=== PATIENT | female | born 1965 | race African-American/Black ===

== ENCOUNTER 2016-08-19 14:16 | Inpatient (IN) ==
[2016-08-19] MEDS ORDERED: Ipratropium/Albuterol Neb 3 ML IH ONE (14:19)
[2016-08-19] MEDS ORDERED: methylPREDNISolone 125 MG/2 ML VIAL IVP ONE (14:19)
--- NOTE | 2016-08-19 14:22 | Emergency Department Note ---
Disposition Clinical Impression: Hypoxia Asthma with exacerbation Qualifiers: Asthma severity: unspecified severity Qualified Code(s): J45.901 - Unspecified asthma with (acute) exacerbation Hypertension Qualifiers: Hypertension type: essential hypertension Qualified Code(s): I10 - Essential ( primary) hypertension Disposition: Admitted As Inpatient Condition: Good Referrals: Deepthi Garcia MD [Primary Care Provider] - Forms: ED Satisfaction Letter Time of Disposition: 14:58 SOB HPI - General Chief Complaint: ED Shortness of Breath/Dyspnea Stated Complaint: DAVID Time Seen by Provider: 08/19/16 14:19 Source: patient Mode of arrival: ambulatory Limitations: no limitations Nursing Notes Reviewed: Yes Vital Signs Reviewed: Yes - History of Present Illness 50-year-old with history of asthma comes in with increasing shortness of breath. States she hasn't felt well for the last couple of days. 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 SPECIALIST Context: recent illness Severity: moderate Consistency/Duration: constant Improves with: oxygen, bronchodilators Worsens with: exertion Known history of: asthma Associated symptoms: Reports: cough, wheezing Treatment prior to arrival: oxygen, bronchodilator Cough present: Yes Cough Description: Involuntary Cough Frequency: Intermittent - Related Data Home Medications Medication Instructions Recorded Confirmed Alprazolam [Xanax 0.5 MG Tablet] 0.5 mg PO BID #0 02/11/15 08/19/16 FLUoxetine HCl [Prozac] 40 mg PO DAILY #0 02/11/15 08/19/16 Furosemide [Lasix] 40 mg PO DAILY #0 02/11/15 08/19/16 Levothyroxine Sodium [Synthroid] 200 mcg PO DAILY #0 02/11/15 08/19/16 Omeprazole [PriLOSEC] 20 mg PO DAILY #0 02/11/15 08/19/16 Albuterol Sulfate [Ventolin Hfa] 2 puff IH Q4H PRN 01/02/16 08/19/16 Hydrochlorothiazide 25 mg PO DAILY 01/02/16 08/19/16 Hydrocodone/Acetaminophen [[place] 1 tab PO Q6HR PRN 01/02/16 08/19/16 5-325 Tablet] Meloxicam 15 mg PO DAILY 01/02/16 08/19/16 Umeclidinium [place] [Incruse 1 puff IH DAILY 01/02/16 08/19/16 Ellipta] Glimepiride [Amaryl] 4 mg PO DAILY 04/09/16 08/19/16 Amlodipine Besylate 10 mg PO DAILY 06/25/16 08/19/16 Atorvastatin [Lipitor] 40 mg PO HS 06/25/16 08/19/16 Levothyroxine [Synthroid] 25 mcg PO DAILY 06/25/16 08/19/16 Metoprolol [Lopressor] 25 mg PO BID 06/25/16 08/19/16 Budesonide/Formoterol 160/4.5 2 puff IH BIDR 08/19/16 08/19/16 [Symbicort 160/4.5] Metformin HCl [Metformin HCl ER] 750 mg PO DAILY 08/19/16 08/19/16 Previous Rx's Medication Instructions Recorded Aspirin 81 mg PO DAILY #30 tab.chew 02/13/15 Lisinopril [Zestril] 40 mg PO DAILY #30 tablet 02/13/15 Allergies Allergy/AdvReac Type Severity Reaction Status Date / Time No Known Allergies Allergy Verified 08/19/16 14:32 Constitutional: Denies: fever, chills, weakness, weight change Eyes: Denies: eye pain, eye discharge, vision change ENT ED: Denies: ear pain, throat pain, dental pain, hearing loss, epistaxis, congestion, dysphagia Cardiovascular: Denies: chest pain, palpitations, dyspnea on exertion, edema, syncope Respiratory: Reports: cough, dyspnea, wheezes Gastrointestinal: Denies: abdominal pain, nausea, vomiting, diarrhea, constipation, hematemesis, melena, hematochezia Genitourinary: Denies: dysuria, frequency, hematuria, discharge Musculoskeletal: Denies: back pain, neck pain, arthralgia, myalgia Integumentary: Denies: rash, abrasion, lesions Neurological: Denies: headache, weakness, numbness, paresthesias, confusion, abnormal gait, vertigo Psychiatric: Denies: anxiety, depression, suicidal thoughts, homicidal thoughts , auditory hallucinations, visual hallucinations Endocrine: Denies: fatigue Hematological/Lymphatic: Denies: easy bleeding, easy bruising Allergic/Immunologic: Denies: facial swelling, urticaria Past Medical History - Past Medical History Medical history: Reports: asthma, COPD, diabetes, GERD, hypertension, thyroid disease Surgical history: Reports: , cholecystectomy, other Psychiatric history: Reports: anxiety, depression ELECTRICAL TEST TECHNICIAN history: Reports: no ELECTRICAL TEST TECHNICIAN history - Social History Smoking Status: Current every day smoker Smokeless Tobacco Status: No Alcohol use: Reports: none Drug use: Reports: none Physical Exam - General Limitations: no limitations - Head Head exam: atraumatic, normocephalic, normal inspection - Eye Eye exam: Present: normal appearance, PERRL, EOMI - ENT ENT exam: normal exam, normal oropharynx, mucous membranes moist - Neck Neck exam: Present: normal inspection, full ROM, trachea midline - Chest Chest inspection: Present: normal inspection, symmetric chest wall rise - Respiratory Respiratory exam: Present: respiratory distress, wheezes - Cardiovascular Cardiovascular exam: Present: regular rate, normal rhythm, normal heart sounds - Abdominal Exam Abdominal exam: Present: soft, Non-Tender. Absent: tenderness, distention, guarding, rebound, rigidity - Extremities Exam Extremities exam: Present: normal inspection, full ROM. Absent: tenderness, pedal edema - Expanded Lower Extremity Exam Neurovascular/Tendon exam: Absent: motor deficit, sensory deficit, tendon deficit Gait: not tested/not observed - Back Exam Back exam: Present: normal inspection, full ROM. Absent: tenderness - Neurological Exam Neurological exam: Present: alert, oriented X3 - Psychiatric Psychiatric exam: Present: normal affect, normal mood - Skin Skin exam: Present: warm, dry, intact, normal color Course - Reevaluation(s) Reevaluation #1: 50-year-old comes in with shortness of breath and history of hypertension. Patient was short of breath couldn't take her blood pressure medicines today. She is wheezing throughout all lung fuentes were to go ahead and admit her Dr. Sanders wrote orders for blood pressure medicine. Time: 16:14 - Consultations Consultation #1: I discussed the case with , admit. actually saw the patient come in by squad and actually went in and saw the patient prior to any testing being returned. He accepts patient for admission. Time: 14:57 Vital Signs Temperature 98.6 F 08/19/16 14:22 Pulse Rate 76 08/19/16 14:22 Respiratory Rate 24 08/19/16 14:22 Blood Pressure 169/107 08/19/16 14:22 O2 Sat by Pulse Oximetry 90 L 08/19/16 14:22 Temperature 98.6 F 08/19/16 14:22 Pulse Rate 62 08/19/16 16:00 Respiratory Rate 24 08/19/16 16:00 Blood Pressure 226/120 08/19/16 16:00 O2 Sat by Pulse Oximetry 94 L 08/19/16 16:00 Oxygen Delivery Oxygen Delivery Nasal Cannula Shortness of Breath/Dyspnea - Lab Data Result diagrams: 08/19/16 14:40 08/19/16 14:40 Lab Results 08/19/16 08/19/16 08/19/16 Range/Units 14:40 14:40 14:40 WBC 5.3 (4.3-11.1) K/mcL RBC 6.54 H (3.82-4.97) M/mcL Hgb 14.8 (11.5-15.4) g/dL Hct 50.0 H (35.3-44.9) % MCV 76.5 L (83.0-100.0) fL MCH 22.6 L (28.0-33.3) pg MCHC 29.6 L (31.6-35.5) g/dL RDW 17.0 H (11.5-14.5) % Plt Count 193 (140-400) K/mcL MPV 10.2 (9.4-12.4) fL Immature Gran % 0.6 (0-4) % Seg Neutrophils % 39.1 % Lymphocytes % 45.0 % Monocytes % 8.6 % Eosinophils % 5.9 % Basophils % 0.8 % Neutrophils # 2.1 (1.6-8.9) K/mcL Lymphocytes # 2.4 (0.6-4.6) K/mcL Monocytes # 0.5 (0.0-1.3) K/mcL Eosinophils # 0.3 (0.0-0.6) K/mcL Basophils # 0.0 (0.0-0.2) K/mcL Sodium 141 (136-145) mEq/L Potassium 3.9 (3.5-4.5) mEq/L Chloride 102 (98-109) mEq/L Carbon Dioxide 30 H (19-29) mEq/L BUN 9 (7-20) mg/dL Creatinine 0.89 (0.57-1.11) mg/dL Est GFR ( Amer) > 60 (> 60) Est GFR (Non-Af Amer) > 60 (> 60) BUN/Creatinine Ratio 10 (6-26) Glucose 141 H (70-99) mg/dL Calculated Osmolality 293 (280-300) Lactic Acid (0.5-2.2) mmol/L Calcium 10.2 (8.6-10.8) mg/dL Troponin I 0.03 (0-0.03) ng/mL B-Natriuretic Peptide (0-100) pg/mL 08/19/16 08/19/16 Range/Units 14:40 14:49 WBC (4.3-11.1) K/mcL RBC (3.82-4.97) M/mcL Hgb (11.5-15.4) g/dL Hct (35.3-44.9) % MCV (83.0-100.0) fL MCH (28.0-33.3) pg MCHC (31.6-35.5) g/dL RDW (11.5-14.5) % Plt Count (140-400) K/mcL MPV (9.4-12.4) fL Immature Gran % (0-4) % Seg Neutrophils % % Lymphocytes % % Monocytes % % Eosinophils % % Basophils % % Neutrophils # (1.6-8.9) K/mcL Lymphocytes # (0.6-4.6) K/mcL Monocytes # (0.0-1.3) K/mcL Eosinophils # (0.0-0.6) K/mcL Basophils # (0.0-0.2) K/mcL Sodium (136-145) mEq/L Potassium (3.5-4.5) mEq/L Chloride (98-109) mEq/L Carbon Dioxide (19-29) mEq/L BUN (7-20) mg/dL Creatinine (0.57-1.11) mg/dL Est GFR ( Amer) (> 60) Est GFR (Non-Af Amer) (> 60) BUN/Creatinine Ratio (6-26) Glucose (70-99) mg/dL Calculated Osmolality (280-300) Lactic Acid 1.4 (0.5-2.2) mmol/L Calcium (8.6-10.8) mg/dL Troponin I (0-0.03) ng/mL B-Natriuretic Peptide 80 (0-100) pg/mL
[2016-08-19 14:58] LABS: Basophils % 0.8 %; Eosinophils # 0.3 K/mcL (0.0-0.6); Eosinophils % 5.9 %; Hemoglobin 14.8 g/dL (11.5-15.4); Immature Granulocytes % 0.6 % (0-4); Lymphocytes # 2.4 K/mcL (0.6-4.6); Mean Corpuscular HGB Conc 29.6 g/dL (31.6-35.5); Mean Corpuscular Hemoglobin 22.6 pg (28.0-33.3); Mean Corpuscular Volume 76.5 fL (83.0-100.0); Mean Platelet Volume 10.2 fL (9.4-12.4); Monocytes # 0.5 K/mcL (0.0-1.3); Monocytes % 8.6 %; Neutrophils # 2.1 K/mcL (1.6-8.9); Platelet Count 193 K/mcL (140-400); Red Blood Count 6.54 M/mcL (3.82-4.97); Segmented Neutrophils % 39.1 %
[2016-08-19 15:10] LABS: BUN/Creatinine Ratio 10 (6-26); Blood Urea Nitrogen 9 mg/dL (7-20); Calcium 10.2 mg/dL (8.6-10.8); Carbon Dioxide 30 mEq/L (19-29); Chloride 102 mEq/L (98-109); Glucose 141 mg/dL (70-99); Osmolality,Calculated 293 (280-300); Potassium 3.9 mEq/L (3.5-4.5); Sodium 141 mEq/L (136-145); eGFR For African Americans > 60 (> 60); eGFR For Non-African Americans > 60 (> 60)
[2016-08-19] MEDS ORDERED: *HR* Morphine 2 MG/ML SYRINGE IVP PRN (15:20)
[2016-08-19] MEDS ORDERED: Naloxone 0.4 MG/ML INJ IVP PRN (15:20)
[2016-08-19] MEDS ORDERED: MethylPREDNISolone 40 MG/ML VIAL IVP ONE (15:32)
--- NOTE | 2016-08-19 15:40 | Internal Med History&Physical ---
Date of Encounter: 08/21/16 Time of Encounter: 15:36 Assessment and Plan (1) Acute exacerbation of chronic obstructive pulmonary disease (COPD) Current visit: No Status: Acute COPD exacerbation: -Admitted as inpatient. -Intranasal oxygen: 2 L/m: To keep saturation above 88% -Blood culture. -IV levofloxacin 750 mg every 24 hours. -IV Solu-Medrol 40 mg every 8 hours. -Inhaled DuoNeb every 4 hours. -DVT prophylaxis -GI prophylaxis -Smoking cessation discussed at length. -We will send respiratory panel (2) Diabetes Current visit: No Status: Acute ACHS will adjust/Start insulin depending upon blood sugar Qualifiers: Diabetes mellitus type: type 2 Diabetes mellitus complication status: without complication Diabetes mellitus extermination inspector insulin use: unspecified correction insulin use status Qualified Code(s): E11.9 - Type 2 diabetes mellitus without complications (3) Hypothyroidism Current visit: No Status: Acute on replacement therapy Qualifiers: Hypothyroidism type: unspecified Qualified Code(s): E03.9 - Hypothyroidism , unspecified (4) Tobacco abuse Current visit: No Status: Acute Not willing to quit smoking (5) DVT prophylaxis Current visit: No Status: Acute Heparin Medical decision making: This patient is a [id number] risk of respiratory failure in spite of being on appropriate treatment. Internal Medicine - H&P: HPI Chief complaint: Shortness of breath Admitted From: Emergency Dept Plans for Post Hospital Care: Home History of present illness: PCP: [facility]. Brief PMH: DM, HTN, CAD, Morbid Obesity, COPD HPI: Patient has persistent ongoing cough along with the shortness of breath for past 4 days. It was noted that in last 48 hours her cough and shortness of breath got worsened. Patient is complaining of yellowish-green expectoration. Patient claims that she was unable to go to the restroom from her bed since last night. The immobility is secondary to the shortness of breath. Patient denies chest pain, abdominal pain, nausea, vomiting, and diarrhea. Course in the emergency room: Patient was brought by EMS. Patient was evaluated by emergency room physician. Baseline labs were done. Patient is persistently coughing and has yellowish-green expectoration. X-ray is pending. Reason for admission: COPD exacerbation. Family history: Noncontributory Past Med Surg Social Fam HX - Past Medical History Medical history: asthma, COPD, diabetes, GERD, hypertension, thyroid disease Psychiatric history: anxiety, depression - Past Surgical History Surgical History: , cholecystectomy, other - Social History Smoking Status: Current every day smoker Smokeless Tobacco Status: No Alcohol use: none Drug use: none - Family History Sister Adopted: No Family Member Ethnicity: Non- Living Status: Still Living Hx Family Cancer: Yes (stage 4 breast cancer) Mother Adopted: No Family Member Ethnicity: Non- Living Status: Hx Family Cardiac Disorders: Yes (PA) Hx Family Neurologic Disorders: Yes (seizures) Father Living Status: Still Living Hx Family Cardiac Disorders: Yes (HTN, heart disease, bipass) Internal Medicine - H&P: Meds Alprazolam [Xanax 0.5 MG Tablet] 0.5 mg PO BID #0 02/11/15 [History] FLUoxetine HCl [Prozac] 40 mg PO DAILY #0 02/11/15 [History] Furosemide [Lasix] 40 mg PO DAILY #0 02/11/15 [History] Levothyroxine Sodium [Synthroid] 200 mcg PO DAILY #0 02/11/15 [History] Omeprazole [PriLOSEC] 20 mg PO DAILY #0 02/11/15 [History] Aspirin 81 mg PO DAILY #30 tab.chew 02/13/15 [Rx] Lisinopril [Zestril] 40 mg PO DAILY #30 tablet 02/13/15 [Rx] Albuterol Sulfate [Ventolin Hfa] 2 puff IH Q4H PRN 01/02/16 [History] Hydrochlorothiazide 25 mg PO DAILY 01/02/16 [History] Hydrocodone/Acetaminophen [[place] 5-325 Tablet] 1 tab PO Q6HR PRN 01/02/16 [ History] Meloxicam 15 mg PO DAILY 01/02/16 [History] Umeclidinium [place] [Incruse Ellipta] 1 puff IH DAILY 01/02/16 [History] Glimepiride [Amaryl] 4 mg PO DAILY 04/09/16 [History] Amlodipine Besylate 10 mg PO DAILY 06/25/16 [History] Atorvastatin [Lipitor] 40 mg PO HS 06/25/16 [History] Levothyroxine [Synthroid] 25 mcg PO DAILY 06/25/16 [History] Metoprolol [Lopressor] 25 mg PO BID 06/25/16 [History] Budesonide/Formoterol 160/4.5 [Symbicort 160/4.5] 2 puff IH BIDR 08/19/16 [ History] Metformin HCl [Metformin HCl ER] 750 mg PO DAILY 08/19/16 [History] Allergies No Known Allergies Allergy (Verified 08/19/16 14:32) All Systems PM: A 10-system review of systems was performed and is negative for pertinent findings except as documented above in the HPI. - Constitutional Constitutional: no chills, no fever(s), no night sweats - EENT Eyes: no change in vision, no discharge, no pain, no photophobia Ears: no ear discharge, no ear pain, no tinnitus Nose, mouth and throat: no dysphagia, no nasal discharge, no neck pain, no sore throat - Cardiovascular Cardiovascular ROS IM: no chest pain, no diaphoresis, no dyspnea, no lightheadedness, no palpitations, no syncope - Respiratory Respiratory: dyspnea on exertion, wheezing, no cough, no dyspnea, no excessive phlegm production - Gastrointestinal Gastrointestinal: no abdominal pain, no diarrhea, no hematemesis, no hematochezia, no melena, no nausea, no vomiting - Genitourinary Genitourinary: no change in urinary stream, no dysuria, no flank pain, no hematuria - Musculoskeletal Musculoskeletal ROS IM: no numbness, no tingling - Integumentary Integumentary IM: no rash, no unusual bruising - Neurological Neurological ROS: no confusion, no convulsions, no focal weakness, no numbness, no tingling, no tremor(s) - Hematologic/Lymphatic Hematologic/Lymphatic: no easy bruising - Constitutional Vitals: Temp Pulse Resp BP Pulse Ox 98.6 F 73 20 196/88 96 08/19/16 14:22 08/19/16 14:59 08/19/16 14:59 08/19/16 14:59 08/19/16 14:59 General appearance: Present: A&O X 3, morbidly obese, pleasant, no acute distress, answers questions appropriately - Head Head exam: Present: atraumatic, normocephalic - Eye Eye exam: Present: PERRL, conjuntiva pink, sclera anicteric Pupils: Present: PERRL - Neck Neck exam general surgery: Present: supple, trachea midline. Absent: lymphadenopathy - Respiratory Respiratory exam: Present: CTAB. Absent: accessory muscle use, rales, rhonchi, wheezes - Cardiovascular Cardiovascular exam: Present: RRR, +S1, +S2. Absent: diastolic murmur, gallop, rubs, systolic murmur - GI/Abdominal GI/Abdominal exam: Present: normal bowel sounds, soft, no peritoneal signs. Absent: distended, tenderness - Extremities Exam Extremities exam: Present: warm, radial pulses palpable and symetrical. Absent : calf tenderness, cyanotic, pedal edema - Neurological Exam Neurological exam: Present: CN II-XII intact, oriented X3, no focal deficits. Absent: pronater drift, facial droop, speech deficit - Skin Skin exam: Present: dry, intact Internal Med - H&P Results - Labs CBC & Chem 7: 08/20/16 03:31 08/21/16 06:09 Labs: Short CBC 08/19/16 Range/Units 14:40 WBC 5.3 (4.3-11.1) K/mcL Hgb 14.8 (11.5-15.4) g/dL Hct 50.0 H (35.3-44.9) % Plt Count 193 (140-400) K/mcL Neutrophils # 2.1 (1.6-8.9) K/mcL BMP 08/19/16 14:40 Sodium 141 Potassium 3.9 Chloride 102 Carbon Dioxide 30 H BUN 9 Creatinine 0.89 Glucose 141 H Calcium 10.2 Cardiac Enzymes 08/19/16 Range/Units 14:40 Troponin I 0.03 (0-0.03) ng/mL - Impressions ITS Impressions Chest X-Ray 08/19/16 14:19 IMPRESSION: Mild cardiomegaly and pulmonary venous congestion. D/ / Reno Parson MD / Reno Parson MD Interpreting Provider: Reno Parson MD
[2016-08-19] MEDS: Ipratropium/Albuterol Neb 3 ML IH SCH ×3 (16:36→23:20)
[2016-08-19] MEDS: amLODIPine 5 MG TABLET PO SCH (17:06)
[2016-08-19] MEDS: hydroCHLOROthiazide 25 MG TABLET PO SCH (17:07)
[2016-08-19] MEDS: Lisinopril 20 MG TABLET PO SCH (17:07)
[2016-08-19] MEDS: Furosemide 40 MG TABLET PO SCH (17:08)
[2016-08-19] MEDS: FLUoxetine 20 MG CAPSULE PO SCH (18:31)
[2016-08-19] MEDS: *HR* Heparin 5,000 UNIT/ML VIAL SQ SCH (18:32)
[2016-08-19] MEDS: Levothyroxine 25 MCG TABLET PO SCH (18:32)
[2016-08-19] MEDS: Levofloxacin 750 MG/150 ML 750 MG/150 ML BAG IVPB SCH (18:32)
[2016-08-19] MEDS: Aspirin 81 MG TAB.CHEW PO SCH (18:32)
[2016-08-19] MEDS: *HR* Glimepiride 4 MG TABLET PO SCH (18:33)
[2016-08-19 18:59] LABS: Bilirubin,Urine Negative (Negative); Blood,Urine Small (Negative); Clarity,Urine Cloudy (Clear); Color,Urine Yellow (Yellow); Glucose,Urine (UA) Normal (Normal); Ketones,Urine Negative (Negative); Leukocyte Esterase,Urine Negative (Negative); Nitrite,Urine Negative (Negative); Protein,Urine 30 mg/dL (Neg-Trace); Specific Gravity,Urine 1.021 (1.010-1.025); Urobilinogen,Urine Normal (Normal)
[2016-08-19 19:02] LABS: Bacteria,Urine Few per hpf (None-Few); Hyaline Casts,Urine None Seen per lpf (None-Few); Squamous Epithelial Cell,Urine Many per lpf (None-Few)
[2016-08-19 19:12] LABS: Yeast,Urine Few per hpf (None Seen)
[2016-08-19 19:13] LABS: Oval Fat Bodies,Urine Present (Not Present)
[2016-08-19] MEDS: ALPRAZolam 0.5 MG TABLET PO SCH (21:08)
[2016-08-20] MEDS ORDERED: Ibuprofen 400 MG TABLET PO PRN (03:32)
[2016-08-20] MEDS ORDERED: Naloxone 0.4 MG/ML INJ IVP PRN (03:32)
[2016-08-20] MEDS: *HR* HYDROcodone/Acet 5/325 mg TABLET PO PRN (03:40)
[2016-08-20 04:02] LABS: Basophils % 0.2 %; Hematocrit 48.2 % (35.3-44.9); Hemoglobin 14.5 g/dL (11.5-15.4); Immature Granulocytes % 0.6 % (0-4); Lymphocytes # 1.2 K/mcL (0.6-4.6); Lymphocytes % 18.6 %; Mean Corpuscular HGB Conc 30.1 g/dL (31.6-35.5); Mean Corpuscular Hemoglobin 23.1 pg (28.0-33.3); Mean Corpuscular Volume 76.9 fL (83.0-100.0); Mean Platelet Volume 11.1 fL (9.4-12.4); Monocytes # 0.1 K/mcL (0.0-1.3); Monocytes % 2.3 %; Neutrophils # 4.8 K/mcL (1.6-8.9); Platelet Count 236 K/mcL (140-400); Red Blood Count 6.27 M/mcL (3.82-4.97); Red Cell Distribution Width 16.5 % (11.5-14.5); Segmented Neutrophils % 78.3 %
[2016-08-20 04:22] LABS: Albumin 3.5 g/dL (3.5-5.0); Albumin/Globulin Ratio 0.8 (1.1-2.2); Bilirubin,Total 0.3 mg/dL (0.2-1.2); Calcium 10.1 mg/dL (8.6-10.8); Globulin 4.6 g/dL (2.4-3.5); Phosphorous 3.1 mg/dL (2.3-4.7); Potassium 4.4 mEq/L (3.5-4.5); Total Protein 8.1 g/dL (6.0-8.3)
[2016-08-20] MEDS: Ipratropium/Albuterol Neb 3 ML IH SCH ×6 (04:42→23:51)
[2016-08-20] MEDS: *HR* Heparin 5,000 UNIT/ML VIAL SQ SCH ×2 (06:07→17:23)
[2016-08-20] MEDS: MethylPREDNISolone 40 MG/ML VIAL IVP SCH ×2 (08:32→17:23)
[2016-08-20] MEDS: FLUoxetine 20 MG CAPSULE PO SCH (08:32)
[2016-08-20] MEDS: ALPRAZolam 0.5 MG TABLET PO SCH ×2 (08:32→21:08)
[2016-08-20] MEDS: Furosemide 40 MG TABLET PO SCH (08:32)
[2016-08-20] MEDS: Lisinopril 20 MG TABLET PO SCH (08:33)
[2016-08-20] MEDS: Levothyroxine 25 MCG TABLET PO SCH (08:33)
[2016-08-20] MEDS: hydroCHLOROthiazide 25 MG TABLET PO SCH (08:33)
[2016-08-20] MEDS: hydrALAZINE 25 MG TABLET PO SCH ×2 (08:33→17:25)
[2016-08-20] MEDS: Aspirin 81 MG TAB.CHEW PO SCH (08:33)
[2016-08-20] MEDS: amLODIPine 5 MG TABLET PO SCH (08:34)
[2016-08-20] MEDS: Levofloxacin 750 MG/150 ML 750 MG/150 ML BAG IVPB SCH (08:34)
[2016-08-20] MEDS: *HR* Glimepiride 4 MG TABLET PO SCH (08:41)
--- NOTE | 2016-08-20 08:49 | Internal Med Progress Note ---
<Bryn Marks - Last Filed: 08/20/16 08:42> Date of Encounter: 08/20/16 Time of Encounter: 08:42 - Assessment and plan (1) Acute exacerbation of chronic obstructive pulmonary disease (COPD) Current Visit: No Status: Acute Assessment and plan: Oxygen saturation has been stable Continue medications as outlined below Respiratory panel still pending 08/19/16 -Intranasal oxygen: 2 L/m: To keep saturation above 88% -Blood culture. -IV levofloxacin 750 mg every 24 hours. -IV Solu-Medrol 40 mg every 8 hours. -Inhaled DuoNeb every 4 hours. -DVT prophylaxis -GI prophylaxis -Smoking cessation discussed at length. -We will send respiratory panel (2) Diabetes Current Visit: No Status: Acute Assessment and plan: Patient is on metformin and glimepiride at home with inconsistent compliance Blood glucose this morning = 336 We will discuss starting insulin during hospitalization Continue before meals at bedtime checks Qualifiers: Diabetes mellitus complication status: without complication Diabetes mellitus chcf insulin use: unspecified chcf insulin use status Qualified Code(s): E11.9 - Type 2 diabetes mellitus without complications (3) Hypothyroidism Current Visit: No Status: Acute Qualifiers: Qualified Code(s): E03.9 - Hypothyroidism, unspecified (4) Tobacco abuse Current Visit: No Status: Acute Assessment and plan: Discussed importance of smoking cessation (5) DVT prophylaxis Current Visit: No Status: Acute Assessment and plan: Continue heparin - Subjective Interval history: "Marie" has a history of COPD. She says that at home she can walk the length of her house without becoming short of breath some days while others this makes her short of breath. She lives in a trailer and is somewhat homebound, she has 6 children who take turns staying with her to help care for her. She also has a home health aide who comes twice a week. She uses oxygen every night, usually 2 L. She says her breathing has improved significantly relative to when she was admitted yesterday. She denies chest pain, abdominal pain, or other new issues. - Constitutional Vitals: Temp Pulse Resp BP Pulse Ox 98.2 F 93 18 171/90 93 L 08/20/16 07:18 08/20/16 07:18 08/20/16 07:18 08/20/16 07:18 08/20/16 07:18 General appearance: Present: A&O X 3, morbidly obese, pleasant, no acute distress, answers questions appropriately - Head Head exam: Present: atraumatic, normocephalic - Eye Eye exam: Present: PERRL, conjuntiva pink, sclera anicteric Pupils: Present: PERRL - Neck Neck exam general surgery: Present: supple, trachea midline. Absent: lymphadenopathy - Respiratory Respiratory exam: Present: decreased breath sounds, wheezes. Absent: accessory muscle use, rales, rhonchi - Cardiovascular Cardiovascular exam: Present: RRR, +S1, +S2. Absent: diastolic murmur, gallop, rubs, systolic murmur - GI/Abdominal GI/Abdominal exam: Present: normal bowel sounds, soft, no peritoneal signs. Absent: distended, tenderness - Extremities Exam Extremities exam: Present: warm, radial pulses palpable and symetrical. Absent : calf tenderness, cyanotic, pedal edema - Neurological Exam Neurological exam: Present: CN II-XII intact, oriented X3, no focal deficits. Absent: pronater drift, facial droop, speech deficit - Skin Skin exam: Present: dry, intact Internal Medicine: Result - Labs CBC & Chem 7: 08/20/16 03:31 08/20/16 03:31 Labs: Short CBC 08/20/16 Range/Units 03:31 WBC 6.2 (4.3-11.1) K/mcL Hgb 14.5 (11.5-15.4) g/dL Hct 48.2 H (35.3-44.9) % Plt Count 236 (140-400) K/mcL Neutrophils # 4.8 (1.6-8.9) K/mcL BMP 08/20/16 03:31 Sodium 138 Potassium 4.4 Chloride 99 Carbon Dioxide 26 BUN 19 D Creatinine 1.18 H Glucose 336 H Calcium 10.1 Cardiac Enzymes 08/19/16 08/20/16 Range/Units 20:56 03:31 Troponin I 0.03 0.03 (0-0.03) ng/mL Liver Function 08/20/16 Range/Units 03:31 Total Bilirubin 0.3 (0.2-1.2) mg/dL AST 16 (5-34) Units/L ALT 26 (0-55) Units/L Alkaline Phosphatase 157 H (38-126) Units/L Albumin 3.5 (3.5-5.0) g/dL Urine 08/19/16 Range/Units 18:38 Urine Color Yellow (Yellow) Urine Clarity Cloudy A (Clear) Urine pH 6.0 (5.0-8.0) pH Units Ur Specific Industry 1.021 (1.010-1.025) Urine Protein 30 H (Neg-Trace) mg/dL Urine Glucose (UA) Normal (Normal) mg/dL Consult Discharge Plan - Plan Referrals: Deepthi Garcia MD [Primary Care Provider] - 08/25/16 10:45 am () <Case Pierre - Last Filed: 08/20/16 16:11> Date of Encounter: 08/20/16 - Constitutional Vitals: Temp Pulse Resp BP Pulse Ox 98.1 F 94 18 164/88 92 L 08/20/16 10:38 08/20/16 10:38 08/20/16 10:38 08/20/16 10:38 08/20/16 10:38 Internal Medicine: Result - Labs CBC & Chem 7: 08/20/16 03:31 08/20/16 03:31 Labs: Short CBC 08/20/16 Range/Units 03:31 WBC 6.2 (4.3-11.1) K/mcL Hgb 14.5 (11.5-15.4) g/dL Hct 48.2 H (35.3-44.9) % Plt Count 236 (140-400) K/mcL Neutrophils # 4.8 (1.6-8.9) K/mcL BMP 08/20/16 03:31 Sodium 138 Potassium 4.4 Chloride 99 Carbon Dioxide 26 BUN 19 D Creatinine 1.18 H Glucose 336 H Calcium 10.1 Cardiac Enzymes 08/19/16 08/20/16 Range/Units 20:56 03:31 Troponin I 0.03 0.03 (0-0.03) ng/mL Liver Function 08/20/16 Range/Units 03:31 Total Bilirubin 0.3 (0.2-1.2) mg/dL AST 16 (5-34) Units/L ALT 26 (0-55) Units/L Alkaline Phosphatase 157 H (38-126) Units/L Albumin 3.5 (3.5-5.0) g/dL Urine 08/19/16 Range/Units 18:38 Urine Color Yellow (Yellow) Urine Clarity Cloudy A (Clear) Urine pH 6.0 (5.0-8.0) pH Units Ur Specific Industry 1.021 (1.010-1.025) Urine Protein 30 H (Neg-Trace) mg/dL Urine Glucose (UA) Normal (Normal) mg/dL - Attending Attestation I examined this patient and my medical decision-making was reviewed with the PROMOTIONAL MODEL/PA/Advanced Practice Nurse/Resident Physician. I agree with the documented findings, disposition and treatment plan as described except to the extent set forth below. COPD exacerbation in morbidly obese patient with underlying LEXIE, refusing bipap. Bipap ordered anyway. Patient is at high risk of respiratory failure.
--- NOTE | 2016-08-20 09:49 | Electrocardiograph Report ---
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
[2016-08-20] MEDS ORDERED: Dextrose Gel 15 GM PO PRN ×2 (10:39)
[2016-08-20] MEDS ORDERED: *HR* Dextrose 50 % in Water (Syg) 50 ML SYRINGE IVP PRN (10:39)
[2016-08-20] MEDS ORDERED: D5% in Water 1,000 ML IV PRN (10:39)
[2016-08-20] MEDS: Insulin LISPRO 300 UNITS/3 ML VIAL SQ SCH ×3 (11:53→21:09)
[2016-08-20] MEDS ORDERED: Insulin DETEMIR 100 UNIT/ML X5UNITS SQ SCH (21:00)
[2016-08-20] MEDS ORDERED: Insulin LISPRO 300 UNITS/3 ML VIAL SQ SCH (21:00)
[2016-08-21] MEDS: MethylPREDNISolone 40 MG/ML VIAL IVP SCH ×3 (01:28→16:25)
[2016-08-21] MEDS: hydrALAZINE 25 MG TABLET PO SCH ×3 (02:28→16:26)
[2016-08-21] MEDS: Ipratropium/Albuterol Neb 3 ML IH SCH ×6 (03:33→23:03)
[2016-08-21] MEDS: *HR* Heparin 5,000 UNIT/ML VIAL SQ SCH ×2 (06:11→16:25)
[2016-08-21 07:00] LABS: Hemoglobin A1C 9.4 %
[2016-08-21 07:14] LABS: Calcium 10.1 mg/dL (8.6-10.8); Potassium 4.5 mEq/L (3.5-4.5)
[2016-08-21 07:31] LABS: Basophils % 0.1 %; Hematocrit 47.9 % (35.3-44.9); Hemoglobin 14.6 g/dL (11.5-15.4); Immature Granulocytes % 0.7 % (0-4); Lymphocytes # 1.1 K/mcL (0.6-4.6); Mean Corpuscular HGB Conc 30.5 g/dL (31.6-35.5); Mean Corpuscular Hemoglobin 23.3 pg (28.0-33.3); Mean Corpuscular Volume 76.5 fL (83.0-100.0); Mean Platelet Volume 11.1 fL (9.4-12.4); Monocytes # 0.5 K/mcL (0.0-1.3); Neutrophils # 14.1 K/mcL (1.6-8.9); Platelet Count 237 K/mcL (140-400); Red Blood Count 6.26 M/mcL (3.82-4.97); Red Cell Distribution Width 17.1 % (11.5-14.5); Segmented Neutrophils % 89.2 %
[2016-08-21] MEDS: hydroCHLOROthiazide 25 MG TABLET PO SCH (08:02)
[2016-08-21] MEDS: Lisinopril 20 MG TABLET PO SCH (08:02)
[2016-08-21] MEDS: FLUoxetine 20 MG CAPSULE PO SCH (08:02)
[2016-08-21] MEDS: Insulin LISPRO 300 UNITS/3 ML VIAL SQ SCH ×3 (08:02→22:06)
[2016-08-21] MEDS: amLODIPine 5 MG TABLET PO SCH (08:02)
[2016-08-21] MEDS: Levothyroxine 25 MCG TABLET PO SCH (08:02)
[2016-08-21] MEDS: Aspirin 81 MG TAB.CHEW PO SCH (08:03)
[2016-08-21] MEDS: Levofloxacin 750 MG/150 ML 750 MG/150 ML BAG IVPB SCH (08:03)
[2016-08-21] MEDS: Furosemide 40 MG TABLET PO SCH (08:03)
[2016-08-21] MEDS: ALPRAZolam 0.5 MG TABLET PO SCH ×2 (08:03→22:06)
--- NOTE | 2016-08-21 11:36 | Internal Med Progress Note ---
<Bryn Marks - Last Filed: 08/21/16 11:34> Date of Encounter: 08/21/16 Time of Encounter: 09:00 - Assessment and plan (1) Acute exacerbation of chronic obstructive pulmonary disease (COPD) Current Visit: No Status: Acute Assessment and plan: Oxygen saturation has been stable Continue medications as outlined below 08/19/16 -Intranasal oxygen: 2 L/m: To keep saturation above 88% -Blood culture. -IV levofloxacin 750 mg every 24 hours. -IV Solu-Medrol 40 mg every 8 hours. -Inhaled DuoNeb every 4 hours. -DVT prophylaxis -GI prophylaxis -Smoking cessation discussed at length. -We will send respiratory panel (2) Hypertension Current Visit: Yes Status: Acute Assessment and plan: Contacted patient's pharmacy and they verified that medications currently listed as her home medications are accurate. She has been filling her medications consistently Despite multiple antihypertensive classes, her systolic blood pressure remains elevated in the 170s Patient is not having symptoms We will increase her hydralazine Consider adding isosorbide mononitrate depending on response She has a history of sleep apnea, encouraged to use BiPAP but patient refuses BUN and creatinine are elevated. Chart review reveals this has happened in the past. This is likely due to steroid treatment however we will continue to monitor and consider discontinuing CHRISS inhibitor for any worsening Qualifiers: Qualified Code(s): I10 - Essential (primary) hypertension (3) Diabetes Current Visit: No Status: Acute Assessment and plan: Patient is on metformin and glimepiride at home with inconsistent compliance Blood glucose still elevated despite basal insulin and Humalog This is likely a reaction to steroid treatment We will increase her basal dose Continue before meals at bedtime checks Qualifiers: Diabetes mellitus type: type 2 Diabetes mellitus complication status: without complication Diabetes mellitus long-term insulin use: unspecified terminal system operator insulin use status Qualified Code(s): E11.9 - Type 2 diabetes mellitus without complications (4) Hypothyroidism Current Visit: No Status: Acute Qualifiers: Hypothyroidism type: unspecified Qualified Code(s): E03.9 - Hypothyroidism , unspecified (5) Tobacco abuse Current Visit: No Status: Acute Assessment and plan: Discussed importance of smoking cessation (6) DVT prophylaxis Current Visit: No Status: Acute Assessment and plan: Continue heparin - Subjective Interval history: Patient was seen and examined at bedside this morning. She seems "groggy", so she did not sleep last night. She does not use her BiPAP. She says this is typical for her her when she wakes up in the morning. I did a complete neuro exam which was normal. She says her breathing is okay. She denies chest pain , abdominal pain, or other new issues. - Constitutional Vitals: Temp Pulse Resp BP Pulse Ox 97.6 F 59 18 175/104 91 L 08/21/16 07:52 08/21/16 07:52 08/21/16 11:17 08/21/16 07:52 08/21/16 11:17 General appearance: Present: A&O X 3, morbidly obese, pleasant, no acute distress, answers questions appropriately - Head Head exam: Present: atraumatic, normocephalic - Eye Eye exam: Present: PERRL, conjuntiva pink, sclera anicteric Pupils: Present: PERRL - Neck Neck exam general surgery: Present: supple, trachea midline. Absent: lymphadenopathy - Respiratory Respiratory exam: Present: decreased breath sounds. Absent: accessory muscle use, rales, wheezes - Cardiovascular Cardiovascular exam: Present: RRR, +S1, +S2. Absent: diastolic murmur, gallop, rubs, systolic murmur - GI/Abdominal GI/Abdominal exam: Present: normal bowel sounds, soft, no peritoneal signs. Absent: distended, tenderness - Extremities Exam Extremities exam: Present: warm, radial pulses palpable and symetrical. Absent : calf tenderness, cyanotic, pedal edema - Neurological Exam Neurological exam: Present: CN II-XII intact, oriented X3, no focal deficits. Absent: pronater drift, facial droop, speech deficit - Skin Skin exam: Present: dry, intact Internal Medicine: Result - Labs CBC & Chem 7: 08/21/16 06:09 08/21/16 06:09 Labs: Short CBC 08/21/16 Range/Units 06:09 WBC 15.8 H D (4.3-11.1) K/mcL Hgb 14.6 (11.5-15.4) g/dL Hct 47.9 H (35.3-44.9) % Plt Count 237 (140-400) K/mcL Neutrophils # 14.1 H (1.6-8.9) K/mcL BMP 08/21/16 06:09 Sodium 138 Potassium 4.5 Chloride 99 Carbon Dioxide 29 BUN 28 H Creatinine 1.39 H Glucose 375 H Calcium 10.1 Consult Discharge Plan - Plan Referrals: Deepthi Garcia MD [Primary Care Provider] - 08/25/16 10:45 am () <GabbyCase R - Last Filed: 08/21/16 15:03> Date of Encounter: 08/21/16 - Constitutional Vitals: Temp Pulse Resp BP Pulse Ox 97.8 F 68 18 168/98 93 L 08/21/16 12:14 08/21/16 12:14 08/21/16 12:14 08/21/16 12:14 08/21/16 12:14 Internal Medicine: Result - Labs CBC & Chem 7: 08/21/16 06:09 08/21/16 06:09 Labs: Short CBC 08/21/16 Range/Units 06:09 WBC 15.8 H D (4.3-11.1) K/mcL Hgb 14.6 (11.5-15.4) g/dL Hct 47.9 H (35.3-44.9) % Plt Count 237 (140-400) K/mcL Neutrophils # 14.1 H (1.6-8.9) K/mcL BMP 08/21/16 06:09 Sodium 138 Potassium 4.5 Chloride 99 Carbon Dioxide 29 BUN 28 H Creatinine 1.39 H Glucose 375 H Calcium 10.1 - Attending Attestation I examined this patient and my medical decision-making was reviewed with the LIBRARY SERIALS ASSISTANT/PA/Advanced Practice Nurse/Resident Physician. I agree with the documented findings, disposition and treatment plan as described except to the extent set forth below. Patient with morbid obesity and both COPD and obstructive sleep apnea. Admitted due to acute exacerbation of COPD. She refuses to use BiPAP. Type 2 diabetes with hyperglycemia, A1c above 9. We will continue with insulin therapy, with increased dose of basal insulin. Continue monitoring glucose levels. Uncontrolled hypertension, increased dose of hydralazine. Continue home medications. Continue monitoring the patient closely. Leukocytosis noted, likely induced by steroids. Continue with DVT prophylaxis. Patient is at high risk of developing respiratory failure due to severe COPD and obstructive sleep apnea in the setting of a patient with morbid obesity who refuses to wear BiPAP. Increased BUN levels, would continue monitoring. Likely induced by steroids.
[2016-08-21] MEDS ORDERED: Insulin DETEMIR 100 UNIT/ML X5UNITS SQ SCH ×2 (11:40→21:00)
[2016-08-21 12:23] LABS: Protein/Creatinine Ratio,Urine 0.12 mg/mg (0-0.20)
[2016-08-21] MEDS ORDERED: Insulin LISPRO 300 UNITS/3 ML VIAL SQ SCH (15:39)
[2016-08-22] MEDS: hydrALAZINE 25 MG TABLET PO SCH ×3 (00:54→16:44)
[2016-08-22] MEDS: MethylPREDNISolone 40 MG/ML VIAL IVP SCH ×3 (00:54→17:11)
[2016-08-22] MEDS: Ipratropium/Albuterol Neb 3 ML IH SCH ×6 (04:11→23:57)
[2016-08-22] MEDS: *HR* Heparin 5,000 UNIT/ML VIAL SQ SCH ×2 (05:19→17:10)
[2016-08-22 05:34] LABS: Basophils % 0.2 %; Hematocrit 48.2 % (35.3-44.9); Immature Granulocytes % 1.3 % (0-4); Lymphocytes # 0.8 K/mcL (0.6-4.6); Lymphocytes % 4.9 %; Mean Corpuscular Hemoglobin 22.5 pg (28.0-33.3); Mean Corpuscular Volume 77.6 fL (83.0-100.0); Mean Platelet Volume 10.7 fL (9.4-12.4); Monocytes # 0.7 K/mcL (0.0-1.3); Monocytes % 4.5 %; Neutrophils # 14.6 K/mcL (1.6-8.9); Nucleated Red Blood Cells 0.1 /100 WBC (0); Platelet Count 238 K/mcL (140-400); Red Blood Count 6.21 M/mcL (3.82-4.97); Red Cell Distribution Width 16.7 % (11.5-14.5); Segmented Neutrophils % 89.1 %
[2016-08-22 05:56] LABS: Calcium 9.3 mg/dL (8.6-10.8); Potassium 4.6 mEq/L (3.5-4.5)
[2016-08-22] MEDS ORDERED: Insulin LISPRO 300 UNITS/3 ML VIAL SQ SCH ×2 (07:52)
--- NOTE | 2016-08-22 08:04 | Internal Med Progress Note ---
<SelinaBryn - Last Filed: 08/22/16 14:31> Date of Encounter: 08/22/16 Time of Encounter: 08:04 - Assessment and plan (1) Acute exacerbation of chronic obstructive pulmonary disease (COPD) Current Visit: No Status: Acute Assessment and plan: Oxygen saturation this morning was 92% on 3 L nasal cannula Continue medications as outlined below Patient is high risk for potential respiratory failure Recommended Mrs. Lozano use her BiPAP to which she refuses Patient can possibly be discharged tomorrow if she continues to improve 08/19/16 -Intranasal oxygen: 2 L/m: To keep saturation above 88% -Blood culture. -IV levofloxacin 750 mg every 24 hours. -IV Solu-Medrol 40 mg every 8 hours. -Inhaled DuoNeb every 4 hours. -DVT prophylaxis -GI prophylaxis -Smoking cessation discussed at length. -We will send respiratory panel (2) Hypertension Current Visit: Yes Status: Acute Assessment and plan: Blood pressure stabilized with increased dose of hydralazine Consider sending home with prescription for hydralazine by mouth Patient advised that BiPAP use will likely decrease her dependence on multiple antihypertensive medications 08/21/16 Contacted patient's pharmacy and they verified that medications currently listed as her home medications are accurate. She has been filling her medications consistently Despite multiple antihypertensive classes, her systolic blood pressure remains elevated in the 170s Patient is not having symptoms We will increase her hydralazine Consider adding isosorbide mononitrate depending on response She has a history of sleep apnea, encouraged to use BiPAP but patient refuses BUN and creatinine are elevated. Chart review reveals this has happened in the past. This is likely due to steroid treatment however we will continue to monitor and consider discontinuing CHRISS inhibitor for any worsening Qualifiers: Qualified Code(s): I10 - Essential (primary) hypertension (3) Diabetes Current Visit: No Status: Acute Assessment and plan: Hypoglycemia continues despite increasing insulin Increased insulin further Patient is high risk for critical hyperglycemia We will reduce her dose of steroids as this is likely contributory Recommend diabetic education on discharge 08/21/16 Patient is on metformin and glimepiride at home with inconsistent compliance Blood glucose still elevated despite basal insulin and Humalog This is likely a reaction to steroid treatment We will increase her basal dose Continue before meals at bedtime checks Qualifiers: Diabetes mellitus type: type 2 Diabetes mellitus complication status: without complication Diabetes mellitus senior care insulin use: unspecified senior care insulin use status Qualified Code(s): E11.9 - Type 2 diabetes mellitus without complications (4) Hypothyroidism Current Visit: No Status: Acute Qualifiers: Hypothyroidism type: unspecified Qualified Code(s): E03.9 - Hypothyroidism , unspecified (5) Tobacco abuse Current Visit: No Status: Acute Assessment and plan: Discussed importance of smoking cessation (6) DVT prophylaxis Current Visit: No Status: Acute Assessment and plan: Continue heparin - Subjective Interval history: Patient was seen and examined at bedside this morning. She is awake and alert and says she feels better today although she is still having some dyspnea. She does not use her BiPAP and was again counseled to do so. She denies chest pain , abdominal pain, or other new issues. - Constitutional Vitals: Temp Pulse Resp BP Pulse Ox 98.3 F 64 18 145/77 92 L 08/22/16 07:09 08/22/16 07:09 08/22/16 07:38 08/22/16 07:09 08/22/16 07:38 General appearance: Present: A&O X 3, morbidly obese, pleasant, no acute distress, answers questions appropriately - Head Head exam: Present: atraumatic, normocephalic - Eye Eye exam: Present: PERRL, conjuntiva pink, sclera anicteric Pupils: Present: PERRL - Neck Neck exam general surgery: Present: supple, trachea midline. Absent: lymphadenopathy - Respiratory Respiratory exam: Present: decreased breath sounds, wheezes. Absent: accessory muscle use, rales, rhonchi Additional comments: Mild diffuse wheezes - Cardiovascular Cardiovascular exam: Present: RRR, +S1, +S2. Absent: diastolic murmur, gallop, rubs, systolic murmur - GI/Abdominal GI/Abdominal exam: Present: normal bowel sounds, soft, no peritoneal signs. Absent: distended, tenderness - Extremities Exam Extremities exam: Present: warm, radial pulses palpable and symetrical. Absent : calf tenderness, cyanotic, pedal edema - Neurological Exam Neurological exam: Present: CN II-XII intact, oriented X3, no focal deficits. Absent: pronater drift, facial droop, speech deficit - Skin Skin exam: Present: dry, intact Internal Medicine: Result - Labs CBC & Chem 7: 08/22/16 04:46 08/22/16 04:46 Labs: Short CBC 08/22/16 Range/Units 04:46 WBC 16.4 H (4.3-11.1) K/mcL Hgb 14.0 (11.5-15.4) g/dL Hct 48.2 H (35.3-44.9) % Plt Count 238 (140-400) K/mcL Neutrophils # 14.6 H (1.6-8.9) K/mcL BMP 08/21/16 08/22/16 06:09 04:46 Sodium 138 138 Potassium 4.5 4.6 H Chloride 99 97 L Carbon Dioxide 29 30 H BUN 28 H 36 H Creatinine 1.39 H 1.40 H Glucose 375 H 430 H Calcium 10.1 9.3 Consult Discharge Plan - Plan Referrals: Deepthi Garcia MD [Primary Care Provider] - 08/25/16 10:45 am () <Case Pierre - Last Filed: 08/22/16 15:24> Date of Encounter: 08/22/16 - Constitutional Vitals: Temp Pulse Resp BP Pulse Ox 97.7 F 65 18 161/90 94 L 08/22/16 11:58 08/22/16 11:58 08/22/16 11:58 08/22/16 11:58 08/22/16 11:58 Internal Medicine: Result - Labs CBC & Chem 7: 08/22/16 04:46 08/22/16 04:46 Labs: Short CBC 08/22/16 Range/Units 04:46 WBC 16.4 H (4.3-11.1) K/mcL Hgb 14.0 (11.5-15.4) g/dL Hct 48.2 H (35.3-44.9) % Plt Count 238 (140-400) K/mcL Neutrophils # 14.6 H (1.6-8.9) K/mcL BMP 08/22/16 04:46 Sodium 138 Potassium 4.6 H Chloride 97 L Carbon Dioxide 30 H BUN 36 H Creatinine 1.40 H Glucose 430 H Calcium 9.3 - Attending Attestation I examined this patient and my medical decision-making was reviewed with the FOUNTAIN HELPER/PA/Advanced Practice Nurse/Resident Physician. I agree with the documented findings, disposition and treatment plan as described except to the extent set forth below. COPD exacerbation. Continue steroids. HYperglycemia, increased dose of insulin. Refuses bipap.
[2016-08-22] MEDS: Insulin DETEMIR 100 UNIT/ML X5UNITS SQ SCH ×2 (08:13→22:31)
[2016-08-22] MEDS: Levothyroxine 25 MCG TABLET PO SCH (08:14)
[2016-08-22] MEDS: Lisinopril 20 MG TABLET PO SCH (08:14)
[2016-08-22] MEDS: FLUoxetine 20 MG CAPSULE PO SCH (08:14)
[2016-08-22] MEDS: amLODIPine 5 MG TABLET PO SCH (08:14)
[2016-08-22] MEDS: hydroCHLOROthiazide 25 MG TABLET PO SCH (08:14)
[2016-08-22] MEDS: ALPRAZolam 0.5 MG TABLET PO SCH ×2 (08:14→22:26)
[2016-08-22] MEDS: Furosemide 40 MG TABLET PO SCH (08:14)
[2016-08-22] MEDS: Aspirin 81 MG TAB.CHEW PO SCH (08:15)
[2016-08-22] MEDS: Insulin LISPRO 300 UNITS/3 ML VIAL SQ SCH ×3 (08:15→16:44)
[2016-08-22] MEDS: Levofloxacin 750 MG/150 ML 750 MG/150 ML BAG IVPB SCH (08:16)
[2016-08-22] MEDS: 0.9 % Sodium Chloride 1,000 ML IVC SCH (08:34)
[2016-08-23] MEDS: hydrALAZINE 25 MG TABLET PO SCH ×2 (00:53→08:21)
[2016-08-23] MEDS: 0.9 % Sodium Chloride 1,000 ML IVC SCH (00:55)
[2016-08-23 03:42] VITALS: BP 167/76
[2016-08-23] MEDS: Ipratropium/Albuterol Neb 3 ML IH SCH ×2 (04:22→07:52)
[2016-08-23] MEDS: *HR* Heparin 5,000 UNIT/ML VIAL SQ SCH (06:12)
[2016-08-23] MEDS: MethylPREDNISolone 40 MG/ML VIAL IVP SCH (06:12)
[2016-08-23 07:08] LABS: Basophils % 0.2 %; Hematocrit 49.8 % (35.3-44.9); Hemoglobin 14.5 g/dL (11.5-15.4); Immature Granulocytes % 1.8 % (0-4); Lymphocytes # 0.9 K/mcL (0.6-4.6); Mean Corpuscular HGB Conc 29.1 g/dL (31.6-35.5); Mean Corpuscular Hemoglobin 22.6 pg (28.0-33.3); Mean Corpuscular Volume 77.4 fL (83.0-100.0); Monocytes % 6.9 %; Neutrophils # 12.4 K/mcL (1.6-8.9); Nucleated Red Blood Cells 0.1 /100 WBC (0); Platelet Count 234 K/mcL (140-400); Red Blood Count 6.43 M/mcL (3.82-4.97); Red Cell Distribution Width 17.1 % (11.5-14.5); Segmented Neutrophils % 85.1 %
[2016-08-23 07:32] LABS: BUN/Creatinine Ratio 32 (6-26); Blood Urea Nitrogen 33 mg/dL (7-20); Calcium 8.9 mg/dL (8.6-10.8); Carbon Dioxide 31 mEq/L (19-29); Chloride 99 mEq/L (98-109); Glucose 285 mg/dL (70-99); Osmolality,Calculated 306 (280-300); Potassium 4.2 mEq/L (3.5-4.5); Sodium 139 mEq/L (136-145); eGFR For African Americans > 60 (> 60); eGFR For Non-African Americans 57 (> 60)
[2016-08-23] MEDS: ALPRAZolam 0.5 MG TABLET PO SCH (08:20)
[2016-08-23] MEDS: Levothyroxine 25 MCG TABLET PO SCH (08:21)
[2016-08-23] MEDS: Levofloxacin 750 MG/150 ML 750 MG/150 ML BAG IVPB SCH (08:21)
[2016-08-23] MEDS: Furosemide 40 MG TABLET PO SCH (08:21)
[2016-08-23] MEDS: FLUoxetine 20 MG CAPSULE PO SCH (08:21)
[2016-08-23] MEDS: Aspirin 81 MG TAB.CHEW PO SCH (08:21)
[2016-08-23] MEDS: Insulin DETEMIR 100 UNIT/ML X5UNITS SQ SCH (08:21)
[2016-08-23] MEDS: amLODIPine 5 MG TABLET PO SCH (08:21)
[2016-08-23] MEDS: Lisinopril 20 MG TABLET PO SCH (08:21)
[2016-08-23] MEDS: Insulin LISPRO 300 UNITS/3 ML VIAL SQ SCH (08:22)
[2016-08-23] MEDS: hydroCHLOROthiazide 25 MG TABLET PO SCH (08:22)
[2016-08-23] MEDS: *HR* HYDROcodone/Acet 5/325 mg TABLET PO PRN (10:33)
--- NOTE | 2016-08-23 10:51 | Discharge Summary ---
Date of Encounter: 08/23/16 Time of Encounter: 10:43 - Discharge Diagnosis (1) Acute exacerbation of chronic obstructive pulmonary disease (COPD) Priority: Primary Status: Acute (2) Hypertension Priority: Secondary Status: Acute Qualifiers: Qualified Code(s): I10 - Essential (primary) hypertension (3) Chronic respiratory failure Priority: Secondary Status: Acute Qualifiers: Respiratory failure complication: hypercapnia Qualified Code(s): J96.12 - Chronic respiratory failure with hypercapnia (4) DVT prophylaxis Priority: Secondary Status: Acute (5) Diabetes Priority: Secondary Status: Acute Qualifiers: Diabetes mellitus type: type 2 Diabetes mellitus complication status: without complication Diabetes mellitus correction insulin use: unspecified correction insulin use status Qualified Code(s): E11.9 - Type 2 diabetes mellitus without complications (6) Sleep apnea Priority: Secondary Status: Acute Qualifiers: Sleep apnea type: obstructive Qualified Code(s): G47.33 - Obstructive sleep apnea (adult) (pediatric) (7) Tobacco abuse Priority: Secondary Status: Acute (8) LEXIE (obstructive sleep apnea) Priority: Secondary Status: Chronic - Discharge Medications Prescriptions: Albuterol Neb [Proventil Neb] 2.5 mg IH Q4HR 14 Days Chair, Shower [SHOWER CHAIR] 1 each .ROUTE DAILY #1 each Levofloxacin [Levaquin] 750 mg PO DAILY #5 tablet PredniSONE 10 mg PO DAILY #42 tablet Home Medications: Alprazolam [Xanax 0.5 MG Tablet] 0.5 mg PO BID #0 02/11/15 [History] FLUoxetine HCl [Prozac] 40 mg PO DAILY #0 02/11/15 [History] Furosemide [Lasix] 40 mg PO DAILY #0 02/11/15 [History] Levothyroxine Sodium [Synthroid] 200 mcg PO DAILY #0 02/11/15 [History] Omeprazole [PriLOSEC] 20 mg PO DAILY #0 02/11/15 [History] Aspirin 81 mg PO DAILY #30 tab.chew 02/13/15 [Rx] Lisinopril [Zestril] 40 mg PO DAILY #30 tablet 02/13/15 [Rx] Albuterol Sulfate [Ventolin Hfa] 2 puff IH Q4H PRN 01/02/16 [History] Hydrochlorothiazide 25 mg PO DAILY 01/02/16 [History] Hydrocodone/Acetaminophen [[place] 5-325 Tablet] 1 tab PO Q6HR PRN 01/02/16 [ History] Meloxicam 15 mg PO DAILY 01/02/16 [History] Umeclidinium [place] [Incruse Ellipta] 1 puff IH DAILY 01/02/16 [History] Glimepiride [Amaryl] 4 mg PO DAILY 04/09/16 [History] Amlodipine Besylate 10 mg PO DAILY 06/25/16 [History] Atorvastatin [Lipitor] 40 mg PO HS 06/25/16 [History] Levothyroxine [Synthroid] 25 mcg PO DAILY 06/25/16 [History] Metoprolol [Lopressor] 25 mg PO BID 06/25/16 [History] Budesonide/Formoterol 160/4.5 [Symbicort 160/4.5] 2 puff IH BIDR 08/19/16 [ History] Metformin HCl [Metformin HCl ER] 750 mg PO DAILY 08/19/16 [History] Albuterol Neb [Proventil Neb] 2.5 mg IH Q4HR 14 Days 08/23/16 [Rx] Chair, Shower [SHOWER CHAIR] 1 each .ROUTE DAILY #1 each 08/23/16 [Rx] Levofloxacin [Levaquin] 750 mg PO DAILY #5 tablet 08/23/16 [Rx] PredniSONE 10 mg PO DAILY #42 tablet 08/23/16 [Rx] Allergies/Adverse Reactions: Allergies No Known Allergies Allergy (Verified 08/19/16 14:32) Date of admission: 08/19/16 16:31 Primary care physician: Deepthi Garcia Consults: 08/19/16 18:05 Consult to Pastoral Services [CONS] Routine Comment: 08/20/16 10:42 Consult to Physical Therapy [CONS] Routine Comment: Evaluate, develop and implement POC Consult to Warp Starter [CONS] Routine Reason for SW Consult: services upon discharge OT [Consult to Occupational Therapy] [CONS] Routine Comment: Evaluate, develop and implement POC Discharging clinician: Case Pierre Anticipated date of discharge: 08/23/16 - Patient Status Disposition: Home Health Service Condition: Good Functional capacity at discharge: independent ambulation Overall status at discharge: patient is back to baseline - Discharge Instructions Follow Up With: Deepthi Garcia MD [Primary Care Provider] - 08/25/16 10:45 am () - Diet and Activity Activity: as per physical therapy Diet: advance to your usual diet, diabetic diet Interval History: PCP: [facility]. Brief PMH: DM, HTN, CAD, Morbid Obesity, COPD HPI: Patient has persistent ongoing cough along with the shortness of breath for past 4 days. It was noted that in last 48 hours her cough and shortness of breath got worsened. Patient is complaining of yellowish-green expectoration. Patient claims that she was unable to go to the restroom from her bed since last night. The immobility is secondary to the shortness of breath. Patient denies chest pain, abdominal pain, nausea, vomiting, and diarrhea. Course in the emergency room: Patient was brought by EMS. Patient was evaluated by emergency room physician. Baseline labs were done. Patient is persistently coughing and has yellowish-green expectoration. X-ray is pending. Reason for admission: COPD exacerbation. Family history: Noncontributory Hospital course: Ms. Lozano is a 50 year old female treated due to COPD exacerbation in the setting of a patient with morbid obesity, chronic active smoker, obstructive sleep apnea, diabetes. Her COPD exacerbation responded well to treatment with IV steroids, nebulizer therapy and oxygen therapy. Additionally, the patient presented hyperglycemia likely exacerbated by the use of steroids. However, of note the patient had an underlying uncontrolled diabetes with a hemoglobin A1c of about 9. She responded well, there are no evidence of underlying pneumonia or atelectasis in the x-ray. She is currently back at her baseline, we will discharge the patient home today. She will continue with therapy with by mouth steroids, aerosol therapy and will complete a course of by mouth antibiotics with levofloxacin. The patient will follow up with her primary care physician. She has refused repeatedly to use BiPAP. Smoking cessation was strongly advised. - Time Spent with Patient Total time spent providing and/or coordinating discharge services: Greater than 30 minutes - Constitutional Vitals: Temp Pulse Resp BP Pulse Ox 97.9 F 67 20 167/76 100 08/23/16 03:41 08/23/16 03:41 08/23/16 07:52 08/23/16 03:41 08/23/16 07:52 General appearance: Present: A&O X 3, morbidly obese, pleasant, no acute distress, answers questions appropriately - Head Head exam: Present: atraumatic, normocephalic - Eye Eye exam: Present: PERRL, conjuntiva pink, sclera anicteric Pupils: Present: PERRL - Neck Neck exam general surgery: Present: supple, trachea midline. Absent: lymphadenopathy - Respiratory Respiratory exam: Present: decreased breath sounds. Absent: accessory muscle use, rales, rhonchi, wheezes - Cardiovascular Cardiovascular exam: Present: RRR, +S1, +S2. Absent: diastolic murmur, gallop, rubs, systolic murmur - GI/Abdominal GI/Abdominal exam: Present: normal bowel sounds, soft, no peritoneal signs. Absent: distended, tenderness - Extremities Exam Extremities exam: Present: warm, radial pulses palpable and symetrical. Absent : calf tenderness, cyanotic, pedal edema - Neurological Exam Neurological exam: Present: CN II-XII intact, oriented X3, no focal deficits. Absent: pronater drift, facial droop, speech deficit - Skin Skin exam: Present: dry, intact
--- NOTE | 2016-08-23 10:58 | Physician Discharge Referral ---
Home Health/Hosp Referral Info Transfer to: Home Health Provider in Charge Post Discharge: PCP - Diagnosis (1) Acute exacerbation of chronic obstructive pulmonary disease (COPD) Status: Acute (2) Hypertension Status: Acute (3) Chronic respiratory failure Status: Acute (4) DVT prophylaxis Status: Acute (5) Diabetes Status: Acute (6) Sleep apnea Status: Acute (7) Tobacco abuse Status: Acute (8) LEXIE (obstructive sleep apnea) Status: Chronic - Respiratory Orders Oxygen / L per min Smoking Cessation: Smoking cessation has been advised. For more information, call the [place] Tobacco Quit Line at 1-238-ZAYG-NOW. - Diet/Nutrition Diet/Nutrition Orders: Cardiac - Activity Activity Orders: Up ad jenny - Services Needed Following services are medically necessary services: Nursing, Home Health Aide - Transfer Medications Prescriptions: Albuterol Neb [Proventil Neb] 2.5 mg IH Q4HR 14 Days Chair, Shower [SHOWER CHAIR] 1 each .ROUTE DAILY #1 each Levofloxacin [Levaquin] 750 mg PO DAILY #5 tablet PredniSONE 10 mg PO DAILY #42 tablet Home Medications: Alprazolam [Xanax 0.5 MG Tablet] 0.5 mg PO BID #0 02/11/15 [History] FLUoxetine HCl [Prozac] 40 mg PO DAILY #0 02/11/15 [History] Furosemide [Lasix] 40 mg PO DAILY #0 02/11/15 [History] Levothyroxine Sodium [Synthroid] 200 mcg PO DAILY #0 02/11/15 [History] Omeprazole [PriLOSEC] 20 mg PO DAILY #0 02/11/15 [History] Aspirin 81 mg PO DAILY #30 tab.chew 02/13/15 [Rx] Lisinopril [Zestril] 40 mg PO DAILY #30 tablet 02/13/15 [Rx] Albuterol Sulfate [Ventolin Hfa] 2 puff IH Q4H PRN 01/02/16 [History] Hydrochlorothiazide 25 mg PO DAILY 01/02/16 [History] Hydrocodone/Acetaminophen [[place] 5-325 Tablet] 1 tab PO Q6HR PRN 01/02/16 [ History] Meloxicam 15 mg PO DAILY 01/02/16 [History] Umeclidinium [place] [Incruse Ellipta] 1 puff IH DAILY 01/02/16 [History] Glimepiride [Amaryl] 4 mg PO DAILY 04/09/16 [History] Amlodipine Besylate 10 mg PO DAILY 06/25/16 [History] Atorvastatin [Lipitor] 40 mg PO HS 06/25/16 [History] Levothyroxine [Synthroid] 25 mcg PO DAILY 06/25/16 [History] Metoprolol [Lopressor] 25 mg PO BID 06/25/16 [History] Budesonide/Formoterol 160/4.5 [Symbicort 160/4.5] 2 puff IH BIDR 08/19/16 [ History] Metformin HCl [Metformin HCl ER] 750 mg PO DAILY 08/19/16 [History] Albuterol Neb [Proventil Neb] 2.5 mg IH Q4HR 14 Days 08/23/16 [Rx] Chair, Shower [SHOWER CHAIR] 1 each .ROUTE DAILY #1 each 08/23/16 [Rx] Levofloxacin [Levaquin] 750 mg PO DAILY #5 tablet 08/23/16 [Rx] PredniSONE 10 mg PO DAILY #42 tablet 08/23/16 [Rx] Allergies/Adverse Reactions: Allergies No Known Allergies Allergy (Verified 08/19/16 14:32) Certification: Further, I certify that my clinical findings support that this patient is homebound (i.e. absences from home require considerable and taxing effort and are for medical reasons or muslim services or infrequently or short duration when for other reasons) because: Homebound Reason: Leaving home requires considerable and taxing effort due to condition, Severity of cardiac or pulmonary status limits activity tolerance Attestation: My signature below is to certify that this patient is under my care and that I, or nurse practitioner, or a physician's studio assistant working with me, has a face-to -face encounter with this patient.
== END 2016-08-23 11:45 | disposition home health service (06) | DRG 191 ==
LOC: EMEROO 14:16 → 2ANU 14:16 → SUATTDRO 16:31 → 2ANU 17:30
PROVIDERS: ADMIT Internal Medicine; ATTEND Internal Medicine

== ENCOUNTER 2017-08-11 15:37 | Inpatient (IN) ==
[2017-08-11] MEDS ORDERED: Ipratropium/Albuterol Neb 3 ML IH ONE (15:44)
[2017-08-11] MEDS ORDERED: methylPREDNISolone 125 MG/2 ML VIAL IVP ONE (15:44)
--- NOTE | 2017-08-11 16:01 | Emergency Department Note ---
Disposition Clinical Impression: Acute and chronic respiratory failure with hypercapnia, Acute exacerbation of chronic obstructive airways disease Disposition: Admitted As Inpatient Condition: Fair Time of Disposition: 19:02 SOB HPI - General Chief Complaint: ED Shortness of Breath/Dyspnea Stated Complaint: DAVID x's 3 days Time Seen by Provider: 08/11/17 15:43 Source: EMS Limitations: no limitations Nursing Notes Reviewed: Yes Vital Signs Reviewed: Yes - History of Present Illness 51-year-old female history of COPD, heart failure, asthma, states she takes 2 L of oxygen as needed, the patient has been having worsening shortness of breath the last 2 days, she did describes a dry productive cough, EMS did give her 1 albuterol treatment and she had not taken treatments throughout the day today. She states she feels better after giving him one treatment. Patient denies hemoptysis, she denies unilateral leg swelling but has had some mild bilateral leg swelling as well. Denies chest pain, but does have some tightness with inspiration that she describes as 2 out of 10 chest tightness. Pt Subjective Complaint: shortness of breath, cough Onset (ago): day(s) (2) Context: recent illness Severity: mild Consistency/Duration: intermittent Improves with: oxygen, bronchodilators Worsens with: nothing Known history of: COPD, asthma Associated symptoms: Reports: cough, wheezing. Denies: chest pain, pain with inspiration, sputum production, orthopnea, lower extremity pain Cough present: Yes Cough Description: Voluntary Cough Frequency: Intermittent Sputum production: Yes Sputum Amount: Scant Sputum Color: Clear - Related Data Home oxygen amount: 2 liters (PRN) Home Medications Medication Instructions Recorded Confirmed FLUoxetine HCl [Prozac] 40 mg PO DAILY #0 02/11/15 08/11/17 Furosemide [Lasix] 40 mg PO DAILY #0 02/11/15 08/11/17 Levothyroxine Sodium [Synthroid] 200 mcg PO QAM #0 02/11/15 08/11/17 Omeprazole [PriLOSEC] 20 mg PO DAILY #0 02/11/15 08/11/17 Albuterol Sulfate [Ventolin Hfa] 2 puff IH Q4H PRN 01/02/16 08/11/17 Meloxicam 15 mg PO DAILY 01/02/16 08/11/17 Umeclidinium Thompson [Incruse 62.5 mcg IH DAILY 01/02/16 08/11/17 Ellipta] hydroCHLOROthiazide 25 mg PO DAILY 01/02/16 08/11/17 [Hydrochlorothiazide] Glimepiride [Amaryl] 4 mg PO DAILY 04/09/16 08/11/17 Atorvastatin [Lipitor] 40 mg PO HS 06/25/16 08/11/17 Levothyroxine [Synthroid] 25 mcg PO QAM 06/25/16 08/11/17 Metoprolol [Lopressor] 25 mg PO BID 06/25/16 08/11/17 Budesonide/Formoterol 160/4.5 2 puff IH BIDR 08/19/16 08/11/17 [Symbicort 160/4.5] Metformin HCl [Metformin HCl ER] 750 mg PO DAILY 08/19/16 08/11/17 ALPRAZolam [Xanax 0.25 MG Tablet] 0.25 mg PO HS 08/11/17 08/11/17 Albuterol Neb [Proventil Neb] 2.5 mg IH Q6H PRN 08/11/17 08/11/17 Ammonium Lactate [Ammonium Lactate] 1 appl TP BID PRN 08/11/17 08/11/17 Previous Rx's Medication Instructions Recorded Aspirin 81 mg PO DAILY #30 tab.chew 02/13/15 Lisinopril [Zestril] 40 mg PO DAILY #30 tablet 02/13/15 Allergies Allergy/AdvReac Type Severity Reaction Status Date / Time No Known Allergies Allergy Verified 07/20/17 11:44 All systems ED: reviewed and negative except as stated. Review of Systems: As Per HPI Constitutional: Denies: fever, chills Eyes: Denies: eye pain ENT ED: Denies: ear pain, throat pain Cardiovascular: Denies: chest pain Respiratory: Reports: as per HPI, cough, wheezes. Denies: dyspnea, hemoptysis, stridor Gastrointestinal: Denies: abdominal pain Genitourinary: Denies: urgency, dysuria Musculoskeletal: Denies: back pain Integumentary: Denies: rash Neurological: Denies: headache Past Medical History - Past Medical History Attestation: Yes The following information was validated with the patient. Source: patient Medical history: Reports: asthma, COPD, diabetes, GERD, hypertension, thyroid disease, other Surgical history: Reports: , cholecystectomy, other (T&A ) Psychiatric history: Reports: anxiety, depression REHAB DIRECTOR history: Reports: no REHAB DIRECTOR history - Social History Smoking Status: Current every day smoker Smokeless Tobacco Status: No Alcohol use: Reports: none Drug use: Reports: none Physical Exam Constitutional: Elderly obese black female in mild respiratory distress, Neck: normal inspection, neck is supple, no JVD Resp: Decreased breath sounds, exam limited secondary to habitus, poor air movement, scattered wheezes CV: RRR, no murmurs/gallops/rubs, S1 and S2 heard Extremity: +2 bilateral radial and posterial tibial pulses, +1 edema GI: normal inspection, Soft, NTND, no peritoneal signs, no palpable abdominal aortic aneurysm Back: normal inspection, no tenderness to palpation Neuro: A&O3, no gross motor or sensory deficits bilaterally MSK: normal inspection, bilateral UE and LE with normal ROM Skin: No rashes, skin warm, dry, intact - General Limitations: no limitations General appearance: alert, in no apparent distress Course Course Narrative: 42-year-old female foot appears to be an asthma exacerbation, her EKG shows no acute ischemic changes, the plan is for breathing treatments, steroids and possible reassessment may be candidate to go home, chest x-ray CBC BMP troponin and BNP ordered also, - Reevaluation(s) Reevaluation #1: Patient became more hypoxic was placed on BiPAP, the hospitalist Dr. Zimmer came down to evaluate the patient, we will request a repeat ABG, the initial ABG showed mild acidemia 7.3 chronically compensated respiratory acidosis with bicarbonate in the 60s, the patient was tolerating BiPAP well but has become somewhat somnolent, you can wake her up and she nods appropriately to questions but she is sleeping in the bedroom recheck a blood gas, the plan is for the patient go to [place] for further evaluation admitted to the hospitalist service at this time Vital Signs Temperature 98.6 F 08/11/17 15:39 Pulse Rate 78 08/11/17 15:39 Respiratory Rate 24 08/11/17 15:39 Blood Pressure 186/105 08/11/17 15:39 O2 Sat by Pulse Oximetry 92 08/11/17 15:39 Temperature 98.6 F 08/11/17 15:39 Pulse Rate 79 08/11/17 17:47 Respiratory Rate 20 02/20/18 17:47 Blood Pressure 198/85 08/11/17 17:47 O2 Sat by Pulse Oximetry 95 08/11/17 17:47 Oxygen Delivery Oxygen Delivery Bipap Shortness of Breath/Dyspnea - Medical Records Medical records reviewed: Yes I reviewed the patient's medical records. - Lab Data Lab results reviewed: Yes I reviewed the patient's lab results. Result diagrams: 08/11/17 16:29 08/11/17 15:44 Lab Results 08/11/17 08/11/17 08/11/17 Range/Units 15:44 15:44 15:44 WBC (4.3-11.1) K/mcL RBC (3.82-4.97) M/mcL Hgb (11.5-15.4) g/dL Hct (35.3-44.9) % MCV (83.0-100.0) fL MCH (28.0-33.3) pg MCHC (31.6-35.5) g/dL RDW (11.5-14.5) % Plt Count (140-400) K/mcL MPV (9.4-12.4) fL Immature Gran % (0-4) % Seg Neutrophils % % Lymphocytes % % Monocytes % % Eosinophils % % Basophils % % Neutrophils # (1.6-8.9) K/mcL Lymphocytes # (0.6-4.6) K/mcL Monocytes # (0.0-1.3) K/mcL Eosinophils # (0.0-0.6) K/mcL Basophils # (0.0-0.2) K/mcL Sample Site ABG pH (7.32-7.45) pH Units ABG pCO2 (35-45) mmHg ABG pO2 (85-104) mmHg ABG HCO3 (21-27) mEq/L ABG Total CO2 (20-26) mEq/L ABG O2 Saturation (95-98) % ABG Base Excess (-2 to 3) mEq/L Urban Test O2 Delivery Device Blood Gas Modality Inspired O2 (1-15=lpm [id number]=%) Sodium 141 (136-145) mEq/L Potassium 3.6 (3.5-5.1) mEq/L Chloride 103 (98-107) mEq/L Carbon Dioxide 34 H (23-29) mEq/L BUN 12 (6-20) mg/dL Creatinine 1.09 (0.60-1.20) mg/dL Est GFR ( Amer) > 60 (> 60) Est GFR (Non-Af Amer) 53 L (> 60) BUN/Creatinine Ratio 11 (6-26) Glucose 178 H (70-105) mg/dL Calculated Osmolality 296 (280-300) Calcium 10.1 (8.6-10.3) mg/dL Troponin I < 0.03 (< 0.04) ng/mL B-Natriuretic Peptide 96 (Less than 100) pg/mL 08/11/17 08/11/17 Range/Units 16:29 17:26 WBC 8.6 (4.3-11.1) K/mcL RBC 5.89 H (3.82-4.97) M/mcL Hgb 13.5 (11.5-15.4) g/dL Hct 46.3 H (35.3-44.9) % MCV 78.6 L (83.0-100.0) fL MCH 22.9 L (28.0-33.3) pg MCHC 29.2 L (31.6-35.5) g/dL RDW 17.7 H (11.5-14.5) % Plt Count 223 (140-400) K/mcL MPV 10.4 (9.4-12.4) fL Immature Gran % 0.3 (0-4) % Seg Neutrophils % 57.2 % Lymphocytes % 30.4 % Monocytes % 7.4 % Eosinophils % 3.8 % Basophils % 0.9 % Neutrophils # 4.9 (1.6-8.9) K/mcL Lymphocytes # 2.6 (0.6-4.6) K/mcL Monocytes # 0.6 (0.0-1.3) K/mcL Eosinophils # 0.3 (0.0-0.6) K/mcL Basophils # 0.1 (0.0-0.2) K/mcL Sample Site L Radial ABG pH 7.36 (7.32-7.45) pH Units ABG pCO2 60 H (35-45) mmHg ABG pO2 111 H (85-104) mmHg ABG HCO3 34 H (21-27) mEq/L ABG Total CO2 36 H (20-26) mEq/L ABG O2 Saturation 98 (95-98) % ABG Base Excess 6 H (-2 to 3) mEq/L Urban Test N/A O2 Delivery Device BiPAP Blood Gas Modality BiLevel Inspired O2 40.0 (1-15=lpm [id number]=%) Sodium (136-145) mEq/L Potassium (3.5-5.1) mEq/L Chloride (98-107) mEq/L Carbon Dioxide (23-29) mEq/L BUN (6-20) mg/dL Creatinine (0.60-1.20) mg/dL Est GFR ( Amer) (> 60) Est GFR (Non-Af Amer) (> 60) BUN/Creatinine Ratio (6-26) Glucose (70-105) mg/dL Calculated Osmolality (280-300) Calcium (8.6-10.3) mg/dL Troponin I (< 0.04) ng/mL B-Natriuretic Peptide (Less than 100) pg/mL - Radiology Data Radiology results reviewed: Yes I reviewed the patient's radiology results. - EKG Data EKG attestation: Yes I reviewed and interpreted this EKG. EKG shows normal: Reports: sinus rhythm Rate: Reports: normal Rhythm: Reports: NSR (71 bpm OH 168 QRS [address] segment elevations or depressions new, and old aVL depression that is seen on previous EKG) Interpretation: Reports: nonspecific ST-T wave changes Attestation Statement - Attestation Attestation: I, Jonas Barba DO, examined this patient [id number] and my medical decision-making was reviewed with Dr. Andrew Mares, Resident Physician. I agree with the documented findings, disposition and treatment plan as described except to the extent set forth below. Please see my progress notes for details. 51-year-old female presents to the emergency room by EMS for evaluation of shortness of breath. Patient has had some increased work of breathing along with fluid overload. She does have some chest tightness but no specific chest pain. She has no cardiac history or medical issues otherwise. Patient denies any recent trauma or illness. No new medications or symptoms. Denies any cough , congestion fevers or chills. Patient has known CHF as well as COPD. Treatments and steroids will be given here. Patient is morbidly obese and also truncal obesity. Lungs are diminished bilaterally but no auscultated wheezes initially. Heart is regular. Abdomen is soft nontender nondistended with no guarding no rigidity no physical symptoms. No unremarkable except for hypoxia down to 90% on room air. Patient currently does not use oxygen unless she has breathing issues overnight. issues of breathing overnight. Patient will have detailed evaluation with chest x-ray EKG labs including troponin and BNP. Patient did have some signs of respiratory distress secondary to the breathing treatments and was placed on BiPAP to help symptomatically control. Chest x- ray does show pulmonary congestion. Patient will be electively admitted at this time for hypoxia. With a single dose of Lasix will be given. Patient does have visible conversational dyspnea, orthopnea, conversational increased work of breathing. No critical care Patient's treatment course of this time. See detailed documentation of the physical exam, medical intervention, medical decision-making and disposition and the resident physician's note. 1800 Patient is still having some increased work of breathing. Hospice has been paged for admission. Respiratory status does appear to be stable but she is slightly somnolent after we aided with her breathing status. Patient to be admitted for definitive management. 1900 Patient signed out to the nighttime physicians to monitor the patient here in the emergency room. They should not have anything else to do this point secondary to the patient having admission process IV established. ABG shows appropriate ventilation this point. Patient will be observed in emergency room until admission is established. No focal care provided to this patient's treatment course
[2017-08-11 16:37] LABS: Basophils # 0.1 K/mcL (0.0-0.2); Basophils % 0.9 %; Eosinophils # 0.3 K/mcL (0.0-0.6); Eosinophils % 3.8 %; Hematocrit 46.3 % (35.3-44.9); Hemoglobin 13.5 g/dL (11.5-15.4); Immature Granulocytes % 0.3 % (0-4); Lymphocytes # 2.6 K/mcL (0.6-4.6); Lymphocytes % 30.4 %; Mean Corpuscular HGB Conc 29.2 g/dL (31.6-35.5); Mean Corpuscular Hemoglobin 22.9 pg (28.0-33.3); Mean Corpuscular Volume 78.6 fL (83.0-100.0); Mean Platelet Volume 10.4 fL (9.4-12.4); Monocytes # 0.6 K/mcL (0.0-1.3); Monocytes % 7.4 %; Neutrophils # 4.9 K/mcL (1.6-8.9); Platelet Count 223 K/mcL (140-400); Red Blood Count 5.89 M/mcL (3.82-4.97); Red Cell Distribution Width 17.7 % (11.5-14.5); Segmented Neutrophils % 57.2 %
[2017-08-11 17:08] LABS: BUN/Creatinine Ratio 11 (6-26); Blood Urea Nitrogen 12 mg/dL (6-20); Calcium 10.1 mg/dL (8.6-10.3); Carbon Dioxide 34 mEq/L (23-29); Chloride 103 mEq/L (98-107); Glucose 178 mg/dL (70-105); Osmolality,Calculated 296 (280-300); Potassium 3.6 mEq/L (3.5-5.1); Sodium 141 mEq/L (136-145); eGFR For African Americans > 60 (> 60); eGFR For Non-African Americans 53 (> 60)
[2017-08-11 17:38] LABS: ABG Base Excess 6 mEq/L (-2 to 3); ABG HCO3 34 mEq/L (21-27); ABG Oxygen Saturation 98 % (95-98); ABG PCO2 60 mmHg (35-45); ABG PH 7.36 pH Units (7.32-7.45); ABG PO2 111 mmHg (85-104); ABG TCO2 36 mEq/L (20-26); Blood Gas Modality BiLevel
[2017-08-11] MEDS ORDERED: Acetaminophen 325 MG TABLET PO PRN (17:41)
[2017-08-11] MEDS ORDERED: Ondansetron 4 MG/2 ML VIAL IVP PRN (17:41)
[2017-08-11] MEDS ORDERED: Naloxone 0.4 MG/ML INJ IVP PRN (17:41)
[2017-08-11] MEDS ORDERED: *HR* Promethazine 25 MG/ML VIAL IVP PRN (17:41)
[2017-08-11] MEDS ORDERED: Albuterol 2.5 MG/3 ML NEBULIZER IH PRN (17:45)
[2017-08-11] MEDS ORDERED: Ammonium Lactate 30 APPL/225 GM BOTTLE TP PRN (17:45)
[2017-08-11] MEDS ORDERED: MethylPREDNISolone 40 MG/ML VIAL IVP SCH (18:00)
--- NOTE | 2017-08-11 18:08 | Internal Med History&Physical ---
Date of Encounter: 08/11/17 Time of Encounter: 18:01 Assessment and Plan (1) Acute respiratory failure with hypoxia and hypercapnia Current visit: Yes Status: Acute Admit the pt into Step down unit She does need close monitoring and higher level of care since she is very high risk for resp failure and possible intubation if she wont tolerate BiPAP well tonight Started her on high dose IV steroids Solumedrol 60mg Q6hr Cont PRADIP Duoneb reviewed ABG - showed resp acidosis with hypercapnea Cont BIPAP recheck ABG in 2-3 hrs started on empirical abx Levofloxacin Talked to pt's daughter and updated her about current care (2) Acute exacerbation of chronic obstructive pulmonary disease (COPD) Current visit: No Status: Acute (3) Acute bronchitis Current visit: Yes Status: Acute Mostly bacterial will check resp viral panel Strep and Legionella Sputum cx cont empirical abx Qualifiers: Qualified Code(s): J20.9 - Acute bronchitis, unspecified (4) Hypertensive urgency Current visit: Yes Status: Acute due to resp failure cont PO meds also started her on Hydralazine IV PRN (5) DM2 (diabetes mellitus, type 2) Current visit: Yes Status: Acute on ISS Qualifiers: Qualified Code(s): E11.9 - Type 2 diabetes mellitus without complications (6) Morbid obesity with BMI of 50.0-59.9, adult Current visit: Yes Status: Acute Internal Medicine - H&P: HPI Chief complaint: Shortness of breath Admitted From: Emergency Dept Plans for Post Hospital Care: Home History of present illness: Ms. Lozano is a 51 year old female with COPD, chronic home O2 dependent at 2 lit , HTN, HLD and morbid obese pt who presented to ER with worsening shortness of breath and cough with expectoration from last 2 days. She denied any CP. She was in severe respiratory failure, maintaining her PSo2 in high 80's even on 4 lit O2, with BiPAP on now her Spo2 96. However pt is still very somnolent, able to respond to verbal stimuli, but not participating in any conversation. I got all the information from ER staff, and attending. Spoke to pt's daughter Tanya Lozano @ [phone] and explained to her about current care. Past Med Surg Social Fam HX - Past Medical History Medical history: asthma, COPD, diabetes, GERD, hypertension, thyroid disease, other Psychiatric history: anxiety, depression - Past Surgical History Surgical History: , cholecystectomy, other (T&A ) - Social History Smoking Status: Current every day smoker Smokeless Tobacco Status: No Alcohol use: none Drug use: none - Family History Sister Adopted: No Family Member Ethnicity: Non- Living Status: Still Living Hx Family Cancer: Yes (stage 4 breast cancer) Mother Adopted: No Family Member Ethnicity: Non- Living Status: Hx Family Cardiac Disorders: Yes (MT) Hx Family Neurologic Disorders: Yes (seizures) Father Living Status: Still Living Hx Family Cardiac Disorders: Yes (HTN, heart disease, bipass) Internal Medicine - H&P: Meds FLUoxetine HCl [Prozac] 40 mg PO DAILY #0 02/11/15 [History] Furosemide [Lasix] 40 mg PO DAILY #0 02/11/15 [History] Levothyroxine Sodium [Synthroid] 200 mcg PO QAM #0 02/11/15 [History] Omeprazole [PriLOSEC] 20 mg PO DAILY #0 02/11/15 [History] Aspirin 81 mg PO DAILY #30 tab.chew 02/13/15 [Rx] Lisinopril [Zestril] 40 mg PO DAILY #30 tablet 02/13/15 [Rx] Albuterol Sulfate [Ventolin Hfa] 2 puff IH Q4H PRN 01/02/16 [History] Meloxicam 15 mg PO DAILY 01/02/16 [History] Umeclidinium Everson [Incruse Ellipta] 62.5 mcg IH DAILY 01/02/16 [History] hydroCHLOROthiazide [Hydrochlorothiazide] 25 mg PO DAILY 01/02/16 [History] Glimepiride [Amaryl] 4 mg PO DAILY 04/09/16 [History] Atorvastatin [Lipitor] 40 mg PO HS 06/25/16 [History] Levothyroxine [Synthroid] 25 mcg PO QAM 06/25/16 [History] Metoprolol [Lopressor] 25 mg PO BID 06/25/16 [History] Budesonide/Formoterol 160/4.5 [Symbicort 160/4.5] 2 puff IH BIDR 08/19/16 [ History] Metformin HCl [Metformin HCl ER] 750 mg PO DAILY 08/19/16 [History] ALPRAZolam [Xanax 0.25 MG Tablet] 0.25 mg PO HS 08/11/17 [History] Albuterol Neb [Proventil Neb] 2.5 mg IH Q6H PRN 08/11/17 [History] Ammonium Lactate [Ammonium Lactate] 1 appl TP BID PRN 08/11/17 [History] 3 Allergy/AdvReac Type Severity Reaction Status Date / Time No Known Allergies Allergy Verified 07/20/17 11:44 All Systems PM: A 10-system review of systems was performed and is negative for pertinent findings except as documented above in the HPI. Review of systems: All the systems are reviewed everything is benign except the systems and symptoms I mentioned in the history of present illness - Constitutional Vitals: Temp Pulse Resp BP Pulse Ox 98.6 F 79 20 198/85 95 08/11/17 15:39 08/11/17 17:47 08/11/17 17:47 08/11/17 17:47 08/11/17 17:47 General appearance: Present: A&O X 1, severe distress. Absent: answers questions appropriately Exam: Pt is sleepy - Head Head exam: Present: atraumatic, normal inspection - Neck Neck exam general surgery: Present: supple - Respiratory Respiratory exam: Present: decreased breath sounds, respiratory distress, wheezes (Severe). Absent: rales, rhonchi - Cardiovascular Cardiovascular exam: Present: RRR, +S1, +S2. Absent: systolic murmur, tachycardia - GI/Abdominal GI/Abdominal exam: Present: normal bowel sounds, soft. Absent: rebound, rigid, tenderness - Extremities Exam Extremities exam: Absent: calf tenderness, pedal edema, tenderness - Back Exam Back exam: Absent: CVA tenderness (L), CVA tenderness (R) - Neurological Exam Neurological exam: Present: altered - Psychiatric Psychiatric exam: Present: depressed - Skin Skin exam: Absent: rash Internal Med - H&P Results - Labs CBC & Chem 7: 08/11/17 16:29 08/11/17 15:44
[2017-08-11] MEDS ORDERED: *HR* Dextrose 50 % in Water (Syg) 50 ML SYRINGE IVP PRN (18:16)
[2017-08-11] MEDS ORDERED: D5% in Water 1,000 ML IVC PRN (18:16)
[2017-08-11] MEDS ORDERED: Dextrose Gel 15 GM/37.5 ML TUBE PO PRN ×2 (18:16)
[2017-08-11] MEDS: Budesonide/Formoterol 160/4.5 MDI IH SCH (20:39)
[2017-08-11] MEDS: Ipratropium/Albuterol Neb 3 ML IH SCH (20:40)
[2017-08-11] MEDS: Insulin LISPRO 300 UNITS/3 ML VIAL SQ SCH (20:59)
[2017-08-11] MEDS: Levofloxacin 750 MG/150 ML 750 MG/150 ML BAG IVPB SCH (21:13)
[2017-08-11] MEDS: MethylPREDNISolone 40 MG/ML VIAL IVP SCH (21:14)
[2017-08-11] MEDS: ALPRAZolam 0.25 MG TABLET PO SCH (21:14)
[2017-08-11] MEDS: *HR* HYDROcodone/Acet 5/325 mg TABLET PO PRN (21:14)
[2017-08-12] MEDS: MethylPREDNISolone 40 MG/ML VIAL IVP SCH ×2 (00:01→05:47)
[2017-08-12] MEDS: Ipratropium/Albuterol Neb 3 ML IH SCH ×6 (00:21→19:49)
[2017-08-12] MEDS ORDERED: *HR* Labetalol 20 MG/4 ML SYRINGE IVP PRN (00:54)
[2017-08-12] MEDS: *HR* Enoxaparin 40 MG/0.4 ML SYRINGE SQ SCH (05:47)
[2017-08-12] MEDS: Levothyroxine 25 MCG TABLET PO SCH (05:47)
[2017-08-12] MEDS: *HR* HYDROcodone/Acet 5/325 mg TABLET PO PRN ×3 (05:47→20:40)
[2017-08-12 07:08] LABS: Basophils # 0.1 K/mcL (0.0-0.2); Basophils % 0.5 %; Eosinophils % 0.1 %; Hematocrit 49.9 % (35.3-44.9); Hemoglobin 14.7 g/dL (11.5-15.4); Lymphocytes # 0.6 K/mcL (0.6-4.6); Mean Corpuscular HGB Conc 29.5 g/dL (31.6-35.5); Mean Corpuscular Volume 78.2 fL (83.0-100.0); Mean Platelet Volume 10.9 fL (9.4-12.4); Monocytes # 0.1 K/mcL (0.0-1.3); Neutrophils # 10.9 K/mcL (1.6-8.9); Nucleated Red Blood Cells 0.4 /100 WBC (0); Platelet Count 169 K/mcL (140-400); Red Blood Count 6.38 M/mcL (3.82-4.97); Red Cell Distribution Width 17.9 % (11.5-14.5); Segmented Neutrophils % 91.4 %
[2017-08-12] MEDS: Budesonide/Formoterol 160/4.5 MDI IH SCH ×2 (07:24→19:49)
[2017-08-12] MEDS: hydroCHLOROthiazide 25 MG TABLET PO SCH (07:35)
[2017-08-12] MEDS: FLUoxetine 20 MG CAPSULE PO SCH (07:35)
[2017-08-12] MEDS: *HR* Glimepiride 4 MG TABLET PO SCH (07:35)
[2017-08-12] MEDS: Levofloxacin 750 MG/150 ML 750 MG/150 ML BAG IVPB SCH (07:36)
[2017-08-12] MEDS: Insulin LISPRO 300 UNITS/3 ML VIAL SQ SCH ×4 (07:59→20:44)
--- NOTE | 2017-08-12 08:30 | Internal Med Progress Note ---
<Westley Duran - Last Filed: 08/12/17 13:19> Date of Encounter: 08/12/17 Time of Encounter: 08:28 - Assessment and plan (1) Acute and chronic respiratory failure with hypercapnia Current Visit: Yes Status: Acute Assessment and plan: Presented to the ED with worsening SOB and cough. -ABG demonstrated the following: pH 7.36, Pco2 60, Po2 111, hco3 34, total co2 36, o2 saturation 98. -CXR demonstrated pulmonary vascular congestion; was given one dose IV Lasix in ED. -Patient was initially placed on BiPAP; is now on 4L via NC. -Sputum CX and resp. infection panel ordered Plan: -O2 via NC -Lasix 80 mg IV BID -Duoneb 3ml IH Q4 PRADIP -Levaquin 750 mg IV daily -Proventil neb 2.5 mg IH Q6PRN -Symbicort 160/4.5 2 puffs IH BID -Solumedrol 60 mg Q6 will be discontinued (2) Acute bronchitis Current Visit: Yes Status: Acute Assessment and plan: Presented with productive cough and SOB White count this morning is elevated at 11.9 Resp. viral panel, Strep and Legionella, Sputum CX pending Plan: -Levaquin 750 mg IV daily Qualifiers: Qualified Code(s): J20.9 - Acute bronchitis, unspecified (3) Hypertensive urgency Current Visit: Yes Status: Acute Assessment and plan: Patient presented with an elevated BP at 186/105. Last BP was 177/120. Plan: -HCTZ 25 mg PO daily -Lopressor 50 mg PO BID -Labetalol 10 mg IV Q1 PRN -Hydralazine 10 mg IV Q6 PRN (4) Pulmonary vascular congestion Current Visit: Yes Status: Acute Assessment and plan: CXR demonstrated the following: Suggestion of early perihilar edema. Mild dependent L basilar atelectasis or small effusion. Last echo on 04/10/16 demonstrated the following: EF 65%, mild LV diastolic dysfunction Patient's clinical picture is sugestive of R heart failure. Plan: -Cardiac Diet -Will obtain ECHO -2 doses Lasix 80 mg IV BID (5) DM2 (diabetes mellitus, type 2) Current Visit: Yes Status: Acute Assessment and plan: Patient has a known history of DM Glucose this morning was 178. Plan: -Sliding scale insulin -Amaryl 4mg PO daily Qualifiers: Qualified Code(s): E11.9 - Type 2 diabetes mellitus without complications - Subjective Interval history: Ms. Lozano is a 51 year old female with a PMH of COPD, chronic home O2 dependent at 2L, HTN, HLD and morbid obesity who presented to ER with worsening shortness of breath and cough with expectoration x2 days. EMD gave her one albuterol treatment, which improved the patients symptoms. Denied any CP, but did experience some chest tightness on inspiration. She was in severe respiratory failure, with an O2 sat in high 80's even on 4 lit O2. After being placed on BiPAP, oxygen saturation improved to 96. Upon arrival, her respiratory rate was elevated at 24/m, Pulse ox was 92, and BP was elvated at 186/105. Patient was somnolent, able to respond to verbal stimuli, but not participating in any conversation. CXR demonstrated pulmonary vascular congestion; was given one dose of Lasix. Patient was seen and examined at bedside this morning. States that her breathing has improved since admission. Currently on 3L via NC. Reports that her cough has improved. Appears somewhat tired; briefly fell asleep during history taking. Reports that she does have a history of narcolepsy and sleep apnea. Also reports that she is "terrified" of the BiPAP machine; reports that it broke her nose. No further complaints at this time. - Constitutional Vitals: Temp Pulse Resp BP Pulse Ox 98.2 F 74 18 177/120 97 08/12/17 04:12 08/12/17 08:00 08/12/17 07:26 08/12/17 07:11 08/12/17 07:26 General appearance: Present: A&O X 3, morbidly obese, answers questions appropriately - Head Head exam: Present: atraumatic, normocephalic - Eye Eye exam: Present: PERRL, conjuntiva pink, sclera anicteric Pupils: Present: PERRL - ENT Additional comments: On O2 via NC - Neck Neck exam general surgery: Present: supple, trachea midline. Absent: lymphadenopathy - Respiratory Respiratory exam: Present: CTAB. Absent: accessory muscle use, rales, rhonchi, wheezes - Cardiovascular Cardiovascular exam: Present: RRR, +S1, +S2. Absent: diastolic murmur, gallop, rubs, systolic murmur - Extremities Exam Extremities exam: Present: warm, radial pulses palpable and symmetrical. Absent : calf tenderness, cyanotic, pedal edema - Neurological Exam Neurological exam: Present: CN II-XII intact, oriented X3, no focal deficits. Absent: pronater drift, facial droop, speech deficit - Skin Skin exam: Present: dry, intact Internal Medicine: Result - Labs CBC & Chem 7: 08/12/17 06:56 08/12/17 10:11 Labs: Short CBC 08/12/17 Range/Units 06:56 WBC 11.9 H (4.3-11.1) K/mcL Hgb 14.7 (11.5-15.4) g/dL Hct 49.9 H (35.3-44.9) % Plt Count 169 (140-400) K/mcL Neutrophils # 10.9 H (1.6-8.9) K/mcL - ABG Interpretation ABG results: ABG ABG pH 7.36 pH Units (7.32-7.45) 08/11/17 17:26 ABG pCO2 60 mmHg (35-45) H 08/11/17 17:26 ABG pO2 111 mmHg (85-104) H 08/11/17 17:26 ABG O2 Saturation 98 % (95-98) 08/11/17 17:26 Consult Discharge Plan - Plan Referrals: Deepthi Garcia MD [Primary Care Provider] - <Binh Robison - Last Filed: 08/12/17 13:33> Date of Encounter: 08/12/17 - Constitutional Vitals: Temp Pulse Resp BP Pulse Ox 98.2 F 74 19 161/79 94 08/12/17 04:12 08/12/17 12:00 08/12/17 11:29 08/12/17 11:29 08/12/17 11:29 Internal Medicine: Result - Labs CBC & Chem 7: 08/12/17 06:56 08/12/17 10:11 Labs: Short CBC 08/12/17 Range/Units 06:56 WBC 11.9 H (4.3-11.1) K/mcL Hgb 14.7 (11.5-15.4) g/dL Hct 49.9 H (35.3-44.9) % Plt Count 169 (140-400) K/mcL Neutrophils # 10.9 H (1.6-8.9) K/mcL BMP 08/12/17 10:11 Sodium 135 L Potassium 4.3 Chloride 99 Carbon Dioxide 28 BUN 19 Creatinine 1.08 Glucose 478 H Calcium 10.2 - ABG Interpretation ABG results: ABG ABG pH 7.36 pH Units (7.32-7.45) 08/11/17 17:26 ABG pCO2 60 mmHg (35-45) H 08/11/17 17:26 ABG pO2 111 mmHg (85-104) H 08/11/17 17:26 ABG O2 Saturation 98 % (95-98) 08/11/17 17:26 - Attending Attestation I personally interviewed and examined this patient. I agree with the findings, assessment, and plan of Dr. Duran, internal medicine administration internship. H&H has multifactorial respiratory failure including suspected acute right heart failure , probable cor pulmonale, chronic obesity hypoventilation syndrome, and likely a superimposed acute bronchitis versus pneumonia. Patient is being placed on Lasix 80 mg IV twice a day. She is on Levaquin for suspected bronchitis versus pneumonia. I will hold off on further steroids as I am not convinced she is having a COPD exacerbation. Since blood pressure is elevated and I do suspect she may also have diastolic dysfunction, acute on chronic diastolic congestive heart failure. Will increase her beta michael for blood pressure control. Await echocardiogram. Patient has a history of sleep apnea but is noncompliant due to stating it causes chest pain, and states it causes her to break her nose. Continue current therapies as outlined above. Closely monitor.
[2017-08-12] MEDS ORDERED: Furosemide 40 MG TABLET PO SCH (09:00)
[2017-08-12 09:52] LABS: Adenovirus Not Detected (Not Detect); Bordetella Pertussis Not Detected (Not Detect); Chlamydophila pneumoniae Not Detected (Not Detect); Coronavirus 229E Not Detected (Not Detect); Coronavirus HKU1 Not Detected (Not Detect); Coronavirus NL63 Not Detected (Not Detect); Coronavirus OC43 Not Detected (Not Detect); Human Metapneumovirus Not Detected (Not Detect); Human Rhinovirus/Enterovirus Not Detected (Not Detect); Influenza A Subtype 2009 H1 Not Detected (Not Detect); Influenza A Untypeable Not Detected (Not Detect); Influenza B Not Detected (Not Detect); Mycoplasma pneumoniae Not Detected (Not Detect); Parainfluenza Virus 1 Not Detected (Not Detect); Parainfluenza Virus 2 Not Detected (Not Detect); Parainfluenza Virus 3 Not Detected (Not Detect); Parainfluenza Virus 4 Not Detected (Not Detect); Respiratory Syncytial Virus Not Detected (Not Detect)
[2017-08-12] MEDS: Furosemide 40 MG/4 ML VIAL IVP SCH ×2 (10:01→17:16)
[2017-08-12 11:33] LABS: BUN/Creatinine Ratio 18 (6-26); Blood Urea Nitrogen 19 mg/dL (6-20); Calcium 10.2 mg/dL (8.6-10.3); Carbon Dioxide 28 mEq/L (23-29); Chloride 99 mEq/L (98-107); Chol/HDL Ratio 2.9 (0-4.9); Cholesterol 167 mg/dL (< 200); Glucose 478 mg/dL (70-105); HDL Cholesterol 58 mg/dL (40-59); LDL Cholesterol,Calculated 90 mg/dL (0-99); Osmolality,Calculated 303 (280-300); Potassium 4.3 mEq/L (3.5-5.1); Sodium 135 mEq/L (136-145); Triglycerides 97 mg/dL (< 150); eGFR For African Americans > 60 (> 60); eGFR For Non-African Americans 54 (> 60)
[2017-08-12] MEDS: ALPRAZolam 0.25 MG TABLET PO SCH (20:41)
[2017-08-13] MEDS: Ipratropium/Albuterol Neb 3 ML IH SCH ×7 (04:22→23:17)
[2017-08-13 06:30] LABS: Hematocrit 47.7 % (35.3-44.9); Hemoglobin 13.6 g/dL (11.5-15.4); Mean Corpuscular HGB Conc 28.5 g/dL (31.6-35.5); Mean Corpuscular Hemoglobin 22.6 pg (28.0-33.3); Mean Corpuscular Volume 79.1 fL (83.0-100.0); Mean Platelet Volume 10.6 fL (9.4-12.4); Platelet Count 255 K/mcL (140-400); Red Blood Count 6.03 M/mcL (3.82-4.97); Red Cell Distribution Width 17.6 % (11.5-14.5)
[2017-08-13 06:33] LABS: Calcium 10.4 mg/dL (8.6-10.3); Potassium 4.4 mEq/L (3.5-5.1)
[2017-08-13] MEDS: *HR* Enoxaparin 40 MG/0.4 ML SYRINGE SQ SCH (07:10)
[2017-08-13] MEDS: Levothyroxine 25 MCG TABLET PO SCH (07:10)
[2017-08-13] MEDS: Levofloxacin 750 MG/150 ML 750 MG/150 ML BAG IVPB SCH (08:08)
[2017-08-13] MEDS: hydroCHLOROthiazide 25 MG TABLET PO SCH (08:08)
[2017-08-13] MEDS: FLUoxetine 20 MG CAPSULE PO SCH (08:08)
[2017-08-13] MEDS: *HR* Glimepiride 4 MG TABLET PO SCH (08:09)
[2017-08-13] MEDS: Insulin LISPRO 300 UNITS/3 ML VIAL SQ SCH ×4 (08:09→21:22)
--- NOTE | 2017-08-13 10:33 | Internal Med Progress Note ---
<Binh Robison - Last Filed: 08/13/17 15:36> Date of Encounter: 08/13/17 - Subjective Interval history: Other than history of present illness a 10 point review of systems is negative - Constitutional Vitals: Temp Pulse Resp BP Pulse Ox 98.6 F 61 19 108/65 92 08/13/17 11:14 08/13/17 11:14 08/13/17 15:33 08/13/17 11:14 08/13/17 15:33 Internal Medicine: Result - Labs CBC & Chem 7: 08/13/17 05:58 08/13/17 05:38 Labs: Short CBC 08/13/17 Range/Units 05:58 WBC 19.1 H D (4.3-11.1) K/mcL Hgb 13.6 (11.5-15.4) g/dL Hct 47.7 H (35.3-44.9) % Plt Count 255 D (140-400) K/mcL BMP 08/13/17 05:38 Sodium 139 Potassium 4.4 Chloride 101 Carbon Dioxide 31 H BUN 28 H Creatinine 1.28 H Glucose 207 H Calcium 10.4 H - ABG Interpretation ABG results: ABG ABG pH 7.36 pH Units (7.32-7.45) 08/11/17 17:26 ABG pCO2 60 mmHg (35-45) H 08/11/17 17:26 ABG pO2 111 mmHg (85-104) H 08/11/17 17:26 ABG O2 Saturation 98 % (95-98) 08/11/17 17:26 - Impressions Impressions Echocardiogram 08/12/17 08:53 Impressions: LVEF 60-65%. Not all LV segments were well visualized, but overall LVEF appears normal. Mild left ventricular diastolic dysfunction. Mild concentric left ventricular hypertrophy. Right ventricle was not well visualized. Grossly, it demonstrates normal function. Grossly, severely dilated left atrium. Unable to estimate RVSP due to lack of TR jet. No obvious significant valvular dysfunction. Findings: Study Quality * Technically adequate exam. ECG Findings * Normal sinus rhythm. Left Ventricle * LVEF 60-65%. Not all LV segments were well visualized, but overall LVEF appears normal. * Normal LV chamber size. * Mild left ventricular diastolic dysfunction. * Mild concentric left ventricular hypertrophy. Right Ventricle * Right ventricle was not well visualized. Grossly, it demonstrates normal function. Left Atrium * Grossly, severely dilated left atrium. Right Atrium * Right atrium is not well visualized. Interatrial Septum * Interatrial septum not well evaluated. Aortic Valve * Aortic valve not well visualized. * No aortic regurgitation. * No aortic stenosis. Mitral Valve * Normal mitral valve structure and function. * No mitral regurgitation. * No mitral stenosis. Tricuspid Valve * Tricuspid valve not well visualized. * Unable to estimate RVSP due to lack of TR jet. Pulmonic Valve * Pulmonic valve not well visualized. Aorta * Normally sized aortic root. Pericardium * The pericardium appears normal. IVC * The IVC is not well evaluated. Pulmonary Artery * Pulmonary artery not well visualized. Consult Discharge Plan - Plan Referrals: Deepthi Garcia MD [Primary Care Provider] - - Attending Attestation I personally interviewed and examined this patient. I agree with the findings, assessment, and plan of Dr. Duran, internal medicine internal combustion engine subassembler. Patient is diuresed well with IV Lasix and this is on hold now due to a slight increase in her creatinine. Breathing is significantly improved. She continues on Levaquin for suspected community acquired pneumonia versus acute bronchitis. She continues on steroids as well for COPD exacerbation. Patient likely does have acute on chronic diastolic CHF for which she is diuresed well and appears to be more compensated. Her blood pressure control is improved as well. Unfortunately patient states she cannot tolerate BiPAP at home which will be an issue as she likely does have severe sleep apnea. Continue with current therapies. Increase activity as tolerated. Closely monitor. <Westley Duran - Last Filed: 08/13/17 15:53> Date of Encounter: 08/13/17 Time of Encounter: 10:31 - Assessment and plan (1) Acute and chronic respiratory failure with hypercapnia Current Visit: Yes Status: Acute Assessment and plan: Presented to the ED with worsening SOB and cough. -ABG demonstrated the following: pH 7.36, Pco2 60, Po2 111, hco3 34, total co2 36, o2 saturation 98. -CXR demonstrated pulmonary vascular congestion; was given one dose IV Lasix in ED. -Patient was initially placed on BiPAP; is now on 4L via NC. -Sputum CX and resp. infection panel ordered Plan: -O2 via NC -Lasix 80 mg IV BID -Duoneb 3ml IH Q4 PRADIP -Levaquin 750 mg IV daily -Proventil neb 2.5 mg IH Q6PRN -Symbicort 160/4.5 2 puffs IH BID (2) Acute bronchitis Current Visit: Yes Status: Acute Assessment and plan: Presented with productive cough and SOB White count this morning is elevated at 19.1 Resp. viral panel, Strep and Legionella, Sputum CX pending Plan: -Levaquin 750 mg IV daily Qualifiers: Qualified Code(s): J20.9 - Acute bronchitis, unspecified (3) Hypertensive urgency Current Visit: Yes Status: Acute Assessment and plan: Patient presented with an elevated BP at 186/105. Last BP was 112/70 Plan: -HCTZ 25 mg PO daily -Lopressor 50 mg PO BID -Labetalol 10 mg IV Q1 PRN -Hydralazine 10 mg IV Q6 PRN (4) Pulmonary vascular congestion Current Visit: Yes Status: Acute Assessment and plan: CXR demonstrated the following: Suggestion of early perihilar edema. Mild dependent L basilar atelectasis or small effusion. Last echo on 04/10/16 demonstrated the following: EF 65%, mild LV diastolic dysfunction Patient's clinical picture is sugestive of R heart failure. Plan: -Cardiac Diet -Will obtain ECHO -2 doses Lasix 80 mg IV BID (5) DM2 (diabetes mellitus, type 2) Current Visit: Yes Status: Acute Assessment and plan: Patient has a known history of DM Glucose this morning was 207. Plan: -Sliding scale insulin -Amaryl 4mg PO daily Qualifiers: Qualified Code(s): E11.9 - Type 2 diabetes mellitus without complications - Subjective Interval history: Patient was seen and examined at bedside this morning. Patient reports that she is feeling better today. Her breathing has significantly improved since admission. PRN breathing treatments appear to be helping with her symptoms. Denies fever, chills, cough, increased sputum production, or chest pain. Patient has no complaints at this time. - Constitutional Vitals: Temp Pulse Resp BP Pulse Ox 98.2 F 60 28 112/70 92 08/13/17 08:02 08/13/17 08:02 08/13/17 08:02 08/13/17 08:02 08/13/17 08:02 General appearance: Present: A&O X 3, morbidly obese, answers questions appropriately - Head Head exam: Present: atraumatic, normocephalic - Eye Eye exam: Present: PERRL, conjuntiva pink, sclera anicteric Pupils: Present: PERRL - Neck Neck exam general surgery: Present: supple, trachea midline. Absent: lymphadenopathy - Respiratory Respiratory exam: Present: prolonged expiratory phase, rales, wheezes. Absent: accessory muscle use, rhonchi - Cardiovascular Cardiovascular exam: Present: RRR, +S1, +S2. Absent: diastolic murmur, gallop, rubs, systolic murmur - Extremities Exam Extremities exam: Present: warm, radial pulses palpable and symmetrical. Absent : calf tenderness, cyanotic, pedal edema - Neurological Exam Neurological exam: Present: CN II-XII intact, oriented X3, no focal deficits. Absent: pronater drift, facial droop, speech deficit - Skin Skin exam: Present: dry, intact Internal Medicine: Result - Labs CBC & Chem 7: 08/13/17 05:58 08/13/17 05:38 Labs: Short CBC 08/13/17 Range/Units 05:58 WBC 19.1 H D (4.3-11.1) K/mcL Hgb 13.6 (11.5-15.4) g/dL Hct 47.7 H (35.3-44.9) % Plt Count 255 D (140-400) K/mcL BMP 08/12/17 08/13/17 10:11 05:38 Sodium 135 L 139 Potassium 4.3 4.4 Chloride 99 101 Carbon Dioxide 28 31 H BUN 19 28 H Creatinine 1.08 1.28 H Glucose 478 H 207 H Calcium 10.2 10.4 H - ABG Interpretation ABG results: ABG ABG pH 7.36 pH Units (7.32-7.45) 08/11/17 17:26 ABG pCO2 60 mmHg (35-45) H 08/11/17 17:26 ABG pO2 111 mmHg (85-104) H 08/11/17 17:26 ABG O2 Saturation 98 % (95-98) 08/11/17 17:26
[2017-08-13] MEDS: Budesonide/Formoterol 160/4.5 MDI IH SCH ×2 (10:47→20:25)
--- NOTE | 2017-08-13 20:13 | Electrocardiograph Report ---
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
[2017-08-13] MEDS: ALPRAZolam 0.25 MG TABLET PO SCH (21:06)
--- NOTE | 2017-08-14 00:11 | Event Note ---
Date of Encounter: 08/14/17 Time of Encounter: 00:10 Called by RN for concerns of rising WBC despite antibiotics. Patient is not on steroids. She is alert and mentating at baseline per RN. I ordered blood culture x 2 and added Zyvox for broader coverage. I avoided Vancomycin due to RHONDA presently.
[2017-08-14] MEDS: Ipratropium/Albuterol Neb 3 ML IH SCH ×5 (03:44→19:31)
[2017-08-14] MEDS: Levothyroxine 25 MCG TABLET PO SCH (05:01)
[2017-08-14] MEDS: *HR* Enoxaparin 40 MG/0.4 ML SYRINGE SQ SCH (05:01)
[2017-08-14] MEDS: hydroCHLOROthiazide 25 MG TABLET PO SCH (07:39)
[2017-08-14] MEDS: Levofloxacin 750 MG/150 ML 750 MG/150 ML BAG IVPB SCH (07:39)
[2017-08-14] MEDS: *HR* Glimepiride 4 MG TABLET PO SCH (07:40)
[2017-08-14] MEDS: Insulin LISPRO 300 UNITS/3 ML VIAL SQ SCH ×4 (07:40→20:17)
[2017-08-14 07:44] LABS: BUN/Creatinine Ratio 28 (6-26); Blood Urea Nitrogen 28 mg/dL (6-20); Calcium 9.9 mg/dL (8.6-10.3); Carbon Dioxide 37 mEq/L (23-29); Chloride 100 mEq/L (98-107); Glucose 248 mg/dL (70-105); Osmolality,Calculated 304 (280-300); Sodium 140 mEq/L (136-145); eGFR For African Americans > 60 (> 60); eGFR For Non-African Americans 58 (> 60)
[2017-08-14 07:48] LABS: Basophils # 0.1 K/mcL (0.0-0.2); Basophils % 0.5 %; Eosinophils # 0.1 K/mcL (0.0-0.6); Hemoglobin 12.6 g/dL (11.5-15.4); Immature Granulocytes % 0.4 % (0-4); Lymphocytes # 1.5 K/mcL (0.6-4.6); Lymphocytes % 15.6 %; Mean Corpuscular HGB Conc 29.3 g/dL (31.6-35.5); Mean Corpuscular Hemoglobin 23.1 pg (28.0-33.3); Mean Corpuscular Volume 78.8 fL (83.0-100.0); Mean Platelet Volume 10.9 fL (9.4-12.4); Monocytes # 0.8 K/mcL (0.0-1.3); Monocytes % 8.8 %; Neutrophils # 6.9 K/mcL (1.6-8.9); Platelet Count 185 K/mcL (140-400); Red Blood Count 5.46 M/mcL (3.82-4.97); Red Cell Distribution Width 17.8 % (11.5-14.5); Segmented Neutrophils % 73.7 %
[2017-08-14] MEDS: Budesonide/Formoterol 160/4.5 MDI IH SCH ×2 (08:43→19:31)
--- NOTE | 2017-08-14 09:09 | Internal Med Progress Note ---
<Binh Robison - Last Filed: 08/14/17 13:36> Date of Encounter: 08/14/17 - Subjective Interval history: Other than HPI a 10 pt ROS is negative, - Constitutional Vitals: Temp Pulse Resp BP Pulse Ox 98.4 F 57 16 148/87 92 08/14/17 11:44 08/14/17 11:44 08/14/17 11:44 08/14/17 11:44 08/14/17 11:44 Internal Medicine: Result - Labs CBC & Chem 7: 08/14/17 07:23 08/14/17 07:23 Labs: Short CBC 08/14/17 Range/Units 07:23 WBC 9.4 D (4.3-11.1) K/mcL Hgb 12.6 (11.5-15.4) g/dL Hct 43.0 (35.3-44.9) % Plt Count 185 (140-400) K/mcL Neutrophils # 6.9 (1.6-8.9) K/mcL BMP 08/14/17 07:23 Sodium 140 Potassium 4.0 Chloride 100 Carbon Dioxide 37 H BUN 28 H Creatinine 1.01 Glucose 248 H Calcium 9.9 - ABG Interpretation ABG results: ABG ABG pH 7.36 pH Units (7.32-7.45) 08/11/17 17:26 ABG pCO2 60 mmHg (35-45) H 08/11/17 17:26 ABG pO2 111 mmHg (85-104) H 08/11/17 17:26 ABG O2 Saturation 98 % (95-98) 08/11/17 17:26 - Impressions Impressions Echocardiogram 08/12/17 08:53 Impressions: LVEF 60-65%. Not all LV segments were well visualized, but overall LVEF appears normal. Mild left ventricular diastolic dysfunction. Mild concentric left ventricular hypertrophy. Right ventricle was not well visualized. Grossly, it demonstrates normal function. Grossly, severely dilated left atrium. Unable to estimate RVSP due to lack of TR jet. No obvious significant valvular dysfunction. Findings: Study Quality * Technically adequate exam. ECG Findings * Normal sinus rhythm. Left Ventricle * LVEF 60-65%. Not all LV segments were well visualized, but overall LVEF appears normal. * Normal LV chamber size. * Mild left ventricular diastolic dysfunction. * Mild concentric left ventricular hypertrophy. Right Ventricle * Right ventricle was not well visualized. Grossly, it demonstrates normal function. Left Atrium * Grossly, severely dilated left atrium. Right Atrium * Right atrium is not well visualized. Interatrial Septum * Interatrial septum not well evaluated. Aortic Valve * Aortic valve not well visualized. * No aortic regurgitation. * No aortic stenosis. Mitral Valve * Normal mitral valve structure and function. * No mitral regurgitation. * No mitral stenosis. Tricuspid Valve * Tricuspid valve not well visualized. * Unable to estimate RVSP due to lack of TR jet. Pulmonic Valve * Pulmonic valve not well visualized. Aorta * Normally sized aortic root. Pericardium * The pericardium appears normal. IVC * The IVC is not well evaluated. Pulmonary Artery * Pulmonary artery not well visualized. Consult Discharge Plan - Plan Referrals: Deepthi Garcia MD [Primary Care Provider] - - Attending Attestation I personally interviewed and examined this patient. I agree with the findings, assessment, and plan of Dr. Duran, internal medicine applications intern. Patient is significantly improved with diuresis. He reports her breathing is almost back to normal. He remains on oxygen at 2 L per nasal cannula. He as mentioned, refuses to wear CPAP or BiPAP as it causes fractures of her nose per her report. Patient did lose IV access earlier today and we will attempt to place. She did have her Lasix changed to oral, as well as her Levaquin. Her blood pressure control is improved but remains mildly elevated. I will add hydralazine 25 mg by mouth 3 times a day. It is sore throat today but no evidence of thrush, Chloraseptic spray was ordered. Would have a low threshold for using nystatin swish and spit. This was therapy will be working with the patient today and we will attempt to mobilize. As outlined above. <Westley Duran - Last Filed: 08/14/17 15:20> Date of Encounter: 08/14/17 Time of Encounter: 09:09 - Assessment and plan (1) Acute and chronic respiratory failure with hypercapnia Current Visit: Yes Status: Acute Assessment and plan: Presented to the ED with worsening SOB and cough. -ABG demonstrated the following: pH 7.36, Pco2 60, Po2 111, hco3 34, total co2 36, o2 saturation 98. -CXR demonstrated pulmonary vascular congestion; was given one dose IV Lasix in ED. -Patient was initially placed on BiPAP; is now on 4L via NC. -Sputum CX and resp. infection panel ordered Patient lost IV access today; IV meds will be switched to PO. Plan: -O2 via NC -Lasix 40 mg PO BID -Duoneb 3ml IH Q4 PRADIP -Levaquin 750 mg PO DAILY -Proventil neb 2.5 mg IH Q6PRN -Symbicort 160/4.5 2 puffs IH BID (2) Acute bronchitis Current Visit: Yes Status: Acute Assessment and plan: Presented with productive cough and SOB White count has improved; 19.1 yesterday, 9.4 today Last night, patient developed tachypnea; due to elevated white count, patient was started on Zyvox. Vancomycin was held due to RHONDA. Patient's white count is improved; Zyvox was discontinued. Patient now on PO Levaquin 750 mg PO DAILY Blood CX have been ordered; currently pending Resp. viral panel, Strep and Legionella, Sputum CX pending Qualifiers: Qualified Code(s): J20.9 - Acute bronchitis, unspecified (3) Hypertensive urgency Current Visit: Yes Status: Acute Assessment and plan: Patient presented with an elevated BP at 186/105. Last BP was 145/79 Plan: -HCTZ 25 mg PO daily -Lopressor 50 mg PO BID -Labetalol 10 mg IV Q1 PRN -Hydralazine 10 mg IV Q6 PRN (4) Pulmonary vascular congestion Current Visit: Yes Status: Acute Assessment and plan: CXR demonstrated the following: Suggestion of early perihilar edema. Mild dependent L basilar atelectasis or small effusion. Last echo on 04/10/16 demonstrated the following: EF 65%, mild LV diastolic dysfunction Patient's clinical picture is sugestive of R heart failure. ECHO demonstrated the following: -LVEF 60-65%. -Not all LV segments were well visualized, but overall LVEF appears normal. -Mild LV diastolic dysfunction. -Mild concentric LV hypertrophy. -RV was not well visualized. Grossly, it demonstrates normal function. -Grossly, severely dilated LA. -Unable to estimate RVSP due to lack of TR jet. -No obvious significant valvular dysfunction. Plan: -Cardiac Diet -Will obtain ECHO -2 doses Lasix 80 mg IV BID (5) DM2 (diabetes mellitus, type 2) Current Visit: Yes Status: Acute Assessment and plan: Patient has a known history of DM Glucose this morning was 248. Plan: -Sliding scale insulin -Amaryl 4mg PO daily Qualifiers: Qualified Code(s): E11.9 - Type 2 diabetes mellitus without complications (6) Sore throat Current Visit: Yes Status: Acute Assessment and plan: Patient complained of a sore throat this morning -Chloraseptic spray ordered - Subjective Interval history: Patient was seen and examined at bedside this morning. Reports that her breathing has improved. States that she still feels tired; dosed off several times while obtaining ROS. Patient complains of a sore throat this morning. Denies difficulty swallowing. Denies feevr, chills, cheat pain, shortness of breath, cough, sputum production. No further complaints at this time. - Constitutional Vitals: Temp Pulse Resp BP Pulse Ox 97.7 F 58 18 145/79 96 08/14/17 06:58 08/14/17 06:58 08/14/17 06:58 08/14/17 06:58 08/14/17 06:58 General appearance: Present: A&O X 3, morbidly obese, answers questions appropriately - Head Head exam: Present: atraumatic, normocephalic - Eye Eye exam: Present: PERRL, conjuntiva pink, sclera anicteric Pupils: Present: PERRL - Neck Neck exam general surgery: Present: supple, trachea midline. Absent: lymphadenopathy - Respiratory Respiratory exam: Present: prolonged expiratory phase, wheezes. Absent: accessory muscle use, rales, rhonchi Additional comments: Expiratory wheezes present bilaterally in all lung fuentes. - Cardiovascular Cardiovascular exam: Present: RRR, +S1, +S2. Absent: diastolic murmur, gallop, rubs, systolic murmur - GI/Abdominal GI/Abdominal exam: Present: normal bowel sounds, soft, no peritoneal signs. Absent: distended, tenderness - Extremities Exam Extremities exam: Present: warm, radial pulses palpable and symmetrical. Absent : calf tenderness, cyanotic, pedal edema - Neurological Exam Neurological exam: Present: CN II-XII intact, oriented X3, no focal deficits. Absent: pronater drift, facial droop, speech deficit - Skin Skin exam: Present: dry, intact Internal Medicine: Result - Labs CBC & Chem 7: 08/14/17 07:23 08/14/17 07:23 Labs: Short CBC 08/14/17 Range/Units 07:23 WBC 9.4 D (4.3-11.1) K/mcL Hgb 12.6 (11.5-15.4) g/dL Hct 43.0 (35.3-44.9) % Plt Count 185 (140-400) K/mcL Neutrophils # 6.9 (1.6-8.9) K/mcL BMP 08/14/17 07:23 Sodium 140 Potassium 4.0 Chloride 100 Carbon Dioxide 37 H BUN 28 H Creatinine 1.01 Glucose 248 H Calcium 9.9 - ABG Interpretation ABG results: ABG ABG pH 7.36 pH Units (7.32-7.45) 08/11/17 17:26 ABG pCO2 60 mmHg (35-45) H 08/11/17 17:26 ABG pO2 111 mmHg (85-104) H 08/11/17 17:26 ABG O2 Saturation 98 % (95-98) 08/11/17 17:26 - Impressions Impressions Echocardiogram 08/12/17 08:53 Impressions: LVEF 60-65%. Not all LV segments were well visualized, but overall LVEF appears normal. Mild left ventricular diastolic dysfunction. Mild concentric left ventricular hypertrophy. Right ventricle was not well visualized. Grossly, it demonstrates normal function. Grossly, severely dilated left atrium. Unable to estimate RVSP due to lack of TR jet. No obvious significant valvular dysfunction. Findings: Study Quality * Technically adequate exam. ECG Findings * Normal sinus rhythm. Left Ventricle * LVEF 60-65%. Not all LV segments were well visualized, but overall LVEF appears normal. * Normal LV chamber size. * Mild left ventricular diastolic dysfunction. * Mild concentric left ventricular hypertrophy. Right Ventricle * Right ventricle was not well visualized. Grossly, it demonstrates normal function. Left Atrium * Grossly, severely dilated left atrium. Right Atrium * Right atrium is not well visualized. Interatrial Septum * Interatrial septum not well evaluated. Aortic Valve * Aortic valve not well visualized. * No aortic regurgitation. * No aortic stenosis. Mitral Valve * Normal mitral valve structure and function. * No mitral regurgitation. * No mitral stenosis. Tricuspid Valve * Tricuspid valve not well visualized. * Unable to estimate RVSP due to lack of TR jet. Pulmonic Valve * Pulmonic valve not well visualized. Aorta * Normally sized aortic root. Pericardium * The pericardium appears normal. IVC * The IVC is not well evaluated. Pulmonary Artery * Pulmonary artery not well visualized.
[2017-08-14] MEDS ORDERED: Chloraseptic Spray 177 ML BOTTLE MM PRN (09:20)
[2017-08-14] MEDS: Furosemide 40 MG TABLET PO SCH ×2 (10:41→15:42)
[2017-08-14] MEDS: ALPRAZolam 0.25 MG TABLET PO SCH (20:21)
[2017-08-15] MEDS: Ipratropium/Albuterol Neb 3 ML IH SCH ×3 (00:02→07:43)
[2017-08-15] MEDS: *HR* Enoxaparin 40 MG/0.4 ML SYRINGE SQ SCH (06:32)
[2017-08-15] MEDS: Levothyroxine 25 MCG TABLET PO SCH (06:32)
[2017-08-15 07:24] VITALS: BP 130/73
[2017-08-15] MEDS: Furosemide 40 MG TABLET PO SCH (08:20)
[2017-08-15] MEDS: *HR* Glimepiride 4 MG TABLET PO SCH (08:20)
[2017-08-15] MEDS: hydroCHLOROthiazide 25 MG TABLET PO SCH (08:20)
[2017-08-15] MEDS: Insulin LISPRO 300 UNITS/3 ML VIAL SQ SCH (08:21)
[2017-08-15 08:31] LABS: Basophils % 0.4 %; Immature Granulocytes % 0.4 % (0-4)
[2017-08-15 08:32] LABS: Eosinophils # 0.2 K/mcL (0.0-0.6); Eosinophils % 2.7 %; Hematocrit 45.1 % (35.3-44.9); Hemoglobin 13.3 g/dL (11.5-15.4); Lymphocytes # 1.2 K/mcL (0.6-4.6); Lymphocytes % 14.7 %; Mean Corpuscular HGB Conc 29.5 g/dL (31.6-35.5); Mean Corpuscular Hemoglobin 23.1 pg (28.0-33.3); Mean Corpuscular Volume 78.3 fL (83.0-100.0); Mean Platelet Volume 10.9 fL (9.4-12.4); Monocytes # 0.7 K/mcL (0.0-1.3); Monocytes % 8.6 %; Platelet Count 192 K/mcL (140-400); Red Blood Count 5.76 M/mcL (3.82-4.97); Red Cell Distribution Width 17.7 % (11.5-14.5); Segmented Neutrophils % 73.2 %
[2017-08-15 08:39] LABS: Neutrophils # 6.2 K/mcL (1.6-8.9)
[2017-08-15 08:40] LABS: Hypochromasia Present (Not Present)
[2017-08-15 08:56] LABS: BUN/Creatinine Ratio 24 (6-26); Blood Urea Nitrogen 23 mg/dL (6-20); Calcium 10.2 mg/dL (8.6-10.3); Carbon Dioxide 36 mEq/L (23-29); Chloride 99 mEq/L (98-107); Glucose 151 mg/dL (70-105); Osmolality,Calculated 297 (280-300); Potassium 4.2 mEq/L (3.5-5.1); Sodium 140 mEq/L (136-145); eGFR For African Americans > 60 (> 60); eGFR For Non-African Americans > 60 (> 60)
[2017-08-15] MEDS ORDERED: levoFLOXacin 750 MG TABLET PO SCH (09:00)
--- NOTE | 2017-08-15 09:38 | Discharge Summary ---
- NOTES TO OUTPATIENT PROVIDER Notes to Outpatient Provider: BMP IN 3-4 DAYS Orders not resulted at time of discharge: Pending orders 08/11/17 18:16 Culture,Sputum with Gram Stain [RM] Routine 08/14/17 00:55 Culture,Blood [BC] Stat Date of Encounter: 08/15/17 Time of Encounter: 09:29 - Discharge Diagnosis (1) Acute and chronic respiratory failure with hypercapnia Priority: Primary Status: Acute (2) Acute bronchitis Priority: Primary Status: Acute Qualifiers: Bronchitis organism: unspecified organism Qualified Code(s): J20.9 - Acute bronchitis, unspecified (3) Acute exacerbation of chronic obstructive airways disease Priority: Primary Status: Acute (4) DM2 (diabetes mellitus, type 2) Priority: Secondary Status: Acute Qualifiers: Diabetes mellitus complication status: without complication Diabetes mellitus [facility] insulin use: without [facility] use Qualified Code(s): E11.9 - Type 2 diabetes mellitus without complications (5) Hypertensive urgency Priority: Primary Status: Acute (6) Morbid obesity with BMI of 50.0-59.9, adult Priority: Secondary Status: Acute (7) Pulmonary vascular congestion Priority: Primary Status: Acute (8) Tobacco abuse Priority: Secondary Status: Acute (9) LEXIE (obstructive sleep apnea) Priority: Secondary Status: Chronic Hospital course: History of present illness: Ms. Lozano is a 51 year old female with COPD, chronic home O2 dependent at 2 lit , HTN, HLD and morbid obese pt who presented to ER with worsening shortness of breath and cough with expectoration from last 2 days. She denied any CP. She was in severe respiratory failure, maintaining her PSo2 in high 80's even on 4 lit O2, with BiPAP on now her Spo2 96. However pt is still very somnolent, able to respond to verbal stimuli, but not participating in any conversation. I got all the information from ER staff, and attending. Spoke to pt's daughter Tanya Lozano @ [phone] and explained to her about current care. 08/15/17: Patient was admitted for multifactorial respiratory failure due to acute on chronic diastolic CHF, COPD (but not suspected to be having an acute exacerbation this admission), as well as suspected acute bronchitis versus pneumonia. Patient also suffers from obesity hypoventilation syndrome, as well as sleep apnea for which she states she is intolerant to BiPAP or CPAP (states she needed nasal reconstruction surgery due to the mask injuring her). Patient was placed on Lasix 40 mg IV twice a day with significant improvement in her volume status. Her renal function tolerated this well. Her blood pressure control improved with increased Lasix dose, Lopressor increased to 50 mg by mouth twice a day, and continue home lisinopril 40 mg by mouth daily. I stopped her hydrochlorothiazide. Hydralazine 5 mg by mouth 3 times a day started as well. She was given CHF discharge instructions. Echocardiogram this admission an EF of 60-65% with concentric LVH and diastolic dysfunction. Patient is currently day 4 of a planned 7 day course of Levaquin for acute bronchitis versus community acquired pneumonia. She was not continued on steroids as she was felt to not be having an acute COPD exacerbation. Patient was otherwise doing well and deemed stable for discharge. A total of 39 minutes were spent on discharge and coordination of care. She has no history of atrial fibrillation but due to her cardiovascular risk factors, she continues on baby aspirin 81 mg by mouth daily. It is recommended she have a lipid profile performed on follow-up visit. Patient was also counseled on smoking cessation and resources were offered. He stands a role displace into her disease process, and that ongoing use could lead to worsening respiratory problems and or . Discharge discussed with: patient Time spent discussing smoking cessation with patient: more than 10 minutes - Time Spent with Patient Total time spent providing and/or coordinating discharge services: Greater than 30 minutes (39) - Discharge Medications Home Medications: FLUoxetine HCl [Prozac] 40 mg PO DAILY #0 02/11/15 [History] Levothyroxine Sodium [Synthroid] 200 mcg PO QAM #0 02/11/15 [History] Omeprazole [PriLOSEC] 20 mg PO DAILY #0 02/11/15 [History] Aspirin 81 mg PO DAILY #30 tab.chew 02/13/15 [Rx] Lisinopril [Zestril] 40 mg PO DAILY #30 tablet 02/13/15 [Rx] Albuterol Sulfate [Ventolin Hfa] 2 puff IH Q4H PRN 01/02/16 [History] Umeclidinium [place] [Incruse Ellipta] 62.5 mcg IH DAILY 01/02/16 [History] Glimepiride [Amaryl] 4 mg PO DAILY 04/09/16 [History] Atorvastatin [Lipitor] 40 mg PO HS 06/25/16 [History] Levothyroxine [Synthroid] 25 mcg PO QAM 06/25/16 [History] Budesonide/Formoterol 160/4.5 [Symbicort 160/4.5] 2 puff IH BIDR 08/19/16 [ History] Metformin HCl [Metformin HCl ER] 750 mg PO DAILY 08/19/16 [History] ALPRAZolam [Xanax 0.25 MG Tablet] 0.25 mg PO HS 08/11/17 [History] Albuterol Neb [Proventil Neb] 2.5 mg IH Q6H PRN 08/11/17 [History] Ammonium Lactate 1 appl TP BID PRN 08/11/17 [History] Acetaminophen [Tylenol] 650 mg PO Q6HR PRN tablet 08/15/17 [Rx] Albuterol Neb [Proventil Neb] 2.5 mg IH Q6H PRN inhsol 08/15/17 [Rx] Furosemide [Lasix] 40 mg PO BIDDIURETIC #60 tablet 08/15/17 [Rx] GuaiFENesin ER [Mucinex] 600 mg PO BID #20 tbbp.12hr 08/15/17 [Rx] Ipratropium/Albuterol Neb [Duoneb] 3 ml IH [id number] inhsol 08/15/17 [Rx] Levofloxacin [Levaquin] 750 mg PO DAILY #3 tablet 08/15/17 [Rx] Metoprolol [Lopressor] 50 mg PO BID #60 tablet 08/15/17 [Rx] hydrALAZINE [HydrALAZINE] 25 mg PO Q8HR #90 tablet 08/15/17 [Rx] levoFLOXacin [Levaquin] 750 mg PO DAILY tablet 08/15/17 [Rx] Allergies/Adverse Reactions: 3 Allergy/AdvReac Type Severity Reaction Status Date / Time No Known Allergies Allergy Verified 07/20/17 11:44 Date of admission: 08/11/17 18:06 Primary care physician: Deepthi Garcia Consults: 08/14/17 11:41 Consult to Able Seaman [CONS] Routine Reason for SW Consult: Discharge planning 08/14/17 11:48 Consult to Occupational Therapy [CONS] Routine Comment: Evaluate, develop and implement POC Reason for Consult: Eval and treat Consult to Physical Therapy [CONS] Routine Comment: Evaluate, develop and implement POC Reason for Consult: Eval and treat Discharging clinician: Binh Robison Anticipated date of discharge: 08/15/17 - Constitutional Vitals: Temp Pulse Resp BP Pulse Ox 98.4 F 52 18 130/73 94 08/15/17 07:19 08/15/17 08:08 08/15/17 07:19 08/15/17 07:19 08/15/17 07:19 General appearance: Present: A&O X 3, morbidly obese, no acute distress, answers questions appropriately - Head Head exam: Present: atraumatic, normocephalic - ENT ENT exam: Present: mucous membranes moist Additional comments: Right ear is without erythema. There is wax buildup in the external canal. - Respiratory Respiratory exam: Present: CTAB (Lungs clear with the exception of diminished breath sounds at the bases bilaterally). Absent: accessory muscle use, rales, rhonchi, wheezes - Cardiovascular Cardiovascular exam: Present: RRR, +S1, +S2. Absent: diastolic murmur, gallop, rubs, systolic murmur - GI/Abdominal GI/Abdominal exam: Present: normal bowel sounds, soft, no peritoneal signs. Absent: distended, tenderness - Extremities Exam Additional comments: Trace edema bilaterally - Neurological Exam Neurological exam: Present: CN II-XII intact, oriented X3, no focal deficits. Absent: pronater drift, facial droop, speech deficit - Skin Skin exam: Present: dry, intact - Patient Status Disposition: Home, Self-Care Condition: Fair Functional capacity at discharge: independent ambulation Overall status at discharge: patient is back to baseline - Discharge Instructions Follow Up With: Deepthi Garcia MD [Primary Care Provider] -
[2017-08-15] MEDS: Budesonide/Formoterol 160/4.5 MDI IH SCH (09:46)
--- NOTE | 2017-08-15 10:02 | Physician Discharge Referral ---
Home Health/Hosp Referral Info Provider in Charge Post Discharge: PCP - Diagnosis (1) Acute and chronic respiratory failure with hypercapnia Priority: Primary Status: Acute (2) Acute bronchitis Priority: Primary Status: Acute (3) DM2 (diabetes mellitus, type 2) Priority: Secondary Status: Acute (4) Hypertensive urgency Status: Acute (5) Morbid obesity with BMI of 50.0-59.9, adult Status: Acute (6) Pulmonary vascular congestion Priority: Primary Status: Acute (7) Tobacco abuse Priority: Primary Status: Acute (8) LEXIE (obstructive sleep apnea) Priority: Primary Status: Chronic - Respiratory Orders Oxygen / L per min (3L per min, or as per resp therapy) Smoking Cessation: Smoking cessation has been advised. For more information, call the [employer] Quit Line at 2-043-VAKO-NOW. - Diet/Nutrition Diet/Nutrition Orders: Cardiac - Activity Activity Orders: Up ad jenny - Services Needed Following services are medically necessary services: Home Health Aide, Physical Therapy - Transfer Medications Prescriptions: hydrALAZINE [HydrALAZINE] 25 mg PO Q8HR #90 tablet Furosemide [Lasix] 40 mg PO BIDDIURETIC #60 tablet GuaiFENesin ER [Mucinex] 600 mg PO BID #20 tbbp.12hr Levofloxacin [Levaquin] 750 mg PO DAILY #3 tablet Metoprolol [Lopressor] 50 mg PO BID #60 tablet Home Medications: FLUoxetine HCl [Prozac] 40 mg PO DAILY #0 02/11/15 [History] Levothyroxine Sodium [Synthroid] 200 mcg PO QAM #0 02/11/15 [History] Omeprazole [PriLOSEC] 20 mg PO DAILY #0 02/11/15 [History] Aspirin 81 mg PO DAILY #30 tab.chew 02/13/15 [Rx] Lisinopril [Zestril] 40 mg PO DAILY #30 tablet 02/13/15 [Rx] Albuterol Sulfate [Ventolin Hfa] 2 puff IH Q4H PRN 01/02/16 [History] Umeclidinium [place] [Incruse Ellipta] 62.5 mcg IH DAILY 01/02/16 [History] Glimepiride [Amaryl] 4 mg PO DAILY 04/09/16 [History] Atorvastatin [Lipitor] 40 mg PO HS 06/25/16 [History] Levothyroxine [Synthroid] 25 mcg PO QAM 06/25/16 [History] Budesonide/Formoterol 160/4.5 [Symbicort 160/4.5] 2 puff IH BIDR 08/19/16 [ History] Metformin HCl [Metformin HCl ER] 750 mg PO DAILY 08/19/16 [History] ALPRAZolam [Xanax 0.25 MG Tablet] 0.25 mg PO HS 08/11/17 [History] Albuterol Neb [Proventil Neb] 2.5 mg IH Q6H PRN 08/11/17 [History] Ammonium Lactate 1 appl TP BID PRN 08/11/17 [History] Acetaminophen [Tylenol] 650 mg PO Q6HR PRN tablet 08/15/17 [Rx] Albuterol Neb [Proventil Neb] 2.5 mg IH Q6H PRN inhsol 08/15/17 [Rx] Furosemide [Lasix] 40 mg PO BIDDIURETIC #60 tablet 08/15/17 [Rx] GuaiFENesin ER [Mucinex] 600 mg PO BID #20 tbbp.12hr 08/15/17 [Rx] Ipratropium/Albuterol Neb [Duoneb] 3 ml IH [id number] inhsol 08/15/17 [Rx] Levofloxacin [Levaquin] 750 mg PO DAILY #3 tablet 08/15/17 [Rx] Metoprolol [Lopressor] 50 mg PO BID #60 tablet 08/15/17 [Rx] hydrALAZINE [HydrALAZINE] 25 mg PO Q8HR #90 tablet 08/15/17 [Rx] levoFLOXacin [Levaquin] 750 mg PO DAILY tablet 08/15/17 [Rx] Allergies/Adverse Reactions: 3 Allergy/AdvReac Type Severity Reaction Status Date / Time No Known Allergies Allergy Verified 07/20/17 11:44 Certification: Further, I certify that my clinical findings support that this patient is homebound (i.e. absences from home require considerable and taxing effort and are for medical reasons or christian services or infrequently or short duration when for other reasons) because: Homebound Reason: Patient requires assistance of a person or device to safely leave home Attestation: My signature below is to certify that this patient is under my care and that I, or nurse practitioner, or a physician's visitor information assistant working with me, has a face-to -face encounter with this patient.
== END 2017-08-15 10:43 | disposition home or self-care (01) | DRG 190 ==
LOC: EMEROO 15:37 → 2ANU 15:37 → 2NNU 17:56 → 3NENU 08-12 12:07
PROVIDERS: ADMIT Internal Medicine; ATTEND Internal Medicine

== ENCOUNTER 2018-02-04 06:27 | Observation (INO) ==
[2018-02-04] MEDS ORDERED: Ondansetron 4 MG/2 ML VIAL ONE (07:12)
[2018-02-04] MEDS ORDERED: Ketorolac 30 MG/ML VIAL ONE (07:12)
[2018-02-04] MEDS ORDERED: Dexamethasone 4 MG/ML VIAL ONE (07:12)
[2018-02-04] MEDS ORDERED: *HR* Midazolam HCl 2 MG/2 ML VIAL ONE (07:12)
[2018-02-04] MEDS ORDERED: *HR* Propofol 200 MG/20 ML VIAL IVP ONE (07:12)
[2018-02-04] MEDS ORDERED: Lidocaine -MPF 2% 2 ML VIAL ONE (07:12)
[2018-02-04] MEDS ORDERED: *HR* FentaNYL (PF) 100 MCG/2 ML VIAL ONE (07:12)
--- NOTE | 2018-02-04 07:22 | Anesthesia Evaluation PreOp ---
Date of Encounter: 02/04/18 Time of Encounter: 07:05 - Past History Planned Operation: fractional D&C Cardiac History: CHF, HTN, Hyperlipidemia, Other (Had pericardial effusion in July. At that time had severely dilated L atrium but normal valves and normal EF at 65%. Effusion has since resolved.) Pulmonary History: Smoker, Asthma (Uses supplemental O2 at night because she cannot tolerate a CPAP machine.), COPD, Snore, LEXIE Dx, Other (Saw Dr. Dumont for "pulmonary clearance". 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: Denies Any Significant HX Other Medical History: Denies Any Significant HX, Diabetes Type II, Thyroid Anesthesia History: No Prior Anesthetic Complications (Patient had a UPP and was told that "anesthesia put the tube in the wrong place and put a hole in her tongue".), Past Anesthesia Alcohol Use: none Drug use: none Medications and Allergies FLUoxetine HCl [Prozac] 40 mg PO DAILY #0 02/11/15 [History] Levothyroxine Sodium [Synthroid] 200 mcg PO QAM #0 02/11/15 [History] Omeprazole [PriLOSEC] 20 mg PO DAILY #0 02/11/15 [History] Aspirin 81 mg PO DAILY #30 tab.chew 02/13/15 [Rx] Lisinopril [Zestril] 40 mg PO DAILY #30 tablet 02/13/15 [Rx] Albuterol Sulfate [Ventolin Hfa] 2 puff IH Q4H PRN 01/02/16 [History] Umeclidinium [place] [Incruse Ellipta] 62.5 mcg IH DAILY 01/02/16 [History] Glimepiride [Amaryl] 4 mg PO DAILY 04/09/16 [History] Atorvastatin [Lipitor] 40 mg PO HS 06/25/16 [History] Levothyroxine [Synthroid] 25 mcg PO QAM 06/25/16 [History] Budesonide/Formoterol 160/4.5 [Symbicort 160/4.5] 2 puff IH BIDR 08/19/16 [ History] Metformin HCl [Metformin HCl ER] 750 mg PO DAILY 08/19/16 [History] ALPRAZolam [Xanax 0.25 MG Tablet] 0.25 mg PO HS 08/11/17 [History] Albuterol Neb [Proventil Neb] 2.5 mg IH Q6H PRN 08/11/17 [History] Ammonium Lactate 1 appl TP BID PRN 08/11/17 [History] Acetaminophen [Tylenol] 650 mg PO Q6HR PRN tablet 08/15/17 [Rx] Albuterol Neb [Proventil Neb] 2.5 mg IH Q6H PRN inhsol 08/15/17 [Rx] Furosemide [Lasix] 40 mg PO BID #60 tab 08/15/17 [Rx] Furosemide [Lasix] 40 mg PO BIDDIURETIC #60 tablet 08/15/17 [Rx] GuaiFENesin ER [Mucinex] 600 mg PO BID #20 tbbp.12hr 08/15/17 [Rx] Ipratropium/Albuterol Neb [Duoneb] 3 ml IH [id number] inhsol 08/15/17 [Rx] Levofloxacin [Levaquin] 750 mg PO DAILY #3 tablet 08/15/17 [Rx] Metoprolol [Lopressor] 50 mg PO BID #60 tablet 08/15/17 [Rx] Metoprolol [Lopressor] 50 mg PO BID #60 tablet 08/15/17 [Rx] Metoprolol [Lopressor] 50 mg PO BID #60 tablet 08/15/17 [Rx] hydrALAZINE [HydrALAZINE] 25 mg PO Q8HR #90 tablet 08/15/17 [Rx] hydrALAZINE [HydrALAZINE] 25 mg PO Q8HR #90 tablet 08/15/17 [Rx] levoFLOXacin [Levaquin] 750 mg PO DAILY tablet 08/15/17 [Rx] 3 Allergy/AdvReac Type Severity Reaction Status Date / Time No Known Allergies Allergy Verified 07/20/17 11:44 - Meds/Allergy Pre-op Review Medications Reviewed: Yes Allergies Reviewed: Yes Beta Blockers on Current Med List: No Anesthesia Results - Imaging EKG: report reviewed (sinus rhythm with LAD) Anesthesia Exam Selected Entries 02/04/18 07:03 Temperature 98.2 F Pulse Rate 64 Respiratory Rate 20 Blood Pressure 176/87 O2 Sat by Pulse Oximetry 95 Weight: 155 kg BMI 56 NPO (# of Hours): over 8 hours - HEENT Pupil (Motor): Pupils equal Mallampati: I Teeth: Normal Oral Opening: Greater than 3 (Large tongue but post. pharynx well visualized.) - Cardiac Rhythm: Regular Murmur: None - Pulmonary Breath Sounds: bilateral Clear (breath sounds distant) Anesthesia Assess/Plan ASA Score: 4 Modified Amaris Scale for Level of Consciousness: Cooperative, oriented, and tranquil Anesthetic Plan: General Monitoring Plan: Standard Monitors Recovery Plan: PACU (Discussed GA, risks. Agreed to proceed.)
[2018-02-04] MEDS ORDERED: Acetaminophen IV 1,000 MG/100 ML INFUS..BTL IVPB ONE (07:29)
[2018-02-04] MEDS ORDERED: Albuterol 2.5 MG/3 ML NEBULIZER IH ONE ×2 (07:35→09:10)
--- NOTE | 2018-02-04 07:36 | History & Physical Report ---
Date of Encounter: 02/04/18 Time of Encounter: 07:35 24 Hour HP Update - Instructions Instructions: If the History and Physical is less than 30 days old and was completed prior to A.M. admission and or procedure and has NOT been updated on calendar day of procedure please complete this update prior to performing procedure. - Update Patient reports changes in Medical Condition: No Changes in examination, assessment, or condition: No Changes in Medication: No Preop tests/diagnostics Reviewed: Yes Surgery Remains Indicated: Yes Consent for Planned Operative Procedure(s) Verified: Yes - Pre-Operative Checklist Preoperative Checklist Indicated: Yes Prophylactic Antibiotic Ordered: No Home Medications Include Beta Js: Yes Beta Js Taken Today (Day of Surgery): Yes Beta Js Taken Yesterday (Day Prior to Surgery): Yes Is VTE Prophylaxis Indicated?: Yes - Attending Attestation dustin wilson md facog
[2018-02-04] MEDS: Ringers Solution, Lactated 1,000 ML IVC SCH (07:49)
--- NOTE | 2018-02-04 08:54 | OB/GYN Procedure Note ---
OB-DISTRICT ADVISER: Procedure - Diagnosis Date of procedure: 02/04/18 Pre-op diagnosis: PMB Post-op diagnosis: same - Procedure Procedure: Fractional D&C, diagnostic hysteroscopy attempted Surgeon: Sergio Martinez Was there an licensed physical therapist assistant present: No Anesthesia provider: Susan Em Anesthesia Type: General Estimated blood loss (cc): 10 Fluids: crystalloid Procedure Complications: none Specimens collected: None Disposition: PACU Findings: Cervix was impossible to visualize due to panniculus and length of vagina. Narrative: Patient taken to operating room. After satisfactory anesthesia was achieved, patient placed in dorsal lithotomy position and prepped and draped in usual manner. After appropriate timeout, speculum was placed. Despite the licensed physical therapist assistant , lifting to panniculus and another licensed physical therapist assistant retracting I was unable to visualize the cervix. The procedure was discontinued at this point. She was taken to recovery room. Anesthesia felt she use was not stable to be discharged to home and she subsequently was admitted to Hospitalist service. The family was unavailable to talk to regarding the case, inability to complete the case, and need for admission for further observation.
[2018-02-04] MEDS ORDERED: Naloxone 0.4 MG/ML INJ ONE (09:04)
[2018-02-04] MEDS ORDERED: Albuterol 2.5 MG/3 ML NEBULIZER ONE (09:11)
--- NOTE | 2018-02-04 10:56 | Anesthesia Evaluation Post Op ---
Date of Encounter: 02/04/18 Time of Encounter: 10:50 - Vital Signs Vital Signs: Selected Entries 02/04/18 10:25 Temperature 97.3 F L Pulse Rate 64 Respiratory Rate 16 Blood Pressure 170/79 O2 Sat by Pulse Oximetry 93 Oxygen Flow Rate (LPM) 4 - Lungs Lungs: Clear Ascult./Percussion - Airway Airway: Non-obstructed - Cardiovascular Regular Rate - Mental Status Mental Status: Sedated - Nausea Vomiting Nausea Vomiting: Not Present - Hydration Hydration: NPO Notes: 02/04/18 10:51 Patient's intraoperative anesthesia course was unremarkable, but the patient's procedure was not completed by surgeon due to her morbid obesity. In the PACU she required up to 15L by face mask to maintain O2 saturation. Bipap was considered but the patient did not want it, has failed on Bipap in the past. She received minimal intraoperative narcotic (fentanyl) and was given Narcan in the PACU with no change in her level of sedation. She was weaned to 4 L nasal cannula and is maintaining her O2 sats in the low 90's. She continues to be quite somnolent with tachypnea. She awakens with stimulation and states she wants to go home but she is too somnolent, and she is on higher than usual O2 flows right now and has no oxygen for transport home. Discussed with Dr. Martinez and we agree that she requires a longer period of recovery and possibly further evaluation of her pulmonary status. - Discharge PostOp Status: Transfer Patient to floor
[2018-02-04] MEDS ORDERED: Naloxone 0.4 MG/ML INJ IVP PRN (13:08)
[2018-02-04] MEDS ORDERED: Acetaminophen 325 MG TABLET PO PRN (13:08)
[2018-02-04] MEDS ORDERED: *HR* LORazepam 2 MG/ML VIAL IVP ONE (13:10)
[2018-02-04] MEDS ORDERED: Ammonium Lactate 30 APPL/225 GM BOTTLE TP PRN (13:12)
[2018-02-04] MEDS ORDERED: ALPRAZolam 0.25 MG TABLET PO PRN (13:12)
[2018-02-04] MEDS ORDERED: Estrogens, Conjugated CREAM 30 GM TUBE VG ONE (13:15)
[2018-02-04] MEDS ORDERED: ESTRADIOL 42.5 GM VG SCH (13:15)
--- NOTE | 2018-02-04 13:23 | Internal Med History&Physical ---
<CamrynBacilio Dc - Last Filed: 02/04/18 14:06> Date of Encounter: 02/04/18 Time of Encounter: 12:30 Internal Medicine - H&P: HPI Chief complaint: Hypoxia S/P D&C that was not done Admitted From: Direct Admit Plans for Post Hospital Care: Home History of present illness: Ms. Lozano is a 52 year old female w/PMH of COPD, asthma, diabetes controlled w/ oral anti-hyperglycemic medications and diet, GERD, HTN, and thyroid disease presents status-post D&C that was not completed w/hypoxia and reduced responsiveness post-anesthesia. Nurse reports pt. did not respond to Narcan initially and required 15L of O2 via mask which was titrated down to 4L via NC eventually. Pt. on RA during exam. Pt. reports severe agitation regarding procedure not being completed and wishes to know what is going to happen next as she reports severe post-menopausal bleeding. Pt. states that she has been going through menopause and bleeding like this for two years. Pt. states that she is stable w/ambulation and does not require assistance. Pt. denies recent illness, fever, chills, nausea, vomiting, headache, changes in vision, chest pain, shortness of breath, cough, chest congestion, abdominal pain, diarrhea, constipation, numbness, tingling, dizziness, lightheadedness, pre-syncope, or syncope. Past Med Surg Social Fam HX - Past Medical History Source: patient, old records reviewed Medical history: asthma, COPD, diabetes, hyperlipidemia, hypertension, thyroid disease, other Additional medical history: OBESITY, home o2, pericardial effusion Psychiatric history: anxiety, depression - Past Surgical History Surgical History: , cholecystectomy, other Additional surgical history: ORBIT DECOMPRESSION, EYE LIFT, NASAL/AIRWAY SURGERY - Social History Smoking Status: Current every day smoker Packs per day: 6 cigarettes daily Smokeless Tobacco Status: No Alcohol use: none Drug use: none Current living situation: Home Activity Level: Independent ambulation Recent Out of Country Travel Within the Last 8 Weeks: No Exposure or Possible Exposure to Illness During Travel: No - Family History Sister Adopted: No Race: Family Member Ethnicity: Non- Living Status: Still Living Hx Family Cancer: Yes (Stage 4 breast cancer, Brain tumor) Mother History Unknown: Yes Adopted: No Race: Family Member Ethnicity: Non- Living Status: Age at : 45 Cause of : Seizure and massive heart attack Hx Family Cardiac Disorders: No Hx Family Respiratory Disorders: No Hx Family Cancer: Yes (Leukemia on maternal side) Hx Family GI Disorders: No Hx Family Genitourinary Disorders: No Hx Family Endocrine Disorder: Yes Hx Family Musculoskeletal Disorders: No Hx Family Neuromuscular Disorders: No Hx Family Neurologic Disorders: No Hx Family HEENT Disorders: No Hx Family Autoimmune Disorders: No Hx Family Reproductive Disorders: No Hx Family Psychosocial Disorders: No Hx Family Medical Disorders: No Father History Unknown: Yes Name: Davin Race: Family Member Ethnicity: Non- Twin of Family Member: Yes, Fraternal Living Status: Still Living Hx Family Cardiac Disorders: (Pacemaker, hypertension) Hx Family Respiratory Disorders: No Hx Family Cancer: No Hx Family GI Disorders: Yes (ulcers) Hx Family Genitourinary Disorders: No Hx Family Endocrine Disorder: (Diabetes Mellitus on father's side) Hx Family Musculoskeletal Disorders: No Hx Family Neuromuscular Disorders: No Hx Family Neurologic Disorders: No Hx Family HEENT Disorders: No Hx Family Autoimmune Disorders: No Hx Family Reproductive Disorders: No Hx Family Psychosocial Disorders: No Hx Family Medical Disorders: No Brother Race: Family Member Ethnicity: Non- Living Status: Still Living Hx Family Cardiac Disorders: Yes (CHF) Internal Medicine - H&P: Meds FLUoxetine HCl [Prozac] 40 mg PO DAILY #0 02/11/15 [History] Levothyroxine Sodium [Synthroid] 200 mcg PO QAM #0 02/11/15 [History] Omeprazole [PriLOSEC] 20 mg PO DAILY #0 02/11/15 [History] Aspirin 81 mg PO DAILY #30 tab.chew 02/13/15 [Rx] Lisinopril [Zestril] 40 mg PO DAILY #30 tablet 02/13/15 [Rx] Albuterol Sulfate [Ventolin Hfa] 2 puff IH Q6HR PRN 01/02/16 [History] Umeclidinium [place] [Incruse Ellipta] 62.5 mcg IH DAILY 01/02/16 [History] Glimepiride [Amaryl] 4 mg PO DAILY 04/09/16 [History] Atorvastatin [Lipitor] 40 mg PO HS 06/25/16 [History] Levothyroxine [Synthroid] 25 mcg PO QAM 01/04/17 [History] Budesonide/Formoterol 160/4.5 [Symbicort 160/4.5] 2 puff IH BIDR 08/19/16 [ History] Metformin HCl [Metformin HCl ER] 750 mg PO DAILY 08/19/16 [History] ALPRAZolam [Xanax 0.25 MG Tablet] 0.25 mg PO DAILY PRN 08/11/17 [History] Albuterol Neb [Proventil Neb] 2.5 mg IH Q6H PRN inhsol 08/15/17 [Rx] Furosemide [Lasix] 40 mg PO BID #60 tab 08/15/17 [Rx] hydrALAZINE [HydrALAZINE] 25 mg PO Q8HR #90 tablet 08/15/17 [Rx] Ammonium Lactate [Lac-Hydrin Five] 113 gm TP BID PRN 02/04/18 [History] Estradiol [Estrace] 42.5 gm VG QMONTH 02/04/18 [History] Estrogens, Conjugated [Premarin Cream] 1 appl VG ONCE 02/04/18 [History] GuaiFENesin ER [Mucinex] 600 mg PO BID PRN 02/04/18 [History] Lisinopril [Zestril] 40 mg PO DAILY 02/04/18 [History] Meloxicam [Mobic] 15 mg PO DAILY 02/04/18 [History] Metoprolol [Lopressor] 25 mg PO BID 02/04/18 [History] Oxygen 1 each .ROUTE AD 02/04/18 [History] hydroCHLOROthiazide [Hydrochlorothiazide] 25 mg PO DAILY 02/04/18 [History] 3 Allergy/AdvReac Type Severity Reaction Status Date / Time No Known Allergies Allergy Verified 07/20/17 11:44 All Systems PM: A 10-system review of systems was performed and is negative for pertinent findings except as documented above in the HPI. - Constitutional Constitutional: as per HPI, no chills, no fever(s), no night sweats - EENT Eyes: no change in vision, no discharge, no pain, no photophobia Ears: no ear discharge, no ear pain, no tinnitus Nose, mouth and throat: no dysphagia, no nasal discharge, no neck pain, no sore throat - Breasts Breasts: as per HPI - Cardiovascular Cardiovascular ROS IM: as per HPI, no chest pain, no diaphoresis, no dyspnea, no lightheadedness, no palpitations, no syncope - Respiratory Respiratory: as per HPI, no cough, no dyspnea, no wheezing, no excessive phlegm production - Gastrointestinal Gastrointestinal: as per HPI, no abdominal pain, no diarrhea, no hematemesis, no hematochezia, no melena, no nausea, no vomiting - Genitourinary Genitourinary: as per HPI, no change in urinary stream, no dysuria, no flank pain, no hematuria Menstruation: as per HPI - Musculoskeletal Musculoskeletal ROS IM: as per HPI, no numbness, no tingling - Integumentary Integumentary IM: as per HPI, no rash, no unusual bruising - Neurological Neurological ROS: as per HPI, no confusion, no convulsions, no focal weakness, no numbness, no tingling, no tremor(s) - Psychiatric Psychiatric: as per HPI - Endocrine Endocrine IM: as per HPI - Hematologic/Lymphatic Hematologic/Lymphatic: as per HPI, no easy bruising - Allergic/Immunologic Allergic/Immunologic: as per HPI - Constitutional Vitals: Temp Pulse Resp BP Pulse Ox 98.1 F 69 17 153/81 97 02/04/18 11:27 02/04/18 11:27 02/04/18 11:27 02/04/18 11:27 02/04/18 11:27 General appearance: Present: cooperative, mild distress (Agitation from not having D&C completed), A&O X 3, morbidly obese, answers questions appropriately - Head Head exam: Present: atraumatic, normocephalic - Eye Eye exam: Present: PERRL, conjuntiva pink, sclera anicteric Pupils: Present: PERRL - ENT ENT exam: Present: normal exam - Neck Neck exam general surgery: Present: supple, trachea midline. Absent: lymphadenopathy - Respiratory Respiratory exam: Present: CTAB. Absent: accessory muscle use, rales, rhonchi, wheezes - Cardiovascular Cardiovascular exam: Present: RRR, +S1, +S2. Absent: diastolic murmur, gallop, rubs, systolic murmur - GI/Abdominal GI/Abdominal exam: Present: normal bowel sounds, soft, no peritoneal signs. Absent: distended, tenderness - Rectal Rectal exam: Present: deferred - Additional comments: exam deferred. - Extremities Exam Extremities exam: Present: pedal edema, warm, radial pulses palpable and symmetrical. Absent: calf tenderness, cyanotic - Back Exam Back exam: Present: normal inspection - Neurological Exam Neurological exam: Present: CN II-XII intact, oriented X3, no focal deficits. Absent: pronater drift, facial droop, speech deficit - Psychiatric Psychiatric exam: Present: agitated, anxious - Skin Skin exam: Present: dry, intact - VTE Documentation of Mechanical Device: Intermittent pneumatic compression device - Assessment and plan (1) Hypoxia Current Visit: Yes Status: Acute Assessment and plan: Acute hypoxia post-anesthesia from D&C that was not completed. Nurse reports pt. did not respond to Narcan initially and required 15L of O2 via mask which was titrated down to 4L via NC eventually. Pt. on RA during exam. Hx of COPD which is stable. Supplemental O2 w/titration and SpO2 monitoring. Pt. reports O2 @ night 2L which will be continued. Pt. to be monitored closely. Pt. discussed w/Dr. Kelley who agrees w/plan of care. Pt. is moderate risk for further morbidity and respiratory distress based on previous hypoxia, body habitus size, requirement for O2 @ home, severe bleeding from PMB, current tobacco abuse, hx, and risk factors. Observation. (2) COPD (chronic obstructive pulmonary disease) Current Visit: Yes Status: Chronic Assessment and plan: Hx of chronic COPD. Stable. Continue pts. inhalers. Supplemental O2 w/titration and SpO2 monitoring. Qualifiers: COPD type: unspecified COPD Qualified Code(s): J44.9 - Chronic obstructive pulmonary disease, unspecified (3) GERD (gastroesophageal reflux disease) Current Visit: Yes Status: Chronic Assessment and plan: Hx of chronic GERD. Continue pts. PO Prilosec. Qualifiers: Esophagitis presence: esophagitis presence not specified Qualified Code(s) : K21.9 - Gastro-esophageal reflux disease without esophagitis (4) HTN (hypertension) Current Visit: Yes Status: Chronic Assessment and plan: Hx of chronic HTN. Monitor pt. and VS. Continue pts. Lisinopril, Lopressor, and hydrochlorothiazide. Qualifiers: Hypertension type: essential hypertension Qualified Code(s): I10 - Essential (primary) hypertension (5) HLD (hyperlipidemia) Current Visit: Yes Status: Chronic Assessment and plan: Hx of chronic HLD. Lipid panel in a.m. labs. Continue pts. Lipitor. Qualifiers: Hyperlipidemia type: pure hypercholesterolemia Qualified Code(s): E78.00 - Pure hypercholesterolemia, unspecified; E78.0 - Pure hypercholesterolemia (6) Hypothyroidism Current Visit: Yes Status: Chronic Assessment and plan: Hx of chronic hypothyroidism. Continue pts. Synthroid. Check TSH and free T4 in a.m. labs. Qualifiers: Hypothyroidism type: unspecified Qualified Code(s): E03.9 - Hypothyroidism , unspecified (7) Tobacco abuse Current Visit: Yes Status: Chronic Assessment and plan: Hx of chronic tobacco abuse. Pt. reports smoking 6 cigarettes daily. Denies need for nicotine patch or gum d/t chemicals. Ben w/[facility] in the hospital. (8) Diabetes mellitus Current Visit: Yes Status: Chronic Assessment and plan: Hx of chronic diabetes controlled by glimepiride and metformin. Hold patient's metformin and add low-dose correction insulin sliding scale w/hypoglycemic protocol. BG checks ACHS. A1c in a.m. labs. Qualifiers: Diabetes mellitus type: type 2 Diabetes mellitus halfway insulin use: unspecified halfway insulin use status Diabetes mellitus complication status : with unspecified complications Qualified Code(s): E11.8 - Type 2 diabetes mellitus with unspecified complications (9) Morbid obesity with BMI of 50.0-59.9, adult Current Visit: Yes Status: Chronic Assessment and plan: Chronic obesity w/BMI of 62.7. (10) DVT prophylaxis Current Visit: Yes Status: Acute Assessment and plan: Bilateral SCDs on LEs for DVT prophylaxis due to severe PMB. (11) Post-menopausal bleeding Current Visit: Yes Status: Chronic Assessment and plan: Hx of PMB for the past two years. Pt. reports severe bleeding and was d/t have D &C done which was not completed. Pt. is anxious and agitated on exam that procedure was not completed and would like explanation of why and what current plan is. TELEHEALTH NURSE EDUCATOR consult ordered. - Time Spent With Patient Total time spent is greater than 50% in coordination of care (as documented) at patient's floor/unit and/or counseling patient: Greater than 35 minutes <Chapo Kelley - Last Filed: 02/04/18 18:57> Date of Encounter: 02/04/18 Internal Medicine - H&P: HPI History of present illness: Ms. Lozano is a 52 year old female All Systems PM: A 10-system review of systems was performed and is negative for pertinent findings except as documented above in the HPI. - Constitutional Vitals: Temp Pulse Resp BP Pulse Ox 97.7 F 68 16 172/83 92 02/04/18 15:43 02/04/18 15:43 02/04/18 15:43 02/04/18 15:43 02/04/18 15:43 Internal Med - H&P Results - Labs CBC & Chem 7: 02/04/18 14:14 02/04/18 14:14 Labs: Short CBC 02/04/18 Range/Units 14:14 WBC 11.0 (4.3-11.1) K/mcL Hgb 14.7 (11.5-15.4) g/dL Hct 49.8 H (35.3-44.9) % Plt Count 158 (140-400) K/mcL Neutrophils # 7.4 (1.6-8.9) K/mcL BMP 02/04/18 14:14 Sodium 138 Potassium 4.3 Chloride 106 Carbon Dioxide 28 BUN 10 Creatinine 0.90 Glucose 169 H Calcium 9.7 Liver Function 02/04/18 Range/Units 14:14 Total Bilirubin 0.5 (0.3-1.0) mg/dL AST 16 (13-39) Units/L ALT 11 (7-52) Units/L Alkaline Phosphatase 104 (34-104) Units/L Albumin 3.9 (3.5-5.7) g/dL - Attending Attestation I have seen and examined this patient independently. I have discussed with DENIAL MANAGEMENT REPRESENTATIVE Mr Cowan regarding the management plan. Agree with the documentation. - Assessment and plan (1) Diabetes mellitus Current Visit: Yes Status: Chronic Qualifiers: Diabetes mellitus type: type 2 Diabetes mellitus halfway insulin use: unspecified halfway insulin use status Diabetes mellitus complication status : with unspecified complications Qualified Code(s): E11.8 - Type 2 diabetes mellitus with unspecified complications (2) Hypothyroidism Current Visit: Yes Status: Chronic Qualifiers: Hypothyroidism type: unspecified Qualified Code(s): E03.9 - Hypothyroidism , unspecified (3) Tobacco abuse Current Visit: Yes Status: Chronic (4) DVT prophylaxis Current Visit: Yes Status: Acute (5) Morbid obesity with BMI of 50.0-59.9, adult Current Visit: Yes Status: Chronic (6) Hypoxia Current Visit: Yes Status: Acute (7) COPD (chronic obstructive pulmonary disease) Current Visit: Yes Status: Chronic Qualifiers: COPD type: unspecified COPD Qualified Code(s): J44.9 - Chronic obstructive pulmonary disease, unspecified (8) GERD (gastroesophageal reflux disease) Current Visit: Yes Status: Chronic Qualifiers: Esophagitis presence: esophagitis presence not specified Qualified Code(s) : K21.9 - Gastro-esophageal reflux disease without esophagitis (9) HTN (hypertension) Current Visit: Yes Status: Chronic Qualifiers: Hypertension type: essential hypertension Qualified Code(s): I10 - Essential (primary) hypertension (10) HLD (hyperlipidemia) Current Visit: Yes Status: Chronic Qualifiers: Hyperlipidemia type: pure hypercholesterolemia Qualified Code(s): E78.00 - Pure hypercholesterolemia, unspecified; E78.0 - Pure hypercholesterolemia (11) Post-menopausal bleeding Current Visit: Yes Status: Chronic - Time Spent With Patient Total time spent is greater than 50% in coordination of care (as documented) at patient's floor/unit and/or counseling patient:
[2018-02-04] MEDS ORDERED: Dextrose Gel 15 GM/37.5 ML TUBE PO PRN ×2 (13:27)
[2018-02-04] MEDS ORDERED: D5% in Water 1,000 ML IVC PRN (13:27)
[2018-02-04] MEDS ORDERED: *HR* Dextrose 50 % in Water (Syg) 50 ML SYRINGE IVP PRN (13:27)
[2018-02-04 14:30] LABS: Basophils # 0.1 K/mcL (0.0-0.2); Eosinophils # 0.2 K/mcL (0.0-0.6); Eosinophils % 2.2 %; Hematocrit 49.8 % (35.3-44.9); Hemoglobin 14.7 g/dL (11.5-15.4); Immature Granulocytes % 0.5 % (0-4); Lymphocytes # 2.4 K/mcL (0.6-4.6); Lymphocytes % 21.8 %; Mean Corpuscular HGB Conc 29.5 g/dL (31.6-35.5); Mean Corpuscular Hemoglobin 22.7 pg (28.0-33.3); Mean Platelet Volume 11.3 fL (9.4-12.4); Monocytes # 0.8 K/mcL (0.0-1.3); Monocytes % 7.5 %; Neutrophils # 7.4 K/mcL (1.6-8.9); Platelet Count 158 K/mcL (140-400); Red Blood Count 6.47 M/mcL (3.82-4.97); Red Cell Distribution Width 18.3 % (11.5-14.5)
[2018-02-04 14:40] LABS: Alanine Aminotransferase 11 Units/L (7-52); Albumin 3.9 g/dL (3.5-5.7); Albumin/Globulin Ratio 1.2 (1.1-2.2); Alkaline Phosphatase 104 Units/L (34-104); Aspartate Amino Transferase 16 Units/L (13-39); BUN/Creatinine Ratio 11 (6-26); Bilirubin,Total 0.5 mg/dL (0.3-1.0); Blood Urea Nitrogen 10 mg/dL (6-20); Calcium 9.7 mg/dL (8.6-10.3); Carbon Dioxide 28 mEq/L (23-29); Chloride 106 mEq/L (98-107); Globulin 3.2 g/dL (2.4-3.5); Glucose 169 mg/dL (70-105); Osmolality,Calculated 289 (280-300); Potassium 4.3 mEq/L (3.5-5.1); Sodium 138 mEq/L (136-145); Total Protein 7.1 g/dL (6.4-8.9); eGFR For Non-African Americans > 60 (> 60)
[2018-02-04] MEDS ORDERED: 0.9 % Sodium Chloride 1,000 ML IVC SCH (18:15)
[2018-02-04] MEDS: Insulin LISPRO 300 UNITS/3 ML VIAL SQ SCH (18:49)
[2018-02-04] MEDS: Budesonide/Formoterol 160/4.5 1 PUFF INH IH SCH (19:50)
[2018-02-04] MEDS ORDERED: Insulin LISPRO 300 UNITS/3 ML VIAL SQ SCH (21:00)
[2018-02-04] MEDS ORDERED: Acetaminophen IV 500 MG/50 ML INFUS..BTL IVPB ONE (21:28)
[2018-02-04] MEDS: Furosemide 40 MG TABLET PO SCH (21:40)
[2018-02-05 05:19] LABS: Basophils # 0.1 K/mcL (0.0-0.2); Basophils % 0.6 %; Eosinophils # 0.2 K/mcL (0.0-0.6); Eosinophils % 2.1 %; Hematocrit 47.5 % (35.3-44.9); Hemoglobin 13.8 g/dL (11.5-15.4); Immature Granulocytes % 0.5 % (0-4); Lymphocytes # 1.8 K/mcL (0.6-4.6); Lymphocytes % 18.9 %; Mean Corpuscular HGB Conc 29.1 g/dL (31.6-35.5); Mean Corpuscular Hemoglobin 22.9 pg (28.0-33.3); Mean Corpuscular Volume 78.8 fL (83.0-100.0); Mean Platelet Volume 11.7 fL (9.4-12.4); Monocytes # 0.7 K/mcL (0.0-1.3); Monocytes % 7.5 %; Neutrophils # 6.7 K/mcL (1.6-8.9); Platelet Count 172 K/mcL (140-400); Red Blood Count 6.03 M/mcL (3.82-4.97); Red Cell Distribution Width 17.9 % (11.5-14.5); Segmented Neutrophils % 70.4 %
[2018-02-05 06:18] LABS: Thyroid Stimulating Hormone 30.496 mcIU/mL (0.340-5.600)
[2018-02-05] MEDS ORDERED: Levothyroxine 25 MCG TABLET PO SCH (06:30)
[2018-02-05] MEDS: *HR* HYDROcodone/Acet 5/325 mg TABLET PO PRN ×2 (06:32→12:49)
[2018-02-05 07:20] LABS: Alanine Aminotransferase 12 Units/L (7-52); Albumin 3.8 g/dL (3.5-5.7); Albumin/Globulin Ratio 1.1 (1.1-2.2); Alkaline Phosphatase 108 Units/L (34-104); Aspartate Amino Transferase 18 Units/L (13-39); BUN/Creatinine Ratio 12 (6-26); Bilirubin,Total 0.4 mg/dL (0.3-1.0); Blood Urea Nitrogen 12 mg/dL (6-20); Calcium 9.4 mg/dL (8.6-10.3); Carbon Dioxide 26 mEq/L (23-29); Chloride 105 mEq/L (98-107); Cholesterol 184 mg/dL (< 200); Globulin 3.4 g/dL (2.4-3.5); Glucose 144 mg/dL (70-105); HDL Cholesterol 46 mg/dL (40-59); LDL Cholesterol,Calculated 100 mg/dL (0-99); Osmolality,Calculated 290 (280-300); Potassium 4.7 mEq/L (3.5-5.1); Sodium 139 mEq/L (136-145); Total Protein 7.2 g/dL (6.4-8.9); Triglycerides 191 mg/dL (< 150); eGFR For Non-African Americans 59 (> 60)
[2018-02-05] MEDS: Budesonide/Formoterol 160/4.5 1 PUFF INH IH SCH (07:52)
[2018-02-05] MEDS ORDERED: Lisinopril 20 MG TABLET PO SCH (09:00)
[2018-02-05] MEDS ORDERED: hydroCHLOROthiazide 25 MG TABLET PO SCH (09:00)
[2018-02-05] MEDS ORDERED: FLUoxetine 20 MG CAPSULE PO SCH (09:00)
[2018-02-05] MEDS: Insulin LISPRO 300 UNITS/3 ML VIAL SQ SCH ×2 (09:02→12:49)
[2018-02-05] MEDS: Furosemide 40 MG TABLET PO SCH (09:02)
[2018-02-05] MEDS: Ringers Solution, Lactated 1,000 ML IVC SCH (09:03)
[2018-02-05 09:08] LABS: Estimated Average Glucose 166 mg/dl; Hemoglobin A1C 7.4 %
[2018-02-05 11:46] VITALS: BP 159/77
--- NOTE | 2018-02-05 15:15 | Discharge Summary ---
Date of Encounter: 02/05/18 Time of Encounter: 09:35 - Discharge Diagnosis (1) Diabetes mellitus Priority: Secondary Status: Chronic Assessment and Plan: Chronic. Continue home medications. A1c is 7.4%. Qualifiers: Diabetes mellitus type: type 2 Diabetes mellitus film cleaner insulin use: unspecified skilled nursing insulin use status Diabetes mellitus complication status : with unspecified complications Qualified Code(s): E11.8 - Type 2 diabetes mellitus with unspecified complications (2) Hypothyroidism Priority: Secondary Status: Chronic Assessment and Plan: Chronic. Recheck labs and patient is not acutely ill. Qualifiers: Hypothyroidism type: unspecified Qualified Code(s): E03.9 - Hypothyroidism , unspecified (3) Tobacco abuse Priority: Secondary Status: Chronic Assessment and Plan: Chronic. Patient reports that she would like to take Chantix. (4) DVT prophylaxis Priority: Secondary Status: Acute Assessment and Plan: Bilateral SCDs on LEs for DVT prophylaxis due to severe PMB. (5) Morbid obesity with BMI of 50.0-59.9, adult Priority: Secondary Status: Chronic Assessment and Plan: Chronic. Encourage lifestyle modifications. (6) Hypoxia Priority: Secondary Status: Acute Assessment and Plan: Patient hypoxic after anesthesia yesterday. Patient required Narcan, was still barely arousable. Patient has been on oxygen, has been monitored overnight and is back to her baseline. Patient reports that she normally wears 2 L of oxygen at night. She also reports that she has LEXIE and refuses to wear CPAP at home. She states that the mask is broken her nose twice and she will not use it again. Continue home medications and oxygen as needed at home. Due to hypoxia, COPD, dyspnea patient has mobility limitations significantly impairs her ability to participate in activities of daily living and the limitation has not been sufficiently resolved by the use of a cane or walker. Use a manual wheelchair were significantly improved her ability to participate in activities of daily living, patient will use a regular basis in the home and community. Patient has not expressed and unwillingness to use the manual recheck wheelchair and patient has sufficient upper body function and physical and mental capabilities to safely self propel the wheelchair during the day in the home or community. (7) COPD (chronic obstructive pulmonary disease) Priority: Secondary Status: Chronic Assessment and Plan: . Chronic. No acute exacerbation. Continue oxygen as needed at home and home medications. Qualifiers: COPD type: unspecified COPD Qualified Code(s): J44.9 - Chronic obstructive pulmonary disease, unspecified (8) GERD (gastroesophageal reflux disease) Priority: Secondary Status: Chronic Assessment and Plan: Hx of chronic GERD. Continue pts. PO Prilosec. Qualifiers: Esophagitis presence: esophagitis presence not specified Qualified Code(s) : K21.9 - Gastro-esophageal reflux disease without esophagitis (9) HTN (hypertension) Priority: Secondary Status: Chronic Assessment and Plan: chronic. Continue home medicatio Qualifiers: Hypertension type: essential hypertension Qualified Code(s): I10 - Essential (primary) hypertension (10) HLD (hyperlipidemia) Priority: Secondary Status: Chronic Assessment and Plan: Chronic. Triglycerides elevated at 191, overall cholesterol is 184. Continue home dose of Lipitor. Qualifiers: Hyperlipidemia type: pure hypercholesterolemia Qualified Code(s): E78.00 - Pure hypercholesterolemia, unspecified; E78.0 - Pure hypercholesterolemia (11) Post-menopausal bleeding Priority: Secondary Status: Chronic Assessment and Plan: patient was to have I and D for dysfunctional postmenopausal bleeding. Due to body habitus, pt was unable to have procedure completed. Patient has a follow- up appointment on February 16. I spoke with someone in the office today, they will keep the appointment and patient will follow-up at that time. Hospital course: Assessment and plan for hospital course. Discharge discussed with: patient, nurse, case management - Time Spent with Patient Total time spent providing and/or coordinating discharge services: Less than 30 minutes - Discharge Medications Home Medications: FLUoxetine HCl [Prozac] 40 mg PO DAILY #0 02/11/15 [History] Levothyroxine Sodium [Synthroid] 200 mcg PO QAM #0 02/11/15 [History] Omeprazole [PriLOSEC] 20 mg PO DAILY #0 02/11/15 [History] Aspirin 81 mg PO DAILY #30 tab.chew 02/13/15 [Rx] Lisinopril [Zestril] 40 mg PO DAILY #30 tablet 02/13/15 [Rx] Albuterol Sulfate [Ventolin Hfa] 2 puff IH Q6HR PRN 01/02/16 [History] Umeclidinium [place] [Incruse Ellipta] 62.5 mcg IH DAILY 01/02/16 [History] Glimepiride [Amaryl] 4 mg PO DAILY 04/09/16 [History] Atorvastatin [Lipitor] 40 mg PO HS 06/25/16 [History] Levothyroxine [Synthroid] 25 mcg PO QAM 06/25/16 [History] Budesonide/Formoterol 160/4.5 [Symbicort 160/4.5] 2 puff IH BIDR 08/19/16 [ History] Metformin HCl [Metformin HCl ER] 750 mg PO DAILY 08/19/16 [History] ALPRAZolam [Xanax 0.25 MG Tablet] 0.25 mg PO DAILY PRN 08/11/17 [History] Albuterol Neb [Proventil Neb] 2.5 mg IH Q6H PRN inhsol 08/15/17 [Rx] Furosemide [Lasix] 40 mg PO BID #60 tab 08/15/17 [Rx] hydrALAZINE [HydrALAZINE] 25 mg PO Q8HR #90 tablet 08/15/17 [Rx] Ammonium Lactate [Lac-Hydrin Five] 113 gm TP BID PRN 02/04/18 [History] Estradiol [Estrace] 42.5 gm VG QMONTH 02/04/18 [History] Estrogens, Conjugated [Premarin Cream] 1 appl VG ONCE 02/04/18 [History] GuaiFENesin ER [Mucinex] 600 mg PO BID PRN 02/04/18 [History] Lisinopril [Zestril] 40 mg PO DAILY 02/04/18 [History] Meloxicam [Mobic] 15 mg PO DAILY 02/04/18 [History] Metoprolol [Lopressor] 25 mg PO BID 02/04/18 [History] Oxygen 1 each .ROUTE AD 02/04/18 [History] hydroCHLOROthiazide [Hydrochlorothiazide] 25 mg PO DAILY 02/04/18 [History] Allergies/Adverse Reactions: 3 Allergy/AdvReac Type Severity Reaction Status Date / Time No Known Allergies Allergy Verified 07/20/17 11:44 Date of admission: 02/04/18 14:56 Primary care physician: Deepthi Garcia Consults: 02/04/18 11:06 Consult to Hospitalist [CONS] Stat Consulting Provider: Hospitalist Jean Paul Reason for Consult: postop evaluation / admission Time Notified: 11:07 Call Completed: Yes 02/04/18 11:35 Consult to ELECTRICAL TEST ENGINEER [CONS] Routine Consulting Provider: PROFESSOR OF SURGERY Glendy Reason for Consult: S/p D/C. Patient wants information from OB regarding why procedure was not done and what the plan is going forward d/t her severe bleeding. Call Completed: Yes 02/04/18 13:11 Consult to Stone Carriage Operator [CONS] Routine Reason for SW Consult: Pt. has HH services. Please assess for any possible home needs for post-discharge planning. Discharging clinician: Marybeth Oleary Anticipated date of discharge: 02/05/18 - Constitutional Vitals: Temp Pulse Resp BP Pulse Ox 98.6 F 60 15 159/77 96 02/05/18 11:44 02/05/18 11:44 02/05/18 11:44 02/05/18 11:44 02/05/18 11:44 General appearance: Present: cooperative, mild distress (Agitation from not having D&C completed), A&O X 3, morbidly obese, pleasant, answers questions appropriately - Head Head exam: Present: atraumatic, normal inspection, normocephalic - Eye Eye exam: Present: EOMI, normal appearance, conjuntiva pink, sclera anicteric. Absent: nystagmus Pupils: Present: PERRL - Neck Neck exam general surgery: Present: supple, trachea midline. Absent: lymphadenopathy, tenderness - Respiratory Respiratory exam: Present: CTAB. Absent: accessory muscle use, chest wall tenderness, rales, rhonchi, wheezes - Cardiovascular Cardiovascular exam: Present: RRR, +S1, +S2. Absent: diastolic murmur, gallop, rubs, systolic murmur - GI/Abdominal GI/Abdominal exam: Present: normal bowel sounds, soft, no peritoneal signs. Absent: distended, hepatomegaly, tenderness - Extremities Exam Extremities exam: Present: normal capillary refill, normal inspection, warm, radial pulses palpable and symmetrical. Absent: calf tenderness, cyanotic, pedal edema, tenderness - Neurological Exam Neurological exam: Present: alert, oriented X3, no focal deficits. Absent: altered, facial droop, speech deficit - Skin Skin exam: Present: dry, intact, normal color, warm. Absent: rash - Patient Status Disposition: Home, Self-Care Condition: Good Functional capacity at discharge: wheelchair bound Overall status at discharge: patient is progressing back to baseline - Discharge Instructions Follow Up With: Deepthi Garcia MD [Primary Care Provider] - Additional Instructions: Call [facility] when you get home to have them deliver new wheelchair. . Ask for Lilia or Shaina. Keep your appointment with Dr. Martinez on 02/16 as scheduled. Follow up with your PCP in the next 3-5 days for a recheck. Take your medications as directed. Return to the ER as needed for any other problems or concerns, or if your symptoms return or worsen. Resume your normal medications and return to your normal diet and activties as tolerated. - Diet and Activity Activity: increase activity as tolerated Diet: diabetic diet - VTE Documentation of Mechanical Device: Graduated compression elastic hosiery
--- NOTE | 2018-02-05 15:38 | Physician Discharge Referral ---
Home Health/Hosp Referral Info Transfer to: Home Health Provider in Charge Post Discharge: PCP - Diagnosis (1) Diabetes mellitus Priority: Secondary Status: Chronic (2) Hypothyroidism Priority: Secondary Status: Chronic (3) Tobacco abuse Priority: Secondary Status: Chronic (4) DVT prophylaxis Priority: Secondary Status: Acute (5) Morbid obesity with BMI of 50.0-59.9, adult Priority: Secondary Status: Chronic (6) Hypoxia Priority: Primary Status: Acute (7) COPD (chronic obstructive pulmonary disease) Priority: Secondary Status: Chronic (8) GERD (gastroesophageal reflux disease) Priority: Secondary Status: Chronic (9) HTN (hypertension) Priority: Secondary Status: Chronic (10) HLD (hyperlipidemia) Priority: Secondary Status: Chronic (11) Post-menopausal bleeding Priority: Secondary Status: Chronic - Respiratory Orders Oxygen / L per min Smoking Cessation: Smoking cessation has been advised. For more information, call the [place] Tobacco Quit Line at 1-300-GEWT-NOW. - Diet/Nutrition Diet/Nutrition Orders: Regular - Activity Activity Orders: Chair - Services Needed Following services are medically necessary services: Nursing, Home Health Aide, Physical Therapy, Occupational Therapy - Transfer Medications Home Medications: FLUoxetine HCl [Prozac] 40 mg PO DAILY #0 02/11/15 [History] Levothyroxine Sodium [Synthroid] 200 mcg PO QAM #0 02/11/15 [History] Omeprazole [PriLOSEC] 20 mg PO DAILY #0 02/11/15 [History] Aspirin 81 mg PO DAILY #30 tab.chew 02/13/15 [Rx] Lisinopril [Zestril] 40 mg PO DAILY #30 tablet 02/13/15 [Rx] Albuterol Sulfate [Ventolin Hfa] 2 puff IH Q6HR PRN 01/02/16 [History] Umeclidinium [place] [Incruse Ellipta] 62.5 mcg IH DAILY 01/02/16 [History] Glimepiride [Amaryl] 4 mg PO DAILY 04/09/16 [History] Atorvastatin [Lipitor] 40 mg PO HS 06/25/16 [History] Levothyroxine [Synthroid] 25 mcg PO QAM 06/25/16 [History] Budesonide/Formoterol 160/4.5 [Symbicort 160/4.5] 2 puff IH BIDR 08/19/16 [ History] Metformin HCl [Metformin HCl ER] 750 mg PO DAILY 08/19/16 [History] ALPRAZolam [Xanax 0.25 MG Tablet] 0.25 mg PO DAILY PRN 08/11/17 [History] Albuterol Neb [Proventil Neb] 2.5 mg IH Q6H PRN inhsol 08/15/17 [Rx] Furosemide [Lasix] 40 mg PO BID #60 tab 08/15/17 [Rx] hydrALAZINE [HydrALAZINE] 25 mg PO Q8HR #90 tablet 08/15/17 [Rx] Ammonium Lactate [Lac-Hydrin Five] 113 gm TP BID PRN 02/04/18 [History] Estradiol [Estrace] 42.5 gm VG QMONTH 02/04/18 [History] Estrogens, Conjugated [Premarin Cream] 1 appl VG ONCE 02/04/18 [History] GuaiFENesin ER [Mucinex] 600 mg PO BID PRN 02/04/18 [History] Lisinopril [Zestril] 40 mg PO DAILY 02/04/18 [History] Meloxicam [Mobic] 15 mg PO DAILY 02/04/18 [History] Metoprolol [Lopressor] 25 mg PO BID 02/04/18 [History] Oxygen 1 each .ROUTE AD 02/04/18 [History] hydroCHLOROthiazide [Hydrochlorothiazide] 25 mg PO DAILY 02/04/18 [History] Allergies/Adverse Reactions: 3 Allergy/AdvReac Type Severity Reaction Status Date / Time No Known Allergies Allergy Verified 07/20/17 11:44 Certification: Further, I certify that my clinical findings support that this patient is homebound (i.e. absences from home require considerable and taxing effort and are for medical reasons or christianity services or infrequently or short duration when for other reasons) because: Homebound Reason: Patient requires assistance of a person or device to safely leave home, Leaving home requires considerable and taxing effort due to condition, Severity of cardiac or pulmonary status limits activity tolerance Attestation: My signature below is to certify that this patient is under my care and that I, or nurse practitioner, or a physician's pediatric assistant working with me, has a face-to -face encounter with this patient.
== END 2018-02-05 16:21 | disposition home or self-care (01) ==
LOC: 3BNU 06:27 → SAMDAY 06:27 → 3BNU 11:15
PROVIDERS: ADMIT Internal Medicine; ATTEND Internal Medicine

== ENCOUNTER 2019-03-12 04:28 | Inpatient (IN) ==
[2019-03-12] MEDS ORDERED: Ipratropium/Albuterol Neb 3 ML IH ONE (04:40)
[2019-03-12] MEDS ORDERED: methylPREDNISolone 125 MG/2 ML VIAL IVP ONE (04:40)
[2019-03-12] MEDS ORDERED: Furosemide 40 MG/4 ML VIAL IVP ONE (04:40)
[2019-03-12] MEDS ORDERED: cefTRIAXone 2,000 MG in 0.9 % Sodium Chloride Mini Bag 100 ML IVPB ONE (04:42)
--- NOTE | 2019-03-12 04:44 | Emergency Department Note ---
Disposition Clinical Impression: COPD with respiratory failure, acute Respiratory failure Qualifiers: Chronicity: acute on chronic Respiratory failure complication: hypercapnia Qualified Code(s): J96.22 - Acute and chronic respiratory failure with hypercapnia CHF (congestive heart failure) Qualifiers: Heart failure type: unspecified Heart failure chronicity: acute on chronic Qualified Code(s): I50.9 - Heart failure, unspecified Disposition: Still a Patient Condition: Fair Time of Disposition: 07:35 SOB HPI - General Stated Complaint: DAVID Time Seen by Provider: 03/12/19 04:33 Source: patient, EMS Mode of arrival: EMS Nursing Notes Reviewed: Yes Vital Signs Reviewed: Yes - History of Present Illness 53-year-old female with a history of COPD, CHF, hypertension, and asthma presents for evaluation of shortness of breath. She has been having difficulty breathing for the last 3-4 days worsening over last 24 hours. She has been bronchodilators and nebulizer treatments at home along with CPAP at night. She is on home oxygen 12/01 During transport she did state to emergency medical service that she had chest tightness but that resolved. She states she really does not want to be intubated again. She states she lost almost a week of her life last time in August. However, she states she would be intubated if absolutely necessary. I advised that we should intubate her now but she was to try BiPAP first She does take diuretics. Says any headache, fevers, back pain, abdominal pain, nausea, vomiting, or any other concerns. Pt Subjective Complaint: shortness of breath Onset (ago): day(s) (2) Severity: moderate, severe Consistency/Duration: gradually worsening Improves with: nothing, rest (At times), bronchodilators (Bronchodilators have not been helping) Worsens with: lying flat, movement, coughing Known history of: COPD, asthma, congestive heart failure Associated symptoms: Reports: chest pain (In route she did state she was having chest tightness but resolved), cough, wheezing. Denies: fever, sputum production, palpitations, nausea/vomiting, rash Treatment prior to arrival: oxygen, bronchodilator Cough present: Yes Cough Description: Non-Productive Cough Frequency: Intermittent Sputum production: Yes Sputum Amount: Scant Sputum Color: White, Yellow - Related Data Home oxygen amount: 3 liters (With CPAP at night) Home Medications Medication Instructions Recorded Confirmed FLUoxetine HCl [Prozac] 40 mg PO DAILY #0 02/11/15 02/04/18 Levothyroxine Sodium [Synthroid] 200 mcg PO QAM #0 02/11/15 08/24/18 Omeprazole [PriLOSEC] 20 mg PO DAILY #0 02/11/15 08/24/18 Albuterol Sulfate [Ventolin Hfa] 2 puff IH Q6HR PRN 01/02/16 08/24/18 Umeclidinium Byron [Incruse 62.5 mcg IH DAILY 01/02/16 08/24/18 Ellipta] Glimepiride [Amaryl] 4 mg PO BIDWM 04/09/16 08/24/18 Atorvastatin [Lipitor] 40 mg PO HS 06/25/16 08/24/18 Levothyroxine [Synthroid] 25 mcg PO QAM 06/25/16 08/24/18 Budesonide/Formoterol 160/4.5 2 puff IH BIDR 08/19/16 08/24/18 [Symbicort 160/4.5] ALPRAZolam [Xanax 0.25 MG Tablet] 0.25 mg PO BID PRN 08/11/17 08/24/18 Estradiol [Estrace] 42.5 gm VG QMONTH 02/04/18 02/04/18 Lisinopril [Zestril] 40 mg PO DAILY 02/04/18 08/25/18 Meloxicam [Mobic] 15 mg PO DAILY 02/04/18 08/24/18 Metoprolol [Lopressor] 50 mg PO BID 02/04/18 08/24/18 Levothyroxine [Synthroid] 50 mcg PO 0630 08/24/18 08/24/18 amLODIPine [Norvasc] 5 mg PO DAILY 08/24/18 08/24/18 Previous Rx's Medication Instructions Recorded Aspirin 81 mg PO DAILY #30 tab.chew 02/13/15 Albuterol Neb [Proventil Neb] 2.5 mg IH Q6H PRN inhsol 08/15/17 Furosemide [Lasix] 40 mg PO BID #60 tab 08/15/17 hydrALAZINE [HydrALAZINE] 25 mg PO Q8HR #90 tablet 08/15/17 Allergies Allergy/AdvReac Type Severity Reaction Status Date / Time No Known Allergies Allergy Verified 02/08/18 12:42 All systems ED: reviewed and negative except as stated. Constitutional: Reports: weakness. Denies: fever, chills, weight change Eyes: Denies: eye pain, eye discharge, vision change ENT ED: Denies: ear pain, throat pain, dental pain, hearing loss, epistaxis, congestion, dysphagia Cardiovascular: Reports: dyspnea on exertion, orthopnea, edema, paroxysmal nocturnal dyspnea. Denies: chest pain, palpitations, syncope Respiratory: Reports: cough, dyspnea, wheezes. Denies: hemoptysis, stridor Gastrointestinal: Denies: abdominal pain, nausea, vomiting, diarrhea, constipation, hematemesis, melena, hematochezia Genitourinary: Denies: dysuria, frequency, hematuria, discharge Musculoskeletal: Denies: back pain, neck pain, arthralgia, myalgia Integumentary: Denies: rash, abrasion, lesions Neurological: Reports: weakness. Denies: headache, numbness, paresthesias, confusion, abnormal gait, vertigo Psychiatric: Denies: anxiety, depression, suicidal thoughts, homicidal thoughts, auditory hallucinations, visual hallucinations Past Medical History - Past Medical History Attestation: Yes The following information was validated with the patient. 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 However, she does appear drowsy.), in distress, obese - Head Head exam: atraumatic, normocephalic, normal inspection - Eye Eye exam: Present: normal appearance, PERRL, EOMI - Expanded Eye Exam Pupils: Left: reactive - ENT ENT exam: normal exam, normal oropharynx, mucous membranes moist - Expanded ENT Exam External ear exam: Present: normal external inspection Mouth exam: Present: normal external inspection Teeth exam: Present: normal inspection Throat exam: Present: normal inspection - Neck Neck exam: Present: normal inspection, full ROM, trachea midline - Chest Chest inspection: Present: normal inspection, symmetric chest wall rise (With poor inspiratory effort) - Respiratory Respiratory exam: Present: respiratory distress (Wheezing and rales), wheezes (Rales), other. Absent: normal lung sounds bilaterally - Cardiovascular Cardiovascular exam: Present: regular rate, normal rhythm, normal heart sounds - Abdominal Exam Abdominal exam: Present: soft, Non-Tender, normal bowel sounds. Absent: tenderness, distention, guarding, rebound, rigidity - Extremities Exam Extremities exam: Present: normal inspection, pedal edema (2+ pitting), other (2+ pitting edema bilateral lower extremities and nonpitting edema is present in the upper extremities). Absent: tenderness - Expanded Upper Extremity Exam Shoulder exam: Present: normal inspection, full ROM. Absent: tenderness Arm exam: Present: normal inspection, full ROM. Absent: tenderness Elbow exam: Present: normal inspection, full ROM. Absent: tenderness Forearm/Wrist exam: Present: normal inspection, full ROM. Absent: tenderness Hand exam: Present: normal inspection, full ROM. Absent: tenderness Vascular exam: Normal: radial pulse - Expanded Lower Extremity Exam Hip/Pelvis exam: Present: normal inspection. Absent: tenderness Upper leg exam: Present: normal inspection Ankle exam: Present: full ROM Neurovascular/Tendon exam: Absent: motor deficit, sensory deficit, tendon deficit - Back Exam Back exam: Present: normal inspection, full ROM. Absent: tenderness - Neurological Exam Neurological exam: Present: alert (Patient is alert with verbal stimulation.), oriented X3 - Expanded Neurological Exam Patient oriented to: Present: person, place, time Coma Scale Eye Opening: Spontaneous Coma Scale Motor Response: Obeys Commands Coma Scale Verbal Response: Oriented Coma Scale Total: 15 - Skin Skin exam: Present: warm, dry, intact, normal color. Absent: diaphoresis Course Course Narrative: Patient was placed in examination room. H&P obtained. Nurse's notes reviewed. Patient was placed in examination room and was noted to be short of breath and wheezing. There is no obvious JVD but there were rales and 2+ pitting edema. She is a history of COPD and CHF. Intubated in the past. She stated she really does not want to be intubated but when questioned further she stated that it wa s absolutely necessary she wants everything done to save her life. Patient will have a arterial blood gas, chest x-ray will be performed. Lasix 60 mg IV push was given. Patient also received DuoNeb nebs, Solu-Medrol, sent blood cultures 2 and Rocephin 2 g IV Patient was ordered BiPAP upon arrival however he did not get started immediately. Nursing placed IV peripherally via ultrasound. EKG was obtained. There is no acute ST elevations. Initial blood gas revealed a PCO2 of 93 after a short trial of BiPAP and her PCO2 improved to 84. But, I advised her that most likely she will be intubated and I felt it should be performed sooner rather than later but at her request I did provide a trial. However, she became more drowsy and sleepy and although there was already a concern for her to maintain her airway, I did perform a trial of BiPAP but this was unsuccessful. Decision was made to intubate the patient. Patient was transferred from bed 1 to trauma 1. Patient was signed out to Dr. Cesar at 36 with the tentative plan to intubate her for airway protection and management and improvement of her respiratory hypercapnic failure. The patient was successfully intubated by the resident, while under the supervision of . - Reevaluation(s) Reevaluation #1: I took bedside squad report patient is conversing and able to speak in almost complete sentences without much added distress but is drowsy Time: 04:15 Reevaluation #2: Patient is resting. Awaiting BiPAP patient stated that she did not want the mask on when it was initiated but was agreeable and did seem to tolerate it. Secondary to the patient's baseline pulmonary status, still smoking with a history of COPD and an acute exacerbation of CHF I advised her that impending intubation will need to be performed but we will give a trial of BiPAP at her request Time: 04:30 Reevaluation #3: Patient still maintaining her airway a repeat ABG is going to be performed aquilino roximate 45 minutes after the initiation of BiPAP. Repeat blood gas was performed and reviewed. There was slight improvement of her arterial blood gas but the patient will respiratory ventilator support Time: 05:30 Vital Signs Temperature 98.3 F 03/12/19 05:06 Pulse Rate 74 03/12/19 05:06 Respiratory Rate 22 03/12/19 05:06 Blood Pressure 185/84 03/12/19 05:06 O2 Sat by Pulse Oximetry 93 03/12/19 05:06 Temperature 98.3 F 03/12/19 05:06 Pulse Rate 62 03/12/19 07:03 Respiratory Rate 16 03/12/19 07:48 Blood Pressure 235/133 03/12/19 08:17 O2 Sat by Pulse Oximetry 96 03/12/19 07:48 Oxygen Delivery Oxygen Delivery Bipap Shortness of Breath/Dyspnea - Differential Diagnosis Likely: acute exacerbation of chronic obstructive airways disease, congestive heart failure, pneumonia - Medical Records Medical records reviewed: Yes I reviewed the patient's medical records. - Lab Data Lab results reviewed: Yes I reviewed the patient's lab results. Result diagrams: 03/12/19 06:42 03/12/19 06:42 Lab Results 03/12/19 03/12/19 03/12/19 Range/Units 05:42 06:42 06:42 WBC 8.6 (4.3-11.1) K/mcL RBC 5.66 H (3.82-4.97) M/mcL Hgb 10.7 L (11.5-15.4) g/dL Hct 42.8 (35.3-44.9) % MCV 75.6 L (83.0-100.0) fL MCH 18.9 L (28.0-33.3) pg MCHC 25.0 L (31.6-35.5) g/dL RDW 21.4 H (11.5-14.5) % Plt Count 161 (140-400) K/mcL MPV TNP Seg Neutrophils % 74.0 % Lymphocytes % 16.0 % Monocytes % 10.0 % Neutrophils # 6.4 (1.6-8.9) K/mcL Lymphocytes # 1.4 (0.6-4.6) K/mcL Monocytes # 0.9 (0.0-1.3) K/mcL Nucleated RBCs/100 WBC 0.2 H (0) /100 WBC Platelet Estimate Normal (Normal) Hypochromasia Present A (Not Present) Poikilocytosis 1+ A (Not Present) PT 12.4 H (9.4-12.1) Seconds INR 1.1 APTT 24.7 L (26.0-36.0) Seconds Sample Site L Radial ABG pH 7.22 L (7.32-7.45) pH Units ABG pCO2 94 H* (35-45) mmHg ABG pO2 66 L (85-104) mmHg ABG HCO3 38 H (21-27) mEq/L ABG Total CO2 41 H (20-26) mEq/L ABG O2 Saturation 86 L (95-98) % ABG Base Excess 6 H (-2 to 3) mEq/L Urban Test Positive O2 Delivery Device Cannula Inspired O2 5.0 (1-15=lpm [id number]=%) Sodium (136-145) mEq/L Potassium (3.5-5.1) mEq/L Chloride (98-107) mEq/L Carbon Dioxide (23-29) mEq/L BUN (6-20) mg/dL Creatinine (0.60-1.20) mg/dL Est GFR ( Amer) (> 60) Est GFR (Non-Af Amer) (> 60) BUN/Creatinine Ratio (6-26) Glucose (70-105) mg/dL Calculated Osmolality (280-300) Lactic Acid (0.5-2.2) mmol/L Calcium (8.6-10.3) mg/dL Troponin I (< 0.04) ng/mL B-Natriuretic Peptide (Less than 100) pg/mL Person Notif of Luiz kelly 03/12/19 03/12/19 03/12/19 Range/Units 06:42 06:42 06:42 WBC (4.3-11.1) K/mcL RBC (3.82-4.97) M/mcL Hgb (11.5-15.4) g/dL Hct (35.3-44.9) % MCV (83.0-100.0) fL MCH (28.0-33.3) pg MCHC (31.6-35.5) g/dL RDW (11.5-14.5) % Plt Count (140-400) K/mcL MPV Seg Neutrophils % % Lymphocytes % % Monocytes % % Neutrophils # (1.6-8.9) K/mcL Lymphocytes # (0.6-4.6) K/mcL Monocytes # (0.0-1.3) K/mcL Nucleated RBCs/100 WBC (0) /100 WBC Platelet Estimate (Normal) Hypochromasia (Not Present) Poikilocytosis (Not Present) PT (9.4-12.1) Seconds INR APTT (26.0-36.0) Seconds Sample Site ABG pH (7.32-7.45) pH Units ABG pCO2 (35-45) mmHg ABG pO2 (85-104) mmHg ABG HCO3 (21-27) mEq/L ABG Total CO2 (20-26) mEq/L ABG O2 Saturation (95-98) % ABG Base Excess (-2 to 3) mEq/L Urban Test O2 Delivery Device Inspired O2 (1-15=lpm [id number]=%) Sodium 142 (136-145) mEq/L Potassium 4.2 (3.5-5.1) mEq/L Chloride 100 (98-107) mEq/L Carbon Dioxide 37 H (23-29) mEq/L BUN 11 (6-20) mg/dL Creatinine 0.89 (0.60-1.20) mg/dL Est GFR ( Amer) > 60 (> 60) Est GFR (Non-Af Amer) > 60 (> 60) BUN/Creatinine Ratio 12 (6-26) Glucose 166 H (70-105) mg/dL Calculated Osmolality 297 (280-300) Lactic Acid 1.0 (0.5-2.2) mmol/L Calcium 9.8 (8.6-10.3) mg/dL Troponin I < 0.03 (< 0.04) ng/mL B-Natriuretic Peptide 300 H (Less than 100) pg/mL Person Notif of Crit - Radiology Data Radiology results reviewed: Yes I reviewed the patient's radiology results. Chest X-Ray 03/12/19 05:44 IMPRESSION: Heart failure, with severe pulmonary edema and small effusions. D/ / Kris Collazo / Kris Collazo Interpreting Provider: Kris Collazo - EKG Data EKG attestation: Yes I reviewed and interpreted this EKG. EKG results narrative: EKG was obtained and reviewed interpreted by me EKG #1 obtained at 4:33 AM, normal sinus rhythm at 72 beats per minute with left axis, normal intervals, no acute ST elevations Second EKG obtained at 5:05 AM There is normal sinus rhythm 76 bpm ,normal intervals, left axis, frequent PVCs and no acute ST elevation Critical Care Time Critical Care Time: Yes Total Critical Care Time: 60 Attestation: The high probability of a clinically significant, sudden or life threatening de terioration of the patient's condition required my full and direct attention, intervention and personal management.
[2019-03-12] MEDS: Nitroglycerin 0.4 MG TAB.SUBL SL SCH ×3 (05:02→14:04)
[2019-03-12 05:50] LABS: ABG Base Excess 6 mEq/L (-2 to 3); ABG HCO3 38 mEq/L (21-27); ABG Oxygen Saturation 86 % (95-98); ABG PCO2 94 mmHg (35-45); ABG PH 7.22 pH Units (7.32-7.45); ABG PO2 66 mmHg (85-104); ABG TCO2 41 mEq/L (20-26)
[2019-03-12 07:22] LABS: Hemoglobin 10.7 g/dL (11.5-15.4); Nucleated Red Blood Cells 0.2 /100 WBC (0)
[2019-03-12 07:23] LABS: Hematocrit 42.8 % (35.3-44.9); Mean Corpuscular Hemoglobin 18.9 pg (28.0-33.3); Mean Corpuscular Volume 75.6 fL (83.0-100.0); Platelet Count 161 K/mcL (140-400); Red Blood Count 5.66 M/mcL (3.82-4.97); Red Cell Distribution Width 21.4 % (11.5-14.5); White Blood Count 8.6 K/mcL (4.3-11.1)
[2019-03-12 07:30] LABS: INR 1.1; Prothrombin Time 12.4 Seconds (9.4-12.1)
[2019-03-12 07:32] LABS: Activated Partial Thrombo Time 24.7 Seconds (26.0-36.0)
[2019-03-12 07:42] LABS: BUN/Creatinine Ratio 12 (6-26); Blood Urea Nitrogen 11 mg/dL (6-20); Calcium 9.8 mg/dL (8.6-10.3); Carbon Dioxide 37 mEq/L (23-29); Chloride 100 mEq/L (98-107); Glucose 166 mg/dL (70-105); Osmolality,Calculated 297 (280-300); Potassium 4.2 mEq/L (3.5-5.1); Sodium 142 mEq/L (136-145); eGFR For African Americans > 60 (> 60); eGFR For Non-African Americans > 60 (> 60)
[2019-03-12 07:43] LABS: Troponin I < 0.03 ng/mL (< 0.04)
[2019-03-12] MEDS ORDERED: 0.9 % Sodium Chloride 1,000 ML ONE (07:56)
--- NOTE | 2019-03-12 07:59 | Emergency Department Note ---
Disposition Clinical Impression: COPD with respiratory failure, acute Respiratory failure Qualifiers: Chronicity: acute on chronic Respiratory failure complication: hypercapnia Qualified Code(s): J96.22 - Acute and chronic respiratory failure with hypercapnia CHF (congestive heart failure) Qualifiers: Heart failure type: unspecified Heart failure chronicity: acute on chronic Qualified Code(s): I50.9 - Heart failure, unspecified Disposition: Admitted As Inpatient Condition: Fair Referrals: NONE,PCP [Primary Care Provider] - Time of Disposition: 10:00 General Adult HPI - General Chief complaint: ED Shortness of Breath/Dyspnea Stated complaint: DAVID Time Seen by Provider: 03/12/19 04:33 Source: patient, EMS Mode of arrival: EMS - History of Present Illness Pain Scale: 9 - Related Data Home Medications Medication Instructions Recorded Confirmed FLUoxetine HCl [Prozac] 40 mg PO DAILY #0 02/11/15 02/04/18 Levothyroxine Sodium [Synthroid] 200 mcg PO QAM #0 02/11/15 08/24/18 Omeprazole [PriLOSEC] 20 mg PO DAILY #0 02/11/15 08/24/18 Albuterol Sulfate [Ventolin Hfa] 2 puff IH Q6HR PRN 01/02/16 08/24/18 Umeclidinium [place] [Incruse 62.5 mcg IH DAILY 01/02/16 08/24/18 Ellipta] Glimepiride [Amaryl] 4 mg PO BIDWM 04/09/16 08/24/18 Atorvastatin [Lipitor] 40 mg PO HS 06/25/16 08/24/18 Levothyroxine [Synthroid] 25 mcg PO QAM 06/25/16 08/24/18 Budesonide/Formoterol 160/4.5 2 puff IH BIDR 08/19/16 08/24/18 [Symbicort 160/4.5] ALPRAZolam [Xanax 0.25 MG Tablet] 0.25 mg PO BID PRN 08/11/17 08/24/18 Estradiol [Estrace] 42.5 gm VG QMONTH 02/04/18 02/04/18 Lisinopril [Zestril] 40 mg PO DAILY 02/04/18 08/25/18 Meloxicam [Mobic] 15 mg PO DAILY 02/04/18 08/24/18 Metoprolol [Lopressor] 50 mg PO BID 02/04/18 08/24/18 Levothyroxine [Synthroid] 50 mcg PO 0630 08/24/18 08/24/18 amLODIPine [Norvasc] 5 mg PO DAILY 08/24/18 08/24/18 Previous Rx's Medication Instructions Recorded Aspirin 81 mg PO DAILY #30 tab.chew 02/13/15 Albuterol Neb [Proventil Neb] 2.5 mg IH Q6H PRN inhsol 08/15/17 Furosemide [Lasix] 40 mg PO BID #60 tab 08/15/17 hydrALAZINE [HydrALAZINE] 25 mg PO Q8HR #90 tablet 08/15/17 Allergies Allergy/AdvReac Type Severity Reaction Status Date / Time No Known Allergies Allergy Verified 02/08/18 12:42 Past Medical History - Past Medical History Medical history: Reports: asthma, CHF, COPD, diabetes, hyperlipidemia, hypertension, thyroid disease, other Surgical history: Reports: , cholecystectomy, other Psychiatric history: Reports: anxiety, depression CRACKING 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 - Social History Smoking Status: Current every day smoker Smokeless Tobacco Status: No Alcohol use: Reports: none Drug use: Reports: none Physical Exam - General General appearance: alert Course Vital Signs Temperature 98.3 F 03/12/19 05:06 Pulse Rate 74 03/12/19 05:06 Respiratory Rate 22 03/12/19 05:06 Blood Pressure 185/84 03/12/19 05:06 O2 Sat by Pulse Oximetry 93 03/12/19 05:06 Temperature 98.3 F 03/12/19 05:06 Pulse Rate 73 03/12/19 09:13 Respiratory Rate 16 03/12/19 09:22 Blood Pressure 169/90 03/12/19 09:13 O2 Sat by Pulse Oximetry 97 03/12/19 09:22 Oxygen Delivery Oxygen Delivery Ventilator Medical Decision Making - Lab Data Result diagrams: 03/12/19 06:42 03/12/19 06:42 Lab Results 03/12/19 03/12/19 03/12/19 Range/Units 05:42 06:42 06:42 WBC 8.6 (4.3-11.1) K/mcL RBC 5.66 H (3.82-4.97) M/mcL Hgb 10.7 L (11.5-15.4) g/dL Hct 42.8 (35.3-44.9) % MCV 75.6 L (83.0-100.0) fL MCH 18.9 L (28.0-33.3) pg MCHC 25.0 L (31.6-35.5) g/dL RDW 21.4 H (11.5-14.5) % Plt Count 161 (140-400) K/mcL MPV TNP Seg Neutrophils % 74.0 % Lymphocytes % 16.0 % Monocytes % 10.0 % Neutrophils # 6.4 (1.6-8.9) K/mcL Lymphocytes # 1.4 (0.6-4.6) K/mcL Monocytes # 0.9 (0.0-1.3) K/mcL Nucleated RBCs/100 WBC 0.2 H (0) /100 WBC Platelet Estimate Normal (Normal) Hypochromasia Present A (Not Present) Poikilocytosis 1+ A (Not Present) PT (9.4-12.1) Seconds INR APTT (26.0-36.0) Seconds Sample Site L Radial ABG pH 7.22 L (7.32-7.45) pH Units ABG pCO2 94 H* (35-45) mmHg ABG pO2 66 L (85-104) mmHg ABG HCO3 38 H (21-27) mEq/L ABG Total CO2 41 H (20-26) mEq/L ABG O2 Saturation 86 L (95-98) % ABG Base Excess 6 H (-2 to 3) mEq/L Urban Test Positive O2 Delivery Device Cannula Blood Gas Modality Inspired O2 5.0 (1-15=lpm dl57-027=%) PEEP cm H2O Sodium (136-145) mEq/L Potassium (3.5-5.1) mEq/L Chloride (98-107) mEq/L Carbon Dioxide (23-29) mEq/L BUN (6-20) mg/dL Creatinine (0.60-1.20) mg/dL Est GFR ( Amer) (> 60) Est GFR (Non-Af Amer) (> 60) BUN/Creatinine Ratio (6-26) Glucose (70-105) mg/dL Calculated Osmolality (280-300) Lactic Acid (0.5-2.2) mmol/L Calcium (8.6-10.3) mg/dL Total Bilirubin 0.5 (0.3-1.0) mg/dL Direct Bilirubin 0.1 (0.0-0.2) mg/dL Indirect Bilirubin 0.4 (0.0-1.2) mg/dL AST 14 (13-39) Units/L ALT 11 (7-52) Units/L Alkaline Phosphatase 110 H (34-104) Units/L Troponin I (< 0.04) ng/mL B-Natriuretic Peptide (Less than 100) pg/mL Serum Total Protein 8.0 (6.4-8.9) g/dL Albumin 4.3 (3.5-5.7) g/dL Globulin 3.7 H (2.4-3.5) g/dL Albumin/Globulin Ratio 1.2 (1.1-2.2) Person Notif of Luiz kelly 03/12/19 03/12/19 03/12/19 Range/Units 06:42 06:42 06:42 WBC (4.3-11.1) K/mcL RBC (3.82-4.97) M/mcL Hgb (11.5-15.4) g/dL Hct (35.3-44.9) % MCV (83.0-100.0) fL MCH (28.0-33.3) pg MCHC (31.6-35.5) g/dL RDW (11.5-14.5) % Plt Count (140-400) K/mcL MPV Seg Neutrophils % % Lymphocytes % % Monocytes % % Neutrophils # (1.6-8.9) K/mcL Lymphocytes # (0.6-4.6) K/mcL Monocytes # (0.0-1.3) K/mcL Nucleated RBCs/100 WBC (0) /100 WBC Platelet Estimate (Normal) Hypochromasia (Not Present) Poikilocytosis (Not Present) PT 12.4 H (9.4-12.1) Seconds INR 1.1 APTT 24.7 L (26.0-36.0) Seconds Sample Site ABG pH (7.32-7.45) pH Units ABG pCO2 (35-45) mmHg ABG pO2 (85-104) mmHg ABG HCO3 (21-27) mEq/L ABG Total CO2 (20-26) mEq/L ABG O2 Saturation (95-98) % ABG Base Excess (-2 to 3) mEq/L Urban Test O2 Delivery Device Blood Gas Modality Inspired O2 (1-15=lpm [id number]=%) PEEP cm H2O Sodium 142 (136-145) mEq/L Potassium 4.2 (3.5-5.1) mEq/L Chloride 100 (98-107) mEq/L Carbon Dioxide 37 H (23-29) mEq/L BUN 11 (6-20) mg/dL Creatinine 0.89 (0.60-1.20) mg/dL Est GFR ( Amer) > 60 (> 60) Est GFR (Non-Af Amer) > 60 (> 60) BUN/Creatinine Ratio 12 (6-26) Glucose 166 H (70-105) mg/dL Calculated Osmolality 297 (280-300) Lactic Acid 1.0 (0.5-2.2) mmol/L Calcium 9.8 (8.6-10.3) mg/dL Total Bilirubin (0.3-1.0) mg/dL Direct Bilirubin (0.0-0.2) mg/dL Indirect Bilirubin (0.0-1.2) mg/dL AST (13-39) Units/L ALT (7-52) Units/L Alkaline Phosphatase (34-104) Units/L Troponin I < 0.03 (< 0.04) ng/mL B-Natriuretic Peptide (Less than 100) pg/mL Serum Total Protein (6.4-8.9) g/dL Albumin (3.5-5.7) g/dL Globulin (2.4-3.5) g/dL Albumin/Globulin Ratio (1.1-2.2) Person Notif of Crit 03/12/19 03/12/19 Range/Units 06:42 07:10 WBC (4.3-11.1) K/mcL RBC (3.82-4.97) M/mcL Hgb (11.5-15.4) g/dL Hct (35.3-44.9) % MCV (83.0-100.0) fL MCH (28.0-33.3) pg MCHC (31.6-35.5) g/dL RDW (11.5-14.5) % Plt Count (140-400) K/mcL MPV Seg Neutrophils % % Lymphocytes % % Monocytes % % Neutrophils # (1.6-8.9) K/mcL Lymphocytes # (0.6-4.6) K/mcL Monocytes # (0.0-1.3) K/mcL Nucleated RBCs/100 WBC (0) /100 WBC Platelet Estimate (Normal) Hypochromasia (Not Present) Poikilocytosis (Not Present) PT (9.4-12.1) Seconds INR APTT (26.0-36.0) Seconds Sample Site L Radial ABG pH 7.28 L (7.32-7.45) pH Units ABG pCO2 85 H* (35-45) mmHg ABG pO2 64 L (85-104) mmHg ABG HCO3 40 H (21-27) mEq/L ABG Total CO2 42 H (20-26) mEq/L ABG O2 Saturation 87 L (95-98) % ABG Base Excess 9 H (-2 to 3) mEq/L Urban Test O2 Delivery Device BiPAP Blood Gas Modality avaps Inspired O2 40.0 (1-15=lpm rb21-644=%) PEEP 8 cm H2O Sodium (136-145) mEq/L Potassium (3.5-5.1) mEq/L Chloride (98-107) mEq/L Carbon Dioxide (23-29) mEq/L BUN (6-20) mg/dL Creatinine (0.60-1.20) mg/dL Est GFR ( Amer) (> 60) Est GFR (Non-Af Amer) (> 60) BUN/Creatinine Ratio (6-26) Glucose (70-105) mg/dL Calculated Osmolality (280-300) Lactic Acid (0.5-2.2) mmol/L Calcium (8.6-10.3) mg/dL Total Bilirubin (0.3-1.0) mg/dL Direct Bilirubin (0.0-0.2) mg/dL Indirect Bilirubin (0.0-1.2) mg/dL AST (13-39) Units/L ALT (7-52) Units/L Alkaline Phosphatase (34-104) Units/L Troponin I (< 0.04) ng/mL B-Natriuretic Peptide 300 H (Less than 100) pg/mL Serum Total Protein (6.4-8.9) g/dL Albumin (3.5-5.7) g/dL Globulin (2.4-3.5) g/dL Albumin/Globulin Ratio (1.1-2.2) Person Notif of Luiz kelly Critical Care Time Critical Care Time: Yes Total Critical Care Time: 40 Attestation: Critical care performed: Time is exclusive of separately billable procedures. Time includes: direct patient care, patient reassessment, coordination of patient care, interpretation of data (laboratory data, radiology data, and respiratory data), review of patient's medical records, medical consultation and documentation of patient care. Procedures included in critical care time: Procedures excluded from critical care time: Attestation Statement - Attestation Attestation: I examined this patient and my medical decision-making was reviewed with the Resident Physician. I agree with the documented findings, disposition and treatment plan as described except to the extent set forth below. I was present for the intubation. Patient signed out pending intubation and admission. Patient has hypercapnic respiratory failure. On repeat evaluation she was very slow to respond. She does open eyes to sternal rub. She was intubated by using a CMAC. Patient will be admitted to the ICU. Art line placed with my supervision. Patient is admitted to the ICU. Stable on the ventilator at this time. KUB X-Ray 03/12/19 08:07 IMPRESSION: 1. Endotracheal tube tip terminates in the right mainstem bronchus. Recommend retraction by approximately 4.5-5 cm for better positioning. 2. Orogastric tube is in adequate position. 3. Near complete opacification of the left hemithorax, likely related to endotracheal tube placement. 4. Interval worsening of right airspace opacities, more prominent in the upper lung which also may be related to endotracheal tube placement. Endotracheal tube positioning and lung opacification was discussed with DILAN Marcus on 03/12/2019 at 8:13 a.m. D/ / 03/12/2019 08:43:23 Saira West MD / epifanio Interpreting Provider: Saira West MD Chest X-Ray 03/12/19 09:46 IMPRESSION: *The endotracheal tube tip is now located 2.9 cm above the jacinto. *Cardiomegaly with pulmonary edema and bilateral pleural effusions with associated bilateral atelectasis, left side greater than right. D/ / Benji Hoover MD / Benji Hoover MD Interpreting Provider: Benji Hoover MD
[2019-03-12 08:02] LABS: Lymphocytes # 1.4 K/mcL (0.6-4.6); Monocytes # 0.9 K/mcL (0.0-1.3); Neutrophils # 6.4 K/mcL (1.6-8.9)
[2019-03-12 08:03] LABS: Hypochromasia Present (Not Present); Platelet Estimate Normal (Normal); Poikilocytosis 1+ (Not Present)
[2019-03-12] MEDS ORDERED: *HR* Midazolam HCl 5 MG/5 ML VIAL IVP ONE ×2 (08:21)
[2019-03-12 09:00] LABS: ABG Base Excess 9 mEq/L (-2 to 3); ABG HCO3 40 mEq/L (21-27); ABG Oxygen Saturation 87 % (95-98); ABG PCO2 85 mmHg (35-45); ABG PH 7.28 pH Units (7.32-7.45); ABG PO2 64 mmHg (85-104); ABG TCO2 42 mEq/L (20-26); Blood Gas Modality avaps; Blood Gas PEEP 8 cm H2O
--- NOTE | 2019-03-12 09:00 | Emergency Department Note ---
Disposition Clinical Impression: COPD with respiratory failure, acute Respiratory failure Qualifiers: Chronicity: acute on chronic Respiratory failure complication: hypercapnia Qualified Code(s): J96.22 - Acute and chronic respiratory failure with hypercapnia CHF (congestive heart failure) Qualifiers: Heart failure type: unspecified Heart failure chronicity: acute on chronic Qualified Code(s): I50.9 - Heart failure, unspecified Disposition: Admitted As Inpatient Condition: Fair Time of Disposition: 09:00 General Adult HPI - General Chief complaint: ED Shortness of Breath/Dyspnea Stated complaint: DAVID Time Seen by Provider: 03/12/19 04:33 Source: patient, EMS Mode of arrival: EMS Limitations: no limitations Nursing Notes Reviewed: Yes Vital Signs Reviewed: Yes - History of Present Illness HPI Narrative: Please refer to the day team's note this was a sign out refer to their note for any history of present illness, physical exam, ROS and MDM. Pain Scale: 9 - Related Data Home Medications Medication Instructions Recorded Confirmed FLUoxetine HCl [Prozac] 40 mg PO DAILY #0 02/11/15 02/04/18 Levothyroxine Sodium [Synthroid] 200 mcg PO QAM #0 02/11/15 08/24/18 Omeprazole [PriLOSEC] 20 mg PO DAILY #0 02/11/15 08/24/18 Albuterol Sulfate [Ventolin Hfa] 2 puff IH Q6HR PRN 01/02/16 08/24/18 Umeclidinium [place] [Incruse 62.5 mcg IH DAILY 01/02/16 08/24/18 Ellipta] Glimepiride [Amaryl] 4 mg PO BIDWM 04/09/16 08/24/18 Atorvastatin [Lipitor] 40 mg PO HS 06/25/16 08/24/18 Levothyroxine [Synthroid] 25 mcg PO QAM 06/25/16 08/24/18 Budesonide/Formoterol 160/4.5 2 puff IH BIDR 08/19/16 08/24/18 [Symbicort 160/4.5] ALPRAZolam [Xanax 0.25 MG Tablet] 0.25 mg PO BID PRN 08/11/17 08/24/18 Estradiol [Estrace] 42.5 gm VG QMONTH 02/04/18 02/04/18 Lisinopril [Zestril] 40 mg PO DAILY 02/04/18 08/25/18 Meloxicam [Mobic] 15 mg PO DAILY 02/04/18 08/24/18 Metoprolol [Lopressor] 50 mg PO BID 02/04/18 08/24/18 Levothyroxine [Synthroid] 50 mcg PO 0630 08/24/18 08/24/18 amLODIPine [Norvasc] 5 mg PO DAILY 08/24/18 08/24/18 Previous Rx's Medication Instructions Recorded Aspirin 81 mg PO DAILY #30 tab.chew 02/13/15 Albuterol Neb [Proventil Neb] 2.5 mg IH Q6H PRN inhsol 08/15/17 Furosemide [Lasix] 40 mg PO BID #60 tab 08/15/17 hydrALAZINE [HydrALAZINE] 25 mg PO Q8HR #90 tablet 08/15/17 Allergies Allergy/AdvReac Type Severity Reaction Status Date / Time No Known Allergies Allergy Verified 02/08/18 12:42 Constitutional: Reports: weakness. Denies: fever, chills, weight change Eyes: Denies: eye pain, eye discharge, vision change ENT ED: Denies: ear pain, throat pain, dental pain, hearing loss, epistaxis, congestion, dysphagia Cardiovascular: Reports: dyspnea on exertion, orthopnea, edema, paroxysmal nocturnal dyspnea. Denies: chest pain, palpitations, syncope Respiratory: Reports: cough, dyspnea, wheezes. Denies: hemoptysis, stridor Gastrointestinal: Denies: abdominal pain, nausea, vomiting, diarrhea, constipation, hematemesis, melena, hematochezia Genitourinary: Denies: dysuria, frequency, hematuria, discharge Musculoskeletal: Denies: back pain, neck pain, arthralgia, myalgia Integumentary: Denies: rash, abrasion, lesions Neurological: Reports: weakness. 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 However, she does appear drowsy.), in distress, obese Course Course Narrative: Patient was intubated by the intern brand, Matheus Kwok, DO PGY-1. No complications. Patient had an arterial line placed in which she is found be hypertensive she is placed on propofol and fentanyl drip and admitted to the ICU for further management of CHF and COPD. She is intubated for failed treatment with BiPAP which she was hypercapnic. Vital Signs Temperature 98.3 F 03/12/19 05:06 Pulse Rate 74 03/12/19 05:06 Respiratory Rate 22 03/12/19 05:06 Blood Pressure 185/84 03/12/19 05:06 O2 Sat by Pulse Oximetry 93 03/12/19 05:06 Temperature 98.3 F 03/12/19 15:30 Pulse Rate 65 03/12/19 18:00 Respiratory Rate 16 03/12/19 18:00 Blood Pressure 148/80 03/12/19 18:00 O2 Sat by Pulse Oximetry 97 03/12/19 18:00 Oxygen Delivery Oxygen Delivery Ventilator Medical Decision Making - Medical Records Medical records reviewed: Yes I reviewed the patient's medical records. - Lab Data Result diagrams: 03/12/19 06:42 03/12/19 06:42 Lab Results 03/12/19 03/12/19 03/12/19 Range/Units 05:42 06:42 06:42 WBC 8.6 (4.3-11.1) K/mcL RBC 5.66 H (3.82-4.97) M/mcL Hgb 10.7 L (11.5-15.4) g/dL Hct 42.8 (35.3-44.9) % MCV 75.6 L (83.0-100.0) fL MCH 18.9 L (28.0-33.3) pg MCHC 25.0 L (31.6-35.5) g/dL RDW 21.4 H (11.5-14.5) % Plt Count 161 (140-400) K/mcL MPV TNP Seg Neutrophils % 74.0 % Lymphocytes % 16.0 % Monocytes % 10.0 % Neutrophils # 6.4 (1.6-8.9) K/mcL Lymphocytes # 1.4 (0.6-4.6) K/mcL Monocytes # 0.9 (0.0-1.3) K/mcL Nucleated RBCs/100 WBC 0.2 H (0) /100 WBC Platelet Estimate Normal (Normal) Hypochromasia Present A (Not Present) Poikilocytosis 1+ A (Not Present) PT (9.4-12.1) Seconds INR APTT (26.0-36.0) Seconds Sample Site L Radial ABG pH 7.22 L (7.32-7.45) pH Units ABG pCO2 94 H* (35-45) mmHg ABG pO2 66 L (85-104) mmHg ABG HCO3 38 H (21-27) mEq/L ABG Total CO2 41 H (20-26) mEq/L ABG O2 Saturation 86 L (95-98) % ABG Base Excess 6 H (-2 to 3) mEq/L Urban Test Positive O2 Delivery Device Cannula Blood Gas Modality Inspired O2 5.0 (1-15=lpm cj06-800=%) PEEP cm H2O Sodium (136-145) mEq/L Potassium (3.5-5.1) mEq/L Chloride (98-107) mEq/L Carbon Dioxide (23-29) mEq/L BUN (6-20) mg/dL Creatinine (0.60-1.20) mg/dL Est GFR ( Amer) (> 60) Est GFR (Non-Af Amer) (> 60) BUN/Creatinine Ratio (6-26) Glucose (70-105) mg/dL Calculated Osmolality (280-300) Lactic Acid (0.5-2.2) mmol/L Calcium (8.6-10.3) mg/dL Total Bilirubin 0.5 (0.3-1.0) mg/dL Direct Bilirubin 0.1 (0.0-0.2) mg/dL Indirect Bilirubin 0.4 (0.0-1.2) mg/dL AST 14 (13-39) Units/L ALT 11 (7-52) Units/L Alkaline Phosphatase 110 H (34-104) Units/L Troponin I (< 0.04) ng/mL B-Natriuretic Peptide (Less than 100) pg/mL Serum Total Protein 8.0 (6.4-8.9) g/dL Albumin 4.3 (3.5-5.7) g/dL Globulin 3.7 H (2.4-3.5) g/dL Albumin/Globulin Ratio 1.2 (1.1-2.2) Procalcitonin (0.00-0.15) ng/mL TSH 29.807 H (0.340-5.600) mcIU/mL Person Notif of Luiz kelly 03/12/19 03/12/19 03/12/19 Range/Units 06:42 06:42 06:42 WBC (4.3-11.1) K/mcL RBC (3.82-4.97) M/mcL Hgb (11.5-15.4) g/dL Hct (35.3-44.9) % MCV (83.0-100.0) fL MCH (28.0-33.3) pg MCHC (31.6-35.5) g/dL RDW (11.5-14.5) % Plt Count (140-400) K/mcL MPV Seg Neutrophils % % Lymphocytes % % Monocytes % % Neutrophils # (1.6-8.9) K/mcL Lymphocytes # (0.6-4.6) K/mcL Monocytes # (0.0-1.3) K/mcL Nucleated RBCs/100 WBC (0) /100 WBC Platelet Estimate (Normal) Hypochromasia (Not Present) Poikilocytosis (Not Present) PT 12.4 H (9.4-12.1) Seconds INR 1.1 APTT 24.7 L (26.0-36.0) Seconds Sample Site ABG pH (7.32-7.45) pH Units ABG pCO2 (35-45) mmHg ABG pO2 (85-104) mmHg ABG HCO3 (21-27) mEq/L ABG Total CO2 (20-26) mEq/L ABG O2 Saturation (95-98) % ABG Base Excess (-2 to 3) mEq/L Urban Test O2 Delivery Device Blood Gas Modality Inspired O2 (1-15=lpm hy72-978=%) PEEP cm H2O Sodium 142 (136-145) mEq/L Potassium 4.2 (3.5-5.1) mEq/L Chloride 100 (98-107) mEq/L Carbon Dioxide 37 H (23-29) mEq/L BUN 11 (6-20) mg/dL Creatinine 0.89 (0.60-1.20) mg/dL Est GFR ( Amer) > 60 (> 60) Est GFR (Non-Af Amer) > 60 (> 60) BUN/Creatinine Ratio 12 (6-26) Glucose 166 H (70-105) mg/dL Calculated Osmolality 297 (280-300) Lactic Acid 1.0 (0.5-2.2) mmol/L Calcium 9.8 (8.6-10.3) mg/dL Total Bilirubin (0.3-1.0) mg/dL Direct Bilirubin (0.0-0.2) mg/dL Indirect Bilirubin (0.0-1.2) mg/dL AST (13-39) Units/L ALT (7-52) Units/L Alkaline Phosphatase (34-104) Units/L Troponin I < 0.03 (< 0.04) ng/mL B-Natriuretic Peptide (Less than 100) pg/mL Serum Total Protein (6.4-8.9) g/dL Albumin (3.5-5.7) g/dL Globulin (2.4-3.5) g/dL Albumin/Globulin Ratio (1.1-2.2) Procalcitonin (0.00-0.15) ng/mL TSH (0.340-5.600) mcIU/mL Person Notif of Crit 03/12/19 03/12/19 03/12/19 Range/Units 06:42 07:10 10:25 WBC (4.3-11.1) K/mcL RBC (3.82-4.97) M/mcL Hgb (11.5-15.4) g/dL Hct (35.3-44.9) % MCV (83.0-100.0) fL MCH (28.0-33.3) pg MCHC (31.6-35.5) g/dL RDW (11.5-14.5) % Plt Count (140-400) K/mcL MPV Seg Neutrophils % % Lymphocytes % % Monocytes % % Neutrophils # (1.6-8.9) K/mcL Lymphocytes # (0.6-4.6) K/mcL Monocytes # (0.0-1.3) K/mcL Nucleated RBCs/100 WBC (0) /100 WBC Platelet Estimate (Normal) Hypochromasia (Not Present) Poikilocytosis (Not Present) PT (9.4-12.1) Seconds INR APTT (26.0-36.0) Seconds Sample Site L Radial ABG pH 7.28 L (7.32-7.45) pH Units ABG pCO2 85 H* (35-45) mmHg ABG pO2 64 L (85-104) mmHg ABG HCO3 40 H (21-27) mEq/L ABG Total CO2 42 H (20-26) mEq/L ABG O2 Saturation 87 L (95-98) % ABG Base Excess 9 H (-2 to 3) mEq/L Urban Test O2 Delivery Device BiPAP Blood Gas Modality avaps Inspired O2 40.0 (1-15=lpm rs82-332=%) PEEP 8 cm H2O Sodium (136-145) mEq/L Potassium (3.5-5.1) mEq/L Chloride (98-107) mEq/L Carbon Dioxide (23-29) mEq/L BUN (6-20) mg/dL Creatinine (0.60-1.20) mg/dL Est GFR ( Amer) (> 60) Est GFR (Non-Af Amer) (> 60) BUN/Creatinine Ratio (6-26) Glucose (70-105) mg/dL Calculated Osmolality (280-300) Lactic Acid (0.5-2.2) mmol/L Calcium (8.6-10.3) mg/dL Total Bilirubin (0.3-1.0) mg/dL Direct Bilirubin (0.0-0.2) mg/dL Indirect Bilirubin (0.0-1.2) mg/dL AST (13-39) Units/L ALT (7-52) Units/L Alkaline Phosphatase (34-104) Units/L Troponin I (< 0.04) ng/mL B-Natriuretic Peptide 300 H (Less than 100) pg/mL Serum Total Protein (6.4-8.9) g/dL Albumin (3.5-5.7) g/dL Globulin (2.4-3.5) g/dL Albumin/Globulin Ratio (1.1-2.2) Procalcitonin < 0.02 (0.00-0.15) ng/mL TSH (0.340-5.600) mcIU/mL Person Notif of Luiz kelly
[2019-03-12] MEDS ORDERED: *HR* Rocuronium Bromide 100 MG/10 ML VIAL IVC ONE (09:20)
[2019-03-12] MEDS ORDERED: *HR* Etomidate 20 MG/10 ML AMPUL IVP ONE ×2 (09:20→10:02)
[2019-03-12] MEDS ORDERED: Naloxone 0.4 MG/ML INJ IVP PRN (09:53)
[2019-03-12] MEDS ORDERED: Artificial Tears SOLN 15 ML BOTTLE BOTH EYES PRN (09:55)
[2019-03-12 09:59] LABS: Albumin 4.3 g/dL (3.5-5.7); Albumin/Globulin Ratio 1.2 (1.1-2.2); Bilirubin,Direct 0.1 mg/dL (0.0-0.2); Bilirubin,Indirect 0.4 mg/dL (0.0-1.2); Bilirubin,Total 0.5 mg/dL (0.3-1.0); Globulin 3.7 g/dL (2.4-3.5)
[2019-03-12] MEDS ORDERED: *HR* Rocuronium Bromide 50 MG/5 ML VIAL IVP ONE (10:02)
--- NOTE | 2019-03-12 10:05 | Emergency Department Note ---
Disposition Clinical Impression: COPD with respiratory failure, acute Respiratory failure Qualifiers: Chronicity: acute on chronic Respiratory failure complication: hypercapnia Qualified Code(s): J96.22 - Acute and chronic respiratory failure with hypercapnia CHF (congestive heart failure) Qualifiers: Heart failure type: unspecified Heart failure chronicity: acute on chronic Qualified Code(s): I50.9 - Heart failure, unspecified Disposition: Admitted As Inpatient Condition: Fair Referrals: NONE,PCP [Primary Care Provider] - Time of Disposition: 10:05 General Adult HPI - General Chief complaint: ED Shortness of Breath/Dyspnea Stated complaint: DAVID Time Seen by Provider: 03/12/19 04:33 Source: patient, EMS Mode of arrival: EMS Limitations: no limitations Nursing Notes Reviewed: Yes Vital Signs Reviewed: Yes - History of Present Illness HPI Narrative: This is a procedure note only. Please refer to Dr. Cesar, Dr. Goss, Dr. Dennis's note for further evaluation and treatment. Pain Scale: 9 - Related Data Home Medications Medication Instructions Recorded Confirmed FLUoxetine HCl [Prozac] 40 mg PO DAILY #0 02/11/15 02/04/18 Levothyroxine Sodium [Synthroid] 200 mcg PO QAM #0 02/11/15 08/24/18 Omeprazole [PriLOSEC] 20 mg PO DAILY #0 02/11/15 08/24/18 Albuterol Sulfate [Ventolin Hfa] 2 puff IH Q6HR PRN 01/02/16 08/24/18 Umeclidinium [place] [Incruse 62.5 mcg IH DAILY 01/02/16 08/24/18 Ellipta] Glimepiride [Amaryl] 4 mg PO BIDWM 04/09/16 08/24/18 Atorvastatin [Lipitor] 40 mg PO HS 06/25/16 08/24/18 Levothyroxine [Synthroid] 25 mcg PO QAM 06/25/16 08/24/18 Budesonide/Formoterol 160/4.5 2 puff IH BIDR 08/19/16 08/24/18 [Symbicort 160/4.5] ALPRAZolam [Xanax 0.25 MG Tablet] 0.25 mg PO BID PRN 08/11/17 08/24/18 Estradiol [Estrace] 42.5 gm VG QMONTH 02/04/18 02/04/18 Lisinopril [Zestril] 40 mg PO DAILY 02/04/18 08/25/18 Meloxicam [Mobic] 15 mg PO DAILY 02/04/18 08/24/18 Metoprolol [Lopressor] 50 mg PO BID 02/04/18 08/24/18 Levothyroxine [Synthroid] 50 mcg PO 0630 08/24/18 08/24/18 amLODIPine [Norvasc] 5 mg PO DAILY 08/24/18 08/24/18 Previous Rx's Medication Instructions Recorded Aspirin 81 mg PO DAILY #30 tab.chew 02/13/15 Albuterol Neb [Proventil Neb] 2.5 mg IH Q6H PRN inhsol 08/15/17 Furosemide [Lasix] 40 mg PO BID #60 tab 08/15/17 hydrALAZINE [HydrALAZINE] 25 mg PO Q8HR #90 tablet 08/15/17 Allergies Allergy/AdvReac Type Severity Reaction Status Date / Time No Known Allergies Allergy Verified 02/08/18 12:42 Constitutional: Reports: weakness. Denies: fever, chills, weight change Eyes: Denies: eye pain, eye discharge, vision change ENT ED: Denies: ear pain, throat pain, dental pain, hearing loss, epistaxis, congestion, dysphagia Cardiovascular: Reports: dyspnea on exertion, orthopnea, edema, paroxysmal nocturnal dyspnea. Denies: chest pain, palpitations, syncope Respiratory: Reports: cough, dyspnea, wheezes. Denies: hemoptysis, stridor Gastrointestinal: Denies: abdominal pain, nausea, vomiting, diarrhea, constipation, hematemesis, melena, hematochezia Genitourinary: Denies: dysuria, frequency, hematuria, discharge Musculoskeletal: Denies: back pain, neck pain, arthralgia, myalgia Integumentary: Denies: rash, abrasion, lesions Neurological: Reports: weakness. Denies: headache, numbness, paresthesias, confusion, abnormal gait, vertigo Psychiatric: Denies: anxiety, depression, suicidal thoughts, homicidal thoughts, auditory hallucinations, visual hallucinations Past Medical History - Past Medical History Medical history: Reports: asthma, CHF, COPD, diabetes, hyperlipidemia, hypertension, thyroid disease, other Surgical history: Reports: , cholecystectomy, other Psychiatric history: Reports: anxiety, depression HISTOLOGY SPECIALIST history: Reports: no HISTOLOGY SPECIALIST history - Social History Smoking Status: Current every day smoker Smokeless Tobacco Status: No Alcohol use: Reports: none Drug use: Reports: none Physical Exam - General Limitations: no limitations General appearance: alert (Upon arrival patient was alert and speaking in complete sentences but with conversational dyspnea. However, she does appear dr cee.), in distress, obese Course Vital Signs Temperature 98.3 F 03/12/19 05:06 Pulse Rate 74 03/12/19 05:06 Respiratory Rate 22 03/12/19 05:06 Blood Pressure 185/84 03/12/19 05:06 O2 Sat by Pulse Oximetry 93 03/12/19 05:06 Temperature 98.3 F 03/12/19 05:06 Pulse Rate 73 03/12/19 09:13 Respiratory Rate 16 03/12/19 09:22 Blood Pressure 169/90 03/12/19 09:13 O2 Sat by Pulse Oximetry 97 03/12/19 09:22 Oxygen Delivery Oxygen Delivery Ventilator Procedures - Intubation Time out performed: Yes sedative: Etomidate paralytic: Rocuronium Laryngoscope: fiber optic video scope Assist Device Used: fiber optic device ET Tube Size: 7.5 ET Tube Uncuffed: No Tube Secured Depth (cm): 19 Tube Secured Location: lips Tube Placement Confirmation: visualized tube passing through cords, equal breath sounds bilaterally, no breath sounds over epigastrium, confirmation by capnometry Patient Tolerated Procedure: well Intubation Complications: none Medical Decision Making - Lab Data Result diagrams: 03/12/19 06:42 03/12/19 06:42 Lab Results 03/12/19 03/12/19 03/12/19 Range/Units 05:42 06:42 06:42 WBC 8.6 (4.3-11.1) K/mcL RBC 5.66 H (3.82-4.97) M/mcL Hgb 10.7 L (11.5-15.4) g/dL Hct 42.8 (35.3-44.9) % MCV 75.6 L (83.0-100.0) fL MCH 18.9 L (28.0-33.3) pg MCHC 25.0 L (31.6-35.5) g/dL RDW 21.4 H (11.5-14.5) % Plt Count 161 (140-400) K/mcL MPV TNP Seg Neutrophils % 74.0 % Lymphocytes % 16.0 % Monocytes % 10.0 % Neutrophils # 6.4 (1.6-8.9) K/mcL Lymphocytes # 1.4 (0.6-4.6) K/mcL Monocytes # 0.9 (0.0-1.3) K/mcL Nucleated RBCs/100 WBC 0.2 H (0) /100 WBC Platelet Estimate Normal (Normal) Hypochromasia Present A (Not Present) Poikilocytosis 1+ A (Not Present) PT (9.4-12.1) Seconds INR APTT (26.0-36.0) Seconds Sample Site L Radial ABG pH 7.22 L (7.32-7.45) pH Units ABG pCO2 94 H* (35-45) mmHg ABG pO2 66 L (85-104) mmHg ABG HCO3 38 H (21-27) mEq/L ABG Total CO2 41 H (20-26) mEq/L ABG O2 Saturation 86 L (95-98) % ABG Base Excess 6 H (-2 to 3) mEq/L Urban Test Positive O2 Delivery Device Cannula Blood Gas Modality Inspired O2 5.0 (1-15=lpm [id number]=%) PEEP cm H2O Sodium (136-145) mEq/L Potassium (3.5-5.1) mEq/L Chloride (98-107) mEq/L Carbon Dioxide (23-29) mEq/L BUN (6-20) mg/dL Creatinine (0.60-1.20) mg/dL Est GFR ( Amer) (> 60) Est GFR (Non-Af Amer) (> 60) BUN/Creatinine Ratio (6-26) Glucose (70-105) mg/dL Calculated Osmolality (280-300) Lactic Acid (0.5-2.2) mmol/L Calcium (8.6-10.3) mg/dL Total Bilirubin 0.5 (0.3-1.0) mg/dL Direct Bilirubin 0.1 (0.0-0.2) mg/dL Indirect Bilirubin 0.4 (0.0-1.2) mg/dL AST 14 (13-39) Units/L ALT 11 (7-52) Units/L Alkaline Phosphatase 110 H (34-104) Units/L Troponin I (< 0.04) ng/mL B-Natriuretic Peptide (Less than 100) pg/mL Serum Total Protein 8.0 (6.4-8.9) g/dL Albumin 4.3 (3.5-5.7) g/dL Globulin 3.7 H (2.4-3.5) g/dL Albumin/Globulin Ratio 1.2 (1.1-2.2) Person Notif of Luiz kelly 03/12/19 03/12/19 03/12/19 Range/Units 06:42 06:42 06:42 WBC (4.3-11.1) K/mcL RBC (3.82-4.97) M/mcL Hgb (11.5-15.4) g/dL Hct (35.3-44.9) % MCV (83.0-100.0) fL MCH (28.0-33.3) pg MCHC (31.6-35.5) g/dL RDW (11.5-14.5) % Plt Count (140-400) K/mcL MPV Seg Neutrophils % % Lymphocytes % % Monocytes % % Neutrophils # (1.6-8.9) K/mcL Lymphocytes # (0.6-4.6) K/mcL Monocytes # (0.0-1.3) K/mcL Nucleated RBCs/100 WBC (0) /100 WBC Platelet Estimate (Normal) Hypochromasia (Not Present) Poikilocytosis (Not Present) PT 12.4 H (9.4-12.1) Seconds INR 1.1 APTT 24.7 L (26.0-36.0) Seconds Sample Site ABG pH (7.32-7.45) pH Units ABG pCO2 (35-45) mmHg ABG pO2 (85-104) mmHg ABG HCO3 (21-27) mEq/L ABG Total CO2 (20-26) mEq/L ABG O2 Saturation (95-98) % ABG Base Excess (-2 to 3) mEq/L Urban Test O2 Delivery Device Blood Gas Modality Inspired O2 (1-15=lpm [id number]=%) PEEP cm H2O Sodium 142 (136-145) mEq/L Potassium 4.2 (3.5-5.1) mEq/L Chloride 100 (98-107) mEq/L Carbon Dioxide 37 H (23-29) mEq/L BUN 11 (6-20) mg/dL Creatinine 0.89 (0.60-1.20) mg/dL Est GFR ( Amer) > 60 (> 60) Est GFR (Non-Af Amer) > 60 (> 60) BUN/Creatinine Ratio 12 (6-26) Glucose 166 H (70-105) mg/dL Calculated Osmolality 297 (280-300) Lactic Acid 1.0 (0.5-2.2) mmol/L Calcium 9.8 (8.6-10.3) mg/dL Total Bilirubin (0.3-1.0) mg/dL Direct Bilirubin (0.0-0.2) mg/dL Indirect Bilirubin (0.0-1.2) mg/dL AST (13-39) Units/L ALT (7-52) Units/L Alkaline Phosphatase (34-104) Units/L Troponin I < 0.03 (< 0.04) ng/mL B-Natriuretic Peptide (Less than 100) pg/mL Serum Total Protein (6.4-8.9) g/dL Albumin (3.5-5.7) g/dL Globulin (2.4-3.5) g/dL Albumin/Globulin Ratio (1.1-2.2) Person Notif of Crit 03/12/19 03/12/19 Range/Units 06:42 07:10 WBC (4.3-11.1) K/mcL RBC (3.82-4.97) M/mcL Hgb (11.5-15.4) g/dL Hct (35.3-44.9) % MCV (83.0-100.0) fL MCH (28.0-33.3) pg MCHC (31.6-35.5) g/dL RDW (11.5-14.5) % Plt Count (140-400) K/mcL MPV Seg Neutrophils % % Lymphocytes % % Monocytes % % Neutrophils # (1.6-8.9) K/mcL Lymphocytes # (0.6-4.6) K/mcL Monocytes # (0.0-1.3) K/mcL Nucleated RBCs/100 WBC (0) /100 WBC Platelet Estimate (Normal) Hypochromasia (Not Present) Poikilocytosis (Not Present) PT (9.4-12.1) Seconds INR APTT (26.0-36.0) Seconds Sample Site L Radial ABG pH 7.28 L (7.32-7.45) pH Units ABG pCO2 85 H* (35-45) mmHg ABG pO2 64 L (85-104) mmHg ABG HCO3 40 H (21-27) mEq/L ABG Total CO2 42 H (20-26) mEq/L ABG O2 Saturation 87 L (95-98) % ABG Base Excess 9 H (-2 to 3) mEq/L Urban Test O2 Delivery Device BiPAP Blood Gas Modality avaps Inspired O2 40.0 (1-15=lpm [id number]=%) PEEP 8 cm H2O Sodium (136-145) mEq/L Potassium (3.5-5.1) mEq/L Chloride (98-107) mEq/L Carbon Dioxide (23-29) mEq/L BUN (6-20) mg/dL Creatinine (0.60-1.20) mg/dL Est GFR ( Amer) (> 60) Est GFR (Non-Af Amer) (> 60) BUN/Creatinine Ratio (6-26) Glucose (70-105) mg/dL Calculated Osmolality (280-300) Lactic Acid (0.5-2.2) mmol/L Calcium (8.6-10.3) mg/dL Total Bilirubin (0.3-1.0) mg/dL Direct Bilirubin (0.0-0.2) mg/dL Indirect Bilirubin (0.0-1.2) mg/dL AST (13-39) Units/L ALT (7-52) Units/L Alkaline Phosphatase (34-104) Units/L Troponin I (< 0.04) ng/mL B-Natriuretic Peptide 300 H (Less than 100) pg/mL Serum Total Protein (6.4-8.9) g/dL Albumin (3.5-5.7) g/dL Globulin (2.4-3.5) g/dL Albumin/Globulin Ratio (1.1-2.2) Person Notif of Luiz kelly
--- NOTE | 2019-03-12 10:51 | Pulmonology History & Physical ---
<Humberto Rao W - Last Filed: 03/12/19 11:35> Date of Encounter: 03/12/19 History of Present Illness HPI: Ms. Lozano is a 53 year old female Medications and Allergies FLUoxetine HCl [Prozac] 40 mg PO DAILY #0 02/11/15 [History] Levothyroxine Sodium [Synthroid] 200 mcg PO QAM #0 02/11/15 [History] Omeprazole [PriLOSEC] 20 mg PO DAILY #0 02/11/15 [History] Aspirin 81 mg PO DAILY #30 tab.chew 02/13/15 [Rx] Albuterol Sulfate [Ventolin Hfa] 2 puff IH Q6HR PRN 01/02/16 [History] Umeclidinium Arnold [Incruse Ellipta] 62.5 mcg IH DAILY 01/02/16 [History] Glimepiride [Amaryl] 4 mg PO BIDWM 04/09/16 [History] Atorvastatin [Lipitor] 40 mg PO HS 06/25/16 [History] Levothyroxine [Synthroid] 25 mcg PO QAM 06/25/16 [History] Budesonide/Formoterol 160/4.5 [Symbicort 160/4.5] 2 puff IH BIDR 08/19/16 [History] ALPRAZolam [Xanax 0.25 MG Tablet] 0.25 mg PO BID PRN 08/11/17 [History] Albuterol Neb [Proventil Neb] 2.5 mg IH Q6H PRN inhsol 08/15/17 [Rx] Furosemide [Lasix] 40 mg PO BID #60 tab 08/15/17 [Rx] hydrALAZINE [HydrALAZINE] 25 mg PO Q8HR #90 tablet 08/15/17 [Rx] Estradiol [Estrace] 42.5 gm VG QMONTH 02/04/18 [History] Lisinopril [Zestril] 40 mg PO DAILY 02/04/18 [History] Meloxicam [Mobic] 15 mg PO DAILY 02/04/18 [History] Metoprolol [Lopressor] 50 mg PO BID 02/04/18 [History] Levothyroxine [Synthroid] 50 mcg PO 0630 08/24/18 [History] amLODIPine [Norvasc] 5 mg PO DAILY 08/24/18 [History] Allergy/AdvReac Type Severity Reaction Status Date / Time No Known Allergies Allergy Verified 02/08/18 12:42 All Systems: The remainder of the systems were reviewed and are negative Physical Examination Vital Signs: Vital Signs, Last 4 Hours Temp Pulse Resp BP Pulse Ox 03/12/19 11:28 98.2 F 65 16 181/104 99 03/12/19 10:46 98.2 F 70 16 186/103 99 03/12/19 09:22 16 97 03/12/19 09:13 73 12 169/90 95 03/12/19 08:35 79 12 217/98 91 03/12/19 08:17 235/133 03/12/19 07:48 16 96 Results - Laboratory Findings CBC and BMP: 03/12/19 06:42 03/12/19 06:42 ABG ABG pH 7.28 pH Units (7.32-7.45) L 03/12/19 07:10 ABG pCO2 85 mmHg (35-45) H* 03/12/19 07:10 ABG pO2 64 mmHg (85-104) L 03/12/19 07:10 ABG O2 Saturation 87 % (95-98) L 03/12/19 07:10 PT/INR, D-dimer PT 12.4 Seconds (9.4-12.1) H 03/12/19 06:42 Abnormal lab findings: Abnormal lab results RBC 5.66 M/mcL (3.82-4.97) H 03/12/19 06:42 Hgb 10.7 g/dL (11.5-15.4) L 03/12/19 06:42 MCV 75.6 fL (83.0-100.0) L 03/12/19 06:42 MCH 18.9 pg (28.0-33.3) L 03/12/19 06:42 MCHC 25.0 g/dL (31.6-35.5) L 03/12/19 06:42 RDW 21.4 % (11.5-14.5) H 03/12/19 06:42 Nucleated RBCs/100 WBC 0.2 /100 WBC (0) H 03/12/19 06:42 Hypochromasia Present (Not Present) A 03/12/19 06:42 Poikilocytosis 1+ (Not Present) A 03/12/19 06:42 PT 12.4 Seconds (9.4-12.1) H 03/12/19 06:42 APTT 24.7 Seconds (26.0-36.0) L 03/12/19 06:42 ABG pH 7.28 pH Units (7.32-7.45) L 03/12/19 07:10 ABG pCO2 85 mmHg (35-45) H* 03/12/19 07:10 ABG pO2 64 mmHg (85-104) L 03/12/19 07:10 ABG HCO3 40 mEq/L (21-27) H 03/12/19 07:10 ABG Total CO2 42 mEq/L (20-26) H 03/12/19 07:10 ABG O2 Saturation 87 % (95-98) L 03/12/19 07:10 ABG Base Excess 9 mEq/L (-2 to 3) H 03/12/19 07:10 Carbon Dioxide 37 mEq/L (23-29) H 03/12/19 06:42 Glucose 166 mg/dL (70-105) H 03/12/19 06:42 Alkaline Phosphatase 110 Units/L (34-104) H 03/12/19 06:42 B-Natriuretic Peptide 300 pg/mL (Less than 100) H 03/12/19 06:42 Globulin 3.7 g/dL (2.4-3.5) H 03/12/19 06:42 TSH 29.807 mcIU/mL (0.340-5.600) H 03/12/19 06:42 - Attending Attestation I examined this patient and my medical decision-making was reviewed with the Resident Physician. I agree with the documented findings, disposition and treatment plan as described except to the extent set forth below. We independently had [id number] contact with the patient I spent 35min of Critical Care time with this patient. It involved decision making of high complexity to assess, manipulate, and support vital organ system failure and/or to prevent further life threatening deterioration of the patient's condition. The time involved in the performance of separately reportable procedures was not counted toward critical care time. Patient seen and examined at bedside Labs, radiology, chart personally reviewed. TORNADO CHASER: Acute encephalopathy secondary to metabolic derangements per report prior to intubation there were no focal neurological deficit she is now sedated Pulm: Acute on chronic hypoxic hypercapnic respiratory failure secondary to CHF exacerbation complicated by COPD she is intubated acceptable gas exchange now on the vent have increased her PEEP because of the hydrostatic pulmonary edema and her body habitus daily spontaneous breathing trials as indicated Cards: Decompensated heart failure with preserved ejection fraction continue blood pressure control and diuretic GI: GI prophylaxis while on vent Nutrition: Nothing by mouth for now Renal: UOP Monitored, Cont to Trend sCr and monitor Electrolytes. ID: No clear evidence of infection we will continue to monitor Heme/Onc: DVT prophylaxis given Endo: Glucose Monitored; history of hypothyroidism we will check TSH Integ/MSK: Skin Care per routine ICU Nursing Protocol to prevent ulcers. Lines: All lines examined without evidence of infection : Dispo: Monitor in ICU for critical illness CODE: Full. <Alexandro Rogers - Last Filed: 03/12/19 14:25> Date of Encounter: 03/12/19 Time of Encounter: 10:50 Assessment and Plan (1) Acute respiratory failure with hypoxia and hypercapnia Current visit: Yes Status: Acute Presented with worsening respiratory distress d/t CHF exacerbation. Initial ABG showed hypoxic and hypercapnic respiratory failure. Not tolerating BiPaP. Intubated and sedated for worsening resp effort and mental status. Plan: - Intubated/sedated on fentanyl/propofol; vent bundle in place - Was treated with rocephin in the ED - Daily ABGs and monitor electrolytes daily - Will diurese with lasix for pulmonary edema (2) Acute metabolic encephalopathy Current visit: Yes Status: Acute Presented with worsening mental status likely resulting from respiratory distress and metabolic disturbances. Had to be intubated/sedated. Plan: - Will cont to monitor mental status - SBT when stable - Correct underlying metabolic abnormalities - Trest infection, if present (3) Acute exacerbation of congestive heart failure Current visit: Yes Status: Acute Hx of HFpEF with LVEF of 60-65%. Decompensated HF causing resp failure. Last echo in 08/2018 showed no pulm HTN, mild LVH. Plan: - Strict I/Os, fluid restriction, daily weights - Diuresed in ED with 60mg IV lasix - Cont lasix diuresis Qualifiers: Heart failure type: diastolic Qualified Code(s): I50.33 - Acute on chronic diastolic (congestive) heart failure (4) HTN (hypertension) Current visit: Yes Status: Acute Hx of HTN. High BP in 180-200s systolic Plan: - Scheduled hydralazine 20 mg IV q6hrs - Started home metoprolol 25 mg BID - Currently holding home amlodipine and lisinopril Qualifiers: Hypertension type: essential hypertension Qualified Code(s): I10 - Essential (primary) hypertension (5) LEXIE (obstructive sleep apnea) Current visit: Yes Status: Chronic Chronic medical issue. On home O2 and CPAP at night. Plan: - Currently intubated/sedated - Cont to monitor resp status (6) Hypothyroidism Current visit: Yes Status: Chronic History of Grave's disease and hypothyroidism. TSH elevated initially at 29.8. Plan: - Unclear home dose of levothyroxine - Started synthroid 25 mg PO - Cont to monitor Qualifiers: Hypothyroidism type: unspecified Qualified Code(s): E03.9 - Hypothyroidism, unspecified (7) Morbid obesity with BMI of 50.0-59.9, adult Current visit: Yes Status: Chronic Chronic medical issue. Plan: - NPO for now - Cont to monitor nutritional needs (8) DM2 (diabetes mellitus, type 2) Current visit: Yes Status: Chronic Chronic medical problem. Plan: - Accuchecks q4hrs - SSI, hypoglycemia orders Qualifiers: Diabetes mellitus terminologist insulin use: without longterm use Diabetes mellitus complication status: without complication Qualified Code(s): E11.9 - Type 2 diabetes mellitus without complications (9) COPD (chronic obstructive pulmonary disease) Current visit: Yes Status: Chronic Chronic medical issue. Likely not exacerbation during this stay. CXR shows cardiomegaly and pulm edema with pleural effusions. Plan: - Cont inhalers and steroids - Refer to plan above Qualifiers: COPD type: unspecified COPD Qualified Code(s): J44.9 - Chronic obstructive pulmonary disease, unspecified (10) DVT prophylaxis Current visit: Yes Status: Acute DVT PPX: hep SQ Analgesia: fentanyl Sedation: propofol SBT: none Glycemic control: SSI Bowl regimen: none Activity: intubated/sedated Fluids: none Electrolytes: replete as necessary Nutrition: NPO GI ppx: PPI Lines: 2x PIV, quinonez, ET, OG Consults: pulm Code: FULL Dispo: ICU History of Present Illness Chief complaint: hypoxia HPI: Ms. Lozano is a 53 year old female with a past medical history of LEXIE, morbid obesity, T2DM, HTN, COPD, GERD, HLD, thyroid disease, HFpEF (LVEF 60-65% in 08/2018) who presented with progressive shortness of breath and acute on chronic respiratory failure. Per chart review, the patient had been having difficulty breathing for the last 3-4 days, which worsened over the last 24 hours. She admitted to using bronchodilators and nebulizer treatments at home along with CPAP at night. Patient is on home oxygen and has been intubated before. In the ED, vitals were T 98.3, HR 74, RR 22, BP 185/84. 60 mg of IV Lasix was given. Patient received 2 nebs, Solu-Medrol, Rocephin. Blood culture sent. No ischemic changes on EKG. Initial ABG was 7.22/94/66/38. Labs are significant for WBC 8.6, Hgb 10.7, lactate 1, troponin less than 0.03, PCT less than 0.02, TSH 29.8. Patient was placed initially on BiPAP, however she had progressively worse respiratory effort and altered mental status. Patient was intubated for a irway protection and management for hypercapnic respiratory failure. On admission to the ICU, patient was intubated and sedated on fentanyl and propofol.. She is not responsive to stimuli. Patient does not appear to be in any distress. A chest x-ray showed cardiomegaly with pulmonary edema and b ilateral pleural effusions with associated bilateral atelectasis, left side greater than right. KUB showed correct placement of ET and NG tube. She does have an elevated blood pressure in the 180s to 200s systolic. Patient was hydralazine, metoprolol to lower her blood pressure. At this time, patient is hemodynamically stable and will be further monitored for mental and respiratory status. Past Med Surg Social Fam HX - Past Medical History Source: unable to obtain, old records reviewed, nursing notes reviewed Medical history: asthma, CHF, COPD, diabetes, hyperlipidemia, hypertension, thyroid disease, other Additional medical history: OBESITY, home o2, pericardial effusion Psychiatric history: anxiety, depression - Past Surgical History Surgical History: , cholecystectomy, other Additional surgical history: ORBIT DECOMPRESSION, EYE LIFT, NASAL/AIRWAY SURGERY, D&C 02/04/18 - Social History Smoking Status: Current every day smoker Smokeless Tobacco Status: No Alcohol use: none Drug use: none - Family History Brother Family Member Ethnicity: Non- Living Status: Still Living Hx Family Cardiac Disorders: Yes (CHF) Father Family Member Ethnicity: Non- Twin of Family Member: Yes, Fraternal Living Status: Still Living Hx Family Cardiac Disorders: (Pacemaker, hypertension) Hx Family Respiratory Disorders: No Hx Family Cancer: No Hx Family GI Disorders: Yes (ulcers) Hx Family Endocrine Disorder: (Diabetes Mellitus on father's side) Hx Family Neuromuscular Disorders: No Hx Family Neurologic Disorders: No Hx Family HEENT Disorders: No Hx Family Autoimmune Disorders: No Sister Adopted: No Family Member Ethnicity: Non- Living Status: Still Living Hx Family Cancer: Yes (Stage 4 breast cancer, Brain tumor) Mother Adopted: No Family Member Ethnicity: Non- Living Status: Hx Family Cardiac Disorders: No Hx Family Respiratory Disorders: No Hx Family Cancer: Yes (Leukemia on maternal side) Hx Family GI Disorders: No Hx Family Endocrine Disorder: Yes Hx Family Neuromuscular Disorders: No Hx Family Neurologic Disorders: No Hx Family HEENT Disorders: No Hx Family Autoimmune Disorders: No ROS unobtainable: due to endotracheal tube All Systems: The remainder of the systems were reviewed and are negative Physical Examination Vital Signs: Vital Signs, Last 4 Hours Temp Pulse Resp BP Pulse Ox 03/12/19 10:46 98.2 F 70 16 186/103 99 03/12/19 09:22 16 97 03/12/19 09:13 73 12 169/90 95 03/12/19 08:35 79 12 217/98 91 03/12/19 08:17 235/133 03/12/19 07:48 16 96 03/12/19 07:03 62 30 176/95 98 General appearance: no acute distress (intubated/sedated) Eyes: nonicteric ENT: oropharynx moist Neck: supple Effort: mildly labored Inspection: normal Auscultation: bilateral: wheezes, rales Cardiovascular: regular rate and rhythm Gastrointestinal: normoactive bowel sounds, non-distended Integumentary: normal Extremities: no cyanosis, no edema, no clubbing Musculoskeletal: no deformities, ROM normal unable to assess due to mental status Results - Laboratory Findings CBC and BMP: 03/12/19 06:42 03/12/19 06:42 ABG ABG pH 7.28 pH Units (7.32-7.45) L 03/12/19 07:10 ABG pCO2 85 mmHg (35-45) H* 03/12/19 07:10 ABG pO2 64 mmHg (85-104) L 03/12/19 07:10 ABG O2 Saturation 87 % (95-98) L 03/12/19 07:10 PT/INR, D-dimer PT 12.4 Seconds (9.4-12.1) H 03/12/19 06:42 Abnormal lab findings: Abnormal lab results RBC 5.66 M/mcL (3.82-4.97) H 03/12/19 06:42 Hgb 10.7 g/dL (11.5-15.4) L 03/12/19 06:42 MCV 75.6 fL (83.0-100.0) L 03/12/19 06:42 MCH 18.9 pg (28.0-33.3) L 03/12/19 06:42 MCHC 25.0 g/dL (31.6-35.5) L 03/12/19 06:42 RDW 21.4 % (11.5-14.5) H 03/12/19 06:42 Nucleated RBCs/100 WBC 0.2 /100 WBC (0) H 03/12/19 06:42 Hypochromasia Present (Not Present) A 03/12/19 06:42 Poikilocytosis 1+ (Not Present) A 03/12/19 06:42 PT 12.4 Seconds (9.4-12.1) H 03/12/19 06:42 APTT 24.7 Seconds (26.0-36.0) L 03/12/19 06:42 ABG pH 7.28 pH Units (7.32-7.45) L 03/12/19 07:10 ABG pCO2 85 mmHg (35-45) H* 03/12/19 07:10 ABG pO2 64 mmHg (85-104) L 03/12/19 07:10 ABG HCO3 40 mEq/L (21-27) H 03/12/19 07:10 ABG Total CO2 42 mEq/L (20-26) H 03/12/19 07:10 ABG O2 Saturation 87 % (95-98) L 03/12/19 07:10 ABG Base Excess 9 mEq/L (-2 to 3) H 03/12/19 07:10 Carbon Dioxide 37 mEq/L (23-29) H 03/12/19 06:42 Glucose 166 mg/dL (70-105) H 03/12/19 06:42 Alkaline Phosphatase 110 Units/L (34-104) H 03/12/19 06:42 B-Natriuretic Peptide 300 pg/mL (Less than 100) H 03/12/19 06:42 Globulin 3.7 g/dL (2.4-3.5) H 03/12/19 06:42
[2019-03-12 11:01] LABS: Thyroid Stimulating Hormone 29.807 mcIU/mL (0.340-5.600)
[2019-03-12] MEDS ORDERED: Furosemide 60 MG in 0.9 % Sodium Chloride 50 ML IVP ONE (11:58)
[2019-03-12] MEDS: FentaNYL (PF) 1,000 MCG in 0.9 % Sodium Chloride 80 ML IVC SCH (12:32)
[2019-03-12] MEDS: Pantoprazole 40 MG VIAL IVP SCH (12:51)
[2019-03-12] MEDS: *HR* Heparin 5,000 UNIT/ML VIAL SQ SCH ×2 (12:51→20:29)
[2019-03-12] MEDS: Artificial Tears SOLN 15 ML BOTTLE BOTH EYES SCH ×4 (13:05→23:37)
[2019-03-12] MEDS ORDERED: *HR* Dextrose 50 % in Water (Syg) 50 ML SYRINGE IVP PRN (13:52)
[2019-03-12] MEDS ORDERED: D5% in Water 1,000 ML IVC PRN (13:52)
[2019-03-12] MEDS ORDERED: Dextrose Gel 15 GM/37.5 ML TUBE PO PRN ×2 (13:52)
--- NOTE | 2019-03-12 15:27 | Electrocardiograph Report ---
[address] [place], [place] [address] Test Date: 2019-03-12 Pat Name: Lexi Lozano Department: EXAM1 Room: [facility] Gender: Online Journalist: : 1965 Requested By: [id number] Order Number: [id number] Reading MD: Cassie Bush Measurements Intervals [place] Rate: 72 P: -6 NE: 156 QRS: -13 QRSD: 94 T: 90 QT: 436 QTc: 478 Interpretive Statements Sinus rhythm Probable LVH with secondary repol abnrm Electronically Signed On 03-12-2019 15:25:54 EDT by Cassie Bush
[2019-03-12] MEDS: Insulin LISPRO 300 UNITS/3 ML VIAL SQ SCH ×3 (15:58→23:36)
[2019-03-12 16:18] LABS: ABG Base Excess 11 mEq/L (-2 to 3); ABG HCO3 36 mEq/L (21-27); ABG Oxygen Saturation 92 % (95-98); ABG PCO2 48 mmHg (35-45); ABG PH 7.49 pH Units (7.32-7.45); ABG PO2 60 mmHg (85-104); ABG TCO2 38 mEq/L (20-26); Blood Gas Modality VC; Blood Gas PEEP 10 cm H2O; Blood Gas VT 500 cc
[2019-03-12 16:33] LABS: Estimated Average Glucose 160 mg/dl
[2019-03-12] MEDS: MethylPREDNISolone 40 MG/ML VIAL IVP SCH (18:33)
[2019-03-12] MEDS: Chlorhexidine Rinse 15 ML MOUTHWASH MM SCH (20:29)
[2019-03-13] MEDS: Insulin LISPRO 300 UNITS/3 ML VIAL SQ SCH ×5 (03:35→19:31)
[2019-03-13] MEDS: Artificial Tears SOLN 15 ML BOTTLE BOTH EYES SCH ×6 (03:35→23:40)
[2019-03-13 03:41] LABS: Basophils % 0.2 %; Hemoglobin 9.8 g/dL (11.5-15.4); Mean Corpuscular Hemoglobin 18.7 pg (28.0-33.3); Segmented Neutrophils % 83.5 %
[2019-03-13 03:42] LABS: Hematocrit 37.2 % (35.3-44.9); Immature Granulocytes % 0.7 % (0-4); Lymphocytes # 0.8 K/mcL (0.6-4.6); Lymphocytes % 8.7 %; Mean Corpuscular HGB Conc 26.3 g/dL (31.6-35.5); Mean Corpuscular Volume 71.1 fL (83.0-100.0); Mean Platelet Volume 9.7 fL (9.4-12.4); Monocytes # 0.6 K/mcL (0.0-1.3); Monocytes % 6.9 %; Neutrophils # 7.3 K/mcL (1.6-8.9); Nucleated Red Blood Cells 0.3 /100 WBC (0); Platelet Count 238 K/mcL (140-400); Red Blood Count 5.23 M/mcL (3.82-4.97); Red Cell Distribution Width 21.1 % (11.5-14.5); White Blood Count 8.7 K/mcL (4.3-11.1)
[2019-03-13 04:04] LABS: Anisocytosis 3+ (Not Present); Macrocytosis Present (Not Present); Microcytosis Present (Not Present); Platelet Estimate Normal (Normal); Poikilocytosis 1+ (Not Present); Target Cells 1+ (Not Present)
[2019-03-13 04:06] LABS: Alanine Aminotransferase 7 Units/L (7-52); Albumin 3.4 g/dL (3.5-5.7); Albumin/Globulin Ratio 1.1 (1.1-2.2); Alkaline Phosphatase 76 Units/L (34-104); Aspartate Amino Transferase 9 Units/L (13-39); BUN/Creatinine Ratio 16 (6-26); Bilirubin,Total 0.5 mg/dL (0.3-1.0); Blood Urea Nitrogen 17 mg/dL (6-20); Calcium 9.9 mg/dL (8.6-10.3); Carbon Dioxide 32 mEq/L (23-29); Chloride 101 mEq/L (98-107); Globulin 3.1 g/dL (2.4-3.5); Glucose 163 mg/dL (70-105); Magnesium 1.8 mg/dL (1.6-2.6); Osmolality,Calculated 299 (280-300); Phosphorous 1.6 mg/dL (2.7-4.5); Potassium 3.4 mEq/L (3.5-5.1); Sodium 142 mEq/L (136-145); Total Protein 6.5 g/dL (6.4-8.9); eGFR For African Americans > 60 (> 60); eGFR For Non-African Americans 55 (> 60)
[2019-03-13 04:16] LABS: Thyroid Stimulating Hormone 18.999 mcIU/mL (0.340-5.600)
[2019-03-13 04:54] LABS: ABG Base Excess 12 mEq/L (-2 to 3); ABG HCO3 36 mEq/L (21-27); ABG Oxygen Saturation 90 % (95-98); ABG PCO2 46 mmHg (35-45); ABG PO2 53 mmHg (85-104); ABG TCO2 38 mEq/L (20-26); Blood Gas Modality ASSIST CONTROL; Blood Gas PEEP 10 cm H2O; Blood Gas VT 500 cc
[2019-03-13] MEDS: *HR* Heparin 5,000 UNIT/ML VIAL SQ SCH ×3 (05:10→23:40)
[2019-03-13] MEDS: MethylPREDNISolone 40 MG/ML VIAL IVP SCH ×2 (05:10→18:34)
[2019-03-13] MEDS ORDERED: Calcium Gluconate 1gm/50mL 1 GM/50 ML BAG IVPB PRN (07:48)
[2019-03-13 07:57] LABS: ABG Base Excess 12 mEq/L (-2 to 3); ABG HCO3 38 mEq/L (21-27); ABG Oxygen Saturation 92 % (95-98); ABG PCO2 53 mmHg (35-45); ABG PH 7.46 pH Units (7.32-7.45); ABG PO2 63 mmHg (85-104); ABG TCO2 39 mEq/L (20-26); Blood Gas Modality VC; Blood Gas PEEP 12 cm H2O; Blood Gas VT 480 cc
[2019-03-13] MEDS: FentaNYL (PF) 1,000 MCG in 0.9 % Sodium Chloride 80 ML IVC SCH (08:35)
[2019-03-13] MEDS: Chlorhexidine Rinse 15 ML MOUTHWASH MM SCH ×2 (09:02→19:33)
[2019-03-13] MEDS: Pantoprazole 40 MG VIAL IVP SCH (09:02)
[2019-03-13] MEDS: Furosemide 240 MG in 0.9 % Sodium Chloride 96 ML IVC SCH (09:04)
[2019-03-13] MEDS: Potassium Phosphate 44 MEQ in 0.9 % Sodium Chloride 250 ML IVPB PRN (09:06)
--- NOTE | 2019-03-13 10:49 | Pulmonology Progress Note ---
Date of Encounter: 03/13/19 Time of Encounter: 10:47 Assessment and Plan (1) Acute on chronic respiratory failure with hypoxia and hypercapnia Current Visit: Yes Status: Acute I spent 33min of Critical Care time with this patient. It involved decision making of high complexity to assess, manipulate, and support vital organ system failure and/or to prevent further life threatening deterioration of the patient's condition. The time involved in the performance of separately reportable procedures was not counted toward critical care time. Patient seen and examined at bedside Labs, radiology, chart personally reviewed. Management was reviewed during multidisciplinary critical care rounds. Below reflects my systems based assessment and plan for this critically ill patient [facility]: She is sedated on vent he is needing to be deeply sedated because of her respiratory status Pulm: Acute on chronic hypoxic hypercapnic respiratory failure secondary to CHF exacerbation cannot fully exclude COPD exacerbation concomitantly being treated for both on the vent with the noted alkalosis due to overventilation I decreased her minute ventilation accordingly in and ABG has improved she still very hypoxic secondary to her hydrostatic edema increase PEEP and that has also improved her oxygenation. She is on a candidate for spontaneous breathing trial because of her respiratory status Cards: Decompensated heart failure with preserved ejection fraction in large part I feel due to hypertension is better controlled now would restart her home antihypertensives is willing beta michael for relative bradycardia but she otherwise we will start a Lasix infusion for CHF. May need cardiology consult GI: GI prophylaxis while on vent Nutrition: Nothing by mouth for now can start enteral nutrition in the next 24 hours if remains on the vent Renal: UOP Monitored, Cont to Trend sCr and monitor Electrolytes. ID: No clear evidence of infection continue to monitor Heme/Onc: DVT prophylaxis given Endo: Glucose Monitored; thyroxine has been started can likely titrate over the next few days or hypothyroidism without features of myxedema Integ/MSK: Skin Care per routine ICU Nursing Protocol to prevent ulcers. Lines: All lines examined without evidence of infection : Dispo: Monitor in ICU for critical illness CODE: Full. (2) Morbid obesity Current Visit: No Status: Acute (3) Acute on chronic diastolic (congestive) heart failure Current Visit: No Status: Acute (4) Obesity hypoventilation syndrome Current Visit: No Status: Acute (5) Acute exacerbation of congestive heart failure Current Visit: Yes Status: Acute Qualifiers: Heart failure type: diastolic Qualified Code(s): I50.33 - Acute on chronic diastolic (congestive) heart failure (6) Acute metabolic encephalopathy Current Visit: Yes Status: Acute (7) Acute exacerbation of chronic obstructive airways disease Current Visit: No Status: Acute Subjective Principal diagnosis: CHF exacerbation Interval history: Overnight the patient remains on the ventilator. Blood pressures been better controlled she is deeply sedated to facilitate oxygenation she has had worsening oxygenation overnight. Objective PUL Vital signs: Last Vital Signs Temp 97.6 F 03/13/19 09:00 Pulse 51 03/13/19 10:00 Resp 13 03/13/19 10:00 BP 133/77 03/13/19 10:00 Pulse Ox 95 03/13/19 10:00 GEN: Intubated and sedated HEENT: Pupils reactive to light bilaterally and symmetric endotracheal tube in satisfactory position Resp: Air entry bilaterally but diminished throughout she has crackles noted in the lung bases Cardio: Regular rate and rhythm no audible murmur GI: Abdomen nondistended and soft with bowel sounds positive Ext: Bilateral pitting edema noted Skin: No new areas of purpura or rash Neuro: Sedated and unable to examine motor she does have spontaneous movements however Psych: Calm on the vent Ventilator Settings Ventilator Settings: Ventilator Settings, Last 8 Hours Ventilator Tidal Volume 480 Setting Ventilator Tidal Volume 480 Setting Ventilator Tidal Volume 480 Setting Ventilator Tidal Volume 480 Setting Ventilator Tidal Volume 500 Setting Ventilator Tidal Volume 500 Setting Ventilator Tidal Volume 500 Setting Ventilator Tidal Volume 500 Setting Ventilator Tidal Volume 500 Setting Ventilator Tidal Volume 500 Setting Ventilator Tidal Volume 500 Setting Ventilator Respiratory Rate 10 Setting Ventilator Respiratory Rate 10 Setting Ventilator Respiratory Rate 10 Setting Ventilator Respiratory Rate 10 Setting Ventilator Respiratory Rate 16 Setting Ventilator Respiratory Rate 16 Setting Ventilator Respiratory Rate 16 Setting Ventilator Respiratory Rate 16 Setting Ventilator Respiratory Rate 16 Setting Ventilator Respiratory Rate 16 Setting Ventilator Respiratory Rate 16 Setting Actual Respiratory Rate 13 Actual Respiratory Rate 13 Actual Respiratory Rate 14 Actual Respiratory Rate 14 Actual Respiratory Rate 16 Actual Respiratory Rate 16 Actual Respiratory Rate 16 Actual Respiratory Rate 16 Actual Respiratory Rate 16 Actual Respiratory Rate 16 Positive End Expiratory 12 Pressure Positive End Expiratory 12 Pressure Positive End Expiratory 12 Pressure Positive End Expiratory 12 Pressure Positive End Expiratory 10 Pressure Positive End Expiratory 10 Pressure Positive End Expiratory 10 Pressure Positive End Expiratory 10 Pressure Positive End Expiratory 10 Pressure Positive End Expiratory 10 Pressure Positive End Expiratory 10 Pressure Peak Inspiratory Airway 28 Pressure Peak Inspiratory Airway 27 Pressure Peak Inspiratory Airway 28 Pressure Peak Inspiratory Airway 26 Pressure Peak Inspiratory Airway 32 Pressure Peak Inspiratory Airway 32 Pressure Peak Inspiratory Airway 26 Pressure Peak Inspiratory Airway 26 Pressure Peak Inspiratory Airway 29 Pressure Results - Laboratory Findings CBC and BMP: 03/13/19 03:20 03/13/19 03:20 ABG ABG pH 7.46 pH Units (7.32-7.45) H 03/13/19 07:54 ABG pCO2 53 mmHg (35-45) H 03/13/19 07:54 ABG pO2 63 mmHg (85-104) L 03/13/19 07:54 ABG O2 Saturation 92 % (95-98) L 03/13/19 07:54 PT/INR, D-dimer PT 12.4 Seconds (9.4-12.1) H 03/12/19 06:42 Abnormal lab findings: Abnormal lab results RBC 5.23 M/mcL (3.82-4.97) H 03/13/19 03:20 Hgb 9.8 g/dL (11.5-15.4) L 03/13/19 03:20 MCV 71.1 fL (83.0-100.0) L 03/13/19 03:20 MCH 18.7 pg (28.0-33.3) L 03/13/19 03:20 MCHC 26.3 g/dL (31.6-35.5) L 03/13/19 03:20 RDW 21.1 % (11.5-14.5) H 03/13/19 03:20 Nucleated RBCs/100 WBC 0.3 /100 WBC (0) H 03/13/19 03:20 Hypochromasia Present (Not Present) A 03/12/19 06:42 Poikilocytosis 1+ (Not Present) A 03/13/19 03:20 Anisocytosis 3+ (Not Present) A 03/13/19 03:20 Microcytosis Present (Not Present) A 03/13/19 03:20 Macrocytosis Present (Not Present) A 03/13/19 03:20 Target Cells 1+ (Not Present) A 03/13/19 03:20 PT 12.4 Seconds (9.4-12.1) H 03/12/19 06:42 APTT 24.7 Seconds (26.0-36.0) L 03/12/19 06:42 ABG pH 7.46 pH Units (7.32-7.45) H 03/13/19 07:54 ABG pCO2 53 mmHg (35-45) H 03/13/19 07:54 ABG pO2 63 mmHg (85-104) L 03/13/19 07:54 ABG HCO3 38 mEq/L (21-27) H 03/13/19 07:54 ABG Total CO2 39 mEq/L (20-26) H 03/13/19 07:54 ABG O2 Saturation 92 % (95-98) L 03/13/19 07:54 ABG Base Excess 12 mEq/L (-2 to 3) H 03/13/19 07:54 Potassium 3.4 mEq/L (3.5-5.1) L 03/13/19 03:20 Carbon Dioxide 32 mEq/L (23-29) H 03/13/19 03:20 Est GFR (Non-Af Amer) 55 (> 60) L 03/13/19 03:20 Glucose 163 mg/dL (70-105) H 03/13/19 03:20 POC Glucose 166 mg/dL (70-99) H 03/12/19 23:36 Hemoglobin A1c 7.2 % (-5.6) H 03/12/19 14:16 Phosphorus 1.6 mg/dL (2.7-4.5) L 03/13/19 03:20 AST 9 Units/L (13-39) L 03/13/19 03:20 Alkaline Phosphatase 110 Units/L (34-104) H 03/12/19 06:42 B-Natriuretic Peptide 300 pg/mL (Less than 100) H 03/12/19 06:42 Albumin 3.4 g/dL (3.5-5.7) L 03/13/19 03:20 Globulin 3.7 g/dL (2.4-3.5) H 03/12/19 06:42 TSH 18.999 mcIU/mL (0.340-5.600) H 03/13/19 03:20 - Microbiology Findings Microbiology Findings: Microbiology, Last 48 Hours 03/12/19 07:16 Blood Culture - Preliminary Peripheral Venipuncture Culture is incubating and being continuously monitored for growth. Final report to follow. 03/12/19 06:42 Blood Culture - Preliminary Peripheral Venipuncture Culture is incubating and being continuously monitored for growth. Final report to follow. - Diagnostic Findings Chest x-ray: report reviewed, image reviewed - Clinical Findings Intake & Output: Intake & Output 03/12/19 03/13/19 03/13/19 23:59 07:59 15:59 Intake Total 300 / 672 300 / 500 200 / 500 Output Total 550 / 1200 90 / 140 50 / 140 Balance -250 / -528 210 / 360 150 / 360 Weight 157.9 kg Consult Discharge Plan - Plan
[2019-03-13 20:51] LABS: Magnesium 2.2 mg/dL (1.6-2.6); Phosphorous 5.1 mg/dL (2.7-4.5)
[2019-03-13 20:59] LABS: Potassium 4.1 mEq/L (3.5-5.1)
[2019-03-14] MEDS: FentaNYL (PF) 1,000 MCG in 0.9 % Sodium Chloride 80 ML IVC SCH ×2 (00:49→16:09)
[2019-03-14] MEDS: Insulin LISPRO 300 UNITS/3 ML VIAL SQ SCH ×6 (00:50→19:57)
[2019-03-14] MEDS: Artificial Tears SOLN 15 ML BOTTLE BOTH EYES SCH ×6 (04:13→23:49)
[2019-03-14 05:09] LABS: VBG Ionized Calcium 1.03 mmol/L (1.15-1.35)
[2019-03-14] MEDS: *HR* Heparin 5,000 UNIT/ML VIAL SQ SCH ×3 (05:12→22:16)
[2019-03-14] MEDS: MethylPREDNISolone 40 MG/ML VIAL IVP SCH ×2 (05:12→17:46)
[2019-03-14 05:13] LABS: Hemoglobin 10.6 g/dL (11.5-15.4); Nucleated Red Blood Cells 0.4 /100 WBC (0)
[2019-03-14 05:14] LABS: Basophils % 0.3 %; Eosinophils % 0.1 %; Hematocrit 38.4 % (35.3-44.9); Immature Granulocytes % 1.4 % (0-4); Mean Corpuscular HGB Conc 27.6 g/dL (31.6-35.5); Mean Corpuscular Hemoglobin 19.2 pg (28.0-33.3); Mean Corpuscular Volume 69.7 fL (83.0-100.0); Monocytes # 0.8 K/mcL (0.0-1.3); Monocytes % 7.6 %; Neutrophils # 8.9 K/mcL (1.6-8.9); Platelet Count 235 K/mcL (140-400); Red Blood Count 5.51 M/mcL (3.82-4.97); Red Cell Distribution Width 21.2 % (11.5-14.5); Segmented Neutrophils % 81.6 %; White Blood Count 10.9 K/mcL (4.3-11.1)
[2019-03-14 05:19] LABS: ABG Base Excess 13 mEq/L (-2 to 3); ABG HCO3 41 mEq/L (21-27); ABG Oxygen Saturation 93 % (95-98); ABG PCO2 65 mmHg (35-45); ABG PO2 68 mmHg (85-104); ABG TCO2 43 mEq/L (20-26); Blood Gas Modality ASSIST CONTROL; Blood Gas PEEP 12 cm H2O; Blood Gas VT 480 cc
[2019-03-14 05:33] LABS: Albumin 3.5 g/dL (3.5-5.7); Albumin/Globulin Ratio 1.1 (1.1-2.2); Bilirubin,Total 0.4 mg/dL (0.3-1.0); Calcium 9.8 mg/dL (8.6-10.3); Globulin 3.2 g/dL (2.4-3.5); Magnesium 2.2 mg/dL (1.6-2.6); Potassium 3.8 mEq/L (3.5-5.1); Total Protein 6.7 g/dL (6.4-8.9)
[2019-03-14 06:26] LABS: Hypochromasia Present (Not Present); Microcytosis Present (Not Present); Platelet Estimate Normal (Normal)
[2019-03-14] MEDS: Chlorhexidine Rinse 15 ML MOUTHWASH MM SCH ×2 (08:07→19:44)
[2019-03-14] MEDS: Pantoprazole 40 MG VIAL IVP SCH (08:07)
--- NOTE | 2019-03-14 11:54 | Pulmonology Progress Note ---
<Chadd Smith Vicky - Last Filed: 03/14/19 14:58> Date of Encounter: 03/14/19 Time of Encounter: 11:53 Assessment and Plan (1) Acute and chronic respiratory failure with hypercapnia Current Visit: No Status: Acute Acute on chronic respiratory failure with hypoxia - Intubated and sedated on propofol and fenanyl - Secondary to chf exacerbation, cannot exclude COPD exacerbation - Treating for both - Lasix drip witched to IV BID, increase in creatinine this a.m. - Alkalosis resolved - Plan to wean FiO2 to 40%, and PEEP to 8 today (2) Acute exacerbation of chronic obstructive airways disease Current Visit: No Status: Acute COPD exacerbation - Intubated and sedated - As above - Solumedrol 40 BID (3) Acute metabolic encephalopathy Current Visit: Yes Status: Acute Acute metabolic encephalopathy - Secondary to respiratory failure - Intubated and sedated (4) Acute on chronic diastolic (congestive) heart failure Current Visit: No Status: Acute CHF - IV lasix BID - BNP 300 - Echo 08/25/18: EF 60-65%, severely dilated L atrium - Strict I's&O's (5) Obesity hypoventilation syndrome Current Visit: No Status: Acute Obesity hypoventilation syndrome - Ventilation limited by body habitus Subjective Principal diagnosis: CHF exacerbation Interval history: Patient seen and examined. Afebrile. No overnight events. There is increased and patient's serum creatinine today. Lasix drip was switched to IV twice a day. Objective PUL Vital signs: Last Vital Signs Temp 98.0 F 03/14/19 08:08 Pulse 59 03/14/19 11:00 Resp 18 03/14/19 11:07 BP 121/67 03/14/19 11:07 Pulse Ox 97 03/14/19 11:07 Gen: Vitals noted. No acute distress. Intubated and sedated Eyes: anicteric sclerae, moist conjunctivae; no lid-lag; Pupils 3mm, round, equ al and reactive to light HENT: Atraumatic, normocephalic; oropharynx clear with moist mucous membranes and no mucosal ulcerations Neck: Trachea midline; supple, no thyromegaly or lymphadenopathy Cardiac: RRR, no murmurs, rubs or gallops, S1/S2 Pulmonary: mechanical breath sounds bilaterally, no wheezes, rales or rhonchi, equal chest expansion Abdomen: soft, non-distended, no rigidity or guarding. No masses or hepatosplenomegaly MSK: ROM intact, no joint swelling noted Extremities: no BLE edema, nontender calf, no cyanosis or clubbing Skin: Normal temperature, turgor and texture; no rash, ulcers or subcutaneous nodules Neuro: Amaris 5 Psych: unable to assess Analgesia: fentanyl gtt Sedation: propofol gtt SBT: none Glycemic control: low-dose sliding scale Bowl regimen: none Activity: none Fluids: MIVF Electrolytes: replete as necessary Nutrition: NPO GI ppx: PPI Lines: ET, OG, quinonez, dialysis cath, CVC, art line, 2x PIV Consults: pulm Code: Full Dispo: ICU Ventilator Settings Ventilator Settings: Ventilator Settings, Last 8 Hours Ventilator Tidal Volume 420 Setting Ventilator Tidal Volume 420 Setting Ventilator Tidal Volume 420 Setting Ventilator Tidal Volume 420 Setting Ventilator Tidal Volume 420 Setting Ventilator Tidal Volume 480 Setting Ventilator Tidal Volume 480 Setting Ventilator Tidal Volume 480 Setting Ventilator Tidal Volume 480 Setting Ventilator Tidal Volume 480 Setting Ventilator Tidal Volume 480 Setting Ventilator Tidal Volume 480 Setting Ventilator Tidal Volume 480 Setting Ventilator Tidal Volume 480 Setting Ventilator Respiratory Rate 14 Setting Ventilator Respiratory Rate 14 Setting Ventilator Respiratory Rate 14 Setting Ventilator Respiratory Rate 14 Setting Ventilator Respiratory Rate 14 Setting Ventilator Respiratory Rate 10 Setting Ventilator Respiratory Rate 10 Setting Ventilator Respiratory Rate 10 Setting Ventilator Respiratory Rate 10 Setting Ventilator Respiratory Rate 10 Setting Ventilator Respiratory Rate 10 Setting Ventilator Respiratory Rate 10 Setting Ventilator Respiratory Rate 10 Setting Ventilator Respiratory Rate 10 Setting Actual Respiratory Rate 17 Actual Respiratory Rate 17 Actual Respiratory Rate 14 Actual Respiratory Rate 14 Actual Respiratory Rate 18 Actual Respiratory Rate 16 Actual Respiratory Rate 14 Actual Respiratory Rate 12 Actual Respiratory Rate 16 Actual Respiratory Rate 17 Actual Respiratory Rate 13 Actual Respiratory Rate 15 Actual Respiratory Rate 16 Positive End Expiratory 12 Pressure Positive End Expiratory 12 Pressure Positive End Expiratory 12 Pressure Positive End Expiratory 12 Pressure Positive End Expiratory 12 Pressure Positive End Expiratory 12 Pressure Positive End Expiratory 12 Pressure Positive End Expiratory 12 Pressure Positive End Expiratory 12 Pressure Positive End Expiratory 12 Pressure Positive End Expiratory 12 Pressure Positive End Expiratory 12 Pressure Positive End Expiratory 12 Pressure Positive End Expiratory 12 Pressure Peak Inspiratory Airway 25 Pressure Peak Inspiratory Airway 25 Pressure Peak Inspiratory Airway 25 Pressure Peak Inspiratory Airway 25 Pressure Peak Inspiratory Airway 25 Pressure Peak Inspiratory Airway 27 Pressure Peak Inspiratory Airway 27 Pressure Peak Inspiratory Airway 27 Pressure Peak Inspiratory Airway 27 Pressure Peak Inspiratory Airway 27 Pressure Peak Inspiratory Airway 26 Pressure Peak Inspiratory Airway 26 Pressure Peak Inspiratory Airway 26 Pressure Results - Laboratory Findings CBC and BMP: 03/14/19 04:46 03/14/19 04:46 ABG ABG pH 7.40 pH Units (7.32-7.45) 03/14/19 05:15 ABG pCO2 65 mmHg (35-45) H 03/14/19 05:15 ABG pO2 68 mmHg (85-104) L 03/14/19 05:15 ABG O2 Saturation 93 % (95-98) L 03/14/19 05:15 PT/INR, D-dimer PT 12.4 Seconds (9.4-12.1) H 03/12/19 06:42 Abnormal lab findings: Abnormal lab results RBC 5.51 M/mcL (3.82-4.97) H 03/14/19 04:46 Hgb 10.6 g/dL (11.5-15.4) L 03/14/19 04:46 MCV 69.7 fL (83.0-100.0) L 03/14/19 04:46 MCH 19.2 pg (28.0-33.3) L 03/14/19 04:46 MCHC 27.6 g/dL (31.6-35.5) L 03/14/19 04:46 RDW 21.2 % (11.5-14.5) H 03/14/19 04:46 Nucleated RBCs/100 WBC 0.4 /100 WBC (0) H 03/14/19 04:46 Hypochromasia Present (Not Present) A 03/14/19 04:46 Poikilocytosis 1+ (Not Present) A 03/13/19 03:20 Anisocytosis 3+ (Not Present) A 03/13/19 03:20 Microcytosis Present (Not Present) A 03/14/19 04:46 Macrocytosis Present (Not Present) A 03/13/19 03:20 Target Cells 1+ (Not Present) A 03/13/19 03:20 PT 12.4 Seconds (9.4-12.1) H 03/12/19 06:42 APTT 24.7 Seconds (26.0-36.0) L 03/12/19 06:42 ABG pH 7.46 pH Units (7.32-7.45) H 03/13/19 07:54 ABG pCO2 65 mmHg (35-45) H 03/14/19 05:15 ABG pO2 68 mmHg (85-104) L 03/14/19 05:15 ABG HCO3 41 mEq/L (21-27) H 03/14/19 05:15 ABG Total CO2 43 mEq/L (20-26) H 03/14/19 05:15 ABG O2 Saturation 93 % (95-98) L 03/14/19 05:15 ABG Base Excess 13 mEq/L (-2 to 3) H 03/14/19 05:15 Potassium 3.4 mEq/L (3.5-5.1) L 03/13/19 03:20 Carbon Dioxide 36 mEq/L (23-29) H 03/14/19 04:46 BUN 26 mg/dL (6-20) H 03/14/19 04:46 Creatinine 1.22 mg/dL (0.60-1.20) H 03/14/19 04:46 Est GFR ( Amer) 56 (> 60) L 03/14/19 04:46 Est GFR (Non-Af Amer) 46 (> 60) L 03/14/19 04:46 Glucose 158 mg/dL (70-105) H 03/14/19 04:46 POC Glucose 172 mg/dL (70-99) H 03/14/19 00:09 Hemoglobin A1c 7.2 % (-5.6) H 03/12/19 14:16 Calculated Osmolality 304 (280-300) H 03/14/19 04:46 Venous Ioniz Calcium 1.03 mmol/L (1.15-1.35) L 03/14/19 05:06 Phosphorus 5.0 mg/dL (2.7-4.5) H 03/14/19 04:46 AST 8 Units/L (13-39) L 03/14/19 04:46 ALT 5 Units/L (7-52) L 03/14/19 04:46 Alkaline Phosphatase 110 Units/L (34-104) H 03/12/19 06:42 B-Natriuretic Peptide 300 pg/mL (Less than 100) H 03/12/19 06:42 Albumin 3.4 g/dL (3.5-5.7) L 03/13/19 03:20 Globulin 3.7 g/dL (2.4-3.5) H 03/12/19 06:42 TSH 18.999 mcIU/mL (0.340-5.600) H 03/13/19 03:20 - Microbiology Findings Microbiology Findings: Microbiology, Last 48 Hours 03/12/19 07:16 Blood Culture - Preliminary Peripheral Venipuncture Culture is incubating and being continuously monitored for growth. Final report to follow. 03/12/19 06:42 Blood Culture - Preliminary Peripheral Venipuncture Culture is incubating and being continuously monitored for growth. Final report to follow. - Clinical Findings Intake & Output: Intake & Output 03/13/19 03/14/19 03/14/19 23:59 07:59 15:59 Intake Total 610 / 1210 400 / 654.4 254.4 / 654.4 Output Total 750 / 1740 1650 / 5 375 / 5 Balance -140 / -530 -1250 / -1370.6 -120.6 / -1370.6 Weight 157.8 kg Consult Discharge Plan - Plan Referrals: NONE,PCP [Primary Care Provider] - <Amy Latif - Last Filed: 03/14/19 22:21> Date of Encounter: 03/14/19 Objective PUL Vital signs: Last Vital Signs Temp 97.9 F 03/14/19 20:25 Pulse 52 03/14/19 22:00 Resp 14 03/14/19 22:10 BP 146/86 03/14/19 22:10 Pulse Ox 97 03/14/19 22:10 Ventilator Settings Ventilator Settings: Ventilator Settings, Last 8 Hours Ventilator Tidal Volume 420 Setting Ventilator Tidal Volume 420 Setting Ventilator Tidal Volume 420 Setting Ventilator Tidal Volume 420 Setting Ventilator Tidal Volume 420 Setting Ventilator Tidal Volume 420 Setting Ventilator Tidal Volume 420 Setting Ventilator Tidal Volume 420 Setting Ventilator Tidal Volume 420 Setting Ventilator Tidal Volume 420 Setting Ventilator Tidal Volume 420 Setting Ventilator Tidal Volume 420 Setting Ventilator Respiratory Rate 14 Setting Ventilator Respiratory Rate 14 Setting Ventilator Respiratory Rate 14 Setting Ventilator Respiratory Rate 14 Setting Ventilator Respiratory Rate 14 Setting Ventilator Respiratory Rate 14 Setting Ventilator Respiratory Rate 14 Setting Ventilator Respiratory Rate 14 Setting Ventilator Respiratory Rate 14 Setting Ventilator Respiratory Rate 14 Setting Ventilator Respiratory Rate 14 Setting Ventilator Respiratory Rate 14 Setting Actual Respiratory Rate 14 Actual Respiratory Rate 14 Actual Respiratory Rate 16 Actual Respiratory Rate 15 Actual Respiratory Rate 16 Actual Respiratory Rate 15 Actual Respiratory Rate 16 Actual Respiratory Rate 16 Actual Respiratory Rate 15 Actual Respiratory Rate 16 Actual Respiratory Rate 14 Actual Respiratory Rate 15 Positive End Expiratory 8 Pressure Positive End Expiratory 8 Pressure Positive End Expiratory 8 Pressure Positive End Expiratory 8 Pressure Positive End Expiratory 8 Pressure Positive End Expiratory 8 Pressure Positive End Expiratory 8 Pressure Positive End Expiratory 8 Pressure Positive End Expiratory 8 Pressure Positive End Expiratory 8 Pressure Positive End Expiratory 8 Pressure Positive End Expiratory 10 Pressure Peak Inspiratory Airway 22 Pressure Peak Inspiratory Airway 22 Pressure Peak Inspiratory Airway 22 Pressure Peak Inspiratory Airway 21 Pressure Peak Inspiratory Airway 18 Pressure Peak Inspiratory Airway 21 Pressure Peak Inspiratory Airway 20 Pressure Peak Inspiratory Airway 23 Pressure Peak Inspiratory Airway 20 Pressure Peak Inspiratory Airway 20 Pressure Peak Inspiratory Airway 21 Pressure Peak Inspiratory Airway 22 Pressure Results - Laboratory Findings CBC and BMP: 03/14/19 04:46 03/14/19 14:57 ABG ABG pH 7.40 pH Units (7.32-7.45) 03/14/19 05:15 ABG pCO2 65 mmHg (35-45) H 03/14/19 05:15 ABG pO2 68 mmHg (85-104) L 03/14/19 05:15 ABG O2 Saturation 93 % (95-98) L 03/14/19 05:15 PT/INR, D-dimer PT 12.4 Seconds (9.4-12.1) H 03/12/19 06:42 Abnormal lab findings: Abnormal lab results RBC 5.51 M/mcL (3.82-4.97) H 03/14/19 04:46 Hgb 10.6 g/dL (11.5-15.4) L 03/14/19 04:46 MCV 69.7 fL (83.0-100.0) L 03/14/19 04:46 MCH 19.2 pg (28.0-33.3) L 03/14/19 04:46 MCHC 27.6 g/dL (31.6-35.5) L 03/14/19 04:46 RDW 21.2 % (11.5-14.5) H 03/14/19 04:46 Nucleated RBCs/100 WBC 0.4 /100 WBC (0) H 03/14/19 04:46 Hypochromasia Present (Not Present) A 03/14/19 04:46 Poikilocytosis 1+ (Not Present) A 03/13/19 03:20 Anisocytosis 3+ (Not Present) A 03/13/19 03:20 Microcytosis Present (Not Present) A 03/14/19 04:46 Macrocytosis Present (Not Present) A 03/13/19 03:20 Target Cells 1+ (Not Present) A 03/13/19 03:20 PT 12.4 Seconds (9.4-12.1) H 03/12/19 06:42 APTT 24.7 Seconds (26.0-36.0) L 03/12/19 06:42 ABG pH 7.46 pH Units (7.32-7.45) H 03/13/19 07:54 ABG pCO2 65 mmHg (35-45) H 03/14/19 05:15 ABG pO2 68 mmHg (85-104) L 03/14/19 05:15 ABG HCO3 41 mEq/L (21-27) H 03/14/19 05:15 ABG Total CO2 43 mEq/L (20-26) H 03/14/19 05:15 ABG O2 Saturation 93 % (95-98) L 03/14/19 05:15 ABG Base Excess 13 mEq/L (-2 to 3) H 03/14/19 05:15 Potassium 3.4 mEq/L (3.5-5.1) L 03/13/19 03:20 Carbon Dioxide 36 mEq/L (23-29) H 03/14/19 04:46 BUN 26 mg/dL (6-20) H 03/14/19 04:46 Creatinine 1.22 mg/dL (0.60-1.20) H 03/14/19 04:46 Est GFR ( Amer) 56 (> 60) L 03/14/19 04:46 Est GFR (Non-Af Amer) 46 (> 60) L 03/14/19 04:46 Glucose 158 mg/dL (70-105) H 03/14/19 04:46 POC Glucose 172 mg/dL (70-99) H 03/14/19 00:09 Hemoglobin A1c 7.2 % (-5.6) H 03/12/19 14:16 Calculated Osmolality 304 (280-300) H 03/14/19 04:46 Venous Ioniz Calcium 1.03 mmol/L (1.15-1.35) L 03/14/19 05:06 Phosphorus 5.0 mg/dL (2.7-4.5) H 03/14/19 04:46 AST 8 Units/L (13-39) L 03/14/19 04:46 ALT 5 Units/L (7-52) L 03/14/19 04:46 Alkaline Phosphatase 110 Units/L (34-104) H 03/12/19 06:42 B-Natriuretic Peptide 300 pg/mL (Less than 100) H 03/12/19 06:42 Albumin 3.4 g/dL (3.5-5.7) L 03/13/19 03:20 Globulin 3.7 g/dL (2.4-3.5) H 03/12/19 06:42 TSH 18.999 mcIU/mL (0.340-5.600) H 03/13/19 03:20 - Clinical Findings Intake & Output: Intake & Output 03/14/19 03/14/19 03/14/19 07:59 15:59 23:59 Intake Total 400 / 1154.4 354.4 / 1154.4 400 / 1154.4 Output Total 1650 / 3100 1150 / 3100 300 / 3100 Balance -1250 / -1945.6 -795.6 / -1945.6 100 / -1945.6 Weight 157.8 kg - Attending Attestation I saw and evaluated this patient and my medical decision-making was reviewed with the Resident Physician. I agree with the documented findings, disposition and treatment plan as described except to the extent set forth below. We independently had [id number] contact with the patient I spent 40 minutes of Critical Care time with this patient. It involved decision making of high complexity to assess, manipulate, and support vital organ system failure and/or to prevent further life threatening deterioration of the patient's condition. The time involved in the performance of separately reportable procedures was not counted toward critical care time. Patient seen and examined at bedside Labs, radiology, chart personally reviewed. Management was reviewed during multidisciplinary critical care rounds. TALENT ACQUISITION ADMINISTRATOR: Patient is drowsy and encephalopathy opening her eyes when I called her name no focal neurological deficit Pulm: Patient has significant V/Q mismatch due to hydrostatic pulmonary edema in the background of COPD to continue gentle diuresis as tolerated adjusted the minute ventilation and tidal volume for lung protective strategy Cards: Patient is hemodynamically stable looks like patient has acute on chronic diastolic heart failure most likely due to underlying hypertensive heart disease FEN-GI: Diet according to nutrition. Renal: Labs and output were reviewed and can be due to cardiorenal syndrome will get gentle diuresis. To stop Lasix drip will try IV Lasix bolus. ID: To de-escalate antibiotics Heme/Onc: Labs reviewed Endo: Glucose Monitored Integ/MSK: Skin Care per routine ICU Nursing Protocol to prevent ulcers. Lines: All lines examined without evidence of infection : Dispo: critically ill CODE: Full code
[2019-03-14 14:41] LABS: VBG Ionized Calcium 1.16 mmol/L (1.15-1.35)
[2019-03-14] MEDS: Furosemide 40 MG/4 ML VIAL IVP SCH (20:00)
[2019-03-15] MEDS: Insulin LISPRO 300 UNITS/3 ML VIAL SQ SCH ×7 (00:04→23:41)
[2019-03-15] MEDS: Artificial Tears SOLN 15 ML BOTTLE BOTH EYES SCH ×6 (04:21→23:41)
[2019-03-15 04:31] LABS: Basophils % 0.2 %; Monocytes % 7.3 %
[2019-03-15 04:33] LABS: Hemoglobin 10.5 g/dL (11.5-15.4); Immature Granulocytes % 0.6 % (0-4); Lymphocytes # 0.7 K/mcL (0.6-4.6); Lymphocytes % 7.4 %; Mean Corpuscular HGB Conc 26.9 g/dL (31.6-35.5); Mean Corpuscular Hemoglobin 19.1 pg (28.0-33.3); Mean Corpuscular Volume 70.8 fL (83.0-100.0); Mean Platelet Volume 10.1 fL (9.4-12.4); Monocytes # 0.7 K/mcL (0.0-1.3); Neutrophils # 8.3 K/mcL (1.6-8.9); Platelet Count 256 K/mcL (140-400); Red Blood Count 5.51 M/mcL (3.82-4.97); Red Cell Distribution Width 21.2 % (11.5-14.5); Segmented Neutrophils % 84.5 %; White Blood Count 9.8 K/mcL (4.3-11.1)
[2019-03-15 04:35] LABS: ABG Base Excess 14 mEq/L (-2 to 3); ABG HCO3 42 mEq/L (21-27); ABG Oxygen Saturation 92 % (95-98); ABG PCO2 69 mmHg (35-45); ABG PO2 66 mmHg (85-104); ABG TCO2 45 mEq/L (20-26); Blood Gas Modality VC; Blood Gas PEEP 8 cm H2O; Blood Gas VT 420 cc
[2019-03-15 04:51] LABS: BUN/Creatinine Ratio 30 (6-26); Blood Urea Nitrogen 31 mg/dL (6-20); Calcium 9.7 mg/dL (8.6-10.3); Carbon Dioxide 37 mEq/L (23-29); Chloride 100 mEq/L (98-107); Glucose 146 mg/dL (70-105); Osmolality,Calculated 307 (280-300); Potassium 3.6 mEq/L (3.5-5.1); Sodium 144 mEq/L (136-145); eGFR For African Americans > 60 (> 60); eGFR For Non-African Americans 56 (> 60)
[2019-03-15] MEDS: FentaNYL (PF) 1,000 MCG in 0.9 % Sodium Chloride 80 ML IVC SCH ×3 (04:57→23:25)
[2019-03-15 05:09] LABS: Hypochromasia Present (Not Present); Platelet Estimate Normal (Normal); Poikilocytosis 1+ (Not Present)
[2019-03-15] MEDS: MethylPREDNISolone 40 MG/ML VIAL IVP SCH ×2 (05:45→17:26)
[2019-03-15] MEDS: *HR* Heparin 5,000 UNIT/ML VIAL SQ SCH ×3 (05:45→20:52)
--- NOTE | 2019-03-15 07:59 | Pulmonology Progress Note ---
<Abigail Stewart - Last Filed: 03/15/19 11:09> Date of Encounter: 03/15/19 Time of Encounter: 07:59 Assessment and Plan (1) Acute and chronic respiratory failure with hypercapnia Current Visit: No Status: Acute Acute and chronic respiratory failure with hypercapnia that is likely secondary to CHF exacerbation and likely COPD exacerbation. -03/13/2019 CXR showing cardiomegaly and moderate pulmonary vascular congestion slightly improved aeration from prior study. Bilateral pleural and parenchymal changes at lung bases slightly improved. -03/12/2019 CXR showing heart failure with severe pulmonary edema and small effusions -currently intubated and sedated with fentanyl and propofol -ABG: pH 7.4, pCO2 69, HCO3 37 -vent setting FIO2 40%, PEEP 8, Vt 420, RR14 -I/O: 660/1300 plan: -continue diuresis with Lasix 40 mg IV b.i.d. -continue Solu-Medrol 40 Q612 -continue fentanyl and propofol for sedation -will attempt to wean from ventilator as able. Due to respirators status, low tidal volume, and tachypnea will not extubate today but will reevaluate tomorrow. (2) Acute on chronic diastolic (congestive) heart failure Current Visit: No Status: Acute HFpEF with exacerbation -BNP 300 -CXR showing heart failure with severe pulmonary edema and small effusions -08/25/2018 TTE: EF= 60-65%, mild diastolic dysfunction. No pulmonary hypertension or valvular dysfunction. -10 pound weight loss since admission. (163lb, now 152lb) -I/O: 660/1300 plan: -continue Lasix 40 mg IV b.i.d. -will add other meds such as the following when able and BP tolerates (hydrochlorthiazide 25 mg, amlodipine 5 mg, metoprolol 50 mg b.i.d., lisinopril 40 mg) -strict I&O -daily weight (3) Acute exacerbation of chronic obstructive airways disease Current Visit: No Status: Acute Suspect acute COPD exacerbation as the patient has acute on chronic respiratory failure with hypercapnia. -CXR showing heart failure with severe pulmonary edema and small effusions -continue Solu-Medrol 40 Q12H -currently intubated -continue home Symbicort, Incruse Ellipta, duoneb (4) Acute metabolic encephalopathy Current Visit: Yes Status: Acute Acute metabolic encephalopathy secondary to acute respiratory failure with hypercapnia. -Plan as above (5) HTN (hypertension) Current Visit: Yes Status: Acute History of hypertension taking hydrochlorthiazide 25 mg, amlodipine 5 mg, metoprolol 50 mg b.i.d., lisinopril 40 mg. -BP elevated 160/76 -currently receiving hydralazine 20 mg IV Q6h into Lasix 40 mg IV b.i.d. Qualifiers: Hypertension type: essential hypertension Qualified Code(s): I10 - Essential (primary) hypertension (6) Obesity hypoventilation syndrome Current Visit: No Status: Acute Chronic (7) LEXIE (obstructive sleep apnea) Current Visit: Yes Status: Chronic History of LEXIE using oxygen at home and CPAP at night. (8) Hypothyroidism Current Visit: Yes Status: Chronic History of Graves' disease. Home dose of levothyroxine unknown. TSH 29.8 on admission. -TSH 18.9 -patient currently on levothyroxine 100 daily. Will continue to monitor. Qualifiers: Hypothyroidism type: unspecified Qualified Code(s): E03.9 - Hypothyroidism, unspecified (9) Anemia Current Visit: No Status: Acute Microcytic Anemia -hemoglobin 10.5 -MCV 70.8 -baseline hemoglobin previously 13-14, however now appears 9-10) -09/13/2018: iron 21, 5% saturation, transferrin 325, ferritin 21 -no obvious active bleeding -patient takes ferrous sulfate supplementation at home -will continue to monitor hemoglobin and for bleeding -no reports of prior endoscopy Qualifiers: Anemia type: iron deficiency Qualified Code(s): D50.9 - Iron deficiency anemia, unspecified (10) Diabetes Current Visit: No Status: Acute History of diabetes. 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 Lozano is a 53-year-old female who presented acute on chronic respiratory failure with hypercapnia who was intubated and sedated on admission secondary to CHF exacerbation and COPD exacerbation. Today patient was seen and examined the bedside. She sedated and intubated in no acute distress. Last night sedation had to be increased due to the agitation and patient trying to pull out ET tube. The patient's nurse noted that she has had decreased output through the OG tube and good urine output. Objective PUL Vital signs: Last Vital Signs Temp 97.5 F L 03/15/19 07:46 Pulse 63 03/15/19 07:28 Resp 16 03/15/19 07:47 BP 160/74 03/15/19 07:28 Pulse Ox 94 03/15/19 07:47 General appearance: no acute distress, other (Sedated) Eyes: nonicteric ENT: oropharynx moist Neck: supple Effort: normal Auscultation: bilateral: clear Cardiovascular: regular rate and rhythm Gastrointestinal: normoactive bowel sounds, soft, non-tender, non-distended Integumentary: normal Extremities: no edema, pulses normal Musculoskeletal: no deformities unable to assess due to mental status Ventilator Settings Ventilator Settings: Ventilator Settings, Last 8 Hours Ventilator Tidal Volume 420 Setting Ventilator Tidal Volume 420 Setting Ventilator Tidal Volume 420 Setting Ventilator Tidal Volume 420 Setting Ventilator Tidal Volume 420 Setting Ventilator Tidal Volume 420 Setting Ventilator Tidal Volume 420 Setting Ventilator Tidal Volume 420 Setting Ventilator Tidal Volume 420 Setting Ventilator Tidal Volume 420 Setting Ventilator Tidal Volume 420 Setting Ventilator Tidal Volume 420 Setting Ventilator Tidal Volume 420 Setting Ventilator Respiratory Rate 14 Setting Ventilator Respiratory Rate 14 Setting Ventilator Respiratory Rate 14 Setting Ventilator Respiratory Rate 14 Setting Ventilator Respiratory Rate 14 Setting Ventilator Respiratory Rate 14 Setting Ventilator Respiratory Rate 14 Setting Ventilator Respiratory Rate 14 Setting Ventilator Respiratory Rate 14 Setting Ventilator Respiratory Rate 14 Setting Ventilator Respiratory Rate 14 Setting Ventilator Respiratory Rate 14 Setting Ventilator Respiratory Rate 14 Setting Actual Respiratory Rate 16 Actual Respiratory Rate 18 Actual Respiratory Rate 17 Actual Respiratory Rate 17 Actual Respiratory Rate 17 Actual Respiratory Rate 18 Actual Respiratory Rate 17 Actual Respiratory Rate 17 Actual Respiratory Rate 18 Actual Respiratory Rate 22 Actual Respiratory Rate 19 Actual Respiratory Rate 19 Positive End Expiratory 8 Pressure Positive End Expiratory 8 Pressure Positive End Expiratory 8 Pressure Positive End Expiratory 8 Pressure Positive End Expiratory 8 Pressure Positive End Expiratory 8 Pressure Positive End Expiratory 8 Pressure Positive End Expiratory 8 Pressure Positive End Expiratory 8 Pressure Positive End Expiratory 8 Pressure Positive End Expiratory 8 Pressure Positive End Expiratory 8 Pressure Positive End Expiratory 8 Pressure Peak Inspiratory Airway 24 Pressure Peak Inspiratory Airway 25 Pressure Peak Inspiratory Airway 26 Pressure Peak Inspiratory Airway 27 Pressure Peak Inspiratory Airway 27 Pressure Peak Inspiratory Airway 24 Pressure Peak Inspiratory Airway 23 Pressure Peak Inspiratory Airway 23 Pressure Peak Inspiratory Airway 24 Pressure Peak Inspiratory Airway 23 Pressure Peak Inspiratory Airway 21 Pressure Peak Inspiratory Airway 21 Pressure Results - Laboratory Findings CBC and BMP: 03/15/19 03:52 03/15/19 03:52 ABG ABG pH 7.40 pH Units (7.32-7.45) 03/15/19 04:31 ABG pCO2 69 mmHg (35-45) H 03/15/19 04:31 ABG pO2 66 mmHg (85-104) L 03/15/19 04:31 ABG O2 Saturation 92 % (95-98) L 03/15/19 04:31 PT/INR, D-dimer PT 12.4 Seconds (9.4-12.1) H 03/12/19 06:42 Abnormal lab findings: Abnormal lab results RBC 5.51 M/mcL (3.82-4.97) H 03/15/19 03:52 Hgb 10.5 g/dL (11.5-15.4) L 03/15/19 03:52 MCV 70.8 fL (83.0-100.0) L 03/15/19 03:52 MCH 19.1 pg (28.0-33.3) L 03/15/19 03:52 MCHC 26.9 g/dL (31.6-35.5) L 03/15/19 03:52 RDW 21.2 % (11.5-14.5) H 03/15/19 03:52 Nucleated RBCs/100 WBC 0.4 /100 WBC (0) H 03/14/19 04:46 Hypochromasia Present (Not Present) A 03/15/19 03:52 Poikilocytosis 1+ (Not Present) A 03/15/19 03:52 Anisocytosis 3+ (Not Present) A 03/13/19 03:20 Microcytosis Present (Not Present) A 03/14/19 04:46 Macrocytosis Present (Not Present) A 03/13/19 03:20 Target Cells 1+ (Not Present) A 03/13/19 03:20 PT 12.4 Seconds (9.4-12.1) H 03/12/19 06:42 APTT 24.7 Seconds (26.0-36.0) L 03/12/19 06:42 ABG pH 7.46 pH Units (7.32-7.45) H 03/13/19 07:54 ABG pCO2 69 mmHg (35-45) H 03/15/19 04:31 ABG pO2 66 mmHg (85-104) L 03/15/19 04:31 ABG HCO3 42 mEq/L (21-27) H 03/15/19 04:31 ABG Total CO2 45 mEq/L (20-26) H 03/15/19 04:31 ABG O2 Saturation 92 % (95-98) L 03/15/19 04:31 ABG Base Excess 14 mEq/L (-2 to 3) H 03/15/19 04:31 Potassium 3.4 mEq/L (3.5-5.1) L 03/13/19 03:20 Carbon Dioxide 37 mEq/L (23-29) H 03/15/19 03:52 BUN 31 mg/dL (6-20) H 03/15/19 03:52 Creatinine 1.22 mg/dL (0.60-1.20) H 03/14/19 04:46 Est GFR ( Amer) 56 (> 60) L 03/14/19 04:46 Est GFR (Non-Af Amer) 56 (> 60) L 03/15/19 03:52 BUN/Creatinine Ratio 30 (6-26) H 03/15/19 03:52 Glucose 146 mg/dL (70-105) H 03/15/19 03:52 POC Glucose 163 mg/dL (70-99) H 03/15/19 00:01 Hemoglobin A1c 7.2 % (-5.6) H 03/12/19 14:16 Calculated Osmolality 307 (280-300) H 03/15/19 03:52 Venous Ioniz Calcium 1.03 mmol/L (1.15-1.35) L 03/14/19 05:06 Phosphorus 5.0 mg/dL (2.7-4.5) H 03/14/19 04:46 AST 8 Units/L (13-39) L 03/14/19 04:46 ALT 5 Units/L (7-52) L 03/14/19 04:46 Alkaline Phosphatase 110 Units/L (34-104) H 03/12/19 06:42 B-Natriuretic Peptide 300 pg/mL (Less than 100) H 03/12/19 06:42 Albumin 3.4 g/dL (3.5-5.7) L 03/13/19 03:20 Globulin 3.7 g/dL (2.4-3.5) H 03/12/19 06:42 TSH 18.999 mcIU/mL (0.340-5.600) H 03/13/19 03:20 - Clinical Findings Intake & Output: Intake & Output 03/14/19 03/14/19 03/15/19 15:59 23:59 07:59 Intake Total 354.4 / 1154.4 400 / 1154.4 560 / 560 Output Total 1150 / 3850 300 / 3850 1500 / 1500 Balance -795.6 / -2695.6 100 / -2695.6 -940 / -940 Weight 152.2 kg Consult Discharge Plan - Plan Referrals: NONE,PCP [Primary Care Provider] - <Amy Latif - Last Filed: 03/15/19 21:55> Date of Encounter: 03/15/19 Objective PUL Vital signs: Last Vital Signs Temp 97.7 F 03/15/19 20:00 Pulse 60 03/15/19 21:00 Resp 15 03/15/19 21:30 BP 126/69 03/15/19 21:30 Pulse Ox 94 03/15/19 21:30 Ventilator Settings Ventilator Settings: Ventilator Settings, Last 8 Hours Ventilator Tidal Volume 420 Setting Ventilator Tidal Volume 420 Setting Ventilator Tidal Volume 420 Setting Ventilator Tidal Volume 420 Setting Ventilator Tidal Volume 420 Setting Ventilator Tidal Volume 420 Setting Ventilator Tidal Volume 420 Setting Ventilator Tidal Volume 420 Setting Ventilator Tidal Volume 420 Setting Ventilator Tidal Volume 420 Setting Ventilator Tidal Volume 420 Setting Ventilator Tidal Volume 420 Setting Ventilator Respiratory Rate 14 Setting Ventilator Respiratory Rate 14 Setting Ventilator Respiratory Rate 14 Setting Ventilator Respiratory Rate 14 Setting Ventilator Respiratory Rate 14 Setting Ventilator Respiratory Rate 14 Setting Ventilator Respiratory Rate 14 Setting Ventilator Respiratory Rate 14 Setting Ventilator Respiratory Rate 14 Setting Ventilator Respiratory Rate 14 Setting Ventilator Respiratory Rate 14 Setting Ventilator Respiratory Rate 14 Setting Actual Respiratory Rate 15 Actual Respiratory Rate 17 Actual Respiratory Rate 16 Actual Respiratory Rate 17 Actual Respiratory Rate 15 Actual Respiratory Rate 15 Actual Respiratory Rate 16 Actual Respiratory Rate 15 Actual Respiratory Rate 15 Actual Respiratory Rate 15 Actual Respiratory Rate 14 Actual Respiratory Rate 14 Positive End Expiratory 8 Pressure Positive End Expiratory 8 Pressure Positive End Expiratory 8 Pressure Positive End Expiratory 8 Pressure Positive End Expiratory 8 Pressure Positive End Expiratory 8 Pressure Positive End Expiratory 8 Pressure Positive End Expiratory 8 Pressure Positive End Expiratory 8 Pressure Positive End Expiratory 8 Pressure Positive End Expiratory 8 Pressure Positive End Expiratory 8 Pressure Peak Inspiratory Airway 27 Pressure Peak Inspiratory Airway 29 Pressure Peak Inspiratory Airway 31 Pressure Peak Inspiratory Airway 25 Pressure Peak Inspiratory Airway 25 Pressure Peak Inspiratory Airway 24 Pressure Peak Inspiratory Airway 25 Pressure Peak Inspiratory Airway 24 Pressure Peak Inspiratory Airway 25 Pressure Peak Inspiratory Airway 24 Pressure Peak Inspiratory Airway 25 Pressure Peak Inspiratory Airway 25 Pressure Results - Laboratory Findings CBC and BMP: 03/15/19 03:52 03/15/19 13:00 ABG ABG pH 7.40 pH Units (7.32-7.45) 03/15/19 04:31 ABG pCO2 69 mmHg (35-45) H 03/15/19 04:31 ABG pO2 66 mmHg (85-104) L 03/15/19 04:31 ABG O2 Saturation 92 % (95-98) L 03/15/19 04:31 PT/INR, D-dimer PT 12.4 Seconds (9.4-12.1) H 03/12/19 06:42 Abnormal lab findings: Abnormal lab results RBC 5.51 M/mcL (3.82-4.97) H 03/15/19 03:52 Hgb 10.5 g/dL (11.5-15.4) L 03/15/19 03:52 MCV 70.8 fL (83.0-100.0) L 03/15/19 03:52 MCH 19.1 pg (28.0-33.3) L 03/15/19 03:52 MCHC 26.9 g/dL (31.6-35.5) L 03/15/19 03:52 RDW 21.2 % (11.5-14.5) H 03/15/19 03:52 Nucleated RBCs/100 WBC 0.4 /100 WBC (0) H 03/14/19 04:46 Hypochromasia Present (Not Present) A 03/15/19 03:52 Poikilocytosis 1+ (Not Present) A 03/15/19 03:52 Anisocytosis 3+ (Not Present) A 03/13/19 03:20 Microcytosis Present (Not Present) A 03/14/19 04:46 Macrocytosis Present (Not Present) A 03/13/19 03:20 Target Cells 1+ (Not Present) A 03/13/19 03:20 PT 12.4 Seconds (9.4-12.1) H 03/12/19 06:42 APTT 24.7 Seconds (26.0-36.0) L 03/12/19 06:42 ABG pH 7.46 pH Units (7.32-7.45) H 03/13/19 07:54 ABG pCO2 69 mmHg (35-45) H 03/15/19 04:31 ABG pO2 66 mmHg (85-104) L 03/15/19 04:31 ABG HCO3 42 mEq/L (21-27) H 03/15/19 04:31 ABG Total CO2 45 mEq/L (20-26) H 03/15/19 04:31 ABG O2 Saturation 92 % (95-98) L 03/15/19 04:31 ABG Base Excess 14 mEq/L (-2 to 3) H 03/15/19 04:31 Potassium 3.4 mEq/L (3.5-5.1) L 03/13/19 03:20 Carbon Dioxide 37 mEq/L (23-29) H 03/15/19 03:52 BUN 31 mg/dL (6-20) H 03/15/19 03:52 Creatinine 1.22 mg/dL (0.60-1.20) H 03/14/19 04:46 Est GFR ( Amer) 56 (> 60) L 03/14/19 04:46 Est GFR (Non-Af Amer) 56 (> 60) L 03/15/19 03:52 BUN/Creatinine Ratio 30 (6-26) H 03/15/19 03:52 Glucose 146 mg/dL (70-105) H 03/15/19 03:52 POC Glucose 163 mg/dL (70-99) H 03/15/19 00:01 Hemoglobin A1c 7.2 % (-5.6) H 03/12/19 14:16 Calculated Osmolality 307 (280-300) H 03/15/19 03:52 Venous Ioniz Calcium 1.03 mmol/L (1.15-1.35) L 03/14/19 05:06 Phosphorus 5.0 mg/dL (2.7-4.5) H 03/14/19 04:46 AST 8 Units/L (13-39) L 03/14/19 04:46 ALT 5 Units/L (7-52) L 03/14/19 04:46 Alkaline Phosphatase 110 Units/L (34-104) H 03/12/19 06:42 B-Natriuretic Peptide 300 pg/mL (Less than 100) H 03/12/19 06:42 Albumin 3.4 g/dL (3.5-5.7) L 03/13/19 03:20 Globulin 3.7 g/dL (2.4-3.5) H 03/12/19 06:42 TSH 18.999 mcIU/mL (0.340-5.600) H 03/13/19 03:20 - Clinical Findings Intake & Output: Intake & Output 03/15/19 03/15/19 03/15/19 07:59 15:59 23:59 Intake Total 560 / 1281.0 521.0 / 1281.0 200 / 1281.0 Output Total 1500 / 3050 900 / 3050 650 / 3050 Balance -940 / -1769.0 -379.0 / -1769.0 -450 / -1769.0 Weight 152.2 kg - Attending Attestation - Attending Attestation I saw and evaluated this patient and my medical decision-making was reviewed with the Resident Physician. I agree with the documented findings, disposition and treatment plan as described except to the extent set forth below. We independently had [id number] contact with the patient I spent 33 minutes of Critical Care time with this patient. It involved decision making of high complexity to assess, manipulate, and support vital organ system failure and/or to prevent further life threatening deterioration of the patient's condition. The time involved in the performance of separately reportable procedures was not counted toward critical care time. Patient seen and examined at bedside Labs, radiology, chart personally reviewed. Management was reviewed during multidisciplinary critical care rounds. WIRE THREADER: Patient is drowsy and encephalopathic opening her eyes on and off Pulm: Patient has significant V/Q mismatch due to hydrostatic pulmonary edema in the background of COPD to continue gentle diuresis as tolerated adjusted the minute ventilation and tidal volume for lung protective strategy 03/15 patient did not do well in the spontaneous breathing trial will continue with diuresis to reduce the elastic work due to hydrostatic pulmonary edema. Cards: Patient is hemodynamically stable looks like patient has acute on chronic diastolic heart failure most likely due to underlying hypertensive heart disease 03/15 to continue IV twice a day diuresis because of her acute on chronic diastolic heart failure FEN-GI: Diet according to nutrition. Renal: Labs and output were reviewed and can be due to cardiorenal syndrome will get gentle diuresis. Lasix 40 mg IV twice a day patient doing well on diuresis ID: no active infectious disease issues Heme/Onc: Labs reviewed Endo: Glucose Monitored Integ/MSK: Skin Care per routine ICU Nursing Protocol to prevent ulcers. Lines: All lines examined without evidence of infection : Dispo: critically ill CODE: Full code
[2019-03-15] MEDS: Pantoprazole 40 MG VIAL IVP SCH (08:39)
[2019-03-15] MEDS: Furosemide 40 MG/4 ML VIAL IVP SCH ×2 (08:39→19:58)
[2019-03-15] MEDS: Chlorhexidine Rinse 15 ML MOUTHWASH MM SCH ×2 (08:39→19:58)
--- NOTE | 2019-03-15 08:51 | Electrocardiograph Report ---
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
[2019-03-15] MEDS ORDERED: Levothyroxine Sodium 100 MCG VIAL IVP SCH (09:00)
[2019-03-15] MEDS ORDERED: NON-FORMULARY MEDICATION 1 EACH EACH (Umeclidinium Bromide [Incruse Ellipta] 62.5 MCG) IH SCH (09:30)
[2019-03-15] MEDS ORDERED: Tiotropium 18 MCG inhalation IH SCH (10:00)
[2019-03-15] MEDS ORDERED: Budesonide/Formoterol 160/4.5 1 PUFF INH IH SCH (10:00)
[2019-03-15] MEDS: amLODIPine 5 MG TABLET PO SCH (10:23)
--- NOTE | 2019-03-15 11:59 | Internal Med Progress Note ---
Hospitalist Progress Note - Encounter Date of Encounter: 03/15/19 Time of Encounter: 11:55 - Subjective Interval History: This is a 53-year-old female with a history of morbid obesity, obstructive sleep apnea on CPAP (reported noncompliance), COPD, GERD, hyperlipidemia, hypothyroidism. She had an echo in August 2018 which showed EF of 60-65%. Admitted to our facility on March 10 for acute and chronic respiratory failure. She was in respiratory distress with an ABG which showed a pH of 7.22, PCO2 of 94, PO2 of 66. He was placed on BiPAP but worsened and ultimately was intubated for acute on chronic hypercapnic respiratory failure. A chest x-ray showed pulmonary edema with bilateral pleural effusions, no obvious infiltrate. He was markedly hypertensive. 03/15: Patient did well with the Lasix drip for the first couple days, now transitioned IV Lasix twice a day. She continues on steroids in the form of Solu-Medrol 40 mg IV twice a day. She remains on fentanyl and propofol for sedation. We are attempting a spontaneous breathing trial today. Patient appears to have significant improvement with regards to her acute on chronic diastolic CHF. Blood pressure remains elevated but overall improved. We have now we started metoprolol 50 mg by mouth twice a day. She remains off antibiotics as no obvious pneumonia. Patient unable to provide any review of systems due to her being sedated - Exam Vitals: Temp Pulse Resp BP Pulse Ox 97.5 F L 68 22 172/80 94 03/15/19 07:46 03/15/19 10:00 03/15/19 11:06 03/15/19 10:00 03/15/19 11:06 Exam: General: Patient is sedated and ventilated, morbidly obese, no acute distress Oropharynx is moist Neck supple Lungs: Diminished breath sounds bilaterally Heart regular rate and rhythm Abdomen is obese soft nontender nondistended with normoactive bowel sounds Extremities show 1+ edema bilaterally, Cap Refill less than 2.5 second Neurological exam shows no gross focal deficits Skin is warm and dry - Assessment and Plan (1) Acute on chronic respiratory failure with hypoxia and hypercapnia Current Visit: Yes Status: Acute Assessment and Plan: Multifactorial respiratory failure due to cor pulmonale physiology, chronic obesity hypoventilation syndrome, COPD with acute exacerbation and acute on chronic diastolic CHF (2) Morbid obesity Current Visit: No Status: Acute (3) Acute on chronic diastolic (congestive) heart failure Current Visit: No Status: Acute Assessment and Plan: Continue with diuresis as renal function allows Beta michael restarted Need tighter blood pressure control (4) Obesity hypoventilation syndrome Current Visit: No Status: Acute Assessment and Plan: Patient absolutely has to wear CPAP when sleeping and woke also when she is awake (5) Acute exacerbation of congestive heart failure Current Visit: Yes Status: Acute Assessment and Plan: Outlined above Acute on chronic diastolic CHF (6) Acute metabolic encephalopathy Current Visit: Yes Status: Acute Assessment and Plan: Due to hypercapnia, as well as sedation, reassess once off ventilatory support (7) Acute exacerbation of chronic obstructive airways disease Current Visit: No Status: Acute Assessment and Plan: Continue aggressive bronchodilator therapy, steroid taper DVT Prophylaxis: Subcutaneous heparin - Time Spent with Patient Total time spent is greater than 50% in coordination of care (as documented) at patient's floor/unit and/or counseling patient: Greater than 35 minutes Internal Medicine: Result - Labs CBC & Chem 7: 03/15/19 03:52 03/15/19 03:52 Labs: Short CBC 03/15/19 Range/Units 03:52 WBC 9.8 (4.3-11.1) K/mcL Hgb 10.5 L (11.5-15.4) g/dL Hct 39.0 (35.3-44.9) % Plt Count 256 (140-400) K/mcL Neutrophils # 8.3 (1.6-8.9) K/mcL BMP 03/14/19 03/15/19 14:57 03:52 Sodium 144 Potassium 3.7 3.6 Chloride 100 Carbon Dioxide 37 H BUN 31 H Creatinine 1.04 Glucose 146 H Calcium 9.7 - ABG Interpretation ABG results: ABG ABG pH 7.40 pH Units (7.32-7.45) 03/15/19 04:31 ABG pCO2 69 mmHg (35-45) H 03/15/19 04:31 ABG pO2 66 mmHg (85-104) L 03/15/19 04:31 ABG O2 Saturation 92 % (95-98) L 03/15/19 04:31 PT/INR, D-dimer PT 12.4 Seconds (9.4-12.1) H 03/12/19 06:42 Consult Discharge Plan - Plan Referrals: NONE,PCP [Primary Care Provider] - (5) Acute exacerbation of congestive heart failure Qualifiers: Heart failure type: diastolic Qualified Code(s): I50.33 - Acute on chronic diastolic (congestive) heart failure
[2019-03-15] MEDS: FLUoxetine 20 MG CAPSULE PO SCH (12:58)
[2019-03-15] MEDS: Docusate Oral Soln 100 MG/10 ML UDC PO SCH ×2 (12:58→19:58)
[2019-03-16 04:13] LABS: VBG Ionized Calcium 1.28 mmol/L (1.15-1.35)
[2019-03-16 04:13] LABS: Hemoglobin 10.4 g/dL (11.5-15.4); Immature Granulocytes % 0.5 % (0-4); Nucleated Red Blood Cells 0.2 /100 WBC (0)
[2019-03-16 04:15] LABS: Basophils % 0.3 %; Hematocrit 39.9 % (35.3-44.9); Lymphocytes # 0.9 K/mcL (0.6-4.6); Lymphocytes % 8.3 %; Mean Corpuscular HGB Conc 26.1 g/dL (31.6-35.5); Mean Corpuscular Hemoglobin 18.9 pg (28.0-33.3); Mean Corpuscular Volume 72.5 fL (83.0-100.0); Mean Platelet Volume 10.4 fL (9.4-12.4); Monocytes # 0.9 K/mcL (0.0-1.3); Monocytes % 8.4 %; Neutrophils # 8.6 K/mcL (1.6-8.9); Platelet Count 241 K/mcL (140-400); Red Cell Distribution Width 21.8 % (11.5-14.5); Segmented Neutrophils % 82.5 %; White Blood Count 10.4 K/mcL (4.3-11.1)
[2019-03-16 04:33] LABS: Calcium 9.8 mg/dL (8.6-10.3); Magnesium 2.4 mg/dL (1.6-2.6); Phosphorous 4.1 mg/dL (2.7-4.5); Potassium 3.7 mEq/L (3.5-5.1)
[2019-03-16 04:39] LABS: ABG Base Excess 15 mEq/L (-2 to 3); ABG HCO3 45 mEq/L (21-27); ABG Oxygen Saturation 92 % (95-98); ABG PCO2 81 mmHg (35-45); ABG PH 7.35 pH Units (7.32-7.45); ABG PO2 71 mmHg (85-104); ABG TCO2 47 mEq/L (20-26); Blood Gas Modality VC; Blood Gas PEEP 8 cm H2O; Blood Gas VT 420 cc
[2019-03-16] MEDS: Artificial Tears SOLN 15 ML BOTTLE BOTH EYES SCH ×5 (04:48→20:33)
[2019-03-16] MEDS: Insulin LISPRO 300 UNITS/3 ML VIAL SQ SCH ×5 (04:48→20:33)
[2019-03-16] MEDS: MethylPREDNISolone 40 MG/ML VIAL IVP SCH ×2 (04:48→16:26)
[2019-03-16] MEDS: *HR* Heparin 5,000 UNIT/ML VIAL SQ SCH ×2 (04:48→13:56)
[2019-03-16 05:03] LABS: Platelet Estimate Normal (Normal); Poikilocytosis 1+ (Not Present)
[2019-03-16 05:04] LABS: Hypochromasia Present (Not Present)
--- NOTE | 2019-03-16 08:21 | Pulmonology Progress Note ---
<Abigail Stewart - Last Filed: 03/16/19 11:18> Date of Encounter: 03/16/19 Time of Encounter: 08:15 Assessment and Plan (1) Acute and chronic respiratory failure with hypercapnia Current Visit: No Status: Acute Acute and chronic respiratory failure with hypercapnia that is likely secondary to CHF exacerbation and likely COPD exacerbation. -currently intubated and sedated with fentanyl and propofol -ABG: pH 7.35, pCO2 81, HCO3 37 -vent setting FIO2 40%, PEEP 8, Vt 420, RR14 -I/O: [id number] -03/16/2019 CXR showing stable findings reflecting congestive heart failure with small right pleural effusion. -03/13/2019 CXR showing cardiomegaly and moderate pulmonary vascular congestion slightly improved aeration from prior study. Bilateral pleural and parenchymal changes at lung bases slightly improved. -03/12/2019 CXR showing heart failure with severe pulmonary edema and small effusions. -Vent settings were adjusted due to increase in pCO2. Currently on CPAP trial. Due to respirators status will not extubate today but will reevaluate tomorrow and optimize her. plan: -continue diuresis with Lasix 40 mg IV b.i.d. however today we are holding the 1st dose of Lasix due to increasing creatinine -repeat ABG at 3 PM -continue Solu-Medrol 40 Q612 -continue fentanyl and propofol for sedation -will attempt to wean from ventilator as able. -Will begin tube feeds today per nutrition (2) Acute on chronic diastolic (congestive) heart failure Current Visit: No Status: Acute HFpEF with exacerbation -BNP 300 -03/16/2019 CXR showing stable findings reflecting congestive heart failure with small right pleural effusion. -CXR showing heart failure with severe pulmonary edema and small effusions -08/25/2018 TTE: EF= 60-65%, mild diastolic dysfunction. No pulmonary hypertension or valvular dysfunction. -10 pound weight loss since admission. (163lb, now 152lb) -I/O: [id number] -[id number] appropriate urine output plan: -continue Lasix 40 mg IV b.i.d. today holding 1st dose due to elevated creatinine -continue home metoprolol and amlodipine -will add other meds such as the following when able and BP tolerates (hydrochlorthiazide 25 mg, lisinopril 40 mg) -strict I&O -daily weight (3) Acute exacerbation of chronic obstructive airways disease Current Visit: No Status: Acute Suspect acute COPD exacerbation as the patient has acute on chronic respiratory failure with hypercapnia. -CXR showing heart failure with severe pulmonary edema and small effusions -continue Solu-Medrol 40 Q12H -currently intubated -continue albuterol PRN -currently holding home Symbicort, Incruse Ellipta, duoneb (4) Acute metabolic encephalopathy Current Visit: Yes Status: Acute Improved. Acute metabolic encephalopathy secondary to acute respiratory failure with hypercapnia. -Plan as above (5) HTN (hypertension) Current Visit: Yes Status: Acute History of hypertension taking hydrochlorthiazide 25 mg, amlodipine 5 mg, metoprolol 50 mg b.i.d., lisinopril 40 mg. -BP appropriate -currently receiving hydralazine 20 mg IV Q6h into Lasix 40 mg IV b.i.d. -continue home amlodipine and metoprolol Qualifiers: Hypertension type: essential hypertension Qualified Code(s): I10 - Essential (primary) hypertension (6) Obesity hypoventilation syndrome Current Visit: No Status: Acute Chronic (7) LEXIE (obstructive sleep apnea) Current Visit: Yes Status: Chronic History of LEXIE using oxygen at home and CPAP at night. (8) Hypothyroidism Current Visit: Yes Status: Chronic History of Graves' disease. Home dose of levothyroxine unknown. TSH 29.8 on admission. -TSH 18.9 -patient currently on levothyroxine 100 daily. Will continue to monitor. Qualifiers: Hypothyroidism type: unspecified Qualified Code(s): E03.9 - Hypothyroidism, unspecified (9) Anemia Current Visit: No Status: Acute Microcytic Anemia -hemoglobin 10.4 -MCV 70.8 -baseline hemoglobin previously 13-14, however now appears 9-10) -09/13/2018: iron 21, 5% saturation, transferrin 325, ferritin 21 -no obvious active bleeding -patient takes ferrous sulfate supplementation at home -will continue to monitor hemoglobin and for bleeding -no reports of prior endoscopy Qualifiers: Anemia type: iron deficiency Qualified Code(s): D50.9 - Iron deficiency anemia, unspecified (10) Diabetes Current Visit: No Status: Acute History of diabetes. -Glucose controlled -continue low-dose sliding scale insulin Q4H Qualifiers: Diabetes mellitus type: type 2 Diabetes mellitus half-way insulin use: without half-way use Qualified Code(s): E11.9 - Type 2 diabetes mellitus without complications (11) DVT prophylaxis Current Visit: Yes Status: Acute Heparin SQ Subjective Principal diagnosis: CHF exacerbation Interval history: Ms. Lozano is a 53-year-old female who presented acute on chronic respiratory failure with hypercapnia who was intubated and sedated on admission secondary to CHF exacerbation and COPD exacerbation. Today patient was seen and examined the bedside. She sedated and intubated in no acute distress. There were no overnight events. Today when the propofol was stopped the patient became very anxious required Precedex and restart propofol. Patient tolerated CPAP trial however, will continue to optimize her for hopeful future extubation. Cautious for future extubation as she has high likelihood of reintubation. The patient still has not had a bowel movement. She has had a appropriate urine output. Will begin to feeds today. Objective PUL Vital signs: Last Vital Signs Temp 98.3 F 03/16/19 07:13 Pulse 60 03/16/19 06:00 Resp 16 03/16/19 07:48 BP 117/65 03/16/19 06:00 Pulse Ox 92 03/16/19 07:48 General appearance: no acute distress, alert Eyes: nonicteric ENT: oropharynx moist Neck: supple Effort: normal Auscultation: bilateral: other (Course breath sounds) Cardiovascular: regular rate and rhythm Gastrointestinal: normoactive bowel sounds, non-distended Integumentary: normal Extremities: no cyanosis, no edema, pulses normal Musculoskeletal: no deformities normal mental status mood appropriate, affect normal, anxious Ventilator Settings Ventilator Settings: Ventilator Settings, Last 8 Hours Ventilator Tidal Volume 420 Setting Ventilator Tidal Volume 420 Setting Ventilator Tidal Volume 420 Setting Ventilator Tidal Volume 420 Setting Ventilator Tidal Volume 420 Setting Ventilator Tidal Volume 420 Setting Ventilator Tidal Volume 420 Setting Ventilator Tidal Volume 420 Setting Ventilator Tidal Volume 420 Setting Ventilator Tidal Volume 420 Setting Ventilator Tidal Volume 420 Setting Ventilator Respiratory Rate 16 Setting Ventilator Respiratory Rate 16 Setting Ventilator Respiratory Rate 16 Setting Ventilator Respiratory Rate 16 Setting Ventilator Respiratory Rate 16 Setting Ventilator Respiratory Rate 14 Setting Ventilator Respiratory Rate 14 Setting Ventilator Respiratory Rate 14 Setting Ventilator Respiratory Rate 14 Setting Ventilator Respiratory Rate 14 Setting Ventilator Respiratory Rate 14 Setting Ventilator Respiratory Rate 14 Setting Actual Respiratory Rate 18 Actual Respiratory Rate 17 Actual Respiratory Rate 17 Actual Respiratory Rate 17 Actual Respiratory Rate 14 Actual Respiratory Rate 15 Actual Respiratory Rate 15 Actual Respiratory Rate 16 Actual Respiratory Rate 15 Actual Respiratory Rate 15 Positive End Expiratory 8 Pressure Positive End Expiratory 8 Pressure Positive End Expiratory 8 Pressure Positive End Expiratory 8 Pressure Positive End Expiratory 8 Pressure Positive End Expiratory 8 Pressure Positive End Expiratory 8 Pressure Positive End Expiratory 8 Pressure Positive End Expiratory 8 Pressure Positive End Expiratory 8 Pressure Positive End Expiratory 8 Pressure Peak Inspiratory Airway 23 Pressure Peak Inspiratory Airway 23 Pressure Peak Inspiratory Airway 23 Pressure Peak Inspiratory Airway 23 Pressure Peak Inspiratory Airway 22 Pressure Peak Inspiratory Airway 23 Pressure Peak Inspiratory Airway 24 Pressure Peak Inspiratory Airway 24 Pressure Peak Inspiratory Airway 23 Pressure Peak Inspiratory Airway 23 Pressure Results - Laboratory Findings CBC and BMP: 03/16/19 03:54 03/16/19 03:54 ABG ABG pH 7.35 pH Units (7.32-7.45) 03/16/19 04:30 ABG pCO2 81 mmHg (35-45) H* 03/16/19 04:30 ABG pO2 71 mmHg (85-104) L 03/16/19 04:30 ABG O2 Saturation 92 % (95-98) L 03/16/19 04:30 PT/INR, D-dimer PT 12.4 Seconds (9.4-12.1) H 03/12/19 06:42 Abnormal lab findings: Abnormal lab results RBC 5.50 M/mcL (3.82-4.97) H 03/16/19 03:54 Hgb 10.4 g/dL (11.5-15.4) L 03/16/19 03:54 MCV 72.5 fL (83.0-100.0) L 03/16/19 03:54 MCH 18.9 pg (28.0-33.3) L 03/16/19 03:54 MCHC 26.1 g/dL (31.6-35.5) L 03/16/19 03:54 RDW 21.8 % (11.5-14.5) H 03/16/19 03:54 Nucleated RBCs/100 WBC 0.2 /100 WBC (0) H 03/16/19 03:54 Hypochromasia Present (Not Present) A 03/16/19 03:54 Poikilocytosis 1+ (Not Present) A 03/16/19 03:54 Anisocytosis 3+ (Not Present) A 03/13/19 03:20 Microcytosis Present (Not Present) A 03/14/19 04:46 Macrocytosis Present (Not Present) A 03/13/19 03:20 Target Cells 1+ (Not Present) A 03/13/19 03:20 PT 12.4 Seconds (9.4-12.1) H 03/12/19 06:42 APTT 24.7 Seconds (26.0-36.0) L 03/12/19 06:42 ABG pH 7.46 pH Units (7.32-7.45) H 03/13/19 07:54 ABG pCO2 81 mmHg (35-45) H* 03/16/19 04:30 ABG pO2 71 mmHg (85-104) L 03/16/19 04:30 ABG HCO3 45 mEq/L (21-27) H 03/16/19 04:30 ABG Total CO2 47 mEq/L (20-26) H 03/16/19 04:30 ABG O2 Saturation 92 % (95-98) L 03/16/19 04:30 ABG Base Excess 15 mEq/L (-2 to 3) H 03/16/19 04:30 Potassium 3.4 mEq/L (3.5-5.1) L 03/13/19 03:20 Carbon Dioxide 37 mEq/L (23-29) H 03/16/19 03:54 BUN 32 mg/dL (6-20) H 03/16/19 03:54 Creatinine 1.22 mg/dL (0.60-1.20) H 03/14/19 04:46 Est GFR ( Amer) 57 (> 60) L 03/16/19 03:54 Est GFR (Non-Af Amer) 47 (> 60) L 03/16/19 03:54 BUN/Creatinine Ratio 27 (6-26) H 03/16/19 03:54 Glucose 138 mg/dL (70-105) H 03/16/19 03:54 POC Glucose 160 mg/dL (70-99) H 03/15/19 23:34 Hemoglobin A1c 7.2 % (-5.6) H 03/12/19 14:16 Calculated Osmolality 309 (280-300) H 03/16/19 03:54 Venous Ioniz Calcium 1.03 mmol/L (1.15-1.35) L 03/14/19 05:06 Phosphorus 5.0 mg/dL (2.7-4.5) H 03/14/19 04:46 AST 8 Units/L (13-39) L 03/14/19 04:46 ALT 5 Units/L (7-52) L 03/14/19 04:46 Alkaline Phosphatase 110 Units/L (34-104) H 03/12/19 06:42 B-Natriuretic Peptide 300 pg/mL (Less than 100) H 03/12/19 06:42 Albumin 3.4 g/dL (3.5-5.7) L 03/13/19 03:20 Globulin 3.7 g/dL (2.4-3.5) H 03/12/19 06:42 TSH 18.999 mcIU/mL (0.340-5.600) H 03/13/19 03:20 - Clinical Findings Intake & Output: Intake & Output 03/15/19 03/16/19 03/16/19 23:59 07:59 15:59 Intake Total 479 / 1560.0 300 / 300 Output Total 650 / 3550 1275 / 1275 Balance -171 / -1990.0 -975 / -975 Consult Discharge Plan - Plan Referrals: NONE,PCP [Primary Care Provider] - <Amy Latif - Last Filed: 03/16/19 21:50> Date of Encounter: 03/16/19 Objective PUL Vital signs: Last Vital Signs Temp 96.9 F L 03/16/19 20:10 Pulse 46 03/16/19 19:44 Resp 18 03/16/19 21:12 BP 153/89 03/16/19 21:12 Pulse Ox 97 03/16/19 21:12 Ventilator Settings Ventilator Settings: Ventilator Settings, Last 8 Hours Ventilator Tidal Volume 420 Setting Ventilator Tidal Volume 420 Setting Ventilator Tidal Volume 420 Setting Ventilator Tidal Volume 420 Setting Ventilator Tidal Volume 420 Setting Ventilator Tidal Volume 420 Setting Ventilator Tidal Volume 420 Setting Ventilator Tidal Volume 420 Setting Ventilator Tidal Volume 420 Setting Ventilator Tidal Volume 420 Setting Ventilator Respiratory Rate 18 Setting Ventilator Respiratory Rate 18 Setting Ventilator Respiratory Rate 18 Setting Ventilator Respiratory Rate 18 Setting Ventilator Respiratory Rate 18 Setting Ventilator Respiratory Rate 18 Setting Ventilator Respiratory Rate 16 Setting Ventilator Respiratory Rate 16 Setting Actual Respiratory Rate 18 Actual Respiratory Rate 18 Actual Respiratory Rate 18 Actual Respiratory Rate 18 Actual Respiratory Rate 18 Actual Respiratory Rate 18 Actual Respiratory Rate 18 Actual Respiratory Rate 18 Actual Respiratory Rate 17 Actual Respiratory Rate 24 Actual Respiratory Rate 24 Actual Respiratory Rate 26 Positive End Expiratory 10 Pressure Positive End Expiratory 10 Pressure Positive End Expiratory 10 Pressure Positive End Expiratory 10 Pressure Positive End Expiratory 10 Pressure Positive End Expiratory 10 Pressure Positive End Expiratory 10 Pressure Positive End Expiratory 10 Pressure Positive End Expiratory 10 Pressure Positive End Expiratory 10 Pressure Positive End Expiratory 10 Pressure Positive End Expiratory 10 Pressure Positive End Expiratory 10 Pressure Peak Inspiratory Airway 23 Pressure Peak Inspiratory Airway 25 Pressure Peak Inspiratory Airway 26 Pressure Peak Inspiratory Airway 29 Pressure Peak Inspiratory Airway 29 Pressure Peak Inspiratory Airway 32 Pressure Peak Inspiratory Airway 33 Pressure Peak Inspiratory Airway 29 Pressure Peak Inspiratory Airway 30 Pressure Peak Inspiratory Airway 22 Pressure Peak Inspiratory Airway 22 Pressure Peak Inspiratory Airway 22 Pressure Results - Laboratory Findings CBC and BMP: 03/16/19 15:50 03/16/19 11:17 ABG ABG pH 7.36 pH Units (7.32-7.45) 03/16/19 15:59 ABG pCO2 78 mmHg (35-45) H* 03/16/19 15:59 ABG pO2 119 mmHg (85-104) H 03/16/19 15:59 ABG O2 Saturation 98 % (95-98) 03/16/19 15:59 PT/INR, D-dimer PT 11.3 Seconds (9.4-12.1) 03/16/19 16:45 Abnormal lab findings: Abnormal lab results RBC 5.50 M/mcL (3.82-4.97) H 03/16/19 03:54 Hgb 10.1 g/dL (11.5-15.4) L 03/16/19 15:50 MCV 72.5 fL (83.0-100.0) L 03/16/19 03:54 MCH 18.9 pg (28.0-33.3) L 03/16/19 03:54 MCHC 26.1 g/dL (31.6-35.5) L 03/16/19 03:54 RDW 21.8 % (11.5-14.5) H 03/16/19 03:54 Nucleated RBCs/100 WBC 0.2 /100 WBC (0) H 03/16/19 03:54 Hypochromasia Present (Not Present) A 03/16/19 03:54 Poikilocytosis 1+ (Not Present) A 03/16/19 03:54 Anisocytosis 3+ (Not Present) A 03/13/19 03:20 Microcytosis Present (Not Present) A 03/14/19 04:46 Macrocytosis Present (Not Present) A 03/13/19 03:20 Target Cells 1+ (Not Present) A 03/13/19 03:20 PT 12.4 Seconds (9.4-12.1) H 03/12/19 06:42 APTT 24.7 Seconds (26.0-36.0) L 03/12/19 06:42 ABG pH 7.46 pH Units (7.32-7.45) H 03/13/19 07:54 ABG pCO2 78 mmHg (35-45) H* 03/16/19 15:59 ABG pO2 119 mmHg (85-104) H 03/16/19 15:59 ABG HCO3 45 mEq/L (21-27) H 03/16/19 15:59 ABG Total CO2 47 mEq/L (20-26) H 03/16/19 15:59 ABG O2 Saturation 92 % (95-98) L 03/16/19 04:30 ABG Base Excess 15 mEq/L (-2 to 3) H 03/16/19 15:59 Potassium 3.4 mEq/L (3.5-5.1) L 03/13/19 03:20 Carbon Dioxide 37 mEq/L (23-29) H 03/16/19 03:54 BUN 32 mg/dL (6-20) H 03/16/19 03:54 Creatinine 1.22 mg/dL (0.60-1.20) H 03/14/19 04:46 Est GFR ( Amer) 57 (> 60) L 03/16/19 03:54 Est GFR (Non-Af Amer) 47 (> 60) L 03/16/19 03:54 BUN/Creatinine Ratio 27 (6-26) H 03/16/19 03:54 Glucose 138 mg/dL (70-105) H 03/16/19 03:54 POC Glucose 122 mg/dL (70-99) H 03/16/19 07:17 Hemoglobin A1c 7.2 % (-5.6) H 03/12/19 14:16 Calculated Osmolality 309 (280-300) H 03/16/19 03:54 Venous Ioniz Calcium 1.03 mmol/L (1.15-1.35) L 03/14/19 05:06 Phosphorus 5.0 mg/dL (2.7-4.5) H 03/14/19 04:46 AST 8 Units/L (13-39) L 03/14/19 04:46 ALT 5 Units/L (7-52) L 03/14/19 04:46 Alkaline Phosphatase 110 Units/L (34-104) H 03/12/19 06:42 B-Natriuretic Peptide 300 pg/mL (Less than 100) H 03/12/19 06:42 Albumin 3.4 g/dL (3.5-5.7) L 03/13/19 03:20 Globulin 3.7 g/dL (2.4-3.5) H 03/12/19 06:42 TSH 18.999 mcIU/mL (0.340-5.600) H 03/13/19 03:20 - Clinical Findings Intake & Output: Intake & Output 03/16/19 03/16/19 03/16/19 07:59 15:59 23:59 Intake Total 300 / 1260 380 / 1260 580 / 1260 Output Total 1275 / 2485 900 / 2485 310 / 2485 Balance -975 / -1225 -520 / -1225 270 / -1225 - Attending Attestation - Attending Attestation I saw and evaluated this patient and my medical decision-making was reviewed with the Resident Physician. I agree with the documented findings, disposition and treatment plan as described except to the extent set forth below. We independently had [id number] contact with the patient I spent 40 minutes of Critical Care time with this patient. It involved decision making of high complexity to assess, manipulate, and support vital organ system failure and/or to prevent further life threatening deterioration of the patient's condition. The time involved in the performance of separately reportable procedures was not counted toward critical care time. Patient seen and examined at bedside Labs, radiology, chart personally reviewed. Management was reviewed during multidisciplinary critical care rounds. DIRECTOR OF RETAIL: Patient is drowsy but is opening her eyes to verbal stimuli following commands. No focal neurological deficit. Pulm: Patient has significant V/Q mismatch due to hydrostatic pulmonary edema in the background of COPD to continue gentle diuresis as tolerated adjusted the minute ventilation and tidal volume for lung protective strategy 03/15 patient did not do well in the spontaneous breathing trial will continue with diuresis to reduce the elastic work due to hydrostatic pulmonary edema. 03/16 patient did not do well and support his breathing trial will add pressure support and smart care per support ventilation. We will work on reducing the hydrostatic pulmonary edema component. Cards: Patient is hemodynamically stable looks like patient has acute on chronic diastolic heart failure most likely due to underlying hypertensive heart disease 03/15 to continue IV twice a day diuresis because of her acute on chronic diastolic heart failure 03/16 to continue diuresis for the management of acute on chronic diastolic heart failure to adequately control preload and afterload. FEN-GI: Diet according to nutrition. Renal: Labs and output were reviewed and can be due to cardiorenal syndrome will get gentle diuresis. Lasix 40 mg IV twice a day patient doing well on diuresis. Patient had a bump in creatinine will do Lasix and albumin. ID: no active infectious disease issues Heme/Onc: Labs reviewed Endo: Glucose Monitored Integ/MSK: Skin Care per routine ICU Nursing Protocol to prevent ulcers. Lines: All lines examined without evidence of infection : Dispo: critically ill CODE: Full code
[2019-03-16] MEDS: Dexmedetomidine HCl 400 MCG/100 ML MLS IVC SCH ×5 (09:30→21:20)
[2019-03-16] MEDS: Furosemide 240 MG in 0.9 % Sodium Chloride 96 ML IVC SCH (09:52)
[2019-03-16] MEDS: Pantoprazole 40 MG VIAL IVP SCH (10:53)
[2019-03-16] MEDS: Docusate Oral Soln 100 MG/10 ML UDC PO SCH ×2 (10:53→20:37)
[2019-03-16] MEDS: FLUoxetine 20 MG CAPSULE PO SCH (10:53)
[2019-03-16] MEDS: amLODIPine 5 MG TABLET PO SCH (10:54)
[2019-03-16] MEDS: Chlorhexidine Rinse 15 ML MOUTHWASH MM SCH ×2 (10:54→20:31)
[2019-03-16] MEDS ORDERED: MOM Conc 10 ML UD.LIQ PO ONE (10:57)
[2019-03-16] MEDS: Furosemide 40 MG/4 ML VIAL IVP SCH ×2 (11:21→20:37)
[2019-03-16] MEDS: Bisacodyl 10 MG RECTAL SUPPOSITORY RC SCH (11:59)
[2019-03-16] MEDS: FentaNYL (PF) 1,000 MCG in 0.9 % Sodium Chloride 80 ML IVC SCH (12:55)
--- NOTE | 2019-03-16 14:49 | Internal Med Progress Note ---
Hospitalist Progress Note - Encounter Date of Encounter: 03/16/19 Time of Encounter: 14:47 - Subjective Interval History: This is a 53-year-old female with a history of morbid obesity, obstructive sleep apnea on CPAP (reported noncompliance), COPD, GERD, hyperlipidemia, hypothyroidism. She had an echo in August 2018 which showed EF of 60-65%. Admitted to our facility on March 10 for acute and chronic respiratory failure. She was in respiratory distress with an ABG which showed a pH of 7.22, PCO2 of 94, PO2 of 66. He was placed on BiPAP but worsened and ultimately was intubated for acute on chronic hypercapnic respiratory failure. A chest x-ray showed pulmonary edema with bilateral pleural effusions, no obvious infiltrate. He was markedly hypertensive. 03/15: Patient did well with the Lasix drip for the first couple days, now transitioned IV Lasix twice a day. She continues on steroids in the form of Solu-Medrol 40 mg IV twice a day. She remains on fentanyl and propofol for sedation. We are attempting a spontaneous breathing trial today. Patient appears to have significant improvement with regards to her acute on chronic diastolic CHF. Blood pressure remains elevated but overall improved. We have now we started metoprolol 50 mg by mouth twice a day. She remains off antibiotics as no obvious pneumonia. 03/16: Ongoing CPAP weaning trials today. Patient had a slight bump in her creatinine to 1.2 this morning and we held her a.m. Lasix dose. Patient currently remains somewhat sedated. Systems is limited as patient has ET tube in place. - Exam Vitals: Temp Pulse Resp BP Pulse Ox 98.6 F 53 24 125/79 93 03/16/19 12:00 03/16/19 14:00 03/16/19 14:00 03/16/19 14:03/16/19 14:00 Exam: General: Patient is sedated, on CPAP with ETT in place, morbidly obese, no acute distress, morbidly obese Oropharynx is moist Neck supple Lungs: Diminished breath sounds bilaterally Heart regular rate and rhythm Abdomen is obese soft nontender nondistended with normoactive bowel sounds Extremities show 1+ edema bilaterally, Cap Refill less than 2.5 second Neurological exam shows no gross focal deficits Skin is warm and dry - Assessment and Plan (1) Acute on chronic respiratory failure with hypoxia and hypercapnia Current Visit: Yes Status: Acute Assessment and Plan: Multifactorial respiratory failure due to cor pulmonale physiology, chronic obesity hypoventilation syndrome, COPD with acute exacerbation and acute on ch ronic diastolic CHF (2) Morbid obesity Current Visit: No Status: Acute (3) Acute on chronic diastolic (congestive) heart failure Current Visit: No Status: Acute Assessment and Plan: Continue with diuresis as renal function allows Closely monitor creatinine as it is trending upward Beta michael restarted Need tighter blood pressure control (4) Obesity hypoventilation syndrome Current Visit: No Status: Acute Assessment and Plan: Patient absolutely has to wear CPAP when sleeping and woke also when she is awake We will maintain patient with head of bed at least at 30 degrees as this may help with ventilation Her abdomen is markedly obese but not distended. She has not had a bowel movement for several days and we will be more aggressive bowel regimen as well, all efforts to reduce intra-abdominal pressure and her body habitus and poor lung reserve (5) Acute exacerbation of congestive heart failure Current Visit: Yes Status: Acute Assessment and Plan: Outlined above Acute on chronic diastolic CHF (6) Acute metabolic encephalopathy Current Visit: Yes Status: Acute Assessment and Plan: Due to hypercapnia, as well as sedation, reassess once off ventilatory support (7) Acute exacerbation of chronic obstructive airways disease Current Visit: No Status: Acute Assessment and Plan: Continue aggressive bronchodilator therapy, steroid taper DVT Prophylaxis: Subcutaneous heparin - Time Spent with Patient Total time spent is greater than 50% in coordination of care (as documented) at patient's floor/unit and/or counseling patient: Internal Medicine: Result - Labs CBC & Chem 7: 03/16/19 03:54 03/16/19 11:17 Labs: Short CBC 03/16/19 Range/Units 03:54 WBC 10.4 (4.3-11.1) K/mcL Hgb 10.4 L (11.5-15.4) g/dL Hct 39.9 (35.3-44.9) % Plt Count 241 (140-400) K/mcL Neutrophils # 8.6 (1.6-8.9) K/mcL BMP 03/16/19 03/16/19 03:54 11:17 Sodium 145 Potassium 3.7 4.2 Chloride 100 Carbon Dioxide 37 H BUN 32 H Creatinine 1.20 Glucose 138 H Calcium 9.8 - ABG Interpretation ABG results: ABG ABG pH 7.35 pH Units (7.32-7.45) 03/16/19 04:30 ABG pCO2 81 mmHg (35-45) H* 03/16/19 04:30 ABG pO2 71 mmHg (85-104) L 03/16/19 04:30 ABG O2 Saturation 92 % (95-98) L 03/16/19 04:30 PT/INR, D-dimer PT 12.4 Seconds (9.4-12.1) H 03/12/19 06:42 - Impressions Impressions Chest X-Ray 03/16/19 11:05 IMPRESSION: 1. No significant change life support appliances. 2. Stable chest x-ray findings likely reflecting congestive failure with question small right pleural effusion. D/ / Kavon Stovall MD / Kavon Stovall MD Interpreting Provider: Kavon Stovall MD Consult Discharge Plan - Plan Referrals: NONE,PCP [Primary Care Provider] - (5) Acute exacerbation of congestive heart failure Qualifiers: Heart failure type: diastolic Qualified Code(s): I50.33 - Acute on chronic diastolic (congestive) heart failure
[2019-03-16 16:06] LABS: ABG Base Excess 15 mEq/L (-2 to 3); ABG HCO3 45 mEq/L (21-27); ABG Oxygen Saturation 98 % (95-98); ABG PCO2 78 mmHg (35-45); ABG PH 7.36 pH Units (7.32-7.45); ABG PO2 119 mmHg (85-104); ABG TCO2 47 mEq/L (20-26); Blood Gas Modality VC; Blood Gas PEEP 10 cm H2O; Blood Gas VT 420 cc
[2019-03-16] MEDS: Pantoprazole 40 MG in 0.9 % Sodium Chloride Mini Bag 100 ML IVC SCH ×2 (16:26→20:31)
[2019-03-16 16:27] LABS: Hemoglobin 10.1 g/dL (11.5-15.4)
[2019-03-16 16:28] LABS: Hematocrit 38.5 % (35.3-44.9)
[2019-03-16 17:26] LABS: Prothrombin Time 11.3 Seconds (9.4-12.1)
[2019-03-16] MEDS ORDERED: Pantoprazole 40 MG VIAL IVP SCH (18:00)
[2019-03-17 00:27] LABS: Hematocrit 40.3 % (35.3-44.9); Hemoglobin 10.4 g/dL (11.5-15.4)
[2019-03-17] MEDS: Artificial Tears SOLN 15 ML BOTTLE BOTH EYES SCH ×6 (01:12→20:03)
[2019-03-17] MEDS: Insulin LISPRO 300 UNITS/3 ML VIAL SQ SCH ×6 (01:13→20:03)
[2019-03-17] MEDS: Dexmedetomidine HCl 400 MCG/100 ML MLS IVC SCH ×4 (01:14→16:45)
[2019-03-17] MEDS: FentaNYL (PF) 1,000 MCG in 0.9 % Sodium Chloride 80 ML IVC SCH ×2 (01:16→10:36)
[2019-03-17 04:54] LABS: ABG Base Excess 14 mEq/L (-2 to 3); ABG HCO3 43 mEq/L (21-27); ABG Oxygen Saturation 92 % (95-98); ABG PCO2 75 mmHg (35-45); ABG PH 7.37 pH Units (7.32-7.45); ABG PO2 71 mmHg (85-104); ABG TCO2 45 mEq/L (20-26); Blood Gas Modality VC; Blood Gas PEEP 10 cm H2O; Blood Gas VT 420 cc
[2019-03-17 05:46] LABS: Mean Platelet Volume 10.6 fL (9.4-12.4)
[2019-03-17 05:48] LABS: Basophils % 0.2 %; Eosinophils % 0.4 %; Hematocrit 42.5 % (35.3-44.9); Immature Granulocytes % 0.5 % (0-4); Lymphocytes # 1.5 K/mcL (0.6-4.6); Lymphocytes % 13.6 %; Mean Corpuscular HGB Conc 25.9 g/dL (31.6-35.5); Mean Corpuscular Hemoglobin 18.9 pg (28.0-33.3); Monocytes # 1.2 K/mcL (0.0-1.3); Monocytes % 10.9 %; Neutrophils # 8.3 K/mcL (1.6-8.9); Platelet Count 243 K/mcL (140-400); Red Blood Count 5.82 M/mcL (3.82-4.97); Red Cell Distribution Width 22.4 % (11.5-14.5); Segmented Neutrophils % 74.4 %; White Blood Count 11.1 K/mcL (4.3-11.1)
[2019-03-17] MEDS: MethylPREDNISolone 40 MG/ML VIAL IVP SCH (05:59)
[2019-03-17 06:06] LABS: BUN/Creatinine Ratio 38 (6-26); Blood Urea Nitrogen 38 mg/dL (6-20); Calcium 10.9 mg/dL (8.6-10.3); Carbon Dioxide 39 mEq/L (23-29); Chloride 99 mEq/L (98-107); Glucose 149 mg/dL (70-105); Osmolality,Calculated 312 (280-300); Phosphorous 3.4 mg/dL (2.7-4.5); Potassium 3.7 mEq/L (3.5-5.1); Sodium 145 mEq/L (136-145); eGFR For African Americans > 60 (> 60); eGFR For Non-African Americans 58 (> 60)
[2019-03-17 06:34] LABS: Hypochromasia Present (Not Present); Platelet Estimate Normal (Normal)
--- NOTE | 2019-03-17 07:00 | Pulmonology Progress Note ---
<Abigail Stewart - Last Filed: 03/17/19 10:51> Date of Encounter: 03/17/19 Time of Encounter: 06:59 Assessment and Plan (1) Acute and chronic respiratory failure with hypercapnia Current Visit: No Status: Acute Acute and chronic respiratory failure with hypercapnia that is likely secondary to CHF exacerbation and likely COPD exacerbation. -currently intubated and sedated with fentanyl and propofol -ABG: pH 7.35, pCO2 81, HCO3 37 -vent setting FIO2 40%, PEEP 8, Vt 420, RR14 -I/O: [id number] -[id number] -03/16/2019 CXR showing stable findings reflecting congestive heart failure with small right pleural effusion. -03/13/2019 CXR showing cardiomegaly and moderate pulmonary vascular congestion slightly improved aeration from prior study. Bilateral pleural and parenchymal changes at lung bases slightly improved. -03/12/2019 CXR showing heart failure with severe pulmonary edema and small effusions. -Will not be able to extubate today as the patient's respiratory status was poor and she was very agitated, high likelihood for re-intubation. plan: -continue diuresis with Lasix 40 mg IV b.i.d. -given additional dose of Lasix this afternoon -Decreased Solu-Medrol 40 Q12h to once daily -continue fentanyl and propofol for sedation -at Seroquel after evaluation of EKG due to agitation -will attempt to wean from ventilator as able. -Will begin tube feeds today per nutrition (2) Acute on chronic diastolic (congestive) heart failure Current Visit: No Status: Acute HFpEF with exacerbation -BNP 300 -03/16/2019 CXR showing stable findings reflecting congestive heart failure with small right pleural effusion. -CXR showing heart failure with severe pulmonary edema and small effusions -08/25/2018 TTE: EF= 60-65%, mild diastolic dysfunction. No pulmonary hypertension or valvular dysfunction. -10 pound weight loss since admission. (163lb, now 152lb) -I/O: 1280/2485 -6403 appropriate urine output plan: -continue Lasix 40 mg IV b.i.d. -continue home amlodipine. Decreased metoprolol goes to 25 BID due to bradycardia -will add other meds such as the following when able and BP tolerates (hydrochlorthiazide 25 mg, lisinopril 40 mg) -strict I&O -daily weight (3) Acute exacerbation of chronic obstructive airways disease Current Visit: No Status: Acute Suspect acute COPD exacerbation as the patient has acute on chronic respiratory failure with hypercapnia. -CXR showing heart failure with severe pulmonary edema and small effusions -Antibiotics and steroids as above -currently intubated -continue albuterol PRN -currently holding home Symbicort, Incruse Ellipta, duoneb (4) Acute metabolic encephalopathy Current Visit: Yes Status: Acute Improved. Acute metabolic encephalopathy secondary to acute respiratory failure with h ypercapnia. -Plan as above (5) HTN (hypertension) Current Visit: Yes Status: Acute History of hypertension taking hydrochlorthiazide 25 mg, amlodipine 5 mg, metoprolol 50 mg b.i.d., lisinopril 40 mg. -BP appropriate -currently receiving hydralazine 20 mg IV Q6h into Lasix 40 mg IV b.i.d. -continue home amlodipine. Decrease dose of metoprolol to 25mg BID Qualifiers: Hypertension type: essential hypertension Qualified Code(s): I10 - Essential (primary) hypertension (6) Obesity hypoventilation syndrome Current Visit: No Status: Acute Chronic (7) LEXIE (obstructive sleep apnea) Current Visit: Yes Status: Chronic History of LEXIE using oxygen at home and CPAP at night. (8) Hypothyroidism Current Visit: Yes Status: Chronic History of Graves' disease. Home dose of levothyroxine unknown. TSH 29.8 on admission. -TSH 18.9 -patient noted to be bradycardia in the 40s and hypothermic. -Stop levothyroxine PO 100 daily. Start levothyroxine IV 75 mg. Will continue to monitor. Qualifiers: Hypothyroidism type: unspecified Qualified Code(s): E03.9 - Hypothyroidism, unspecified (9) Anemia Current Visit: No Status: Acute Microcytic Anemia -likely secondary to blood loss and iron deficiency -hemoglobin 11 stable -MCV 70.8 -baseline hemoglobin previously 13-14, however now appears 9-10) -09/13/2018: iron 21, 5% saturation, transferrin 325, ferritin 21 -Yesterday patient had 1000cc brown fluid from OG tube and then bright red blood in the canister. -Started on Protonix b.i.d. -G.I. consulted for evaluation as concern for possible GIB, or tube trauma to the gastric mucosa -patient takes ferrous sulfate supplementation at home, currently holding due to NPO -will continue to monitor hemoglobin and for bleeding -no reports of prior endoscopy Qualifiers: Anemia type: iron deficiency Qualified Code(s): D50.9 - Iron deficiency anemia, unspecified (10) GIB (gastrointestinal bleeding) Current Visit: Yes Status: Acute Concern for possible GIB. Other etiology may be due to trauma from high section of OG tube. It was noted overnight that the patient section had been turned up too high. This is in the setting of new chronic microcytic anemia. -hemoglobin 11 stable -baseline hemoglobin previously 13-14, however now appears 9-10) -Yesterday patient had 1000cc brown fluid from OG tube and then bright red blood in the canister. -Started on Protonix b.i.d. -G.I. consulted for evaluation as concern for possible GIB, or tube trauma to the gastric mucosa -NPO -will continue to monitor hemoglobin and for bleeding -no reports of prior endoscopy Qualifiers: GI bleed type/associated pathology: gastritis Gastritis type: unspecified gastritis Qualified Code(s): K29.71 - Gastritis, unspecified, with bleeding (11) Diabetes Current Visit: No Status: Acute History of diabetes. -Glucose controlled -continue low-dose sliding scale insulin Q4H Qualifiers: Diabetes mellitus type: type 2 Diabetes mellitus assisted insulin use: without long term care phlebotomist use Qualified Code(s): E11.9 - Type 2 diabetes mellitus without complications (12) DVT prophylaxis Current Visit: Yes Status: Acute Heparin SQ Subjective Principal diagnosis: CHF exacerbation Interval history: Ms. Lozano is a 53-year-old female who presented acute on chronic respiratory failure with hypercapnia who was intubated and sedated on admission secondary to CHF exacerbation and COPD exacerbation. Today patient was seen and examined at the bedside. She was anxious and upset about wanting ET tube out. Yesterday she had bright red blood in the OG tube however today that has resolved. It was noted by overnight nurse that suction had been on high and he turned it down. Last night she tried to extubate herself. Will not be able to extubate today as the patient's respiratory status was poor and high likelihood for re-intubation. Objective PUL Vital signs: Last Vital Signs Temp 95.7 F L 03/17/19 04:13 Pulse 41 03/17/19 06:00 Resp 20 03/17/19 06:00 BP 149/84 03/17/19 06:00 Pulse Ox 96 03/17/19 06:00 General appearance: no acute distress, asleep Eyes: nonicteric ENT: oropharynx moist Neck: supple Effort: normal Auscultation: bilateral: clear Cardiovascular: regular rate and rhythm Gastrointestinal: normoactive bowel sounds Integumentary: normal Extremities: no cyanosis, no edema, pulses normal Musculoskeletal: no deformities mood appropriate, affect normal Ventilator Settings Ventilator Settings: Ventilator Settings, Last 8 Hours Ventilator Tidal Volume 420 Setting Ventilator Tidal Volume 420 Setting Ventilator Tidal Volume 420 Setting Ventilator Tidal Volume 420 Setting Ventilator Tidal Volume 420 Setting Ventilator Tidal Volume 420 Setting Ventilator Tidal Volume 420 Setting Ventilator Tidal Volume 420 Setting Ventilator Tidal Volume 420 Setting Ventilator Tidal Volume 420 Setting Ventilator Tidal Volume 420 Setting Ventilator Tidal Volume 420 Setting Ventilator Tidal Volume 420 Setting Ventilator Respiratory Rate 18 Setting Ventilator Respiratory Rate 18 Setting Ventilator Respiratory Rate 18 Setting Ventilator Respiratory Rate 18 Setting Ventilator Respiratory Rate 18 Setting Ventilator Respiratory Rate 18 Setting Ventilator Respiratory Rate 18 Setting Ventilator Respiratory Rate 18 Setting Ventilator Respiratory Rate 18 Setting Ventilator Respiratory Rate 18 Setting Ventilator Respiratory Rate 18 Setting Ventilator Respiratory Rate 18 Setting Ventilator Respiratory Rate 18 Setting Actual Respiratory Rate 18 Actual Respiratory Rate 20 Actual Respiratory Rate 18 Actual Respiratory Rate 18 Actual Respiratory Rate 18 Actual Respiratory Rate 18 Actual Respiratory Rate 18 Actual Respiratory Rate 18 Actual Respiratory Rate 23 Actual Respiratory Rate 18 Actual Respiratory Rate 18 Actual Respiratory Rate 19 Positive End Expiratory 10 Pressure Positive End Expiratory 10 Pressure Positive End Expiratory 10 Pressure Positive End Expiratory 10 Pressure Positive End Expiratory 10 Pressure Positive End Expiratory 10 Pressure Positive End Expiratory 10 Pressure Positive End Expiratory 10 Pressure Positive End Expiratory 10 Pressure Positive End Expiratory 10 Pressure Positive End Expiratory 10 Pressure Positive End Expiratory 10 Pressure Positive End Expiratory 10 Pressure Peak Inspiratory Airway 26 Pressure Peak Inspiratory Airway 26 Pressure Peak Inspiratory Airway 26 Pressure Peak Inspiratory Airway 26 Pressure Peak Inspiratory Airway 24 Pressure Peak Inspiratory Airway 24 Pressure Peak Inspiratory Airway 25 Pressure Peak Inspiratory Airway 36 Pressure Peak Inspiratory Airway 24 Pressure Peak Inspiratory Airway 25 Pressure Peak Inspiratory Airway 39 Pressure Peak Inspiratory Airway 20 Pressure Results - Laboratory Findings CBC and BMP: 03/17/19 05:30 03/17/19 05:30 ABG ABG pH 7.37 pH Units (7.32-7.45) 03/17/19 04:51 ABG pCO2 75 mmHg (35-45) H* 03/17/19 04:51 ABG pO2 71 mmHg (85-104) L 03/17/19 04:51 ABG O2 Saturation 92 % (95-98) L 03/17/19 04:51 PT/INR, D-dimer PT 11.3 Seconds (9.4-12.1) 03/16/19 16:45 Abnormal lab findings: Abnormal lab results RBC 5.82 M/mcL (3.82-4.97) H 03/17/19 05:30 Hgb 11.0 g/dL (11.5-15.4) L 03/17/19 05:30 MCV 73.0 fL (83.0-100.0) L 03/17/19 05:30 MCH 18.9 pg (28.0-33.3) L 03/17/19 05:30 MCHC 25.9 g/dL (31.6-35.5) L 03/17/19 05:30 RDW 22.4 % (11.5-14.5) H 03/17/19 05:30 Nucleated RBCs/100 WBC 0.2 /100 WBC (0) H 03/16/19 03:54 Hypochromasia Present (Not Present) A 03/17/19 05:30 Poikilocytosis 1+ (Not Present) A 03/16/19 03:54 Anisocytosis 3+ (Not Present) A 03/13/19 03:20 Microcytosis Present (Not Present) A 03/14/19 04:46 Macrocytosis Present (Not Present) A 03/13/19 03:20 Target Cells 1+ (Not Present) A 03/13/19 03:20 PT 12.4 Seconds (9.4-12.1) H 03/12/19 06:42 APTT 24.7 Seconds (26.0-36.0) L 03/12/19 06:42 ABG pH 7.46 pH Units (7.32-7.45) H 03/13/19 07:54 ABG pCO2 75 mmHg (35-45) H* 03/17/19 04:51 ABG pO2 71 mmHg (85-104) L 03/17/19 04:51 ABG HCO3 43 mEq/L (21-27) H 03/17/19 04:51 ABG Total CO2 45 mEq/L (20-26) H 03/17/19 04:51 ABG O2 Saturation 92 % (95-98) L 03/17/19 04:51 ABG Base Excess 14 mEq/L (-2 to 3) H 03/17/19 04:51 Potassium 3.4 mEq/L (3.5-5.1) L 03/13/19 03:20 Carbon Dioxide 39 mEq/L (23-29) H 03/17/19 05:30 BUN 38 mg/dL (6-20) H 03/17/19 05:30 Creatinine 1.22 mg/dL (0.60-1.20) H 03/14/19 04:46 Est GFR ( Amer) 57 (> 60) L 03/16/19 03:54 Est GFR (Non-Af Amer) 58 (> 60) L 03/17/19 05:30 BUN/Creatinine Ratio 38 (6-26) H 03/17/19 05:30 Glucose 149 mg/dL (70-105) H 03/17/19 05:30 POC Glucose 184 mg/dL (70-99) H 03/16/19 23:21 Hemoglobin A1c 7.2 % (-5.6) H 03/12/19 14:16 Calculated Osmolality 312 (280-300) H 03/17/19 05:30 Calcium 10.9 mg/dL (8.6-10.3) H 03/17/19 05:30 Venous Ioniz Calcium 1.03 mmol/L (1.15-1.35) L 03/14/19 05:06 Phosphorus 5.0 mg/dL (2.7-4.5) H 03/14/19 04:46 AST 8 Units/L (13-39) L 03/14/19 04:46 ALT 5 Units/L (7-52) L 03/14/19 04:46 Alkaline Phosphatase 110 Units/L (34-104) H 03/12/19 06:42 B-Natriuretic Peptide 300 pg/mL (Less than 100) H 03/12/19 06:42 Albumin 3.4 g/dL (3.5-5.7) L 03/13/19 03:20 Globulin 3.7 g/dL (2.4-3.5) H 03/12/19 06:42 TSH 18.999 mcIU/mL (0.340-5.600) H 03/13/19 03:20 - Clinical Findings Intake & Output: Intake & Output 03/16/19 03/16/19 03/17/19 15:59 23:59 07:59 Intake Total 380 / 1280 600 / 1280 370 / 370 Output Total 900 / 2485 310 / 2485 1075 / 1075 Balance -520 / -1205 290 / -1205 -705 / -705 Weight 154.8 kg Consult Discharge Plan - Plan Referrals: NONE,PCP [Primary Care Provider] - <Amy Latif S - Last Filed: 03/17/19 23:03> Date of Encounter: 03/17/19 Objective PUL Vital signs: Last Vital Signs Temp 97.6 F 03/17/19 20:00 Pulse 45 03/17/19 20:00 Resp 18 03/17/19 21:35 BP 116/66 03/17/19 21:35 Pulse Ox 92 03/17/19 21:35 Ventilator Settings Ventilator Settings: Ventilator Settings, Last 8 Hours Ventilator Tidal Volume 420 Setting Ventilator Tidal Volume 420 Setting Ventilator Tidal Volume 420 Setting Ventilator Tidal Volume 420 Setting Ventilator Tidal Volume 420 Setting Ventilator Tidal Volume 420 Setting Ventilator Tidal Volume 420 Setting Ventilator Tidal Volume 420 Setting Ventilator Respiratory Rate 18 Setting Ventilator Respiratory Rate 18 Setting Ventilator Respiratory Rate 18 Setting Ventilator Respiratory Rate 18 Setting Ventilator Respiratory Rate 18 Setting Ventilator Respiratory Rate 18 Setting Ventilator Respiratory Rate 18 Setting Ventilator Respiratory Rate 18 Setting Actual Respiratory Rate 18 Actual Respiratory Rate 18 Actual Respiratory Rate 18 Actual Respiratory Rate 18 Actual Respiratory Rate 18 Actual Respiratory Rate 18 Actual Respiratory Rate 18 Actual Respiratory Rate 19 Positive End Expiratory 10 Pressure Positive End Expiratory 10 Pressure Positive End Expiratory 10 Pressure Positive End Expiratory 10 Pressure Positive End Expiratory 10 Pressure Positive End Expiratory 10 Pressure Positive End Expiratory 10 Pressure Positive End Expiratory 10 Pressure Peak Inspiratory Airway 27 Pressure Peak Inspiratory Airway 25 Pressure Peak Inspiratory Airway 25 Pressure Peak Inspiratory Airway 25 Pressure Peak Inspiratory Airway 25 Pressure Peak Inspiratory Airway 25 Pressure Peak Inspiratory Airway 25 Pressure Peak Inspiratory Airway 24 Pressure Results - Laboratory Findings CBC and BMP: 03/17/19 05:30 03/17/19 05:30 ABG ABG pH 7.37 pH Units (7.32-7.45) 03/17/19 04:51 ABG pCO2 75 mmHg (35-45) H* 03/17/19 04:51 ABG pO2 71 mmHg (85-104) L 03/17/19 04:51 ABG O2 Saturation 92 % (95-98) L 03/17/19 04:51 PT/INR, D-dimer PT 11.3 Seconds (9.4-12.1) 03/16/19 16:45 Abnormal lab findings: Abnormal lab results RBC 5.82 M/mcL (3.82-4.97) H 03/17/19 05:30 Hgb 11.0 g/dL (11.5-15.4) L 03/17/19 05:30 MCV 73.0 fL (83.0-100.0) L 03/17/19 05:30 MCH 18.9 pg (28.0-33.3) L 03/17/19 05:30 MCHC 25.9 g/dL (31.6-35.5) L 03/17/19 05:30 RDW 22.4 % (11.5-14.5) H 03/17/19 05:30 Nucleated RBCs/100 WBC 0.2 /100 WBC (0) H 03/16/19 03:54 Hypochromasia Present (Not Present) A 03/17/19 05:30 Poikilocytosis 1+ (Not Present) A 03/16/19 03:54 Anisocytosis 3+ (Not Present) A 03/13/19 03:20 Microcytosis Present (Not Present) A 03/14/19 04:46 Macrocytosis Present (Not Present) A 03/13/19 03:20 Target Cells 1+ (Not Present) A 03/13/19 03:20 PT 12.4 Seconds (9.4-12.1) H 03/12/19 06:42 APTT 24.7 Seconds (26.0-36.0) L 03/12/19 06:42 ABG pH 7.46 pH Units (7.32-7.45) H 03/13/19 07:54 ABG pCO2 75 mmHg (35-45) H* 03/17/19 04:51 ABG pO2 71 mmHg (85-104) L 03/17/19 04:51 ABG HCO3 43 mEq/L (21-27) H 03/17/19 04:51 ABG Total CO2 45 mEq/L (20-26) H 03/17/19 04:51 ABG O2 Saturation 92 % (95-98) L 03/17/19 04:51 ABG Base Excess 14 mEq/L (-2 to 3) H 03/17/19 04:51 Potassium 3.4 mEq/L (3.5-5.1) L 03/13/19 03:20 Carbon Dioxide 39 mEq/L (23-29) H 03/17/19 05:30 BUN 38 mg/dL (6-20) H 03/17/19 05:30 Creatinine 1.22 mg/dL (0.60-1.20) H 03/14/19 04:46 Est GFR ( Amer) 57 (> 60) L 03/16/19 03:54 Est GFR (Non-Af Amer) 58 (> 60) L 03/17/19 05:30 BUN/Creatinine Ratio 38 (6-26) H 03/17/19 05:30 Glucose 149 mg/dL (70-105) H 03/17/19 05:30 POC Glucose 184 mg/dL (70-99) H 03/16/19 23:21 Hemoglobin A1c 7.2 % (-5.6) H 03/12/19 14:16 Calculated Osmolality 312 (280-300) H 03/17/19 05:30 Calcium 10.9 mg/dL (8.6-10.3) H 03/17/19 05:30 Venous Ioniz Calcium 1.03 mmol/L (1.15-1.35) L 03/14/19 05:06 Phosphorus 5.0 mg/dL (2.7-4.5) H 03/14/19 04:46 AST 8 Units/L (13-39) L 03/14/19 04:46 ALT 5 Units/L (7-52) L 03/14/19 04:46 Alkaline Phosphatase 110 Units/L (34-104) H 03/12/19 06:42 B-Natriuretic Peptide 300 pg/mL (Less than 100) H 03/12/19 06:42 Albumin 3.4 g/dL (3.5-5.7) L 03/13/19 03:20 Globulin 3.7 g/dL (2.4-3.5) H 03/12/19 06:42 TSH 18.999 mcIU/mL (0.340-5.600) H 03/13/19 03:20 - Microbiology Findings Microbiology Findings: Microbiology, Last 48 Hours 03/12/19 07:16 Blood Culture - Final Peripheral Venipuncture No growth. Final report. 03/12/19 06:42 Blood Culture - Final Peripheral Venipuncture No growth. Final report. - Clinical Findings Intake & Output: Intake & Output 03/17/19 03/17/19 03/17/19 07:59 15:59 23:59 Intake Total 520 / 1580 560 / 1580 500 / 1580 Output Total 1325 / 3475 2150 / 3475 Balance -805 / -1895 560 / -1895 -1650 / -1895 Weight 154.8 kg - Attending Attestation I saw and evaluated this patient and my medical decision-making was reviewed with the Resident Physician. I agree with the documented findings, disposition and treatment plan as described except to the extent set forth below. We independently had [id number] contact with the patient I spent 33 minutes of Critical Care time with this patient. It involved decision making of high complexity to assess, manipulate, and support vital organ system failure and/or to prevent further life threatening deterioration of the patient's condition. The time involved in the performance of separately reportable procedures was not counted toward critical care time. Patient seen and examined at bedside Labs, radiology, chart personally reviewed. Management was reviewed during multidisciplinary critical care rounds. [employer]ER: Patient was lightened up sedation and see what she does not respond his breathing trial patient still has lot of V/Q mismatch with significant PEEP therapy , patient got resedated Pulm: Patient has excellent oxygenation and ventilation patient needing quite a PEEP therapy with the increase FiO2 patient got agitated with ventilator asynchrony we will start her on antipsychotics to reduce FIO2 to 40 to 50% and PEEP 8 then will attempt another spontaneous breathing trial Cards:Patient is hemodynamically stable acute on chronic diastolic heart failure to do gentle diuresis to control preload and afterload FEN-GI: Nutrition according to dietary. Renal: Labs and output were reviewed ID: No active infectious disease issues no evidence of any ventilator associated pneumonia Heme/Onc: Labs reviewed Endo: Glucose Monitored Integ/MSK: Skin Care per routine ICU Nursing Protocol to prevent ulcers. Lines: All lines examined without evidence of infection : Dispo: full code critically ill CODE:
--- NOTE | 2019-03-17 09:24 | Gastroenterology Consult Note ---
<JoaquínjenniferShiva cummings - Last Filed: 03/17/19 14:54> Date of Encounter: 03/17/19 Time of Encounter: 11:07 - Assessment and plan (1) Upper GI bleed Current Visit: Yes Status: Acute Assessment and plan: Reported bright red blood in the OG canister. Potentially could have been due to tube trauma or high suction setting previous night. - Hemoglobin has been stable around 10.5 to 11.0 this past year. - Continue to monitor Hb and any further bleeding. - Need to obtain history from patient or family member about any previous endoscopy. - Time Spent With Patient Total time spent is greater than 50% in coordination of care (as documented) at patient's floor/unit and/or counseling patient: less than 15 minutes GI History of Present Illness - Data of Consult Consult date: 03/16/19 Requesting Physician: Humberto Rao MD - Consult Narrative Reason for consult: Around 5cc bright red blood from OG canister. Concerned for upper GI bleed History of present illness: Ms. Lozano is a 53 year old female with a history of morbid obesity, obstructive sleep apnea (reported non-compliant on CPAP), COPD, CHF, hypertension, and asthma who presented to the ED for evaluation of shortness of breath. She was in respiratory distress and placed on BiPAP but had to be intubated for acute on chronic hypercapnic respiratory failure. She currently has an ET tube and OG tube in place, and it was reported yesterday that she had brown fluid from the OG tube and bright red blood in the OG tube canister. GI was consulted for possible upper GI bleed and a reported history of anemia and GERD. Upon arrival to patient's room, patient was intubated and sleeping soundly and did not wake when spoken to. I spoke with the nurse and it was reported that the patient's suction had been turned on too high the previous night, and also the patient has tried to extubate herself on several occasions. Nurse stated little to no blood reported in canister this morning. No family members were present to inquire about any prior history of EGD or colonoscopy, history of anemia, or GERD. Past Med Surg Social Fam HX - Past Medical History Medical history: asthma, CHF, COPD, diabetes, hyperlipidemia, hypertension, thyroid disease, other Additional medical history: OBESITY, home o2, pericardial effusion Psychiatric history: anxiety, depression - Past Surgical History Surgical History: , cholecystectomy, other Additional surgical history: ORBIT DECOMPRESSION, EYE LIFT, NASAL/AIRWAY SURGERY, D&C 02/04/18 - Social History Smoking Status: Current every day smoker Smokeless Tobacco Status: No Alcohol use: none Drug use: none - Family History Brother Family Member Ethnicity: Non- Living Status: Still Living Hx Family Cardiac Disorders: Yes (CHF) Sister Adopted: No Family Member Ethnicity: Non- Living Status: Still Living Hx Family Cancer: Yes (Stage 4 breast cancer, Brain tumor) Mother Adopted: No Family Member Ethnicity: Non- Living Status: Hx Family Cardiac Disorders: No Hx Family Respiratory Disorders: No Hx Family Cancer: Yes (Leukemia on maternal side) Hx Family GI Disorders: No Hx Family Endocrine Disorder: Yes Hx Family Neuromuscular Disorders: No Hx Family Neurologic Disorders: No Hx Family HEENT Disorders: No Hx Family Autoimmune Disorders: No Father Family Member Ethnicity: Non- Twin of Family Member: Yes, Fraternal Living Status: Still Living Hx Family Cardiac Disorders: (Pacemaker, hypertension) Hx Family Respiratory Disorders: No Hx Family Cancer: No Hx Family GI Disorders: Yes (ulcers) Hx Family Endocrine Disorder: (Diabetes Mellitus on father's side) Hx Family Neuromuscular Disorders: No Hx Family Neurologic Disorders: No Hx Family HEENT Disorders: No Hx Family Autoimmune Disorders: No ROS unobtainable: due to endotracheal tube (Was not able to obtain ROS due to ET tube. Patient was sleeping and did not respond to voice or light touch.) - Constitutional Vitals: Temp Pulse Resp BP Pulse Ox 96.2 F L 41 18 152/87 97 03/17/19 07:50 03/17/19 08:00 03/17/19 07:26 03/17/19 07:26 03/17/19 07:26 General appearance: Present: morbidly obese, no acute distress Exam: Asleep - Head Head exam: Present: atraumatic, normal inspection - Respiratory Respiratory exam: Present: CTAB - Cardiovascular Cardiovascular exam: Present: RRR - GI/Abdominal GI/Abdominal exam: Present: normal bowel sounds - Extremities Exam Extremities exam: Absent: pedal edema - Other Additional findings: Patient was asleep and rest of physical exam unable to perform. Results - Labs CBC & Chem 7: 03/17/19 05:30 03/17/19 05:30 Labs: Last Result 03/17/19 05:30 Calcium 10.9 H Entire Visit 03/16/19 03/17/19 23:50 05:30 Hgb 10.4 L 11.0 L Hct 40.3 42.5 - ABG ABG results: ABG ABG pH 7.37 pH Units (7.32-7.45) 03/17/19 04:51 ABG pCO2 75 mmHg (35-45) H* 03/17/19 04:51 ABG pO2 71 mmHg (85-104) L 03/17/19 04:51 ABG O2 Saturation 92 % (95-98) L 03/17/19 04:51 PT/INR, D-dimer PT 11.3 Seconds (9.4-12.1) 03/16/19 16:45 - Impressions Impressions Chest X-Ray 03/16/19 11:05 IMPRESSION: 1. No significant change life support appliances. 2. Stable chest x-ray findings likely reflecting congestive failure with question small right pleural effusion. D/ / Kavon Stovall MD / Kavon Stovall MD Interpreting Provider: Kavon Stovall MD Consult Discharge Plan - Plan Referrals: NONE,PCP [Primary Care Provider] - <Giselle Banks - Last Filed: 03/17/19 18:11> Date of Encounter: 03/17/19 Time of Encounter: 14:40 - Time Spent With Patient Total time spent is greater than 50% in coordination of care (as documented) at patient's floor/unit and/or counseling patient: GI History of Present Illness - Data of Consult Requesting Physician: Humberto Rao MD - Consult Narrative History of present illness: Ms. Lozano is a 53 year old female - Constitutional Vitals: Temp Pulse Resp BP Pulse Ox 97.7 F 68 21 117/67 93 03/17/19 16:10 03/17/19 18:00 03/17/19 18:00 03/17/19 18:00 03/17/19 18:00 Results - Labs CBC & Chem 7: 09/26/19 05:30 03/17/19 05:30 - ABG ABG results: ABG ABG pH 7.37 pH Units (7.32-7.45) 03/17/19 04:51 ABG pCO2 75 mmHg (35-45) H* 03/17/19 04:51 ABG pO2 71 mmHg (85-104) L 03/17/19 04:51 ABG O2 Saturation 92 % (95-98) L 03/17/19 04:51 PT/INR, D-dimer PT 11.3 Seconds (9.4-12.1) 03/16/19 16:45 - Attending Attestation I examined this patient and my medical decision-making was reviewed with the med student. I agree with the documented findings, disposition and treatment plan as described except to the extent set forth below. Patient seen currently intubated. Examination: Patient intubated NG in place NG with no blood brown fluid. A: Patient yesterday noticed to have some blood in her NG but today NG is clear hemoglobin is stable. Rec: No need for scoping
[2019-03-17] MEDS: Chlorhexidine Rinse 15 ML MOUTHWASH MM SCH ×2 (10:36→20:02)
[2019-03-17] MEDS: Furosemide 40 MG/4 ML VIAL IVP SCH ×3 (10:37→16:47)
[2019-03-17] MEDS: FLUoxetine 20 MG CAPSULE PO SCH (10:38)
[2019-03-17] MEDS: amLODIPine 5 MG TABLET PO SCH (10:39)
[2019-03-17] MEDS: Docusate Oral Soln 100 MG/10 ML UDC PO SCH ×2 (10:39→21:29)
[2019-03-17] MEDS: Bisacodyl 10 MG RECTAL SUPPOSITORY RC SCH (10:39)
[2019-03-17] MEDS: Pantoprazole 40 MG in 0.9 % Sodium Chloride Mini Bag 100 ML IVC SCH ×4 (10:40→21:31)
--- NOTE | 2019-03-17 14:25 | Internal Med Progress Note ---
Hospitalist Progress Note - Encounter Date of Encounter: 03/17/19 Time of Encounter: 14:27 - Subjective Interval History: This is a 53-year-old female with a history of morbid obesity, obstructive sleep apnea on CPAP (reported noncompliance), COPD, GERD, hyperlipidemia, hypothyroidism. She had an echo in August 2018 which showed EF of 60-65%. Admitted to our facility on March 10 for acute and chronic respiratory failure. She was in respiratory distress with an ABG which showed a pH of 7.22, PCO2 of 94, PO2 of 66. He was placed on BiPAP but worsened and ultimately was intubated for acute on chronic hypercapnic respiratory failure. A chest x-ray showed pulmonary edema with bilateral pleural effusions, no obvious infiltrate. He was markedly hypertensive. 03/15: Patient did well with the Lasix drip for the first couple days, now transitioned IV Lasix twice a day. She continues on steroids in the form of Solu-Medrol 40 mg IV twice a day. She remains on fentanyl and propofol for sedation. We are attempting a spontaneous breathing trial today. Patient appears to have significant improvement with regards to her acute on chronic isabel stolic CHF. Blood pressure remains elevated but overall improved. We have now we started metoprolol 50 mg by mouth twice a day. She remains off antibiotics as no obvious pneumonia. 03/16: Ongoing CPAP weaning trials today. Patient had a slight bump in her creatinine to 1.2 this morning and we held her a.m. Lasix dose. Patient currently remains somewhat sedated. 03/17: Patient continues to diurese, greater than 6 L since admission. Creatinine has remained stable. Last night she had bright red blood from her NG tube, this is now resolved. GI is following in considering intervention. She is on a Protonix drip. Hemoglobin has remained stable. Patient continues with CPAP trial. She remains sedated and ventilated. Review of systems is currently unobtainable due to her sedation. - Exam Vitals: Temp Pulse Resp BP Pulse Ox 96.2 F L 53 19 135/70 93 03/17/19 07:50 03/17/19 13:00 03/17/19 13:00 03/17/19 13:00 03/17/19 13:00 Exam: General: Patient is sedated, on CPAP with ETT in place, morbidly obese, no acute distress, morbidly obese NG tube now has brown secretions, no blood noted grossly Oropharynx is moist Neck supple Lungs: Diminished breath sounds bilaterally Heart regular rate and rhythm Abdomen is obese soft nontender nondistended with normoactive bowel sounds Extremities show 1+ edema bilaterally, Cap Refill less than 2.5 second Neurological exam shows no gross focal deficits Skin is warm and dry - Assessment and Plan (1) Acute on chronic respiratory failure with hypoxia and hypercapnia Current Visit: Yes Status: Acute Assessment and Plan: Multifactorial respiratory failure due to cor pulmonale physiology, chronic obesity hypoventilation syndrome, COPD with acute exacerbation and acute on chronic diastolic CHF (2) Morbid obesity Current Visit: No Status: Acute (3) Acute on chronic diastolic (congestive) heart failure Current Visit: No Status: Acute Assessment and Plan: Continue with diuresis as renal function allows Closely monitor creatinine as it is trending upward Beta michael restarted Blood Pressure improved today (4) Obesity hypoventilation syndrome Current Visit: No Status: Acute Assessment and Plan: Patient absolutely has to wear CPAP when sleeping and woke also when she is awake We will maintain patient with head of bed at least at 30 degrees as this may help with ventilation Her abdomen is markedly obese but not distended. She has not had a bowel movement for several days and we will be more aggressive bowel regimen as well, all efforts to reduce intra-abdominal pressure and her body habitus and poor lung reserve 03/17: Patient had a good bowel movement last night. (5) Acute exacerbation of congestive heart failure Current Visit: Yes Status: Acute Assessment and Plan: Outlined above Acute on chronic diastolic CHF (6) Acute metabolic encephalopathy Current Visit: Yes Status: Acute Assessment and Plan: Due to hypercapnia, as well as sedation, reassess once off ventilatory support (7) Acute exacerbation of chronic obstructive airways disease Current Visit: No Status: Acute Assessment and Plan: Continue aggressive bronchodilator therapy, steroid taper DVT Prophylaxis: Subcutaneous heparin held due to concern for GI bleed, SCDs added - Time Spent with Patient Total time spent is greater than 50% in coordination of care (as documented) at patient's floor/unit and/or counseling patient: Greater than 35 minutes Internal Medicine: Result - Labs CBC & Chem 7: 03/17/19 05:30 03/17/19 05:30 Labs: Short CBC 03/16/19 03/16/19 03/17/19 Range/Units 15:50 23:50 05:30 WBC 11.1 (4.3-11.1) K/mcL Hgb 10.1 L 10.4 L 11.0 L (11.5-15.4) g/dL Hct 38.5 40.3 42.5 (35.3-44.9) % Plt Count 243 (140-400) K/mcL Neutrophils # 8.3 (1.6-8.9) K/mcL BMP 03/17/19 05:30 Sodium 145 Potassium 3.7 Chloride 99 Carbon Dioxide 39 H BUN 38 H Creatinine 1.01 Glucose 149 H Calcium 10.9 H - ABG Interpretation ABG results: ABG ABG pH 7.37 pH Units (7.32-7.45) 03/17/19 04:51 ABG pCO2 75 mmHg (35-45) H* 03/17/19 04:51 ABG pO2 71 mmHg (85-104) L 03/17/19 04:51 ABG O2 Saturation 92 % (95-98) L 03/17/19 04:51 PT/INR, D-dimer PT 11.3 Seconds (9.4-12.1) 03/16/19 16:45 Consult Discharge Plan - Plan Referrals: NONE,PCP [Primary Care Provider] - (5) Acute exacerbation of congestive heart failure Qualifiers: Heart failure type: diastolic Qualified Code(s): I50.33 - Acute on chronic diastolic (congestive) heart failure
[2019-03-17] MEDS ORDERED: Furosemide 40 MG/4 ML VIAL IVP ONE ×2 (16:30→21:00)
--- NOTE | 2019-03-17 22:00 | Electrocardiograph Report ---
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
[2019-03-18] MEDS: FentaNYL (PF) 1,000 MCG in 0.9 % Sodium Chloride 80 ML IVC SCH ×2 (00:16→11:19)
[2019-03-18] MEDS: Artificial Tears SOLN 15 ML BOTTLE BOTH EYES SCH ×7 (00:19→23:41)
[2019-03-18] MEDS: Insulin LISPRO 300 UNITS/3 ML VIAL SQ SCH ×7 (00:28→23:43)
[2019-03-18] MEDS: Dexmedetomidine HCl 400 MCG/100 ML MLS IVC SCH ×3 (01:39→11:19)
[2019-03-18] MEDS: Pantoprazole 40 MG in 0.9 % Sodium Chloride Mini Bag 100 ML IVC SCH ×5 (03:42→20:29)
[2019-03-18 04:48] LABS: ABG Base Excess 14 mEq/L (-2 to 3); ABG HCO3 42 mEq/L (21-27); ABG Oxygen Saturation 88 % (95-98); ABG PCO2 66 mmHg (35-45); ABG PH 7.42 pH Units (7.32-7.45); ABG PO2 57 mmHg (85-104); ABG TCO2 44 mEq/L (20-26); Blood Gas Modality AF; Blood Gas PEEP 10 cm H2O; Blood Gas VT 420 cc
--- NOTE | 2019-03-18 07:22 | Pulmonology Progress Note ---
<Abigail Stewart - Last Filed: 03/18/19 11:13> Date of Encounter: 03/18/19 Time of Encounter: 07:22 Assessment and Plan (1) Acute and chronic respiratory failure with hypercapnia Current Visit: No Status: Acute Acute and chronic respiratory failure with hypercapnia that is likely secondary to CHF exacerbation and likely COPD exacerbation. -currently intubated and sedated with fentanyl and propofol -ABG: pH 7.42, pCO2 66, HCO3 -BNP 166 -sputum staph aureus likely contaminated, -I/O: [id number] - 8268 appropriate urine output -03/16/2019 CXR showing stable findings reflecting congestive heart failure with small right pleural effusion. -03/13/2019 CXR showing cardiomegaly and moderate pulmonary vascular congestion slightly improved aeration from prior study. Bilateral pleural and parenchymal changes at lung bases slightly improved. -03/12/2019 CXR showing heart failure with severe pulmonary edema and small effusions. -vent setting FIO2 50%, PEEP 8, Vt 420, RR14 -continue to attempt to wean from ventilator. May have spontaneous breathing trial today with family at bedside to see that may help with her anxiousness. plan: -continue diuresis with Lasix 40 mg IV b.i.d. -Decreased Solu-Medrol 40 Q12h to once daily -continue fentanyl and propofol for sedation -at Seroquel after evaluation of EKG due to agitation -will attempt to wean from ventilator as able. -Will begin tube feeds today per nutrition (2) Acute on chronic diastolic (congestive) heart failure Current Visit: No Status: Acute HFpEF with exacerbation -BNP 300 -creatinine stable -03/16/2019 CXR showing stable findings reflecting congestive heart failure with small right pleural effusion. -CXR showing heart failure with severe pulmonary edema and small effusions -08/25/2018 TTE: EF= 60-65%, mild diastolic dysfunction. No pulmonary hypertension or valvular dysfunction. -9 pound weight loss since admission. (163lb, now 154lb) -I/O: [id number] - 8268 appropriate urine output plan: -continue Lasix 40 mg IV b.i.d. -continue home amlodipine. Decreased metoprolol goes to 25 BID due to bra dycardia -will add other meds such as the following when able and BP tolerates (hydrochlorthiazide 25 mg, lisinopril 40 mg) -strict I&O -daily weight (3) Acute exacerbation of chronic obstructive airways disease Current Visit: No Status: Acute Suspect acute COPD exacerbation as the patient has acute on chronic respiratory failure with hypercapnia. -CXR showing heart failure with severe pulmonary edema and small effusions -Antibiotics and steroids as above -currently intubated -continue albuterol PRN -currently holding home Symbicort, Incruse Ellipta, duoneb (4) Acute metabolic encephalopathy Current Visit: Yes Status: Acute Improved. Acute metabolic encephalopathy secondary to acute respiratory failure with hypercapnia. -Plan as above (5) HTN (hypertension) Current Visit: Yes Status: Acute History of hypertension taking hydrochlorthiazide 25 mg, amlodipine 5 mg, metoprolol 50 mg b.i.d., lisinopril 40 mg. -BP appropriate -currently receiving hydralazine 20 mg IV Q6h into Lasix 40 mg IV b.i.d. -continue home amlodipine. Decrease dose of metoprolol to 25mg BID Qualifiers: Hypertension type: essential hypertension Qualified Code(s): I10 - Essential (primary) hypertension (6) Obesity hypoventilation syndrome Current Visit: No Status: Acute Chronic (7) LEXIE (obstructive sleep apnea) Current Visit: Yes Status: Chronic History of LEXIE using oxygen at home and CPAP at night. (8) Hypothyroidism Current Visit: Yes Status: Chronic History of Graves' disease. Home dose of levothyroxine unknown. TSH 29.8 on admission. -TSH 18.9 -patient noted to be bradycardia in the 40s and hypothermic. -Stop levothyroxine PO 100 daily. Start levothyroxine IV 75 mg. Will continue to monitor. Qualifiers: Hypothyroidism type: unspecified Qualified Code(s): E03.9 - Hypothyroidism, unspecified (9) Anemia Current Visit: No Status: Chronic Microcytic Anemia -likely secondary to blood loss and iron deficiency -hemoglobin stable -MCV 70.8 -baseline hemoglobin previously 13-14, however now appears 9-10) -09/13/2018: iron 21, 5% saturation, transferrin 325, ferritin 21 -Yesterday patient had 1000cc brown fluid from OG tube and then bright red blood in the canister. -Started on Protonix b.i.d. -G.I. consulted for evaluation as concern for possible GIB, or tube trauma to the gastric mucosa -patient takes ferrous sulfate supplementation at home, currently holding due to NPO -will continue to monitor hemoglobin and for bleeding -no reports of prior endoscopy Qualifiers: Anemia type: iron deficiency Qualified Code(s): D50.9 - Iron deficiency anemia, unspecified (10) GIB (gastrointestinal bleeding) Current Visit: Yes Status: Acute Very unlikely. -Initial Concern for possible GIB. Most likely due to trauma from high section of OG tube. It was noted overnight that the patient section had been turned up too high. This is in the setting of new chronic microcytic anemia. -hemoglobin stable -baseline hemoglobin previously 13-14, however now appears 9-10) -patient had 1000cc brown fluid from OG tube and then bright red blood in the canister. -Started on Protonix b.i.d. -NPO -will continue to monitor hemoglobin and for bleeding -no reports of prior endoscopy -G.I. consulted for evaluation as concern for possible GIB, or tube trauma to the gastric mucosa. They believe this due to trauma to gastric mucosa and snow endoscopy needed. Qualifiers: GI bleed type/associated pathology: gastritis Gastritis type: unspecified gastritis Qualified Code(s): K29.71 - Gastritis, unspecified, with bleeding (11) Diabetes Current Visit: No Status: Acute History of diabetes. 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 Lozano is a 53-year-old female who presented acute on chronic respiratory failure with hypercapnia who was intubated and sedated on admission secondary to CHF exacerbation and COPD exacerbation. Today patient was seen and examined at the bedside. She is intubated and sedated on mechanical ventilation. There were no overnight events. Continuing to attempt to wean patient from ventilator. Patient was given an extra dose of Lasix yesterday afternoon to help with diuresis. May attempt spontaneous breathing trial today. With the family at the bedside. Objective PUL Vital signs: Last Vital Signs Temp 97.0 F L 03/18/19 04:00 Pulse 50 03/18/19 06:00 Resp 18 03/18/19 06:00 BP 108/63 03/18/19 06:00 Pulse Ox 93 03/18/19 06:00 General appearance: no acute distress, asleep Eyes: nonicteric ENT: oropharynx moist Neck: supple Effort: normal Auscultation: bilateral: clear Cardiovascular: regular rate and rhythm Gastrointestinal: normoactive bowel sounds, soft, non-distended Integumentary: normal Extremities: no cyanosis, no edema Musculoskeletal: no deformities unable to assess due to mental status mood appropriate, affect normal Ventilator Settings Ventilator Settings: Ventilator Settings, Last 8 Hours Ventilator Tidal Volume 420 Setting Ventilator Tidal Volume 420 Setting Ventilator Tidal Volume 420 Setting Ventilator Tidal Volume 420 Setting Ventilator Tidal Volume 420 Setting Ventilator Tidal Volume 420 Setting Ventilator Tidal Volume 420 Setting Ventilator Tidal Volume 420 Setting Ventilator Tidal Volume 420 Setting Ventilator Tidal Volume 420 Setting Ventilator Tidal Volume 420 Setting Ventilator Tidal Volume 420 Setting Ventilator Respiratory Rate 18 Setting Ventilator Respiratory Rate 18 Setting Ventilator Respiratory Rate 18 Setting Ventilator Respiratory Rate 18 Setting Ventilator Respiratory Rate 18 Setting Ventilator Respiratory Rate 18 Setting Ventilator Respiratory Rate 18 Setting Ventilator Respiratory Rate 18 Setting Ventilator Respiratory Rate 18 Setting Ventilator Respiratory Rate 18 Setting Ventilator Respiratory Rate 18 Setting Ventilator Respiratory Rate 18 Setting Actual Respiratory Rate 18 Actual Respiratory Rate 18 Actual Respiratory Rate 18 Actual Respiratory Rate 18 Positive End Expiratory 10 Pressure Positive End Expiratory 10 Pressure Positive End Expiratory 10 Pressure Positive End Expiratory 10 Pressure Positive End Expiratory 10 Pressure Positive End Expiratory 10 Pressure Positive End Expiratory 10 Pressure Positive End Expiratory 10 Pressure Positive End Expiratory 10 Pressure Positive End Expiratory 10 Pressure Positive End Expiratory 10 Pressure Positive End Expiratory 10 Pressure Peak Inspiratory Airway 30 Pressure Peak Inspiratory Airway 34 Pressure Peak Inspiratory Airway 37 Pressure Peak Inspiratory Airway 27 Pressure Results - Laboratory Findings CBC and BMP: 03/18/19 06:46 03/18/19 06:46 ABG ABG pH 7.42 pH Units (7.32-7.45) 03/18/19 04:45 ABG pCO2 66 mmHg (35-45) H 03/18/19 04:45 ABG pO2 57 mmHg (85-104) L 03/18/19 04:45 ABG O2 Saturation 88 % (95-98) L 03/18/19 04:45 PT/INR, D-dimer PT 11.3 Seconds (9.4-12.1) 03/16/19 16:45 Abnormal lab findings: Abnormal lab results RBC 5.82 M/mcL (3.82-4.97) H 03/17/19 05:30 Hgb 11.0 g/dL (11.5-15.4) L 03/17/19 05:30 MCV 73.0 fL (83.0-100.0) L 03/17/19 05:30 MCH 18.9 pg (28.0-33.3) L 03/17/19 05:30 MCHC 25.9 g/dL (31.6-35.5) L 03/17/19 05:30 RDW 22.4 % (11.5-14.5) H 03/17/19 05:30 Nucleated RBCs/100 WBC 0.2 /100 WBC (0) H 03/16/19 03:54 Hypochromasia Present (Not Present) A 03/17/19 05:30 Poikilocytosis 1+ (Not Present) A 03/16/19 03:54 Anisocytosis 3+ (Not Present) A 03/13/19 03:20 Microcytosis Present (Not Present) A 03/14/19 04:46 Macrocytosis Present (Not Present) A 03/13/19 03:20 Target Cells 1+ (Not Present) A 03/13/19 03:20 PT 12.4 Seconds (9.4-12.1) H 03/12/19 06:42 APTT 24.7 Seconds (26.0-36.0) L 03/12/19 06:42 ABG pH 7.46 pH Units (7.32-7.45) H 03/13/19 07:54 ABG pCO2 66 mmHg (35-45) H 03/18/19 04:45 ABG pO2 57 mmHg (85-104) L 03/18/19 04:45 ABG HCO3 42 mEq/L (21-27) H 03/18/19 04:45 ABG Total CO2 44 mEq/L (20-26) H 03/18/19 04:45 ABG O2 Saturation 88 % (95-98) L 03/18/19 04:45 ABG Base Excess 14 mEq/L (-2 to 3) H 03/18/19 04:45 Potassium 3.4 mEq/L (3.5-5.1) L 03/13/19 03:20 Carbon Dioxide 39 mEq/L (23-29) H 03/17/19 05:30 BUN 38 mg/dL (6-20) H 03/17/19 05:30 Creatinine 1.22 mg/dL (0.60-1.20) H 03/14/19 04:46 Est GFR ( Amer) 57 (> 60) L 03/16/19 03:54 Est GFR (Non-Af Amer) 58 (> 60) L 03/17/19 05:30 BUN/Creatinine Ratio 38 (6-26) H 03/17/19 05:30 Glucose 149 mg/dL (70-105) H 03/17/19 05:30 POC Glucose 129 mg/dL (70-99) H 03/18/19 00:22 Hemoglobin A1c 7.2 % (-5.6) H 03/12/19 14:16 Calculated Osmolality 312 (280-300) H 03/17/19 05:30 Calcium 10.9 mg/dL (8.6-10.3) H 03/17/19 05:30 Venous Ioniz Calcium 1.03 mmol/L (1.15-1.35) L 03/14/19 05:06 Phosphorus 5.0 mg/dL (2.7-4.5) H 03/14/19 04:46 AST 8 Units/L (13-39) L 03/14/19 04:46 ALT 5 Units/L (7-52) L 03/14/19 04:46 Alkaline Phosphatase 110 Units/L (34-104) H 03/12/19 06:42 B-Natriuretic Peptide 300 pg/mL (Less than 100) H 03/12/19 06:42 Albumin 3.4 g/dL (3.5-5.7) L 03/13/19 03:20 Globulin 3.7 g/dL (2.4-3.5) H 03/12/19 06:42 TSH 18.999 mcIU/mL (0.340-5.600) H 03/13/19 03:20 - Microbiology Findings Microbiology Findings: Microbiology, Last 48 Hours 03/12/19 07:16 Blood Culture - Final Peripheral Venipuncture No growth. Final report. 03/12/19 06:42 Blood Culture - Final Peripheral Venipuncture No growth. Final report. - Clinical Findings Intake & Output: Intake & Output 03/17/19 03/17/19 03/18/19 15:59 23:59 07:59 Intake Total 560 / 1780 600 / 1780 600 / 600 Output Total 2150 / 3900 1075 / 1075 Balance 560 / -2120 -1550 / -2120 -475 / -475 Consult Discharge Plan - Plan Referrals: NONE,PCP [Primary Care Provider] - <Amy Latif S - Last Filed: 03/18/19 19:57> Date of Encounter: 03/18/19 Objective PUL Vital signs: Last Vital Signs Temp 98.3 F 03/18/19 15:12 Pulse 70 03/18/19 18:00 Resp 18 03/18/19 18:00 BP 129/91 03/18/19 18:00 Pulse Ox 98 03/18/19 18:00 Ventilator Settings Ventilator Settings: Ventilator Settings, Last 8 Hours Ventilator Tidal Volume 420 Setting Ventilator Respiratory Rate 18 Setting Actual Respiratory Rate 18 Positive End Expiratory 8 Pressure Peak Inspiratory Airway 29 Pressure Results - Laboratory Findings CBC and BMP: 03/18/19 06:46 03/18/19 06:46 ABG ABG pH 7.42 pH Units (7.32-7.45) 03/18/19 04:45 ABG pCO2 66 mmHg (35-45) H 03/18/19 04:45 ABG pO2 57 mmHg (85-104) L 03/18/19 04:45 ABG O2 Saturation 88 % (95-98) L 03/18/19 04:45 PT/INR, D-dimer PT 11.3 Seconds (9.4-12.1) 03/16/19 16:45 Abnormal lab findings: Abnormal lab results RBC 5.64 M/mcL (3.82-4.97) H 03/18/19 06:46 Hgb 10.7 g/dL (11.5-15.4) L 03/18/19 06:46 MCV 72.9 fL (83.0-100.0) L 03/18/19 06:46 MCH 19.0 pg (28.0-33.3) L 03/18/19 06:46 MCHC 26.0 g/dL (31.6-35.5) L 03/18/19 06:46 RDW 22.0 % (11.5-14.5) H 03/18/19 06:46 Nucleated RBCs/100 WBC 0.2 /100 WBC (0) H 03/16/19 03:54 Hypochromasia Present (Not Present) A 03/18/19 06:46 Poikilocytosis 1+ (Not Present) A 03/18/19 06:46 Anisocytosis 3+ (Not Present) A 03/13/19 03:20 Microcytosis Present (Not Present) A 03/14/19 04:46 Macrocytosis Present (Not Present) A 03/13/19 03:20 Target Cells 1+ (Not Present) A 03/13/19 03:20 PT 12.4 Seconds (9.4-12.1) H 03/12/19 06:42 APTT 24.7 Seconds (26.0-36.0) L 03/12/19 06:42 ABG pH 7.46 pH Units (7.32-7.45) H 03/13/19 07:54 ABG pCO2 66 mmHg (35-45) H 03/18/19 04:45 ABG pO2 57 mmHg (85-104) L 03/18/19 04:45 ABG HCO3 42 mEq/L (21-27) H 03/18/19 04:45 ABG Total CO2 44 mEq/L (20-26) H 03/18/19 04:45 ABG O2 Saturation 88 % (95-98) L 03/18/19 04:45 ABG Base Excess 14 mEq/L (-2 to 3) H 03/18/19 04:45 Potassium 3.4 mEq/L (3.5-5.1) L 03/18/19 06:46 Carbon Dioxide 37 mEq/L (23-29) H 03/18/19 06:46 BUN 35 mg/dL (6-20) H 03/18/19 06:46 Creatinine 1.22 mg/dL (0.60-1.20) H 03/14/19 04:46 Est GFR ( Amer) 57 (> 60) L 03/16/19 03:54 Est GFR (Non-Af Amer) 55 (> 60) L 03/18/19 06:46 BUN/Creatinine Ratio 33 (6-26) H 03/18/19 06:46 Glucose 133 mg/dL (70-105) H 03/18/19 06:46 POC Glucose 129 mg/dL (70-99) H 03/18/19 00:22 Hemoglobin A1c 7.2 % (-5.6) H 03/12/19 14:16 Calculated Osmolality 304 (280-300) H 03/18/19 06:46 Calcium 10.9 mg/dL (8.6-10.3) H 03/17/19 05:30 Venous Ioniz Calcium 1.03 mmol/L (1.15-1.35) L 03/14/19 05:06 Phosphorus 1.9 mg/dL (2.7-4.5) L 03/18/19 06:46 AST 8 Units/L (13-39) L 03/14/19 04:46 ALT 5 Units/L (7-52) L 03/14/19 04:46 Alkaline Phosphatase 110 Units/L (34-104) H 03/12/19 06:42 B-Natriuretic Peptide 300 pg/mL (Less than 100) H 03/12/19 06:42 Albumin 3.4 g/dL (3.5-5.7) L 03/13/19 03:20 Globulin 3.7 g/dL (2.4-3.5) H 03/12/19 06:42 TSH 18.999 mcIU/mL (0.340-5.600) H 03/13/19 03:20 - Microbiology Findings Microbiology Findings: Microbiology, Last 48 Hours 03/12/19 07:16 Blood Culture - Final Peripheral Venipuncture No growth. Final report. 03/12/19 06:42 Blood Culture - Final Peripheral Venipuncture No growth. Final report. - Clinical Findings Intake & Output: Intake & Output 03/18/19 03/18/19 03/18/19 07:59 15:59 23:59 Intake Total 600 / 1320 620 / 1320 100 / 1320 Output Total 1375 / 3675 1100 / 3675 1200 / 3675 Balance -775 / -2355 -480 / -2355 -1100 / -2355 - Attending Attestation - Attending Attestation I saw and evaluated this patient and my medical decision-making was reviewed with the Resident Physician. I agree with the documented findings, disposition and treatment plan as described except to the extent set forth below. We independently had [id number] contact with the patient I spent 45 minutes of Critical Care time with this patient. It involved decision making of high complexity to assess, manipulate, and support vital organ system failure and/or to prevent further life threatening deterioration of the patient's condition. The time involved in the performance of separately reportable procedures was not counted toward critical care time. Patient seen and examined at bedside Labs, radiology, chart personally reviewed. Management was reviewed during multidisciplinary critical care rounds. 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 Very agitated will try to give some antipsychotics to control this episodic agitated delirium. If. If she passed the spontaneous breathing trial will try to extubate her to BiPAP. Pulm: Patient has excellent oxygenation and ventilation patient needing quite a PEEP therapy with the increase FiO2 patient got agitated with ventilator async hrony we will start her on antipsychotics to reduce FIO2 to 40 to 50% and PEEP 8 then will attempt another spontaneous breathing trial 03/18 patient has acceptable oxygenation and ventilation after a spontaneous breathing trial will set her up and extubate to BiPAP if she does not tolerate BiPAP she will need high flow heated nasal system. Cards:Patient is hemodynamically stable acute on chronic diastolic heart failure to do gentle diuresis to control preload and afterload FEN-GI: To keep her nothing by mouth after extubation she is stable for 4-6 hours we will start with clear liquid diet Renal: Labs and output were reviewed ID: No active infectious disease issues no evidence of any ventilator associated pneumonia Heme/Onc: Labs reviewed Endo: Glucose Monitored Integ/MSK: Skin Care per routine ICU Nursing Protocol to prevent ulcers. Lines: All lines examined without evidence of infection : Dispo: critically ill CODE: Full code
[2019-03-18] MEDS: FLUoxetine 20 MG CAPSULE PO SCH (08:21)
[2019-03-18] MEDS: MethylPREDNISolone 40 MG/ML VIAL IVP SCH (08:21)
[2019-03-18] MEDS: Levothyroxine Sodium 100 MCG VIAL IVP SCH (08:21)
[2019-03-18] MEDS: amLODIPine 5 MG TABLET PO SCH (08:21)
[2019-03-18] MEDS: Chlorhexidine Rinse 15 ML MOUTHWASH MM SCH ×2 (08:22→19:45)
[2019-03-18] MEDS: Docusate Oral Soln 100 MG/10 ML UDC PO SCH ×2 (08:29→19:45)
[2019-03-18] MEDS: Bisacodyl 10 MG RECTAL SUPPOSITORY RC SCH (08:29)
[2019-03-18 08:51] LABS: Basophils % 0.4 %
[2019-03-18 08:53] LABS: Eosinophils # 0.3 K/mcL (0.0-0.6); Eosinophils % 3.1 %; Hematocrit 41.1 % (35.3-44.9); Hemoglobin 10.7 g/dL (11.5-15.4); Immature Granulocytes % 0.3 % (0-4); Lymphocytes # 1.3 K/mcL (0.6-4.6); Lymphocytes % 12.9 %; Mean Corpuscular Volume 72.9 fL (83.0-100.0); Mean Platelet Volume 9.4 fL (9.4-12.4); Monocytes # 1.1 K/mcL (0.0-1.3); Monocytes % 10.7 %; Neutrophils # 7.1 K/mcL (1.6-8.9); Platelet Count 195 K/mcL (140-400); Red Blood Count 5.64 M/mcL (3.82-4.97); Segmented Neutrophils % 72.6 %; White Blood Count 9.8 K/mcL (4.3-11.1)
[2019-03-18 09:09] LABS: Platelet Estimate Normal (Normal)
[2019-03-18 09:10] LABS: Hypochromasia Present (Not Present); Poikilocytosis 1+ (Not Present)
[2019-03-18 09:12] LABS: BUN/Creatinine Ratio 33 (6-26); Blood Urea Nitrogen 35 mg/dL (6-20); Calcium 10.3 mg/dL (8.6-10.3); Carbon Dioxide 37 mEq/L (23-29); Chloride 101 mEq/L (98-107); Glucose 133 mg/dL (70-105); Osmolality,Calculated 304 (280-300); Phosphorous 1.9 mg/dL (2.7-4.5); Potassium 3.4 mEq/L (3.5-5.1); Sodium 142 mEq/L (136-145); eGFR For African Americans > 60 (> 60); eGFR For Non-African Americans 55 (> 60)
[2019-03-18] MEDS: Furosemide 40 MG/4 ML VIAL IVP SCH ×2 (09:37→18:03)
[2019-03-18] MEDS: Potassium Chloride Elixir 20 MEQ/15 ML UDC PO PRN (09:38)
[2019-03-18 12:40] LABS: VBG Ionized Calcium 1.26 mmol/L (1.15-1.35)
--- NOTE | 2019-03-18 13:20 | Internal Med Progress Note ---
Hospitalist Progress Note - Encounter Date of Encounter: 03/18/19 Time of Encounter: 13:09 - Subjective Interval History: This is a 53-year-old female with a history of morbid obesity, obstructive sleep apnea on CPAP (reported noncompliance), COPD, GERD, hyperlipidemia, hypothyroidism. She had an echo in August 2018 which showed EF of 60-65%. Admitted to our facility on March 10 for acute and chronic respiratory failure. She was in respiratory distress with an ABG which showed a pH of 7.22, PCO2 of 94, PO2 of 66. He was placed on BiPAP but worsened and ultimately was intubated for acute on chronic hypercapnic respiratory failure. A chest x-ray showed pulmonary edema with bilateral pleural effusions, no obvious infiltrate. He was markedly hypertensive. 03/15: Patient did well with the Lasix drip for the first couple days, now transitioned IV Lasix twice a day. She continues on steroids in the form of Solu-Medrol 40 mg IV twice a day. She remains on fentanyl and propofol for sedation. We are attempting a spontaneous breathing trial today. Patient appears to have significant improvement with regards to her acute on chronic diastolic CHF. Blood pressure remains elevated but overall improved. We have now we started metoprolol 50 mg by mouth twice a day. She remains off antibiotics as no obvious pneumonia. 03/16: Ongoing CPAP weaning trials today. Patient had a slight bump in her creatinine to 1.2 this morning and we held her a.m. Lasix dose. Patient currently remains somewhat sedated. 03/17: Patient continues to diurese, greater than 6 L since admission. Creatinine has remained stable. Last night she had bright red blood from her NG tube, this is now resolved. GI is following in considering intervention. She is on a Protonix drip. Hemoglobin has remained stable. Patient continues with CPAP trial. She remains sedated and ventilated. Review of systems is currently unobtainable due to her sedation. 03/18: Patient was successfully extubated today. She was posted on BiPAP but is now on supplemental oxygen and doing well. GI did not feel it necessary to perform endoscopy at this time as her bleeding has stopped. She does continue on proton pump inhibitor therapy. Patient has diuresed over 8 L thus far Presently patient states "my breathing is fine". She denies any chest pain. No nausea or vomiting. Family is present at bedside. Other than that mentioned above, a 10 point review of systems is negative - Exam Vitals: Temp Pulse Resp BP Pulse Ox 98.1 F 93 18 118/85 93 03/18/19 12:30 03/18/19 12:00 03/18/19 12:00 03/18/19 12:03/18/19 12:00 Exam: General: Patient is sedated, on CPAP with ETT in place, morbidly obese, no acute distress, morbidly obese NG tube now has brown secretions, no blood noted grossly Oropharynx is moist Neck supple Lungs: Diminished breath sounds bilaterally Heart regular rate and rhythm Abdomen is obese soft nontender nondistended with normoactive bowel sounds Extremities show 1+ edema bilaterally, Cap Refill less than 2.5 second Neurological exam shows no gross focal deficits Skin is warm and dry - Assessment and Plan (1) Acute on chronic respiratory failure with hypoxia and hypercapnia Current Visit: Yes Status: Acute Assessment and Plan: Multifactorial respiratory failure due to cor pulmonale physiology, chronic obesity hypoventilation syndrome, COPD with acute exacerbation and acute on chronic diastolic CHF (2) Morbid obesity Current Visit: No Status: Acute (3) Acute on chronic diastolic (congestive) heart failure Current Visit: No Status: Acute Assessment and Plan: Continue with diuresis as renal function allows, currently lasix 40 mg IV BID Closely monitor creatinine as it is trending upward Beta michael restarted Blood Pressure improved today (4) Obesity hypoventilation syndrome Current Visit: No Status: Acute Assessment and Plan: Patient absolutely has to wear CPAP when sleeping and woke also when she is awake We will maintain patient with head of bed at least at 30 degrees as this may help with ventilation Her abdomen is markedly obese but not distended. She has not had a bowel movement for several days and we will be more aggressive bowel regimen as well, all efforts to reduce intra-abdominal pressure and her body habitus and poor lung reserve 03/17: Patient had a good bowel movement last night. 03/18: Continue BiPAP at at bedtime, and with napping. Encourage patient just keep head of bed elevated at all times. (5) Acute exacerbation of congestive heart failure Current Visit: Yes Status: Acute Assessment and Plan: Outlined above Acute on chronic diastolic CHF (6) Acute metabolic encephalopathy Current Visit: Yes Status: Acute Assessment and Plan: Due to hypercapnia, as well as sedation, reassess once off ventilatory support 03/18: Resolved (7) Acute exacerbation of chronic obstructive airways disease Current Visit: No Status: Acute Assessment and Plan: Continue aggressive bronchodilator therapy, steroid taper, pulm toilet DVT Prophylaxis: Subcutaneous heparin held due to concern for GI bleed, SCDs added - Time Spent with Patient Total time spent is greater than 50% in coordination of care (as documented) at patient's floor/unit and/or counseling patient: Greater than 35 minutes Internal Medicine: Result - Labs CBC & Chem 7: 03/18/19 06:46 03/18/19 06:46 Labs: Short CBC 03/18/19 Range/Units 06:46 WBC 9.8 (4.3-11.1) K/mcL Hgb 10.7 L (11.5-15.4) g/dL Hct 41.1 (35.3-44.9) % Plt Count 195 (140-400) K/mcL Neutrophils # 7.1 (1.6-8.9) K/mcL BMP 03/18/19 06:46 Sodium 142 Potassium 3.4 L Chloride 101 Carbon Dioxide 37 H BUN 35 H Creatinine 1.05 Glucose 133 H Calcium 10.3 - ABG Interpretation ABG results: ABG ABG pH 7.42 pH Units (7.32-7.45) 03/18/19 04:45 ABG pCO2 66 mmHg (35-45) H 03/18/19 04:45 ABG pO2 57 mmHg (85-104) L 03/18/19 04:45 ABG O2 Saturation 88 % (95-98) L 03/18/19 04:45 PT/INR, D-dimer PT 11.3 Seconds (9.4-12.1) 03/16/19 16:45 Consult Discharge Plan - Plan Referrals: NONE,PCP [Primary Care Provider] - (5) Acute exacerbation of congestive heart failure Qualifiers: Heart failure type: diastolic Qualified Code(s): I50.33 - Acute on chronic diastolic (congestive) heart failure
[2019-03-18] MEDS ORDERED: Furosemide 40 MG/4 ML VIAL IVP ONE (15:30)
[2019-03-18] MEDS: *HR* Heparin 5,000 UNIT/ML VIAL SQ SCH ×2 (15:35→20:30)
[2019-03-18] MEDS: Potassium Phosphate 44 MEQ in 0.9 % Sodium Chloride 250 ML IVPB PRN (15:54)
[2019-03-18] MEDS ORDERED: *HR* LORazepam 2 MG/ML VIAL IVP PRN (16:51)
[2019-03-18] MEDS ORDERED: Haloperidol Lactate 5 MG/ML VIAL IVP STA (17:31)
[2019-03-19] MEDS: Pantoprazole 40 MG in 0.9 % Sodium Chloride Mini Bag 100 ML IVC SCH (01:10)
[2019-03-19] MEDS: Artificial Tears SOLN 15 ML BOTTLE BOTH EYES SCH ×3 (03:32→11:46)
[2019-03-19] MEDS: Insulin LISPRO 300 UNITS/3 ML VIAL SQ SCH ×5 (05:08→19:48)
[2019-03-19 05:10] LABS: Immature Granulocytes % 0.6 % (0-4)
[2019-03-19 05:11] LABS: Basophils # 0.1 K/mcL (0.0-0.2); Basophils % 0.4 %; Eosinophils # 0.2 K/mcL (0.0-0.6); Eosinophils % 1.5 %; Hematocrit 42.6 % (35.3-44.9); Hemoglobin 11.3 g/dL (11.5-15.4); Lymphocytes # 1.5 K/mcL (0.6-4.6); Lymphocytes % 12.2 %; Mean Corpuscular HGB Conc 26.5 g/dL (31.6-35.5); Mean Corpuscular Hemoglobin 18.5 pg (28.0-33.3); Mean Corpuscular Volume 69.6 fL (83.0-100.0); Mean Platelet Volume 9.6 fL (9.4-12.4); Monocytes # 1.3 K/mcL (0.0-1.3); Monocytes % 10.5 %; Neutrophils # 9.4 K/mcL (1.6-8.9); Platelet Count 256 K/mcL (140-400); Red Blood Count 6.12 M/mcL (3.82-4.97); Red Cell Distribution Width 22.6 % (11.5-14.5); Segmented Neutrophils % 74.8 %; White Blood Count 12.6 K/mcL (4.3-11.1)
[2019-03-19 05:35] LABS: BUN/Creatinine Ratio 30 (6-26); Blood Urea Nitrogen 30 mg/dL (6-20); Calcium 10.4 mg/dL (8.6-10.3); Carbon Dioxide 32 mEq/L (23-29); Chloride 99 mEq/L (98-107); Glucose 121 mg/dL (70-105); Magnesium 1.8 mg/dL (1.6-2.6); Osmolality,Calculated 303 (280-300); Phosphorous 1.3 mg/dL (2.7-4.5); Potassium 3.3 mEq/L (3.5-5.1); Sodium 143 mEq/L (136-145); eGFR For African Americans > 60 (> 60); eGFR For Non-African Americans 59 (> 60)
[2019-03-19] MEDS: *HR* Heparin 5,000 UNIT/ML VIAL SQ SCH ×3 (06:04→20:02)
[2019-03-19] MEDS: Potassium Chloride Elixir 20 MEQ/15 ML UDC PO PRN (06:07)
[2019-03-19 06:13] LABS: Platelet Estimate Normal (Normal)
[2019-03-19 06:15] LABS: Hypochromasia Present (Not Present)
[2019-03-19 06:16] LABS: Anisocytosis 1+ (Not Present)
[2019-03-19] MEDS: Potassium Phosphate 44 MEQ in 0.9 % Sodium Chloride 250 ML IVPB PRN (06:45)
--- NOTE | 2019-03-19 07:22 | Pulmonology Progress Note ---
<Chadd Smith - Last Filed: 03/19/19 12:16> Date of Encounter: 03/19/19 Time of Encounter: 07:18 Assessment and Plan (1) Acute and chronic respiratory failure with hypercapnia Current Visit: No Status: Acute Acute on chronic respiratory failure with hypoxia - Secondary to CHF exacerbation and COPD exacerbation - Extubated yesterday -Currently on high-flow oxygen Plan: - Continue lasix 40 BID - Prednisone 40 daily - Wean high-flow O2 as tolerated - Duonebs Q6h (2) Acute exacerbation of chronic obstructive airways disease Current Visit: No Status: Acute COPD exacerbation - Extubated - prednisone 40 daily - Duonebs q6h (3) HTN (hypertension) Current Visit: Yes Status: Acute Htn - Amlodipine 5 daily - Hydralazine 25 q8h - Hydralzine 20 q6 PRN - Lopressor 50 BID Qualifiers: Hypertension type: essential hypertension Qualified Code(s): I10 - Essential (primary) hypertension (4) Acute metabolic encephalopathy Current Visit: Yes Status: Acute Acute metabolic encephalopathy - Awake and alert - Increased mood with excessive speech - Seroquel 50 qhs (5) Acute on chronic diastolic (congestive) heart failure Current Visit: No Status: Acute CHF - Stable - Continue Lasix IV 40 BID - Amlodipine 5 daily - Lopressor 50 BID - Measure I%Os, daily weight Plan: - Will need continued diuresis and salt/fluid restriction (6) Obesity hypoventilation syndrome Current Visit: Yes Status: Chronic Obesity hypoventilation syndrome - Ventilation limited by body habitus (7) Anemia Current Visit: No Status: Chronic Anemia - Microcytis - Likely acute blood loss - Stable - Hgb rising - Previous bright red output from OG tube - Protonix BID - GI consulted - Bleeding resolved without intervention - likely secondary to tube trauma of gastric mucosa Qualifiers: Anemia type: iron deficiency Qualified Code(s): D50.9 - Iron deficiency anemia, unspecified (8) GIB (gastrointestinal bleeding) Current Visit: Yes Status: Resolved GI bleed - Resolved - As above Qualifiers: GI bleed type/associated pathology: gastritis Gastritis type: unspecified gastritis Qualified Code(s): K29.71 - Gastritis, unspecified, with bleeding (9) Diabetes mellitus Current Visit: No Status: Chronic Hx of DM - Low dose corrective insulin Qualifiers: Diabetes mellitus type: type 2 Diabetes mellitus intermediate accountant insulin use: unspecified intermediate insulin use status Diabetes mellitus complication status: without complication Qualified Code(s): E11.9 - Type 2 diabetes mellitus without complications (10) DVT prophylaxis Current Visit: Yes Status: Acute Sub Q heparin (11) Hypothyroidism Current Visit: Yes Status: Chronic Hx of hypothyroid - Home synthroid 75mcg daily Qualifiers: Hypothyroidism type: unspecified Qualified Code(s): E03.9 - Hypothyroidism, unspecified Subjective Principal diagnosis: CHF exacerbation Interval history: Patient seen and examined. Afebrile. Extubated yesterday. Wide awake overnight. Doing well on high flow nasal cannula. Ailyn Lozano is 53-year-old female with past medical history of COPD, CHF, LEXIE, hypothyroid. She was originally admitted on March 10 for acute and c hronic respiratory failure. She failed treatment with BiPAP and needed to be intubated and transferred to the ICU. Laboratory workup and chest x-ray indicated pulmonary edema secondary to congestive heart failure. She remained on the ventilator for a few days, she was diuresed greater than 10 L, and extubated on March 18. There is concern for GI bleed due to bright red blood through OG output, and GI was consulted. Bleeding did resolve on its own without intervention. Hemoglobin has been stable since. She is doing well off the ventilator currently on high flow oxygen and will use BiPAP as needed. Plan is to transfer out of the ICU today. Objective PUL Vital signs: Last Vital Signs Temp 98.5 F 03/19/19 04:00 Pulse 81 03/19/19 06:00 Resp 16 03/19/19 06:00 BP 189/86 03/19/19 06:00 Pulse Ox 98 03/19/19 06:00 Gen: Vitals noted. No acute distress. Eyes: anicteric sclerae, moist conjunctivae HENT: Atraumatic, normocephalic; oropharynx clear with moist mucous membranes and no mucosal ulcerations Neck: Trachea midline; supple, Cardiac: RRR, no murmurs, rubs or gallops, S1/S2 Pulmonary: CTA bilaterally, no wheezes, rales or rhonchi, equal chest expansion Abdomen: soft, nontender, no rigidity or guarding MSK: ROM intact, no joint swelling noted Extremities: no BLE edema, nontender calf, no cyanosis or clubbing Skin: Normal temperature, turgor and texture; no rash, ulcers or subcutaneous nodules Neuro: moves all extremities, no focal deficits. Psych: A&Ox3, Hyper mood, excessive speech Results - Laboratory Findings CBC and BMP: 03/19/19 04:50 03/19/19 04:50 ABG ABG pH 7.42 pH Units (7.32-7.45) 03/18/19 04:45 ABG pCO2 66 mmHg (35-45) H 03/18/19 04:45 ABG pO2 57 mmHg (85-104) L 03/18/19 04:45 ABG O2 Saturation 88 % (95-98) L 03/18/19 04:45 PT/INR, D-dimer PT 11.3 Seconds (9.4-12.1) 03/16/19 16:45 Abnormal lab findings: Abnormal lab results WBC 12.6 K/mcL (4.3-11.1) H 03/19/19 04:50 RBC 6.12 M/mcL (3.82-4.97) H 03/19/19 04:50 Hgb 11.3 g/dL (11.5-15.4) L 03/19/19 04:50 MCV 69.6 fL (83.0-100.0) L 03/19/19 04:50 MCH 18.5 pg (28.0-33.3) L 03/19/19 04:50 MCHC 26.5 g/dL (31.6-35.5) L 03/19/19 04:50 RDW 22.6 % (11.5-14.5) H 03/19/19 04:50 Neutrophils # 9.4 K/mcL (1.6-8.9) H 03/19/19 04:50 Nucleated RBCs/100 WBC 0.2 /100 WBC (0) H 03/16/19 03:54 Hypochromasia Present (Not Present) A 03/19/19 04:50 Poikilocytosis 1+ (Not Present) A 03/18/19 06:46 Anisocytosis 1+ (Not Present) A 03/19/19 04:50 Microcytosis Present (Not Present) A 03/14/19 04:46 Macrocytosis Present (Not Present) A 03/13/19 03:20 Target Cells 1+ (Not Present) A 03/13/19 03:20 PT 12.4 Seconds (9.4-12.1) H 03/12/19 06:42 APTT 24.7 Seconds (26.0-36.0) L 03/12/19 06:42 ABG pH 7.46 pH Units (7.32-7.45) H 03/13/19 07:54 ABG pCO2 66 mmHg (35-45) H 03/18/19 04:45 ABG pO2 57 mmHg (85-104) L 03/18/19 04:45 ABG HCO3 42 mEq/L (21-27) H 03/18/19 04:45 ABG Total CO2 44 mEq/L (20-26) H 03/18/19 04:45 ABG O2 Saturation 88 % (95-98) L 03/18/19 04:45 ABG Base Excess 14 mEq/L (-2 to 3) H 03/18/19 04:45 Potassium 3.3 mEq/L (3.5-5.1) L 03/19/19 04:50 Carbon Dioxide 32 mEq/L (23-29) H 03/19/19 04:50 BUN 30 mg/dL (6-20) H 03/19/19 04:50 Creatinine 1.22 mg/dL (0.60-1.20) H 03/14/19 04:46 Est GFR ( Amer) 57 (> 60) L 03/16/19 03:54 Est GFR (Non-Af Amer) 59 (> 60) L 03/19/19 04:50 BUN/Creatinine Ratio 30 (6-26) H 03/19/19 04:50 Glucose 121 mg/dL (70-105) H 03/19/19 04:50 POC Glucose 116 mg/dL (70-99) H 03/18/19 19:47 Hemoglobin A1c 7.2 % (-5.6) H 03/12/19 14:16 Calculated Osmolality 303 (280-300) H 03/19/19 04:50 Calcium 10.4 mg/dL (8.6-10.3) H 03/19/19 04:50 Venous Ioniz Calcium 1.03 mmol/L (1.15-1.35) L 03/14/19 05:06 Phosphorus 1.3 mg/dL (2.7-4.5) L 03/19/19 04:50 AST 8 Units/L (13-39) L 03/14/19 04:46 ALT 5 Units/L (7-52) L 03/14/19 04:46 Alkaline Phosphatase 110 Units/L (34-104) H 03/12/19 06:42 B-Natriuretic Peptide 300 pg/mL (Less than 100) H 03/12/19 06:42 Albumin 3.4 g/dL (3.5-5.7) L 03/13/19 03:20 Globulin 3.7 g/dL (2.4-3.5) H 03/12/19 06:42 TSH 18.999 mcIU/mL (0.340-5.600) H 03/13/19 03:20 - Microbiology Findings Microbiology Findings: Microbiology, Last 48 Hours 03/12/19 07:16 Blood Culture - Final Peripheral Venipuncture No growth. Final report. 03/12/19 06:42 Blood Culture - Final Peripheral Venipuncture No growth. Final report. - Clinical Findings Intake & Output: Intake & Output 03/18/19 03/18/19 03/19/19 15:59 23:59 07:59 Intake Total 620 / 1680 460 / 1680 600 / 600 Output Total 1100 / 4375 1900 / 4375 450 / 450 Balance -480 / -2695 -1440 / -2695 150 / 150 Weight 149.5 kg Consult Discharge Plan - Plan Referrals: NONE,PCP [Primary Care Provider] - <Amy Latif - Last Filed: 03/19/19 21:33> Date of Encounter: 03/19/19 Objective PUL Vital signs: Last Vital Signs Temp 99.1 F 03/19/19 19:18 Pulse 67 03/19/19 19:18 Resp 16 03/19/19 19:18 BP 149/70 03/19/19 19:18 Pulse Ox 94 03/19/19 19:18 Results - Laboratory Findings CBC and BMP: 03/19/19 04:50 03/19/19 04:50 ABG ABG pH 7.42 pH Units (7.32-7.45) 03/18/19 04:45 ABG pCO2 66 mmHg (35-45) H 03/18/19 04:45 ABG pO2 57 mmHg (85-104) L 03/18/19 04:45 ABG O2 Saturation 88 % (95-98) L 03/18/19 04:45 PT/INR, D-dimer PT 11.3 Seconds (9.4-12.1) 03/16/19 16:45 Abnormal lab findings: Abnormal lab results WBC 12.6 K/mcL (4.3-11.1) H 03/19/19 04:50 RBC 6.12 M/mcL (3.82-4.97) H 03/19/19 04:50 Hgb 11.3 g/dL (11.5-15.4) L 03/19/19 04:50 MCV 69.6 fL (83.0-100.0) L 03/19/19 04:50 MCH 18.5 pg (28.0-33.3) L 03/19/19 04:50 MCHC 26.5 g/dL (31.6-35.5) L 03/19/19 04:50 RDW 22.6 % (11.5-14.5) H 03/19/19 04:50 Neutrophils # 9.4 K/mcL (1.6-8.9) H 03/19/19 04:50 Nucleated RBCs/100 WBC 0.2 /100 WBC (0) H 03/16/19 03:54 Hypochromasia Present (Not Present) A 03/19/19 04:50 Poikilocytosis 1+ (Not Present) A 03/18/19 06:46 Anisocytosis 1+ (Not Present) A 03/19/19 04:50 Microcytosis Present (Not Present) A 03/14/19 04:46 Macrocytosis Present (Not Present) A 03/13/19 03:20 Target Cells 1+ (Not Present) A 03/13/19 03:20 PT 12.4 Seconds (9.4-12.1) H 03/12/19 06:42 APTT 24.7 Seconds (26.0-36.0) L 03/12/19 06:42 ABG pH 7.46 pH Units (7.32-7.45) H 03/13/19 07:54 ABG pCO2 66 mmHg (35-45) H 03/18/19 04:45 ABG pO2 57 mmHg (85-104) L 03/18/19 04:45 ABG HCO3 42 mEq/L (21-27) H 03/18/19 04:45 ABG Total CO2 44 mEq/L (20-26) H 03/18/19 04:45 ABG O2 Saturation 88 % (95-98) L 03/18/19 04:45 ABG Base Excess 14 mEq/L (-2 to 3) H 03/18/19 04:45 Potassium 3.3 mEq/L (3.5-5.1) L 03/19/19 04:50 Carbon Dioxide 32 mEq/L (23-29) H 03/19/19 04:50 BUN 30 mg/dL (6-20) H 03/19/19 04:50 Creatinine 1.22 mg/dL (0.60-1.20) H 03/14/19 04:46 Est GFR ( Amer) 57 (> 60) L 03/16/19 03:54 Est GFR (Non-Af Amer) 59 (> 60) L 03/19/19 04:50 BUN/Creatinine Ratio 30 (6-26) H 03/19/19 04:50 Glucose 121 mg/dL (70-105) H 03/19/19 04:50 POC Glucose 116 mg/dL (70-99) H 03/18/19 19:47 Hemoglobin A1c 7.2 % (-5.6) H 03/12/19 14:16 Calculated Osmolality 303 (280-300) H 03/19/19 04:50 Calcium 10.4 mg/dL (8.6-10.3) H 03/19/19 04:50 Venous Ioniz Calcium 1.03 mmol/L (1.15-1.35) L 03/14/19 05:06 Phosphorus 1.3 mg/dL (2.7-4.5) L 03/19/19 04:50 AST 8 Units/L (13-39) L 03/14/19 04:46 ALT 5 Units/L (7-52) L 03/14/19 04:46 Alkaline Phosphatase 110 Units/L (34-104) H 03/12/19 06:42 B-Natriuretic Peptide 300 pg/mL (Less than 100) H 03/12/19 06:42 Albumin 3.4 g/dL (3.5-5.7) L 03/13/19 03:20 Globulin 3.7 g/dL (2.4-3.5) H 03/12/19 06:42 TSH 18.999 mcIU/mL (0.340-5.600) H 03/13/19 03:20 - Clinical Findings Intake & Output: Intake & Output 03/19/19 03/19/19 03/19/19 07:59 15:59 23:59 Intake Total 600 / 1680 720 / 1680 360 / 1680 Output Total 850 / 2375 900 / 2375 625 / 2375 Balance -250 / -695 -180 / -695 -265 / -695 - Attending Attestation - Attending Attestation - Attending Attestation I saw and evaluated this patient and my medical decision-making was reviewed with the Resident Physician. I agree with the documented findings, disposition and treatment plan as described except to the extent set forth below. We independently had [id number] contact with the patient Patient seen and examined at bedside Labs, radiology, chart personally reviewed. Management was reviewed during multidisciplinary critical care rounds. 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 Very agitated will try to give some antipsychotics to control this episodic agitated delirium. If. If she passed the spontaneous breathing trial will try to extubate her to BiPAP. 03/19 patient is conscious oriented have some manic episodes has pressure of speech and also has episodic confusion consistent with the hospital delirium if needed given Haldol do not give benzodiazepine. Pulm: Patient has excellent oxygenation and ventilation patient needing quite a PEEP therapy with the increase FiO2 patient got agitated with ventilator asynchrony we will start her on antipsychotics to reduce FIO2 to 40 to 50% and PEEP 8 then will attempt another spontaneous breathing trial 03/18 patient has acceptable oxygenation and ventilation after a spontaneous breathing trial will set her up and extubate to BiPAP if she does not tolerate BiPAP she will need high flow heated nasal system. 03/20 patient has tolerated diet well on nasal cannula system will change to regular nasal cannula will need BiPAP at night Cards:Patient is hemodynamically stable acute on chronic diastolic heart failure to do gentle diuresis to control preload and afterload 03/19 please continue diuresis as tolerated. FEN-GI: To keep her nothing by mouth after extubation she is stable for 4-6 hours we will start with clear liquid diet 03/19 diet as tolerated Renal: Labs and output were reviewed. To continue diuresis ID: No active infectious disease issues Heme/Onc: Labs reviewed Endo: Glucose Monitored Integ/MSK: Skin Care per routine ICU Nursing Protocol to prevent ulcers. Lines: All lines examined without evidence of infection : Dispo: Patient has been stable over 24 hrs can be transferred to second floor telemetry CODE: Full code
[2019-03-19] MEDS ORDERED: hydrALAZINE 25 MG TABLET PO SCH (08:00)
[2019-03-19] MEDS ORDERED: 0.9 % Sodium Chloride Mini Bag 100 ML ONE (08:11)
[2019-03-19] MEDS: Docusate Oral Soln 100 MG/10 ML UDC PO SCH ×2 (08:16→19:47)
[2019-03-19] MEDS: Bisacodyl 10 MG RECTAL SUPPOSITORY RC SCH (08:17)
[2019-03-19] MEDS: Levothyroxine Sodium 100 MCG VIAL IVP SCH (08:18)
[2019-03-19] MEDS: amLODIPine 5 MG TABLET PO SCH (08:18)
[2019-03-19] MEDS: FLUoxetine 20 MG CAPSULE PO SCH (08:18)
[2019-03-19] MEDS: MethylPREDNISolone 40 MG/ML VIAL IVP SCH (08:18)
[2019-03-19] MEDS: Furosemide 40 MG/4 ML VIAL IVP SCH ×2 (08:18→17:17)
[2019-03-19] MEDS: Chlorhexidine Rinse 15 ML MOUTHWASH MM SCH (08:19)
--- NOTE | 2019-03-19 08:37 | Internal Med Progress Note ---
Hospitalist Progress Note - Encounter Date of Encounter: 03/19/19 Time of Encounter: 08:32 - Subjective Interval History: ICU Summary: This is a 53-year-old female with a history of morbid obesity, obstructive sleep apnea on CPAP (reported noncompliance), COPD, GERD, hyperlipidemia, hypothyroidism. She had an echo in August 2018 which showed EF of 60-65%. Admitted to our facility on March 10 for acute and chronic respiratory failure. She was in respiratory distress with an ABG which showed a pH of 7.22, PCO2 of 94, PO2 of 66. He was placed on BiPAP but worsened and ultimately was intubated for acute on chronic hypercapnic respiratory failure. A chest x-ray showed pulmonary edema with bilateral pleural effusions, no obvious infiltrate. He was markedly hypertensive. Patient remained on a ventilator for several days, but was successfully extubated on March 18. She diuresed well, thus far greater than 10 L. Her creatinine has remained stable at 0.99. Patient has been hypertensive and we have been up titrating her pressure medications. He did have one episode of bright red blood per her NG tube, for which GI was consulted. This did resolve spontaneously and she did not have any drop in her hemoglobin, therefore decision was made to forego EGD and management proton pump inhibitor alone. Patient otherwise continues to do well off the ventilator, she will will use BiPAP when necessary. Patient has been having issues with confusion, we have been using Haldol when necessary, in addition to Seroquel 50 mg by mouth daily at bedtime. She has been on Solu-Medrol since admission, and is now changed to prednisone 40 mg by mouth daily, and expect that she will likely have a taper over the next 7-10 days. Patient otherwise is stable for transfer to general medical bed. 03/19: Patient is anxious today, mildly confused at times. She denies any chest pain or shortness of breath. No nausea or vomiting. No fevers or chills. Other than that mentioned above, a 10 point review of systems is negative - Exam Vitals: Temp Pulse Resp BP Pulse Ox 98.2 F 81 16 189/86 98 03/19/19 07:33 03/19/19 06:00 03/19/19 06:00 03/19/19 06:00 03/19/19 06:00 Exam: General: Patient is anxious, extremely talkative, no evidence of respiratory distress Oropharynx is moist, no thrush Neck supple Lungs: Diminished breath sounds bilaterally Heart regular rate and rhythm Abdomen is obese soft nontender nondistended with normoactive bowel sounds Extremities show 1+ edema bilaterally, Cap Refill less than 2.5 second Neurological exam shows no gross focal deficits Skin is warm and dry - Assessment and Plan (1) Acute on chronic respiratory failure with hypoxia and hypercapnia Current Visit: Yes Status: Acute Assessment and Plan: Multifactorial respiratory failure due to cor pulmonale physiology, chronic obesity hypoventilation syndrome, COPD with acute exacerbation and acute on chronic diastolic CHF (2) Morbid obesity Current Visit: No Status: Acute (3) Acute on chronic diastolic (congestive) heart failure Current Visit: No Status: Acute Assessment and Plan: -Significant improved -She continues on Lasix 40 mg IV twice a day as renal function allows -Lopressor 50 mg by mouth twice a day, hydralazine 25 mg by mouth 3 times a day -Consideration for CHRISS inhibitor pending renal function studies after ongoing diuresis -low salt diet (4) Obesity hypoventilation syndrome Current Visit: Yes Status: Chronic Assessment and Plan: Patient absolutely has to wear CPAP when sleeping and woke also when she is awake We will maintain patient with head of bed at least at 30 degrees as this may help with ventilation Her abdomen is markedly obese but not distended. She has not had a bowel movement for several days and we will be more aggressive bowel regimen as well, all efforts to reduce intra-abdominal pressure and her body habitus and poor lung reserve 03/17: Patient had a good bowel movement last night. 03/19: Continue BiPAP at at bedtime, and with napping. Encourage patient just keep head of bed elevated at all times. (5) Acute exacerbation of congestive heart failure Current Visit: Yes Status: Acute Assessment and Plan: Outlined above Acute on chronic diastolic CHF (6) Acute metabolic encephalopathy Current Visit: Yes Status: Acute Assessment and Plan: Due to hypercapnia, as well as sedation, reassess once off ventilatory support 03/19: Resolving (7) Acute exacerbation of chronic obstructive airways disease Current Visit: No Status: Acute Assessment and Plan: Continue aggressive bronchodilator therapy, steroid taper, pulm toilet 03/19: Change Solu-Medrol to prednisone 40 mg by mouth daily, taper over the next 7-10 days - Time Spent with Patient Total time spent is greater than 50% in coordination of care (as documented) at patient's floor/unit and/or counseling patient: Greater than 35 minutes Internal Medicine: Result - Labs CBC & Chem 7: 03/19/19 04:50 03/19/19 04:50 Labs: Short CBC 03/18/19 03/19/19 Range/Units 06:46 04:50 WBC 9.8 12.6 H (4.3-11.1) K/mcL Hgb 10.7 L 11.3 L (11.5-15.4) g/dL Hct 41.1 42.6 (35.3-44.9) % Plt Count 195 256 (140-400) K/mcL Neutrophils # 7.1 9.4 H (1.6-8.9) K/mcL BMP 03/18/19 03/19/19 06:46 04:50 Sodium 142 143 Potassium 3.4 L 3.3 L Chloride 101 99 Carbon Dioxide 37 H 32 H BUN 35 H 30 H Creatinine 1.05 0.99 Glucose 133 H 121 H Calcium 10.3 10.4 H - ABG Interpretation ABG results: ABG ABG pH 7.42 pH Units (7.32-7.45) 03/18/19 04:45 ABG pCO2 66 mmHg (35-45) H 03/18/19 04:45 ABG pO2 57 mmHg (85-104) L 03/18/19 04:45 ABG O2 Saturation 88 % (95-98) L 03/18/19 04:45 PT/INR, D-dimer PT 11.3 Seconds (9.4-12.1) 03/16/19 16:45 Consult Discharge Plan - Plan Referrals: NONE,PCP [Primary Care Provider] - (5) Acute exacerbation of congestive heart failure Qualifiers: Heart failure type: diastolic Qualified Code(s): I50.33 - Acute on chronic diastolic (congestive) heart failure
[2019-03-19] MEDS ORDERED: *HR* LORazepam 1 MG TABLET PO PRN ×2 (08:42→12:52)
[2019-03-19] MEDS ORDERED: Ipratropium/Albuterol Neb 3 ML IH SCH (10:00)
[2019-03-19] MEDS ORDERED: Calcium Gluconate 1gm/50mL 1 GM/50 ML BAG IVPB PRN (12:52)
[2019-03-19] MEDS ORDERED: D5% in Water 1,000 ML IVC PRN (12:52)
[2019-03-19] MEDS ORDERED: Naloxone 0.4 MG/ML INJ IVP PRN (12:52)
[2019-03-19] MEDS ORDERED: Dextrose Gel 15 GM/37.5 ML TUBE PO PRN ×2 (12:52)
[2019-03-19] MEDS ORDERED: *HR* Dextrose 50 % in Water (Syg) 50 ML SYRINGE IVP PRN (12:52)
[2019-03-19] MEDS ORDERED: Insulin LISPRO 300 UNITS/3 ML VIAL SQ SCH (16:00)
[2019-03-19] MEDS: Ipratropium/Albuterol Neb 3 ML IH SCH ×2 (16:18→22:40)
[2019-03-19] MEDS: hydrALAZINE 25 MG TABLET PO SCH (17:18)
[2019-03-20] MEDS: hydrALAZINE 25 MG TABLET PO SCH ×2 (00:20→10:09)
[2019-03-20] MEDS: Ipratropium/Albuterol Neb 3 ML IH SCH ×4 (03:44→22:19)
[2019-03-20] MEDS: *HR* Heparin 5,000 UNIT/ML VIAL SQ SCH ×3 (05:49→22:03)
[2019-03-20 08:46] LABS: Hemoglobin 10.9 g/dL (11.5-15.4); Red Cell Distribution Width 22.5 % (11.5-14.5)
[2019-03-20 08:47] LABS: Hematocrit 40.9 % (35.3-44.9); Mean Corpuscular HGB Conc 26.7 g/dL (31.6-35.5); Mean Corpuscular Hemoglobin 19.1 pg (28.0-33.3); Mean Corpuscular Volume 71.8 fL (83.0-100.0); Mean Platelet Volume 10.1 fL (9.4-12.4); Platelet Count 240 K/mcL (140-400); White Blood Count 11.1 K/mcL (4.3-11.1)
[2019-03-20] MEDS ORDERED: predniSONE 20 MG TABLET PO SCH ×2 (09:00)
[2019-03-20 09:06] LABS: BUN/Creatinine Ratio 24 (6-26); Blood Urea Nitrogen 25 mg/dL (6-20); Calcium 10.4 mg/dL (8.6-10.3); Carbon Dioxide 35 mEq/L (23-29); Chloride 104 mEq/L (98-107); Glucose 139 mg/dL (70-105); Osmolality,Calculated 295 (280-300); Potassium 3.3 mEq/L (3.5-5.1); Sodium 139 mEq/L (136-145); eGFR For African Americans > 60 (> 60); eGFR For Non-African Americans 57 (> 60)
[2019-03-20] MEDS: Aspirin 81 MG TAB.CHEW PO SCH (10:09)
[2019-03-20] MEDS: amLODIPine 5 MG TABLET PO SCH (10:09)
[2019-03-20] MEDS: FLUoxetine 20 MG CAPSULE PO SCH (10:10)
[2019-03-20] MEDS: Insulin LISPRO 300 UNITS/3 ML VIAL SQ SCH ×3 (10:10→17:55)
[2019-03-20] MEDS: Docusate Oral Soln 100 MG/10 ML UDC PO SCH ×2 (10:11→22:17)
[2019-03-20] MEDS: Furosemide 40 MG/4 ML VIAL IVP SCH ×2 (10:11→17:55)
[2019-03-20] MEDS: Levothyroxine Sodium 100 MCG VIAL IVP SCH (10:11)
[2019-03-20] MEDS: Bisacodyl 10 MG RECTAL SUPPOSITORY RC SCH (10:11)
[2019-03-20] MEDS: Cyanocobalamin (B-12) 1,000 MCG TABLET PO SCH (10:12)
--- NOTE | 2019-03-20 13:26 | Internal Med Progress Note ---
Hospitalist Progress Note - Encounter Date of Encounter: 03/20/19 Time of Encounter: 13:20 - Subjective Interval History: Patient very talkative this morning. Is angry that the ETT stayed in so long. Has been up and out of bed and walking to the bathroom. Is concerned that she get weaker if she stays in bed. - Exam Vitals: Temp Pulse Resp BP Pulse Ox 98.5 F 59 18 140/83 94 03/20/19 12:25 03/20/19 12:03/20/19 12:03/20/19 12:03/20/19 12:25 Exam: General: Ill-appearing and in no acute distress. Very obese. HEENT: No erythema of posterior pharynx. No exudates. Lymphatics: No mandibular or cervical lymphadenopathy Cardiovascular: RRR. No murmurs. No chest wall tenderness. Lungs: Clear to auscelltation bilaterally. Regular chest rise. Abdomen: Non-tender. No rebound or gaurding. Nl bowel sounds. Extremities: No edema. 2+ pulses radial and pedal pulses Skin: No rahses, abrasions, or contusions. Nl cap refill. Psych: Nl attention. A&Ox3 Neuro: bobtail driver II-XII intact. 5/5 strength. Sensation to light touch and pinprick intact. - Assessment and Plan (1) Acute and chronic respiratory failure with hypercapnia Current Visit: No Status: Acute (2) Acute on chronic diastolic (congestive) heart failure Current Visit: No Status: Acute (3) Acute exacerbation of chronic obstructive airways disease Current Visit: No Status: Acute (4) Acute metabolic encephalopathy Current Visit: Yes Status: Acute (5) HTN (hypertension) Current Visit: Yes Status: Acute (6) Obesity hypoventilation syndrome Current Visit: Yes Status: Chronic (7) LEXIE (obstructive sleep apnea) Current Visit: Yes Status: Chronic (8) Hypothyroidism Current Visit: Yes Status: Chronic (9) Anemia Current Visit: No Status: Chronic (10) GIB (gastrointestinal bleeding) Current Visit: Yes Status: Resolved (11) Diabetes Current Visit: No Status: Acute DVT Prophylaxis: Subcutaneous heparin held due to concern for GI bleed, SCDs added - Summary of Assessment and Plan Summary of Assessment and Plan: Acute on chronic hypoxic hypercarbic respiratory failure Acute on chronic diastolic failure Acute on chronic COPD Morbid obesity with OHS and LEXIE Patient with history of morbid obesity with OHS and LEXIE, HFpEF, and COPD presented with acute on chronic hypoxic hypercarbic respiratory failure resulting in intubation for airway support in the setting of gross volume overload on presentation. -Etiology thought to be HFpEF exacerbation possibly with COPD exacerbation as well on admission in the setting of poor baseline respiratory function -Has been aggressively diuresis for multiple days and extubated 03/18 -Repeat chest x-ray with resolution of right pleural effusion and markedly decreased pulmonary edema -Oxygen saturations have markedly improved and patient is on her home oxygen settings at 2 L PLAN: - Plan for heart failure: Continue Lasix 40 mg IV twice a day Strict intake and output Need to optimize blood pressure control Will need higher dose of Lasix for discharge - Plan for COPD: Discontinue prednisone Continue with scheduled nebs - Plan for OSH and LEXIE: Patient motivated to lose weight Consider referral to bariatric clinic after hospital stay BiPAP at night Essential hypertension Many blood pressure agent started during ICU stay. Will DC these and add back patient's home antihypertensives and assess control thereafter. - DC hydralazine - Continue amlodipine - Restart hydrochlorothiazide and lisinopril NIDDM Type II - LDSS Hypothyroidism TSH significantly elevated this hospitalization. Is on levothyroxine outpatient. Difficult to interpret in setting of acute critical illness. - Continue home dose of levothyroxine - Follow up TSH in 2 weeks after hospital discharge and can go up on le vothyroxine at bedtime is still elevated Internal Medicine: Result - Labs CBC & Chem 7: 03/20/19 08:08 03/20/19 08:08 Labs: Short CBC 03/20/19 Range/Units 08:08 WBC 11.1 (4.3-11.1) K/mcL Hgb 10.9 L (11.5-15.4) g/dL Hct 40.9 (35.3-44.9) % Plt Count 240 (140-400) K/mcL BMP 03/20/19 08:08 Sodium 139 Potassium 3.3 L Chloride 104 Carbon Dioxide 35 H BUN 25 H Creatinine 1.03 Glucose 139 H Calcium 10.4 H - ABG Interpretation ABG results: ABG ABG pH 7.42 pH Units (7.32-7.45) 03/18/19 04:45 ABG pCO2 66 mmHg (35-45) H 03/18/19 04:45 ABG pO2 57 mmHg (85-104) L 03/18/19 04:45 ABG O2 Saturation 88 % (95-98) L 03/18/19 04:45 PT/INR, D-dimer PT 11.3 Seconds (9.4-12.1) 03/16/19 16:45 - VTE Documentation of Mechanical Device: Intermittent pneumatic compression device Consult Discharge Plan - Plan Referrals: NONE,PCP [Primary Care Provider] - (5) HTN (hypertension) Qualifiers: Hypertension type: essential hypertension Qualified Code(s): I10 - Essential (primary) hypertension (8) Hypothyroidism Qualifiers: Hypothyroidism type: unspecified Qualified Code(s): E03.9 - Hypothyroidism, unspecified (9) Anemia Qualifiers: Anemia type: iron deficiency Qualified Code(s): D50.9 - Iron deficiency anemia, unspecified (10) GIB (gastrointestinal bleeding) Qualifiers: GI bleed type/associated pathology: gastritis Gastritis type: unspecified gastritis Qualified Code(s): K29.71 - Gastritis, unspecified, with bleeding (11) Diabetes Qualifiers: Diabetes mellitus type: type 2 Diabetes mellitus assisted insulin use: without assisted use Qualified Code(s): E11.9 - Type 2 diabetes mellitus without complications
[2019-03-21] MEDS: Insulin LISPRO 300 UNITS/3 ML VIAL SQ SCH ×3 (04:02→11:38)
[2019-03-21] MEDS: Ipratropium/Albuterol Neb 3 ML IH SCH ×3 (04:20→15:26)
[2019-03-21 04:36] LABS: Hematocrit 38.3 % (35.3-44.9); Mean Corpuscular HGB Conc 26.1 g/dL (31.6-35.5); Mean Corpuscular Volume 72.7 fL (83.0-100.0); Mean Platelet Volume 10.4 fL (9.4-12.4); Platelet Count 219 K/mcL (140-400); Red Blood Count 5.27 M/mcL (3.82-4.97); Red Cell Distribution Width 22.5 % (11.5-14.5); White Blood Count 12.1 K/mcL (4.3-11.1)
[2019-03-21 04:51] LABS: BUN/Creatinine Ratio 24 (6-26); Blood Urea Nitrogen 27 mg/dL (6-20); Calcium 10.3 mg/dL (8.6-10.3); Carbon Dioxide 34 mEq/L (23-29); Chloride 105 mEq/L (98-107); Glucose 154 mg/dL (70-105); Magnesium 2.1 mg/dL (1.6-2.6); Osmolality,Calculated 294 (280-300); Potassium 3.9 mEq/L (3.5-5.1); Sodium 138 mEq/L (136-145); eGFR For African Americans > 60 (> 60); eGFR For Non-African Americans 51 (> 60)
[2019-03-21] MEDS ORDERED: Lisinopril 20 MG TABLET PO SCH (09:00)
[2019-03-21] MEDS ORDERED: hydroCHLOROthiazide 25 MG TABLET PO SCH (09:00)
[2019-03-21] MEDS: amLODIPine 5 MG TABLET PO SCH (09:09)
[2019-03-21] MEDS: Furosemide 40 MG/4 ML VIAL IVP SCH (09:09)
[2019-03-21] MEDS: *HR* Heparin 5,000 UNIT/ML VIAL SQ SCH ×2 (09:09→14:12)
[2019-03-21] MEDS: Levothyroxine Sodium 100 MCG VIAL IVP SCH (09:09)
[2019-03-21] MEDS: Cyanocobalamin (B-12) 1,000 MCG TABLET PO SCH (09:10)
[2019-03-21] MEDS: FLUoxetine 20 MG CAPSULE PO SCH (09:10)
[2019-03-21] MEDS: Aspirin 81 MG TAB.CHEW PO SCH (09:10)
[2019-03-21] MEDS: Bisacodyl 10 MG RECTAL SUPPOSITORY RC SCH (09:11)
[2019-03-21] MEDS: Docusate Oral Soln 100 MG/10 ML UDC PO SCH (09:11)
--- NOTE | 2019-03-21 15:54 | Discharge Summary ---
- NOTES TO OUTPATIENT PROVIDER Notes to Outpatient Provider: Presented with shortness of breath, diagnosed with COPD and CHF exacerbation, diuresed and treated for COPD. Increae the dose of lasix to 60 mg BID. May need readjustment as an outpatient basis. Script provided for the electrolytes Date of Encounter: 03/21/19 Time of Encounter: 08:15 - Discharge Diagnosis (1) Acute and chronic respiratory failure with hypercapnia Priority: Primary Status: Acute (2) Acute on chronic diastolic (congestive) heart failure Priority: Secondary Status: Acute (3) Acute exacerbation of chronic obstructive airways disease Priority: Secondary Status: Acute (4) Acute metabolic encephalopathy Priority: Secondary Status: Acute (5) HTN (hypertension) Priority: Secondary Status: Acute Qualifiers: Hypertension type: essential hypertension Qualified Code(s): I10 - Essential (primary) hypertension (6) Obesity hypoventilation syndrome Priority: Secondary Status: Chronic (7) LEXIE (obstructive sleep apnea) Priority: Secondary Status: Chronic (8) Hypothyroidism Priority: Secondary Status: Chronic Qualifiers: Hypothyroidism type: unspecified Qualified Code(s): E03.9 - Hypothyroidism, unspecified (9) Anemia Priority: Secondary Status: Chronic Qualifiers: Anemia type: iron deficiency Qualified Code(s): D50.9 - Iron deficiency anemia, unspecified (10) GIB (gastrointestinal bleeding) Priority: Secondary Status: Resolved Qualifiers: GI bleed type/associated pathology: gastritis Gastritis type: unspecified gastritis Qualified Code(s): K29.71 - Gastritis, unspecified, with bleeding (11) Diabetes Priority: Secondary Status: Acute Qualifiers: Diabetes mellitus type: type 2 Diabetes mellitus skilled nursing insulin use: without long goods drier use Qualified Code(s): E11.9 - Type 2 diabetes mellitus without complications Hospital course: Ms. Lozano is a 53 year old female with a past medical history significant for obstructive sleep apnea, morbid obesity, type 2 diabetes mellitus, hypertension, COPD, hyperlipidemia, thyroid disease, heart failure with a preserved ejection fraction, presented to the hospital because of the difficulty in breathing for 3-4 days. Patient was diagnosed with acute exacerbation of COPD and CHF exacerbation. She was initially intubated and sedated. There was a hard time extubating the patient. She was continued to be diuresed. She was ultimately extubated after a week. She was moved out of the ICU. She was continued on IV Lasix. Today the patient seems to be euvolemic. Patient wants to go home today and then she has enough help at home. She will be discharged on 60 mg of oral Lasix. She has completed the course of steroids in the hospital. She was evaluated by the PT/OT recommended home health PT. Ordered to be placed for the home health PT. There was a drop in hemoglobin from 10.9-10 today. It seems like patient baseline hemoglobin is around 10. Does not have any source of active bleeding. Patient is morbidly obese and is motivated to lose weight. She may benefit from outpatient bariatric surgery referral. Patient is being discharged in stable condition. - Time Spent with Patient Total time spent providing and/or coordinating discharge services: 35 minutes - Discharge Medications Prescriptions: New Potassium Chloride 20 meq PO DAILY 10 Days #10 tab.er.prt Continued FLUoxetine HCl [Prozac] 40 mg PO DAILY #0 Omeprazole [PriLOSEC] 20 mg PO DAILY #0 Aspirin 81 mg PO DAILY #30 tab.chew Umeclidinium [place] [Incruse Ellipta] 62.5 mcg IH DAILY Albuterol Sulfate [Ventolin Hfa] 2 puff IH Q6HR PRN PRN Reason: Shortness Of Breath Glimepiride [Amaryl] 4 mg PO BIDWM Atorvastatin [Lipitor] 40 mg PO HS Budesonide/Formoterol 160/4.5 [Symbicort 160/4.5] 2 puff IH BIDR ALPRAZolam [Xanax 0.25 MG Tablet] 0.25 mg PO BID PRN PRN Reason: Anxiety Albuterol Neb [Proventil Neb] 2.5 mg IH Q6H PRN inhsol PRN Reason: Shortness Of Breath Metoprolol [Lopressor] 50 mg PO BID Lisinopril [Zestril] 40 mg PO DAILY amLODIPine [Norvasc] 5 mg PO DAILY Ferrous Sulfate [Iron] 325 mg PO DAILY hydroCHLOROthiazide [Hydrochlorothiazide] 25 mg PO DAILY Levothyroxine [Synthroid] 250 mcg PO 0630 Cyanocobalamin (B-12) [Vitamin B12] 1,000 mcg PO DAILY Guaifenesin [Mucinex] 600 mg PO Q12H PRN PRN Reason: Congestion Changed Furosemide [Lasix] 60 mg PO BID #0 Home Medications: FLUoxetine HCl [Prozac] 40 mg PO DAILY #0 02/11/15 [History] Omeprazole [PriLOSEC] 20 mg PO DAILY #0 02/11/15 [History] Aspirin 81 mg PO DAILY #30 tab.chew 02/13/15 [Rx] Albuterol Sulfate [Ventolin Hfa] 2 puff IH Q6HR PRN 01/02/16 [History] Umeclidinium [place] [Incruse Ellipta] 62.5 mcg IH DAILY 01/02/16 [History] Glimepiride [Amaryl] 4 mg PO BIDWM 04/09/16 [History] Atorvastatin [Lipitor] 40 mg PO HS 06/25/16 [History] Budesonide/Formoterol 160/4.5 [Symbicort 160/4.5] 2 puff IH BIDR 08/19/16 [History] ALPRAZolam [Xanax 0.25 MG Tablet] 0.25 mg PO BID PRN 08/11/17 [History] Albuterol Neb [Proventil Neb] 2.5 mg IH Q6H PRN inhsol 08/15/17 [Rx] Lisinopril [Zestril] 40 mg PO DAILY 02/04/18 [History] Metoprolol [Lopressor] 50 mg PO BID 02/04/18 [History] amLODIPine [Norvasc] 5 mg PO DAILY 08/24/18 [History] Cyanocobalamin (B-12) [Vitamin B12] 1,000 mcg PO DAILY 03/13/19 [History] Ferrous Sulfate [Iron] 325 mg PO DAILY 03/13/19 [History] Guaifenesin [Mucinex] 600 mg PO Q12H PRN 03/13/19 [History] Levothyroxine [Synthroid] 250 mcg PO 0630 03/13/19 [History] hydroCHLOROthiazide [Hydrochlorothiazide] 25 mg PO DAILY 03/13/19 [History] Furosemide [Lasix] 60 mg PO BID #0 03/21/19 [Rx] Potassium Chloride 20 meq PO DAILY 10 Days #10 tab.er.prt 03/21/19 [Rx] Allergies/Adverse Reactions: Allergy/AdvReac Type Severity Reaction Status Date / Time No Known Allergies Allergy Verified 03/13/19 11:38 Date of admission: 03/12/19 11:10 Primary care physician: PCP NONE Consults: 03/16/19 11:33 Consult to Nutrition [CONS] Routine Comment: Consulting Provider: NUTRITION Reason for Dietary Consult: Tube Feed Start & Manage 03/16/19 16:00 Consult to Gastroenterology [CONS] Routine Consulting Provider: Gastroenterology Glendy Reason for Consult: bright red blood from OG. concern GIB/ ulcer Call Completed: Yes 03/20/19 14:22 Consult to Occupational Therapy [CONS] Routine Comment: Evaluate, develop and implement POC Reason for Consult: deconditioning Does patient have active BEDREST order?: No Is patient medically & hemodynamically stable?: No Patient assessed for mobility or mobilized this visit?: No Consult to Physical Therapy [CONS] Routine Comment: Evaluate, develop and implement POC Reason for Consult: Deconditioning Does patient have active BEDREST order?: No Is patient medically & hemodynamically stable?: Yes Patient assessed for mobility or mobilized this visit?: No - Constitutional Vitals: Temp Pulse Resp BP Pulse Ox 97.9 F 58 18 150/61 98 03/21/19 11:05 03/21/19 11:05 03/21/19 15:27 03/21/19 11:05 03/21/19 15:27 Exam: General: Ill-appearing and in no acute distress. Very obese. HEENT: No erythema of posterior pharynx. No exudates. Lymphatics: No mandibular or cervical lymphadenopathy Cardiovascular: RRR. No murmurs. No chest wall tenderness. Lungs: Clear to auscelltation bilaterally. Regular chest rise. Abdomen: Non-tender. No rebound or gaurding. Nl bowel sounds. Extremities: No edema. 2+ pulses radial and pedal pulses Skin: No rahses, abrasions, or contusions. Nl cap refill. Psych: Nl attention. A&Ox3 Neuro: health services rn II-XII intact. 5/5 strength. Sensation to light touch and pinprick intact. - Patient Status Disposition: Home Health Service Condition: Fair - Discharge Instructions Follow Up With: NONE,PCP [Primary Care Provider] - Forms: ED Satisfaction Letter - Diet and Activity Activity: increase activity as tolerated Diet: advance to your usual diet, diabetic diet, low fat, low cholesterol - VTE Documentation of Mechanical Device: Intermittent pneumatic compression device
[2019-03-21 16:08] VITALS: BP 128/71
--- NOTE | 2019-03-21 16:11 | Physician Discharge Referral ---
Home Health/Hosp Referral Info Transfer to: Home Health Provider in Charge Post Discharge: PCP - Diagnosis (1) Acute and chronic respiratory failure with hypercapnia Priority: Primary Status: Acute (2) Acute on chronic diastolic (congestive) heart failure Priority: Secondary Status: Acute (3) Acute exacerbation of chronic obstructive airways disease Priority: Secondary Status: Acute (4) Acute metabolic encephalopathy Priority: Secondary Status: Acute (5) HTN (hypertension) Priority: Secondary Status: Acute (6) Obesity hypoventilation syndrome Priority: Secondary Status: Chronic (7) LEXIE (obstructive sleep apnea) Priority: Secondary Status: Chronic (8) Hypothyroidism Priority: Secondary Status: Chronic (9) Anemia Priority: Secondary Status: Chronic (10) GIB (gastrointestinal bleeding) Priority: Secondary Status: Resolved (11) Diabetes Priority: Secondary Status: Acute - Respiratory Orders Smoking Cessation: Smoking cessation has been advised. For more information, call the [place] Tobacco Quit Line at 3-233-TEUX-NOW. - Services Needed Following services are medically necessary services: Nursing, Physical Therapy, Occupational Therapy - Transfer Medications Prescriptions: Potassium Chloride 20 meq PO DAILY 10 Days #10 tab.er.prt Transmission Status: Pending to [facility] Home Medications: FLUoxetine HCl [Prozac] 40 mg PO DAILY #0 02/11/15 [History] Omeprazole [PriLOSEC] 20 mg PO DAILY #0 02/11/15 [History] Aspirin 81 mg PO DAILY #30 tab.chew 02/13/15 [Rx] Albuterol Sulfate [Ventolin Hfa] 2 puff IH Q6HR PRN 01/02/16 [History] Umeclidinium [place] [Incruse Ellipta] 62.5 mcg IH DAILY 01/02/16 [History] Glimepiride [Amaryl] 4 mg PO BIDWM 04/09/16 [History] Atorvastatin [Lipitor] 40 mg PO HS 06/25/16 [History] Budesonide/Formoterol 160/4.5 [Symbicort 160/4.5] 2 puff IH BIDR 08/19/16 [History] ALPRAZolam [Xanax 0.25 MG Tablet] 0.25 mg PO BID PRN 08/11/17 [History] Albuterol Neb [Proventil Neb] 2.5 mg IH Q6H PRN inhsol 02/24/18 [Rx] Lisinopril [Zestril] 40 mg PO DAILY 02/04/18 [History] Metoprolol [Lopressor] 50 mg PO BID 02/04/18 [History] amLODIPine [Norvasc] 5 mg PO DAILY 08/24/18 [History] Cyanocobalamin (B-12) [Vitamin B12] 1,000 mcg PO DAILY 03/13/19 [History] Ferrous Sulfate [Iron] 325 mg PO DAILY 03/13/19 [History] Guaifenesin [Mucinex] 600 mg PO Q12H PRN 03/13/19 [History] Levothyroxine [Synthroid] 250 mcg PO 0630 03/13/19 [History] hydroCHLOROthiazide [Hydrochlorothiazide] 25 mg PO DAILY 03/13/19 [History] Furosemide [Lasix] 60 mg PO BID #0 03/21/19 [Rx] Potassium Chloride 20 meq PO DAILY 10 Days #10 tab.er.prt 03/21/19 [Rx] Allergies/Adverse Reactions: Allergy/AdvReac Type Severity Reaction Status Date / Time No Known Allergies Allergy Verified 03/13/19 11:38 Certification: Further, I certify that my clinical findings support that this patient is homebound (i.e. absences from home require considerable and taxing effort and are for medical reasons or yarsani services or infrequently or short duration when for other reasons) because: Homebound Reason: Patient requires assistance of a person or device to safely leave home Attestation: My signature below is to certify that this patient is under my care and that I, or nurse practitioner, or a physician's assistant general manager working with me, has a [id number] encounter with this patient.
== END 2019-03-21 16:49 | disposition home health service (06) | DRG 207 ==
LOC: EMEROOARM 04:28 → ICNU 11:10 → SUATTDRO 11:10 → ICNU 11:46 → 2ANU 03-19 14:33
PROVIDERS: ADMIT Internal Medicine Hospice and Palliative Medicine; ATTEND Internal Medicine